=== PATIENT | female | born 1955 | race Caucasian/White ===

== ENCOUNTER 2016-07-02 13:07 | Emergency (ER) | payer OTHER ==
[2016-07-02] MEDS ORDERED: DELTASONE 20 MG PO ONE (13:45)
[2016-07-02] MEDS ORDERED: DELTASONE 20 MG ONE (13:49)
--- NOTE | 2016-07-02 13:51 | ERPHSYRPT ---
- History of Present Illness Time Seen by Provider: 07/02/16 13:35 Source: patient Exam Limitations: clinical condition Patient Subjective Stated Complaint: PT REPORTS BLISTERED AREA ON LEFT FORARM BEGINNING OVER THE WEEKEND-REPORTS PAIN ET ITCHING TO SITE-DENIES BITE Triage Nursing Assessment: PT PINK WARM ET DRY-RESP EASY ET NONLABORED- BLISTERED AREA NOTED WITH NO DRAIANGE Physician History: PATIENT HAS ITCHING OVER LEFT ELBOW FOR 2 WEEKS, ONSET OF RASH X 3 DAYS ASSOCIATED WITH ITCHING. DENIES FEVER. Timing/Duration: week(s) Quality: itchy Severity: moderate Location: extremities Possible Causes: no cause identified Modifying Factors: Improves With: scratching Associated Symptoms: other (RASH) Allergies/Adverse Reactions: No Known Drug Allergies Allergy (Verified 07/02/16 13:23) Home Medications: Folic Acid 1 mg [Folate 1 mg] 1 mg PO DAILY 01/06/13 [History] Potassium Chloride 20 Meq [Klor-Con 20 MEQ] 20 meq PO BID 01/06/13 [History] Bisoprolol Fumarate/Hctz [Bisoprolol-Hctz 10-6.25 mg Tab] 1 each PO DAILY [History] Levothyroxine Sodium 50 Mcg [Synthroid 50 Mcg] 50 mcg PO DAILY 01/19/15 [ History] PANTOPRAZOLE 40 mg Tablet [Protonix 40MG Tablet] 40 mg PO DAILY 01/19/15 [ History] Hx Tetanus, Diphtheria Vaccination/Date Given: Yes Hx Influenza Vaccination/Date Given: Yes Hx Pneumococcal Vaccination/Date Given: Yes Immunizations Up to Date: Yes - Review of Systems Constitutional: No Fever, No Chills Eyes: No Symptoms Ears, Nose, & Throat: No Symptoms Respiratory: No Cough, No Dyspnea Cardiac: No Chest Pain, No Edema, No Syncope Abdominal/Gastrointestinal: No Abdominal Pain, No Nausea, No Vomiting, No Diarrhea Genitourinary Symptoms: No Dysuria Musculoskeletal: No Back Pain, No Neck Pain Skin: Pruritis, Skin Lesions, No Rash Neurological: No Dizziness, No Focal Weakness, No Sensory Changes Psychological: No Symptoms Endocrine: No Symptoms All Other Systems: Reviewed and Negative - Past Medical History Pertinent Past Medical History: Yes Neurological History: No Pertinent History ENT History: No Pertinent History Cardiac History: Arrhythmia, Hypertension Respiratory History: No Pertinent History Endocrine Medical History: No Pertinent History Musculoskeletal History: Arthritis, Rheumatoid Arthritis GI Medical History: Other History: Other Psycho-Social History: Depression Female Reproductive Disorders: No Pertinent History Other Medical History: O.A. IN BOTH HANDS AND MOSTLY HER WHOLE BODY. - Past Surgical History Past Surgical History: Yes Neuro Surgical History: No Pertinent History Cardiac: No Pertinent History Respiratory: No Pertinent History Gastrointestinal: Cholecystectomy, Hernia Repair Genitourinary: Other Musculoskeletal: Other Female Surgical History: Lumpectomy, Tubal Ligation Other Surgical History: Kidney Stones. knee scope last saturday - Social History Smoking Status: Never smoker Exposure to second hand smoke: Yes Drug Use: none Patient Lives Alone: No - Female History Hx Now: No - Nursing Vital Signs Nursing Vital Signs: Initial Vital Signs Temperature 97.4 F Temperature Source Oral Pulse Rate 60 Respiratory Rate 22 Blood Pressure 137/75 Pain Intensity 10 - Physical Exam General Appearance: no apparent distress, alert Ears, Nose, Throat Exam: moist mucous membranes Respiratory Exam: No respiratory distress Gastrointestinal/Abdomen Exam: No tenderness Back Exam: No CVA tenderness, No vertebral tenderness Neurologic Exam: No motor deficits Skin Exam: rash, other (SCABBED VESICULAR LESIONS SURROUNDING ERYTHEMA AND WARMTH) SpO2 Interpretation: normal SpO2: 95 Oxygen Delivery: Room Air Ordered Tests: Medication Summary Generic Name Dose Route Start Last Admin Trade Name Freq PRN Reason Stop Dose Admin Prednisone 40 mg 07/02/16 13:45 Deltasone 20 Mg PO 07/02/16 13:46 STAT ONE - Progress Progress Note: 07/02/16 13:49 PATIENT GIVEN PREDNISONE 40MG ORALLY Counseled pt/family regarding: diagnosis, need for follow-up - Departure Time of Disposition: 14:00 Departure Disposition: Home Clinical Impression: CONTACT DERMATITIS/LOCALIZED CELLULITIS Condition: Stable Critical Care Time: No Additional Instructions: PREDNISONE 20MG, 2 TABLETS DAILY FOR 4 DAYS. ANTIBIOTIC AUGMENTIN 875MG TWICE DAILY FOR 10 DAYS. TAKE OVER THE COUNTER BENADRYL 50MG EVERY 4-6 HOURS FOR ITCHING NEEDED. TEMOVATE OINTMENT 0.05% APPLY OVER RASH 2-3 TIMES DAILY FOR 1 WEEK. Prescriptions: Clobetasol Propionate Oint [Temovate 0.05% OINTMENT] 15 gm TP Q8HPRN PRN #2 tube PRN Reason: Itching Amox Tr/Potass Clav. 875 mg [Augmentin 875-125 Tablet] 875 mg PO BID #20 tablet Prednisone 20 mg [Deltasone 20 mg] 2 tablet PO DAILY #8 tablet
[2016-07-02 14:02] VITALS: BP 129/75; PULSE 58; O2SAT 96
== END 2016-07-02 14:02 | disposition home or self-care (01) ==
LOC: ED 13:07
DX: L25.9 Unspecified contact dermatitis, unspecified cause (principal); L03.114 Cellulitis of left upper limb
CPT/HCPCS: 99282; A9270

== ENCOUNTER 2016-10-24 09:04 | Emergency (ER) | payer OTHER ==
[2016-10-24] MEDS ORDERED: BABY ASPIRIN 81 MG CHEW PO ONE (09:27)
[2016-10-24] MEDS ORDERED: Nitrostat 0.4 MG (ED) SL ONE ×2 (09:27→09:44)
[2016-10-24] MEDS ORDERED: BABY ASPIRIN 81 MG CHEW ONE (09:43)
--- NOTE | 2016-10-24 09:44 | ERPHSYRPT ---
- History of Present Illness Time Seen by Provider: 10/24/16 09:20 Historian: patient Exam Limitations: clinical condition Patient Subjective Stated Complaint: ONSET OF LEFT CHEST PAIN FOR SEVERAL DAYS. GOT WORSE THIS AM AFTER GOING TO WORK. Triage Nursing Assessment: AMBULATED TO ROOM PER SELF. PATIENT CRYING AND HOLDING LEFT CHEST. IS KEEPING EYES CLOSED DURING TRIAGE. SKIN W/D, COLOR NORMAL. BREATH SOUNDS CLEAR. HEART TONES SLOW AND REGULAR. TENDER TO TOUCH ON LEFT CHEST. Physician History: PATIENT WITH A HISTORY OF CHRONIC BACK PAIN, SCIATICA, COMPLAINS OF LEFT SIDED SEVERE CHEST PAIN OVER THE PAST 3-4 DAYS, SHARP IN CHARACTER, ONSET WITH INSPIRATION, MOTION OR TORSO. DENIES COUGH, DYSPNEA PALPITATIONS, RATES PAIN SCALE 8/10., Timing/Duration: day(s) Activities at Onset: activity Quality: sharpness, stabbing Location: other (LEFT SUBSTERNAL) Chest Pain Radiation: arm Severity of Pain-Max: severe Severity of Pain-Current: severe Modifying Factors: Improves With: breathing, change in position Associated Symptoms: hurts to breathe Prior Chest Pain/Cardiac Workup: no prior cardiac workup Nitro Today/Relief: no nitro taken today, 0.4 mg x 2 Aspirin Treatment Today: 81 mg x 4, provided by ED Allergies/Adverse Reactions: No Known Drug Allergies Allergy (Verified 10/24/16 09:56) Home Medications: Folic Acid 1 mg [Folate 1 mg] 1 mg PO DAILY 01/06/13 [History] Potassium Chloride 20 Meq [Klor-Con 20 MEQ] 20 meq PO BID 01/06/13 [History] Bisoprolol Fumarate/Hctz [Bisoprolol-Hctz 10-6.25 mg Tab] 1 each PO DAILY [History] Levothyroxine Sodium 50 Mcg [Synthroid 50 Mcg] 50 mcg PO DAILY 01/19/15 [ History] Aspirin [Kathleen Aspirin] 81 mg PO DAILY 10/24/16 [History] Dicyclomine HCl [Bentyl] 10 mg PO TID 10/24/16 [History] Ergocalciferol (Vitamin D2) [Vitamin D] 50,000 unit PO WEEKLY 10/24/16 [History] Escitalopram Oxalate 10 mg [Lexapro 10 MG] 10 mg PO DAILY 10/24/16 [History] Hydrocodone Bit/Acetaminophen [[place] 7.5-325 Tablet] 1 each PO TID 10/24/16 [ History] Hydroxychloroquine Sulfate [Plaquenil] 200 mg PO BID 10/24/16 [History] Meloxicam [Mobic] 15 mg PO DAILY 10/24/16 [History] Omeprazole [Prilosec] 40 mg PO UD 10/24/16 [History] Prednisone 5 mg PO DAILY 10/24/16 [History] Trazodone HCl 50 mg [Desyrel 50 mg] 75 mg PO HS 10/24/16 [History] Hx Tetanus, Diphtheria Vaccination/Date Given: Yes (4 YRS AGO) Hx Influenza Vaccination/Date Given: Yes Hx Pneumococcal Vaccination/Date Given: Yes - Review of Systems Constitutional: No Fever, No Chills Eyes: No Symptoms Ears, Nose, & Throat: No Symptoms Respiratory: No Cough, No Dyspnea Cardiac: Chest Pain, No Edema, No Syncope Abdominal/Gastrointestinal: No Symptoms, No Abdominal Pain, No Nausea, No Vomiting, No Diarrhea Genitourinary Symptoms: No Symptoms, No Dysuria Musculoskeletal: No Symptoms, No Back Pain, No Neck Pain Skin: No Rash Neurological: No Dizziness, No Focal Weakness, No Sensory Changes Psychological: No Symptoms Endocrine: No Symptoms All Other Systems: Reviewed and Negative - Past Medical History Pertinent Past Medical History: Yes Neurological History: No Pertinent History ENT History: No Pertinent History Cardiac History: Arrhythmia, Hypertension Respiratory History: No Pertinent History Endocrine Medical History: No Pertinent History Musculoskeletal History: Arthritis, Rheumatoid Arthritis GI Medical History: Other History: Other Psycho-Social History: Depression Female Reproductive Disorders: No Pertinent History Other Medical History: O.A. IN BOTH HANDS AND MOSTLY HER WHOLE BODY. - Past Surgical History Past Surgical History: Yes Neuro Surgical History: No Pertinent History Cardiac: No Pertinent History Respiratory: No Pertinent History Gastrointestinal: Cholecystectomy, Hernia Repair Genitourinary: Other Musculoskeletal: Other Female Surgical History: Lumpectomy, Tubal Ligation Other Surgical History: Kidney Stones. knee scope last saturday - Social History Smoking Status: Never smoker Exposure to second hand smoke: Yes Drug Use: none Patient Lives Alone: No - Female History Hx Now: No - Nursing Vital Signs Temperature: 97.3 F Temperature Source: Oral Pulse Rate: 47 Respiratory Rate: 20 Pain Intensity: 10 - Physical Exam SpO2: 96 Oxygen Delivery: Room Air - CT Exams Chest CT Interpretation: Discussed w/radiologist (THERE IS AN OCCLUDING EMBOLUS IN THE LINGULAR EMBOLUS) Ordered Tests: Active Orders 24 hr Category Date Time Status [employer] STAT Care 10/24/16 09:35 Active EKG-ER Only STAT Care 10/24/16 10:02 Active IV Insertion STAT Care 10/24/16 09:34 Active Oxygen-ED Only NASAL CANNULA 2 lpm Care 10/24/16 09:27 Active CHEST 1 VIEW (PORTABLE) Stat Exams 10/24/16 09:27 Completed CHEST WITH CONTRAST [CT] Stat Exams 10/24/16 10:33 Completed CBC W DIFF Stat Lab 10/24/16 09:36 Results CMP Stat Lab 10/24/16 09:36 Completed D-DIMER QUANTITATION Stat Lab 10/24/16 09:36 Completed PROTIME WITH INR Stat Lab 10/24/16 09:36 Completed Pathologist Review Stat Lab 10/24/16 09:36 Results TROPONIN Q3H Lab 10/24/16 09:36 Completed TROPONIN Q3H Lab 10/24/16 12:43 Completed TROPONIN Q3H Lab 10/24/16 15:30 Ordered TROPONIN Q3H Lab 10/24/16 18:30 Ordered Medication Summary Generic Name Dose Route Start Last Admin Trade Name Freq PRN Reason Stop Dose Admin Enoxaparin Sodium 90 mg 10/24/16 13:00 10/24/16 13:12 Enoxaparin Sodium SQ 11/23/16 12:59 90 mg Q12H TAMANNA Administration Discontinued Medications Generic Name Dose Route Start Last Admin Trade Name Freq PRN Reason Stop Dose Admin Aspirin 324 mg 10/24/16 09:27 10/24/16 09:33 Baby Aspirin 81 Mg Chew PO 10/24/16 09:28 324 mg STAT ONE Administration Aspirin Confirm 10/24/16 09:43 Baby Aspirin 81 Mg Chew Administered 10/24/16 09:44 Dose 324 mg .ROUTE .STK-MED ONE Diphenhydramine HCl 25 mg 10/24/16 11:18 10/24/16 11:19 Benadryl 50 Mg/Ml IV 10/24/16 11:19 25 mg STAT ONE Administration Diphenhydramine HCl Confirm 10/24/16 11:16 Benadryl 50 Mg/Ml Administered 10/24/16 11:17 Dose 50 mg .ROUTE .STK-MED ONE Enoxaparin Sodium Confirm 10/24/16 13:08 Enoxaparin Sodium Administered 10/24/16 13:09 Dose 120 mg SQ .STK-MED ONE Sodium Chloride 1,000 mls @ 999 mls/hr 10/24/16 09:46 10/24/16 09:52 Sodium Chloride 0.9% 1000 Ml IV 10/24/16 10:46 999 mls/hr .Q1H1M STA Administration Sodium Chloride Confirm 10/24/16 09:47 Sodium Chloride 0.9% 1000 Ml Administered 10/24/16 09:48 Dose 1,000 mls @ ud .ROUTE .STK-MED ONE Sodium Chloride Confirm 10/24/16 15:31 Sodium Chloride 0.9% 1000 Ml Administered 10/24/16 15:32 Dose 1,000 mls @ ud .ROUTE .STK-MED ONE Ketorolac Tromethamine 30 mg 10/24/16 09:45 10/24/16 09:52 Toradol 30 Mg Injection IV 10/24/16 09:46 30 mg STAT ONE Administration Ketorolac Tromethamine Confirm 10/24/16 09:47 Toradol 30 Mg Injection Administered 10/24/16 09:48 Dose 30 mg .ROUTE .STK-MED ONE Morphine Sulfate 4 mg 10/24/16 10:12 10/24/16 10:29 Morphine Sulfate 4 Mg Inj IV 10/24/16 10:13 4 mg STAT ONE Administration Morphine Sulfate Confirm 10/24/16 10:27 Morphine Sulfate 4 Mg Inj Administered 10/24/16 10:28 Dose 4 mg .ROUTE .STK-MED ONE Morphine Sulfate 4 mg 10/24/16 15:29 10/24/16 15:35 Morphine Sulfate 4 Mg Inj IV 10/24/16 15:30 4 mg STAT ONE Administration Morphine Sulfate Confirm 10/24/16 15:31 Morphine Sulfate 4 Mg Inj Administered 10/24/16 15:32 Dose 4 mg .ROUTE .STK-MED ONE Nitroglycerin 0.4 mg 10/24/16 09:27 10/24/16 09:33 Nitrostat 0.4 Mg (Ed) SL 10/24/16 09:28 0.4 mg STAT ONE Administration Nitroglycerin Confirm 10/24/16 09:44 Nitrostat 0.4 Mg (Ed) Administered 10/24/16 09:45 Dose 0.4 mg SL .STK-MED ONE Ondansetron HCl 4 mg 10/24/16 10:12 10/24/16 10:36 Zofran 4 Mg/2 Ml Vial IV 10/24/16 10:13 4 mg STAT ONE Administration Ondansetron HCl Confirm 10/24/16 10:33 Zofran 4 Mg/2 Ml Vial Administered 10/24/16 10:34 Dose 4 mg .ROUTE .STK-MED ONE Lab/Rad Data: Laboratory Result Diagrams 10/24/16 09:36 10/24/16 09:36 Laboratory Results 10/24/16 10/24/16 10/24/16 Range/Units 12:43 09:36 09:36 WBC (4.0-10.5) K/mm3 RBC (4.1-5.4) M/mm3 Hgb (12.0-16.0) gm/dl Hct (35-47) % MCV (78-100) fl MCH (26-32) pg MCHC (32-36) g/dl RDW (11.5-14.0) % Plt Count (150-450) K/mm3 MPV (6-9.5) fl Gran % (36.0-66.0) % Lymphocytes % (24.0-44.0) % Monocytes % (0.0-12.0) % Eosinophils % (0.00-5.0) % Basophils % (0.0-0.4) % Basophils # (0-0.4) Smear Path Review INR 1.04 (0.8-3.0) D-Dimer 0.615 H* (0.00-0.49) mg/L Sodium (136-145) mEq/L Potassium (3.5-5.1) mEq/L Chloride (98-107) mEq/L Carbon Dioxide (21-32) mEq/L Anion Gap (5-15) MEQ/L BUN (9-20) mg/dL Creatinine (0.55-1.30) mg/dl Estimated GFR ML/MIN Glucose (70-110) MG/DL Calcium (8.5-10.1) mg/dL Total Bilirubin (0.2-1.0) mg/dL AST (15-37) U/L ALT (12-78) U/L Alkaline Phosphatase (46-116) U/L Troponin I < 0.017 < 0.017 (0.000-0.056) ng/ml Serum Total Protein (6.4-8.2) gm/dL Albumin (3.4-5.0) g/dL Slides for Path Review 10/24/16 10/24/16 Range/Units 09:36 09:36 WBC 8.5 (4.0-10.5) K/mm3 RBC 4.38 (4.1-5.4) M/mm3 Hgb 13.6 (12.0-16.0) gm/dl Hct 41.6 (35-47) % MCV 95.0 (78-100) fl MCH 31.1 (26-32) pg MCHC 32.7 (32-36) g/dl RDW 13.8 (11.5-14.0) % Plt Count 13 L* (150-450) K/mm3 MPV 12.0 H (6-9.5) fl Gran % 59.4 (36.0-66.0) % Lymphocytes % 22.3 L (24.0-44.0) % Monocytes % 10.3 (0.0-12.0) % Eosinophils % 7.9 H (0.00-5.0) % Basophils % 0.1 (0.0-0.4) % Basophils # 0.01 (0-0.4) Smear Path Review Pending INR (0.8-3.0) D-Dimer (0.00-0.49) mg/L Sodium 139 (136-145) mEq/L Potassium 3.6 (3.5-5.1) mEq/L Chloride 104 (98-107) mEq/L Carbon Dioxide 25.2 (21-32) mEq/L Anion Gap 13.0 (5-15) MEQ/L BUN 18 (9-20) mg/dL Creatinine 0.82 (0.55-1.30) mg/dl Estimated GFR > 60 ML/MIN Glucose 126 H (70-110) MG/DL Calcium 9.0 (8.5-10.1) mg/dL Total Bilirubin 0.7 (0.2-1.0) mg/dL AST 21 (15-37) U/L ALT 21 (12-78) U/L Alkaline Phosphatase 66 (46-116) U/L Troponin I (0.000-0.056) ng/ml Serum Total Protein 7.5 (6.4-8.2) gm/dL Albumin 3.5 (3.4-5.0) g/dL Slides for Path Review YES - Progress Progress: improved Progress Note: 10/24/16 13:02 PATIENT GIVEN IV NORMAL SALINE 100ML/HR, 4 BABY ASPIRIN ORALLY, NTG 0.4MG SL X2 WITH MINIMAL RELIEF, MORPHINE SULFATE 4MG IV AND LOVENOX 90MG SUBCUTANEOUS Discussed with Dr.: Ruben Kahn (DISCUSSED WITH DR Elvi KAHN AAT 1500 ACCEPTS TRANSFER TO [facility]IA [facility]) - Departure Time of Disposition: 15:48 Departure Disposition: Transfer Clinical Impression: ACUTE CHEST PAIN/PULMONARY EMBOLUS Condition: Stable Critical Care Time: No Referrals: ADALGISA KAHN [Primary Care Provider] -
[2016-10-24] MEDS ORDERED: TORAdol 30 mg Injection IV ONE (09:45)
[2016-10-24] MEDS ORDERED: Sodium Chloride 0.9% 1000 ML 1,000 ML IV STA (09:46)
[2016-10-24] MEDS ORDERED: Sodium Chloride 0.9% 1000 ML 1,000 ML ONE ×2 (09:47→15:31)
[2016-10-24] MEDS ORDERED: TORAdol 30 mg Injection ONE (09:47)
[2016-10-24 10:06] LABS: INR 1.04 (0.8-3.0); PROTIME 11.6 SECONDS (9.95-12.35)
[2016-10-24 10:10] LABS: BASOPHIL % 0.1 % (0.0-0.4); Eosinophil % 7.9 % (0.00-5.0); Granulocytes % 59.4 % (36.0-66.0); Lymphocytes % 22.3 % (24.0-44.0); Mean Corpuscular Hemoglobin 31.1 pg (26-32); Monocytes % 10.3 % (0.0-12.0); Red Blood Count 4.38 M/mm3 (4.1-5.4); Red Cell Distribution Width 13.8 % (11.5-14.0); White Blood Count 8.5 K/mm3 (4.0-10.5)
[2016-10-24] MEDS ORDERED: Zofran 4 MG/2 ML VIAL IV ONE (10:12)
[2016-10-24] MEDS ORDERED: MORPHINE SULFATE 4 MG INJ IV ONE ×2 (10:12→15:29)
--- NOTE | 2016-10-24 10:13 | XRAY ---
Indication: Chest pain and short of breath. Comparison: September 10, 2011. Portable chest now demonstrates borderline cardiomegaly obscuring the left lung base. Vascularity normal. Stable bibasilar atelectasis/scarring. Remaining lungs clear. Bony thorax intact again with mild degenerative changes, lower cervical fusion, and right axillary nehemias dissection. Impression: New borderline cardiomegaly. Negative for acute pneumonic process or CHF.
[2016-10-24 10:15] LABS: ALBUMIN 3.5 g/dL (3.4-5.0); ALKALINE PHOSPHATASE 66 U/L (46-116); BILIRUBIN,TOTAL 0.7 mg/dL (0.2-1.0); BLOOD UREA NITROGEN 18 mg/dL (9-20); CHLORIDE 104 mEq/L (98-107); Carbon Dioxide 25.2 mEq/L (21-32); Glucose 126 MG/DL (70-110); Platelet Count 13 K/mm3 (150-450); Potassium 3.6 mEq/L (3.5-5.1); SGOT/AST 21 U/L (15-37); SGPT/ALT 21 U/L (12-78); SODIUM 139 mEq/L (136-145); Total Protein 7.5 gm/dL (6.4-8.2)
[2016-10-24] MEDS ORDERED: MORPHINE SULFATE 4 MG INJ ONE ×2 (10:27→15:31)
[2016-10-24] MEDS ORDERED: Zofran 4 MG/2 ML VIAL ONE (10:33)
[2016-10-24] MEDS ORDERED: BENADRYL 50 MG/ML ONE (11:16)
[2016-10-24] MEDS ORDERED: BENADRYL 50 MG/ML IV ONE (11:18)
--- NOTE | 2016-10-24 12:41 | XRAY ---
Indication: Left chest pain. Elevated D dimer. Multiple contiguous images obtained through the chest using 80 cc Isovue 370 contrast and PE protocol. Comparison: None There is satisfactory opacification of the pulmonary arteries to include the lobar and segmental branches. There is occluding embolus in the lingular branch. No other pulmonary embolus. Heart is enlarged. No pericardial effusion. Aorta is normal in course and caliber. A few subcarinal and left hilar calcified nodes. No pathologic mediastinal/hilar lymphadenopathy. Examination of the lung parenchyma demonstrates subsegmental atelectasis/scarring in the lingula, right middle, and both lower lobes. Left base calcified granuloma. No infiltrates or effusion. Bony thorax intact with minimal degenerative changes throughout the spine. Limited upper abdomen demonstrates diffuse fatty liver and right posterior lobe 5 mm hypodense lesion. Spleen is enlarged measuring 13.8 cm in greatest axial dimension. Previous cholecystectomy. Impression: 1. Lingular pulmonary embolus. No distal infarct. 2. Cardiomegaly, bilateral atelectasis/scarring, and evidence for old granulomatous disease. 3. Incidental fatty liver with indeterminate 5 mm hypodense lesion, cyst versus hemangioma. 4. Splenomegaly. CT DI 23.69
[2016-10-24] MEDS ORDERED: ENOXAPARIN SODIUM SQ SCH (13:00)
[2016-10-24] MEDS ORDERED: ENOXAPARIN SODIUM SQ ONE (13:08)
[2016-10-24 15:12] VITALS: BP 142/72
[2016-10-24 15:23] VITALS: PULSE 47; O2SAT 96
== END 2016-10-24 16:00 | disposition short-term general hospital (02) ==
LOC: ED 09:04
DX: R07.89 Other chest pain (principal); I26.99 Other pulmonary embolism without acute cor pulmonale
CPT/HCPCS: 36000; 36415; 71010; 71260; 80053; 84484; 85025; 85379; 85610; 93005; 93041; 96360; 96361; 96372; 96374; 96375; 99285; J1200; J1650; J1885; J2270; J2405; A9270-GY

== ENCOUNTER 2016-12-11 01:00 | Observation (INO) | payer OTHER ==
[2016-12-11] MEDS ORDERED: BABY ASPIRIN 81 MG CHEW PO ONE (01:36)
[2016-12-11] MEDS ORDERED: Nitrostat 0.4 MG (ED) SL ONE ×2 (01:36→01:40)
[2016-12-11] MEDS ORDERED: BABY ASPIRIN 81 MG CHEW ONE (01:40)
[2016-12-11] MEDS: Sodium Chloride 0.9% 1000 ML 1,000 ML IV SCH ×2 (01:42→20:47)
--- NOTE | 2016-12-11 01:44 | ERPHSYRPT ---
- History of Present Illness Time Seen by Provider: 12/11/16 01:30 Historian: patient Exam Limitations: clinical condition Patient Subjective Stated Complaint: Pt sts pain under left breast radiating down left arm and up into left neck worse with inspiration and palpation. Pt rates pain 10/10, sts pain is sharp. 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 Denies diaphoresis. Triage Nursing Assessment: Pt alert, oriented, answers questions appropriately. Pt able to transfer self from wheelchair to bed. Pt grimacing holding left anterior ribs. Skin p/w/d, resps non-labored. Lung sounds CTA bilat. Physician History: PATIENT WITH HISTORY OF HYPERTENSION, HYPOTHYROIDISM, RECENTLY DIAGNOSED WITH A PULMONARY EMBOLISM ON 10/24/2016COMPLAINS OF SEVERE SHARP PAINS BELOW HER LEFT BREAST SINCE 9PM LAST NIGHT WHICH IS EXACERBATED UPON INSPIRATION. STATES PAIN SCALE 10/10 RADIATES TO LEFT SIDE OF NECK. Activities at Onset: none Quality: sharpness, stabbing Location: other (LEFT LATERAL CHEST BELOW BREAST) Chest Pain Radiation: neck Severity of Pain-Max: severe Severity of Pain-Current: severe Modifying Factors: Improves With: breathing, change in position Associated Symptoms: hurts to breathe Prior Chest Pain/Cardiac Workup: no prior cardiac workup Nitro Today/Relief: provided by EMS Aspirin Treatment Today: 81 mg x 4, provided by ED Allergies/Adverse Reactions: No Known Drug Allergies Allergy (Verified 12/11/16 01:25) Home Medications: Folic Acid 1 mg [Folate 1 mg] 1 mg PO DAILY 01/06/13 [History] Potassium Chloride 20 Meq [Klor-Con 20 MEQ] 20 meq PO BID 01/06/13 [History] Bisoprolol Fumarate/Hctz [Bisoprolol-Hctz 10-6.25 mg Tab] 1 each PO DAILY [History] Levothyroxine Sodium 50 Mcg [Synthroid 50 Mcg] 50 mcg PO DAILY 01/19/15 [ History] Aspirin [[place] Aspirin] 81 mg PO DAILY 10/24/16 [History] Dicyclomine HCl [Bentyl] 10 mg PO TID 10/24/16 [History] Ergocalciferol (Vitamin D2) [Vitamin D] 50,000 unit PO WEEKLY 10/24/16 [History] Escitalopram Oxalate 10 mg [Lexapro 10 MG] 10 mg PO DAILY 10/24/16 [History] Hydrocodone Bit/Acetaminophen [[place] 7.5-325 Tablet] 1 each PO TID 10/24/16 [ History] Hydroxychloroquine Sulfate [Plaquenil] 200 mg PO BID 10/24/16 [History] Meloxicam [Mobic] 15 mg PO DAILY 10/24/16 [History] Omeprazole [Prilosec] 40 mg PO UD 10/24/16 [History] Prednisone 5 mg PO DAILY 10/24/16 [History] Trazodone HCl 50 mg [Desyrel 50 mg] 75 mg PO HS 10/24/16 [History] Rivaroxaban [Xarelto] 20 mg PO DAILY 12/11/16 [History] Hx Tetanus, Diphtheria Vaccination/Date Given: Yes (4 YRS AGO) Hx Influenza Vaccination/Date Given: Yes Hx Pneumococcal Vaccination/Date Given: Yes Immunizations Up to Date: Yes - Review of Systems Constitutional: No Symptoms Eyes: No Symptoms Ears, Nose, & Throat: No Symptoms Cardiac: Chest Pain Abdominal/Gastrointestinal: No Symptoms Genitourinary Symptoms: No Symptoms, Skin: No Symptoms Endocrine: No Symptoms - Past Medical History Pertinent Past Medical History: Yes Neurological History: No Pertinent History ENT History: No Pertinent History Cardiac History: Arrhythmia, Hypertension Respiratory History: No Pertinent History Endocrine Medical History: No Pertinent History Musculoskeletal History: Arthritis, Rheumatoid Arthritis GI Medical History: Other History: Other Psycho-Social History: Depression Female Reproductive Disorders: No Pertinent History Other Medical History: O.A. IN BOTH HANDS AND MOSTLY HER WHOLE BODY. - Past Surgical History Past Surgical History: Yes Neuro Surgical History: No Pertinent History Cardiac: No Pertinent History Respiratory: No Pertinent History Gastrointestinal: Cholecystectomy, Hernia Repair Genitourinary: Other Musculoskeletal: Other Female Surgical History: Lumpectomy, Tubal Ligation Other Surgical History: Kidney Stones. knee scope last saturday - Social History Smoking Status: Never smoker Exposure to second hand smoke: Yes Drug Use: none Patient Lives Alone: No - Female History Hx Now: No - Nursing Vital Signs Nursing Vital Signs: Initial Vital Signs Temperature 97.6 F Temperature Source Oral Pulse Rate 57 Respiratory Rate 16 Blood Pressure [] 134/62 Pain Intensity 8 - Physical Exam General Appearance: mild distress, alert Eye Exam: PERRL/EOMI, eyes nml inspection Ears, Nose, Throat Exam: normal ENT inspection, moist mucous membranes Neck Exam: normal inspection, non-tender, supple, full range of motion Respiratory Exam: normal breath sounds, chest tenderness (MARKED LEFT CHEST WALL TENDERNESS 4-5TH RIBS LEFT LATERAL CHEST WALL.), lungs clear, No respiratory distress Cardiovascular Exam: regular rate/rhythm, normal heart sounds Gastrointestinal/Abdomen Exam: soft, No tenderness, No mass Back Exam: normal inspection, No CVA tenderness, No vertebral tenderness Extremity Exam: normal inspection, normal range of motion Neurologic Exam: alert, oriented x 3, cooperative, normal mood/affect, sensation nml, No motor deficits Skin Exam: normal color, warm, dry SpO2: 97 Oxygen Delivery: Room Air - Course EKG Interpreted by Me: RATE, Sinus Rhythm, NORMAL AXIS - Radiology Exams Chest X-ray Interpretation: Interpreted by me, Negative Ordered Tests: Active Orders 24 hr Category Date Time Status Bedrest with BRP/BSC ROUTINE Activity 12/11/16 03:17 Ordered Admission/Status Order ROUTINE Care 12/11/16 03:17 Ordered Call Admit Doctor for Orders ROUTINE Care 12/11/16 03:17 Ordered Commercial Loan Officer STAT Care 12/11/16 01:36 Active Code Status Order ROUTINE Care 12/11/16 03:17 Ordered EKG-ER Only STAT Care 12/11/16 01:36 Active IV Care Q6H Care 12/11/16 03:17 Ordered IV Insertion STAT Care 12/11/16 01:36 Active Implement Chest Pain Pathway ROUTINE Care 12/11/16 03:17 Ordered Oxygen-ED Only NASAL CANNULA 2 lpm Care 12/11/16 01:36 Active Heraclio Neil, Apply ROUTINE Care 12/11/16 03:17 Ordered Telemetry ROUTINE Care 12/11/16 03:17 Ordered Vital Signs Q4H Care 12/11/16 03:17 Ordered Weight,Daily 0600 Care 12/11/16 03:17 Ordered Cardiac Diet Diet 12/11/16 Breakfast Ordered CHEST 1 VIEW (PORTABLE) Stat Exams 12/11/16 01:36 Taken CBC W DIFF Stat Lab 12/11/16 01:41 Completed CMP Stat Lab 12/11/16 01:41 Completed LIPID PROFILE AM.LAB Lab 12/11/16 04:00 Ordered Manual Differential NC Stat Lab 12/11/16 01:41 Completed PROTIME WITH INR Stat Lab 12/11/16 01:41 Completed TROPONIN Q3H Lab 12/11/16 01:45 Completed TROPONIN Q3H Lab 12/11/16 04:45 Ordered TROPONIN Q3H Lab 12/11/16 07:45 Ordered TROPONIN Q3H Lab 12/11/16 10:45 Ordered TROPONIN Q3H Lab 12/11/16 13:45 Ordered EKG Q8HX2,QAMX3,PRN RT 12/11/16 03:17 Ordered Pulse Oximetry Q4H RT 12/11/16 03:17 Ordered Transfer Order Routine Transfer 12/11/16 03:17 Ordered Medication Summary Generic Name Dose Route Start Last Admin Trade Name Freq PRN Reason Stop Dose Admin Sodium Chloride 1,000 mls @ 50 mls/hr 12/11/16 01:45 12/11/16 01:42 Sodium Chloride 0.9% 1000 Ml IV 01/10/17 01:44 50 mls/hr .Q20H TAMANNA Administration Discontinued Medications Generic Name Dose Route Start Last Admin Trade Name Freq PRN Reason Stop Dose Admin Aspirin 324 mg 12/11/16 01:36 12/11/16 01:42 Baby Aspirin 81 Mg Chew PO 12/11/16 01:37 324 mg STAT ONE Administration Aspirin Confirm 12/11/16 01:40 Baby Aspirin 81 Mg Chew Administered 12/11/16 01:41 Dose 324 mg .ROUTE .STK-MED ONE Morphine Sulfate 4 mg 12/11/16 02:15 12/11/16 02:21 Morphine Sulfate 4 Mg Inj IV 12/11/16 02:16 4 mg STAT ONE Administration Morphine Sulfate Confirm 12/11/16 02:19 Morphine Sulfate 4 Mg Inj Administered 12/11/16 02:20 Dose 4 mg .ROUTE .STK-MED ONE Nitroglycerin 0.4 mg 12/11/16 01:36 12/11/16 01:42 Nitrostat 0.4 Mg (Ed) SL 12/11/16 01:37 0.4 mg STAT ONE Administration Nitroglycerin Confirm 12/11/16 01:40 Nitrostat 0.4 Mg (Ed) Administered 12/11/16 01:41 Dose 0.4 mg SL .STK-MED ONE Ondansetron HCl 4 mg 12/11/16 02:14 12/11/16 02:21 Zofran 4 Mg/2 Ml Vial IV 12/11/16 02:15 4 mg STAT ONE Administration Ondansetron HCl Confirm 12/11/16 02:19 Zofran 4 Mg/2 Ml Vial Administered 12/11/16 02:20 Dose 4 mg .ROUTE .STK-MED ONE Lab/Rad Data: Laboratory Result Diagrams 12/11/16 01:41 12/11/16 01:41 Laboratory Results 12/11/16 12/11/16 12/11/16 Range/Units 01:45 01:41 01:41 WBC (4.0-10.5) K/mm3 RBC (4.1-5.4) M/mm3 Hgb (12.0-16.0) gm/dl Hct (35-47) % MCV (78-100) fl MCH (26-32) pg MCHC (32-36) g/dl RDW (11.5-14.0) % Plt Count (150-450) K/mm3 MPV (6-9.5) fl INR 1.78 (0.8-3.0) Sodium 139 (136-145) mEq/L Potassium 4.3 (3.5-5.1) mEq/L Chloride 105 (98-107) mEq/L Carbon Dioxide 26.3 (21-32) mEq/L Anion Gap 12.4 (5-15) MEQ/L BUN 17 (9-20) mg/dL Creatinine 0.89 (0.55-1.30) mg/dl Estimated GFR > 60 ML/MIN Glucose 117 H (70-110) MG/DL Calcium 9.4 (8.5-10.1) mg/dL Total Bilirubin 0.80 (0.2-1.0) mg/dL AST 39 H (15-37) U/L ALT 20 (12-78) U/L Alkaline Phosphatase 91 (46-116) U/L Troponin I < 0.017 (0.000-0.056) ng/ml Serum Total Protein 7.9 (6.4-8.2) gm/dL Albumin 3.5 (3.4-5.0) g/dL 12/11/16 Range/Units 01:41 WBC 7.0 (4.0-10.5) K/mm3 RBC 4.44 (4.1-5.4) M/mm3 Hgb 13.9 (12.0-16.0) gm/dl Hct 41.1 (35-47) % MCV 92.6 (78-100) fl MCH 31.3 (26-32) pg MCHC 33.8 (32-36) g/dl RDW 13.7 (11.5-14.0) % Plt Count 14 L* (150-450) K/mm3 MPV 9.2 (6-9.5) fl INR (0.8-3.0) Sodium (136-145) mEq/L Potassium (3.5-5.1) mEq/L Chloride (98-107) mEq/L Carbon Dioxide (21-32) mEq/L Anion Gap (5-15) MEQ/L BUN (9-20) mg/dL Creatinine (0.55-1.30) mg/dl Estimated GFR ML/MIN Glucose (70-110) MG/DL Calcium (8.5-10.1) mg/dL Total Bilirubin (0.2-1.0) mg/dL AST (15-37) U/L ALT (12-78) U/L Alkaline Phosphatase (46-116) U/L Troponin I (0.000-0.056) ng/ml Serum Total Protein (6.4-8.2) gm/dL Albumin (3.4-5.0) g/dL - Progress Progress Note: 12/11/16 01:47 PATIENT GIVEN BABY ASA 4 TABLETS, NITRO 0.4MG SL X 3 DOSES, MODERATE RELIEF CHEST AFTER MORPHINE SULFATE 4MG IV 12/11/16 03:[address] Santos (DISCUSSED WITH DR SANTOS AT 0300 FOR ADMISSION) - Departure Time of Disposition: 03:30 Departure Disposition: Observation Clinical Impression: ACUTE CHEST PAIN, THROMOBOCYTOPENIA Condition: Stable Critical Care Time: No Critical Care Time(excluding separately billable procedures): 30-74 minutes Referrals: ADALGISA KAHN [Primary Care Provider] -
[2016-12-11 02:02] LABS: INR 1.78 (0.8-3.0); PROTIME 20.2 SECONDS (9.95-12.35)
[2016-12-11 02:11] LABS: ALBUMIN 3.5 g/dL (3.4-5.0); ALKALINE PHOSPHATASE 91 U/L (46-116); ANION GAP 12.4 MEQ/L (5-15); BLOOD UREA NITROGEN 17 mg/dL (9-20); CHLORIDE 105 mEq/L (98-107); Carbon Dioxide 26.3 mEq/L (21-32); Glucose 117 MG/DL (70-110); Potassium 4.3 mEq/L (3.5-5.1); SGOT/AST 39 U/L (15-37); SGPT/ALT 20 U/L (12-78); SODIUM 139 mEq/L (136-145); Total Protein 7.9 gm/dL (6.4-8.2)
[2016-12-11] MEDS ORDERED: Zofran 4 MG/2 ML VIAL IV ONE (02:14)
[2016-12-11] MEDS ORDERED: MORPHINE SULFATE 4 MG INJ IV ONE (02:15)
[2016-12-11 02:16] LABS: Mean Cell Volume 92.6 fl (78-100); Mean Corpuscular Hemoglobin 31.3 pg (26-32); Mean Platelet Volume 9.2 fl (6-9.5); Red Blood Count 4.44 M/mm3 (4.1-5.4); Red Cell Distribution Width 13.7 % (11.5-14.0)
[2016-12-11] MEDS ORDERED: MORPHINE SULFATE 4 MG INJ ONE (02:19)
[2016-12-11] MEDS ORDERED: Zofran 4 MG/2 ML VIAL ONE (02:19)
[2016-12-11] MEDS ORDERED: MAALOX ES 30 ML UNIT DOSE PO PRN (03:17)
[2016-12-11] MEDS ORDERED: Nitrostat 0.4 MG Tablet SL PRN (03:17)
[2016-12-11] MEDS ORDERED: TYLENOL 325 MG PO PRN (03:17)
[2016-12-11] MEDS ORDERED: Senokot-S Tablet PO PRN (03:17)
[2016-12-11] MEDS ORDERED: MILK OF MAGNESIA 30 ML PO PRN (03:17)
[2016-12-11] MEDS ORDERED: Zofran 4 MG/2 ML VIAL IV PRN (03:17)
[2016-12-11] MEDS ORDERED: Norco 10/325 MG Tablet PO PRN (03:23)
[2016-12-11 05:03] LABS: Basophil 1 % (0.0-1.0); Eosinophil 7 % (0.00-3.0); Total Cells Counted 100
[2016-12-11 05:05] LABS: ANISOCYTOSIS 1+; Platelet Estimate DECREASED (NORMAL); Poikilocytosis 1+
[2016-12-11 05:09] LABS: Platelet Count 14 K/mm3 (150-450)
[2016-12-11] MEDS: NITRO-BID 2% UD PACKETS TOP SCH ×3 (05:36→22:10)
[2016-12-11] MEDS: XARELTO 10 MG TABLET PO SCH (09:17)
[2016-12-11] MEDS: SYNTHROID 50 MCG PO SCH (09:17)
--- NOTE | 2016-12-11 09:36 | XRAY ---
Indication: Left-sided chest pain. Comparison: October 24, 2016. Portable chest unchanged again demonstrating borderline cardiomegaly and minimal bibasilar fibrosis/scarring. Bony thorax intact again with lower cervical fusion surgery. No new/acute findings.
[2016-12-11] MEDS ORDERED: Ecotrin 325 MG PO SCH (10:00)
[2016-12-11] MEDS ORDERED: PHARMACY DOSING REQUEST MC ONE (10:50)
[2016-12-11] MEDS ORDERED: MORPHINE SULFATE 2 MG INJ IV PRN (10:51)
[2016-12-11] MEDS ORDERED: Phenergan 25 MG INJ IV PRN (11:50)
--- NOTE | 2016-12-11 12:11 | PCM.HP ---
History of Present Illness - Chief Complaint Chief Complaint: chest pain left side History of Present Illness: is a 61 year old female.Pt sts pain under left breast radiating down left arm and up into left neck worse with inspiration and palpation. Pt rates pain 10/10, sts pain is sharp. 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 Denies diaphoresis. - Review of Systems Constitutional: No Fever, No Chills Eyes: No Symptoms Ears, Nose, & Throat: No Symptoms Respiratory: No Cough, No Short Of Breath Cardiac: Chest Pain, No Edema, No Syncope Abdominal/Gastrointestinal: Nausea, Vomiting, No Abdominal Pain, No Diarrhea Genitourinary Symptoms: No Dysuria Musculoskeletal: No Back Pain, No Neck Pain Skin: No Rash Neurological: No Dizziness, No Focal Weakness, No Sensory Changes Psychological: No Symptoms Endocrine: No Symptoms Hematologic/Lymphatic: No Symptoms Immunological/Allergic: No Symptoms Medications & Allergies Home Medications: Home Medication List Folic Acid 1 mg [Folate 1 mg] 1 mg PO DAILY 01/06/13 [History Confirmed ] Potassium Chloride 20 Meq [Klor-Con 20 MEQ] 20 meq PO BID 01/06/13 [History Confirmed 12/11/16] Bisoprolol Fumarate/Hctz [Bisoprolol-Hctz 10-6.25 mg Tab] 1 each PO DAILY [History Confirmed 12/11/16] Levothyroxine Sodium 50 Mcg [Synthroid 50 Mcg] 50 mcg PO DAILY 01/19/15 [ History Confirmed 12/11/16] Aspirin [[place] Aspirin] 81 mg PO DAILY 10/24/16 [History Confirmed 12/11/16 ] Dicyclomine HCl [Bentyl] 10 mg PO TID 10/24/16 [History Confirmed 12/11/16] Ergocalciferol (Vitamin D2) [Vitamin D] 50,000 unit PO WEEKLY 10/24/16 [History Confirmed 12/11/16] Escitalopram Oxalate 10 mg [Lexapro 10 MG] 10 mg PO DAILY 10/24/16 [History Confirmed 12/11/16] Hydroxychloroquine Sulfate [Plaquenil] 200 mg PO BID 10/24/16 [History Confirmed 12/11/16] Meloxicam [Mobic] 50 mg PO DAILY 10/24/16 [History Confirmed 12/11/16] Omeprazole [Prilosec] 40 mg PO DAILY 10/24/16 [History Confirmed 12/11/16] Prednisone 5 mg PO DAILY 10/24/16 [History Confirmed 12/11/16] Trazodone HCl 50 mg [Desyrel 50 mg] 75 mg PO HS 10/24/16 [History Confirmed 12/11/16] Hydrocodone Bit/Acetaminophen [Hydrocodon-Acetaminophen 5-325] 1 each PO Q6HPRN PRN 12/11/16 [History Confirmed 12/11/16] Rivaroxaban [Xarelto] 20 mg PO DAILY 12/11/16 [History Confirmed 12/11/16] Allergies/Adverse Reactions: Allergies Allergy/AdvReac Type Severity Reaction Status Date / Time No Known Drug Allergies Allergy Verified 12/11/16 01:25 - Past Medical History Past Medical History: Yes Neurological History: No Pertinent History ENT History: No Pertinent History Cardiac History: Arrhythmia, Hypertension Respiratory History: No Pertinent History Endocrine Medical History: No Pertinent History Musculoskelatal History: Arthritis, Rheumatoid Arthritis GI Medical History: Other History: Other Pyscho-Social History: Depression Reproductive Disorders: No Pertinent History Comment: O.A. IN BOTH HANDS AND MOSTLY HER WHOLE BODY. - Female History Are you now?: No - Past Surgical History Past Surgical History: Yes Neuro Surgical History: No Pertinent History Cardiac History: No Pertinent History Respiratory Surgery: No Pertinent History GI Surgical History: Cholecystectomy, Hernia Repair Genitourinary Surgical Hx: Other Musculskeletal Surgical Hx: Other Female Surgical History: Lumpectomy, Tubal Ligation Other Surgical History: Kidney Stones. knee scope last saturday - Social History Smoking Status: Never smoker Exposure to second hand smoke: Yes Alcohol: None Drug Use: none - Physical Exam Vital Signs: Vital Signs - 24 hr Temp Pulse Resp BP Pulse Ox 12/11/16 11:42 54 L 18 123/69 94 L 12/11/16 07:41 97 12/11/16 07:12 98.4 F 63 18 122/60 97 12/11/16 04:05 54 L 16 124/65 12/11/16 03:24 97 12/11/16 03:03 57 L 16 134/62 96 12/11/16 01:47 64 20 136/73 94 L 12/11/16 01:20 97.6 F 57 L 22 173/96 97 General Appearance: no apparent distress, alert Neurologic Exam: alert, oriented x 3, cooperative, normal mood/affect, nml cerebellar function, nml station & gait, sensation nml, No motor deficits Eye Exam: PERRL/EOMI, eyes nml inspection Ears, Nose, Throat Exam: normal ENT inspection, TMs normal, pharynx normal, moist mucous membranes Neck Exam: normal inspection, non-tender, supple, full range of motion Respiratory Exam: normal breath sounds, lungs clear, No respiratory distress Cardiovascular Exam: regular rate/rhythm, normal heart sounds, normal peripheral pulses Gastrointestinal/Abdomen Exam: soft, normal bowel sounds, No tenderness, No mass Back Exam: normal inspection, normal range of motion, No CVA tenderness, No vertebral tenderness Extremity Exam: normal inspection, normal range of motion, pelvis stable Skin Exam: normal color, warm, dry, No rash Lymphatic Exam: No adenopathy Results - Labs Lab/Micro Results: Lab Results-Last 24 Hours 12/11/16 12/11/16 12/11/16 Range/Units 04:30 04:30 07:48 Troponin I < 0.017 < 0.017 (0.000-0.056) ng/ml Triglycerides 62 (30-200) mg/dL Cholesterol 151 (100-200) mg/dL LDL Cholesterol 101 H (5-99) mg/dL HDL Cholesterol 36 (35-60) mg/dL Heart Disease Risk Ratio 4.2 12/11/16 Range/Units 10:30 Troponin I < 0.017 (0.000-0.056) ng/ml Triglycerides (30-200) mg/dL Cholesterol (100-200) mg/dL LDL Cholesterol (5-99) mg/dL HDL Cholesterol (35-60) mg/dL Heart Disease Risk Ratio - Other Procedures and Tests Respiratory Therapy 12/12/16 05:00 EKG DAILY 12/13/16 05:00 EKG DAILY 12/14/16 05:00 EKG DAILY Assessment/Plan (1) Pulmonary embolus and infarction Current Visit: Yes Status: Acute Code(s): I26.99 - OTHER PULMONARY EMBOLISM WITHOUT ACUTE COR PULMONALE
[2016-12-11] MEDS ORDERED: NORCO 5/325 MG PO PRN (13:00)
[2016-12-11] MEDS ORDERED: SYNTHROID 50 MCG PO SCH (13:15)
[2016-12-11] MEDS ORDERED: MEDICATION INTERVENTION MC PRN (13:33)
[2016-12-11] MEDS: Lexapro 10 MG PO SCH (14:27)
[2016-12-11] MEDS: Protonix 40MG Tablet PO SCH (14:27)
[2016-12-11] MEDS: FOLATE 1 MG PO SCH (14:27)
[2016-12-11] MEDS: Mobic 7.5 MG PO SCH (14:27)
[2016-12-11] MEDS ORDERED: DICYCLOMINE HCL 10 MG PO SCH (15:00)
[2016-12-11] MEDS: BENTYL 20 MG PO SCH (16:36)
[2016-12-11] MEDS ORDERED: Sodium Chloride 0.9% 1000 ML 1,000 ML ONE (20:47)
[2016-12-11] MEDS ORDERED: DESYREL 50 MG PO SCH (22:00)
[2016-12-11] MEDS ORDERED: NON-FORMULARY ITEM (Hydroxychloroquine Sulfate [Plaquenil] 0 MG) PO SCH (22:00)
[2016-12-11] MEDS ORDERED: NON-FORMULARY ITEM (Hydroxychloroquine Sulfate [Plaquenil] 200 MG) PO SCH (22:00)
[2016-12-11] MEDS ORDERED: NON-FORMULARY ITEM (Potassium Chloride 20 Meq [Klor-Con 20 Meq] 20 MEQ) PO SCH (22:00)
[2016-12-11] MEDS: Klor Con 10 MEQ PO SCH (22:07)
[2016-12-12] MEDS: NITRO-BID 2% UD PACKETS TOP SCH (05:50)
[2016-12-12] MEDS: BENTYL 20 MG PO SCH ×2 (07:42→12:17)
[2016-12-12] MEDS: FOLATE 1 MG PO SCH (09:48)
[2016-12-12] MEDS: SYNTHROID 50 MCG PO SCH (09:48)
[2016-12-12] MEDS: Klor Con 10 MEQ PO SCH (09:48)
[2016-12-12] MEDS: Protonix 40MG Tablet PO SCH (09:48)
[2016-12-12] MEDS: Lexapro 10 MG PO SCH (09:48)
[2016-12-12] MEDS: Mobic 7.5 MG PO SCH (09:48)
[2016-12-12] MEDS: XARELTO 10 MG TABLET PO SCH (09:49)
[2016-12-12] MEDS ORDERED: NON-FORMULARY ITEM (Omeprazole [Prilosec] 40 MG) PO SCH (10:00)
[2016-12-12] MEDS ORDERED: BISOPROLOL FUMARATE PO SCH (10:00)
[2016-12-12] MEDS ORDERED: DELTASONE 5 MG PO SCH (10:00)
[2016-12-12] MEDS ORDERED: ECOTRIN 81 MG PO SCH (10:00)
[2016-12-12] MEDS ORDERED: PATIENT OWN MEDICATION PO SCH (10:00)
[2016-12-12] MEDS ORDERED: MELOXICAM PO SCH (10:00)
[2016-12-12] MEDS ORDERED: HCTZ PO SCH (10:00)
[2016-12-12 17:31] VITALS: BP 141/63; PULSE 61; O2SAT 94
[2016-12-15] MEDS ORDERED: VITAMIN D2 PO SCH (10:00)
== END 2016-12-12 13:40 | disposition home health service (06) ==
LOC: ED 01:00 → MED SURG 04:04
PROVIDERS: ADMIT General Practice; ATTEND General Practice
DX: I26.99 Other pulmonary embolism without acute cor pulmonale (principal); Z79.01 Long term (current) use of anticoagulants; I10 Essential (primary) hypertension; M06.9 Rheumatoid arthritis, unspecified; M19.90 Unspecified osteoarthritis, unspecified site; F32.9 Major depressive disorder, single episode, unspecified
CPT/HCPCS: 36000; 36415; 71010; 80053; 80061; 83721; 84484; 85025; 85610; 93005; 93041; 93268; 96374; 96375; 99285; G0378; J2270; J2405; J2550; A9270-GY; J7506

== ENCOUNTER 2017-02-05 15:08 | Emergency (ER) | payer OTHER ==
--- NOTE | 2017-02-05 15:32 | ERPHSYRPT ---
- History of Present Illness Time Seen by Provider: 02/05/17 15:24 Source: patient Physician History: CC: dysuria Hx: 61 y/o patient of Dr Elvi Kahn. She has burning with urination. Urinary urgency. Pain in vaginal area. No abd pain. No N//V. No fever. Some low back pain. Pain moderate. 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 Timing/Duration: today Allergies/Adverse Reactions: No Known Drug Allergies Allergy (Verified 02/05/17 15:32) Home Medications: Aspirin [[place] Aspirin] 81 mg PO DAILY 10/24/16 [History] Escitalopram Oxalate 10 mg [Lexapro 10 MG] 10 mg PO DAILY 10/24/16 [History] Trazodone HCl 50 mg [Desyrel 50 mg] 75 mg PO HS 10/24/16 [History] Hydrocodone Bit/Acetaminophen [Hydrocodon-Acetaminophen 5-325] 1 each PO Q6HPRN PRN 12/11/16 [History] Hx Tetanus, Diphtheria Vaccination/Date Given: Yes (4 YRS AGO) Hx Influenza Vaccination/Date Given: Yes Hx Pneumococcal Vaccination/Date Given: Yes - Review of Systems Constitutional: No Fever, No Chills Eyes: No Symptoms Ears, Nose, & Throat: No Symptoms Respiratory: No Cough Cardiac: No Chest Pain Abdominal/Gastrointestinal: No Abdominal Pain, No Nausea, No Vomiting Genitourinary Symptoms: Dysuria, Urgency, Flank Pain Skin: No Rash Neurological: No Headache All Other Systems: Reviewed and Negative - Past Medical History Pertinent Past Medical History: Yes Neurological History: No Pertinent History ENT History: No Pertinent History Cardiac History: Arrhythmia, Hypertension Respiratory History: No Pertinent History Endocrine Medical History: No Pertinent History Musculoskeletal History: Arthritis, Rheumatoid Arthritis GI Medical History: Other History: Other Psycho-Social History: Depression Female Reproductive Disorders: No Pertinent History Other Medical History: O.A. IN BOTH HANDS AND MOSTLY HER WHOLE BODY. - Past Surgical History Past Surgical History: Yes Neuro Surgical History: No Pertinent History Cardiac: No Pertinent History Respiratory: No Pertinent History Gastrointestinal: Cholecystectomy, Hernia Repair Genitourinary: Other Musculoskeletal: Other Female Surgical History: Lumpectomy, Tubal Ligation Other Surgical History: Kidney Stones. knee scope last saturday - Social History Smoking Status: Never smoker Exposure to second hand smoke: Yes Drug Use: none Patient Lives Alone: No - Female History Hx Now: No - Nursing Vital Signs Nursing Vital Signs: Initial Vital Signs Temperature 98.4 F 02/05/17 15:28 Pulse Rate 65 02/05/17 15:28 Respiratory Rate 20 02/05/17 15:28 Blood Pressure 153/74 02/05/17 15:28 O2 Sat by Pulse Oximetry 96 02/05/17 15:28 Pain Scale Pain Intensity 10 - Physical Exam General Appearance: alert, other (pleasant lady) Eye Exam: PERRL/EOMI Ears, Nose, Throat Exam: moist mucous membranes Neck Exam: normal inspection, non-tender, supple Respiratory Exam: normal breath sounds Cardiovascular Exam: regular rate/rhythm Gastrointestinal/Abdomen Exam: soft, No tenderness, No distention, No guarding Extremity Exam: normal inspection, normal range of motion Neurologic Exam: alert, oriented x 3, cooperative, sensation nml, No motor deficits Skin Exam: warm, dry - Course Nursing assessment & vital signs reviewed: Yes - Radiology Ultrasound Exam kidney Ultrasound: tele radiology report, negative Ordered Tests: Active Orders 24 hr Category Date Time Status Clean Catch Urine Specimen STAT Care 02/05/17 15:27 Active IV Insertion STAT Care 02/05/17 15:27 Active KIDNEY [US] Stat Exams 02/05/17 15:59 Completed CBC W DIFF Stat Lab 02/05/17 15:35 Completed CMP Stat Lab 02/05/17 15:35 Completed Lactic Acid Stat Lab 02/05/17 15:30 Completed Manual Differential NC Stat Lab 02/05/17 15:35 Completed UA W/ MICROSCOPIC Stat Lab 02/05/17 15:35 Completed Lab/Rad Data: Laboratory Result Diagrams 02/05/17 15:35 02/05/17 15:35 Laboratory Results 02/05/17 02/05/17 02/05/17 Range/Units 15:35 15:35 15:35 WBC 8.0 (4.0-10.5) K/mm3 RBC 4.36 (4.1-5.4) M/mm3 Hgb 13.7 (12.0-16.0) gm/dl Hct 41.5 (35-47) % MCV 95.2 (78-100) fl MCH 31.4 (26-32) pg MCHC 33.0 (32-36) g/dl RDW 14.4 H (11.5-14.0) % Plt Count 114 L (150-450) K/mm3 MPV 12.2 H (6-9.5) fl Sodium 142 (136-145) mEq/L Potassium 4.0 (3.5-5.1) mEq/L Chloride 107 (98-107) mEq/L Carbon Dioxide 24.3 (21-32) mEq/L Anion Gap 14.7 (5-15) MEQ/L BUN 19 (9-20) mg/dL Creatinine 0.94 (0.55-1.30) mg/dl Estimated GFR > 60 ML/MIN Glucose 116 H (70-110) MG/DL Lactic Acid (0.4-2.0) Calcium 9.3 (8.5-10.1) mg/dL Total Bilirubin 0.60 (0.2-1.0) mg/dL AST 32 (15-37) U/L ALT 24 (12-78) U/L Alkaline Phosphatase 76 (46-116) U/L Serum Total Protein 7.9 (6.4-8.2) gm/dL Albumin 3.7 (3.4-5.0) g/dL Ur Collection Type VOID Urine Color YELLOW (YELLOW) Urine Appearance HAZY (CLEAR) Urine pH 5.0 (5-6) Ur Specific [place] 1.020 (1.005-1.025) Urine Protein TRACE (Negative) Urine Ketones NEGATIVE (NEGATIVE) Urine Blood 250 (0-5) Bryan/ul Urine Nitrite NEGATIVE (NEGATIVE) Urine Bilirubin NEGATIVE (NEGATIVE) Urine Urobilinogen NORMAL (0-1) mg/dL Ur Leukocyte Esterase TRACE (NEGATIVE) Urine Microscopic RBC >100 (0-2) /HPF Urine Microscopic WBC 10-15 (0-5) /HPF Ur Epithelial Cells RARE (FEW) /HPF Urine Bacteria MODERATE (NEGATIVE) /HPF Urine Glucose NEGATIVE (NEGATIVE) mg/dL Specimen Received 02/05/17 1530 02/05/17 Range/Units 15:30 WBC (4.0-10.5) K/mm3 RBC (4.1-5.4) M/mm3 Hgb (12.0-16.0) gm/dl Hct (35-47) % MCV (78-100) fl MCH (26-32) pg MCHC (32-36) g/dl RDW (11.5-14.0) % Plt Count (150-450) K/mm3 MPV (6-9.5) fl Sodium (136-145) mEq/L Potassium (3.5-5.1) mEq/L Chloride (98-107) mEq/L Carbon Dioxide (21-32) mEq/L Anion Gap (5-15) MEQ/L BUN (9-20) mg/dL Creatinine (0.55-1.30) mg/dl Estimated GFR ML/MIN Glucose (70-110) MG/DL Lactic Acid 1.6 (0.4-2.0) Calcium (8.5-10.1) mg/dL Total Bilirubin (0.2-1.0) mg/dL AST (15-37) U/L ALT (12-78) U/L Alkaline Phosphatase (46-116) U/L Serum Total Protein (6.4-8.2) gm/dL Albumin (3.4-5.0) g/dL Ur Collection Type Urine Color (YELLOW) Urine Appearance (CLEAR) Urine pH (5-6) Ur Specific [place] (1.005-1.025) Urine Protein (Negative) Urine Ketones (NEGATIVE) Urine Blood (0-5) Bryan/ul Urine Nitrite (NEGATIVE) Urine Bilirubin (NEGATIVE) Urine Urobilinogen (0-1) mg/dL Ur Leukocyte Esterase (NEGATIVE) Urine Microscopic RBC (0-2) /HPF Urine Microscopic WBC (0-5) /HPF Ur Epithelial Cells (FEW) /HPF Urine Bacteria (NEGATIVE) /HPF Urine Glucose (NEGATIVE) mg/dL Specimen Received - Progress Progress Note: 02/05/17 17:02 She appears to have UTI. Alfonsoo ok. Rx given. Counseled pt/family regarding: lab results, diagnosis, need for follow-up - Departure Time of Disposition: 17:02 Departure Disposition: Home Clinical Impression: UTI (urinary tract infection) Qualifiers: Urinary tract infection type: site unspecified Hematuria presence: with hematuria Qualified Code(s): N39.0 - Urinary tract infection, site not specified ; R31.9 - Hematuria, unspecified Condition: Stable Critical Care Time: No Referrals: ADALGISA KAHN [Primary Care Provider] - Instructions: Urinary Tract Infection (UTI) Additional Instructions: URINARY TRACT INFECTION 1. You will need to drink plenty of fluids in order to keep your urinary system flushed. These fluids should mainly consist of water and juices. 2. Take medications as directed. You need to completely finish any antiobiotic prescription given. 3. Try to avoid coffee, tea, alcohol, and seasoned foods as they may cause bladder irritation. 4. If signs and symptoms persist after 3-4 days, you will need to follow up with your family physician. 5. Female Patients: A. Avoid intercourse for 3-4 days. B. Empty bladder before and after intercourse to reduce risk of re- infection. C. After emptying bladder, wipe from front to back to reduce the risk of re- infection. Rx keflex. Rx pyridium. Follow up with Dr Kahn. Prescriptions: Cephalexin Mh 500 mg [Keflex 500 mg] 1 cap PO QID #28 capsule Phenazopyridine HCl 200 mg [Pyridium 200 mg] 1 tab PO TID #6 tablet
[2017-02-05 15:40] LABS: Mean Cell Volume 95.2 fl (78-100); Mean Corpuscular Hemoglobin 31.4 pg (26-32); Mean Platelet Volume 12.2 fl (6-9.5); Red Blood Count 4.36 M/mm3 (4.1-5.4); Red Cell Distribution Width 14.4 % (11.5-14.0)
[2017-02-05 15:49] LABS: Bacteria MODERATE /HPF (NEGATIVE); Bilirubin NEGATIVE (NEGATIVE); Blood 250 Ery/ul (0-5); COMPLETE URINE MICROSCOPIC? YES; Collection Type VOID; Epithelial Cells RARE /HPF (FEW); Glucose NEGATIVE (NEGATIVE); Leukocyte Esterase TRACE (NEGATIVE)
[2017-02-05 15:50] LABS: ADD URINE CULTURE? YES (NO)
[2017-02-05 16:04] LABS: ALBUMIN 3.7 g/dL (3.4-5.0); ALKALINE PHOSPHATASE 76 U/L (46-116); ANION GAP 14.7 MEQ/L (5-15); BLOOD UREA NITROGEN 19 mg/dL (9-20); CHLORIDE 107 mEq/L (98-107); Carbon Dioxide 24.3 mEq/L (21-32); Glucose 116 MG/DL (70-110); SGOT/AST 32 U/L (15-37); SGPT/ALT 24 U/L (12-78); SODIUM 142 mEq/L (136-145); Total Protein 7.9 gm/dL (6.4-8.2)
[2017-02-05 16:26] VITALS: PULSE 50
--- NOTE | 2017-02-05 16:37 | XRAY ---
Indication: Back pain. Hematuria. Two-dimensional renal sonogram performed. Comparison: July 20, 2009. Both kidneys again normal in reniform shape with normal color perfusion. Right kidney measures 9.8 x 3.9 x 4.8 cm and left measures 10.1 x 4.2 x 4.5 cm. No suspicious renal mass, hydronephrosis, or perinephric fluid. Cortical medullary differentiation preserved without cortical thinning. Urinary bladder is near empty. Ureteral jets not seen within the allotted exam time. Impression: Stable negative renal sonogram.
[2017-02-05 16:50] LABS: Platelet Count 114 K/mm3 (150-450)
[2017-02-05 17:00] VITALS: BP 137/60; O2SAT 97
[2017-02-05 19:07] LABS: BAND 1 % (0.0-2.0); Eosinophil 4 % (0.00-3.0); Platelet Estimate NORMAL (NORMAL); Total Cells Counted 100
== END 2017-02-05 17:13 | disposition home or self-care (01) ==
LOC: ED 15:08
DX: N39.0 Urinary tract infection, site not specified (principal); R31.9 Hematuria, unspecified; R39.15 Urgency of urination; R10.2 Pelvic and perineal pain; Z79.01 Long term (current) use of anticoagulants; M54.5 Low back pain; I10 Essential (primary) hypertension
CPT/HCPCS: 36000; 36415; 76770; 80053; 81000; 83605; 85025; 87077; 87086; 87186; 99284

== ENCOUNTER 2017-08-07 09:22 | Observation (INO) | payer OTHER, SELFPAY ==
--- NOTE | 2017-08-07 10:03 | ERPHSYRPT ---
- History of Present Illness Time Seen by Provider: 08/07/17 09:55 Historian: patient Exam Limitations: no limitations Patient Subjective Stated Complaint: mid upper abd pain Triage Nursing Assessment: to er c/o abd pain to mid upper abd pt reports urgency with urination and decreased output. pt denies any n/v/d. pt arrives p/ wd resp easy a@ox3 pt guarding abd and grimacing Physician History: The patient is a 61-year-old female with her complaining of worsening epigastric pain that began yesterday evening. She denies nausea, vomiting, or diarrhea. She denies chills or fever. For the past 2-3 days she has urinary urgency and frequency. She has not taken needed prescription medicines since April when she lost her insurance. Her past medical history is significant for hypertension and cholecystectomy. She does not remember the rest of her past medical history. Timing/Duration: yesterday, gradual onset, worse Activities at Onset: none Quality: sharpness, stabbing Abdominal Pain Onset Location: epigastric Pain Radiation: no radiation Severity of Pain-Max: severe Severity of Pain-Current: severe Modifying Factors: Improves With: nothing Associated Symptoms: other (urinary urgency), No diarrhea, No nausea, No vomiting Previous symptoms: no prior history Allergies/Adverse Reactions: No Known Drug Allergies Allergy (Verified 02/05/17 15:32) Home Medications: No Reportable Medications [No Reported Medications] 08/07/17 [History] Hx Tetanus, Diphtheria Vaccination/Date Given: Yes (4 YRS AGO) Hx Influenza Vaccination/Date Given: Yes Hx Pneumococcal Vaccination/Date Given: No - Review of Systems Constitutional: No Fever, No Chills Eyes: No Symptoms Ears, Nose, & Throat: No Symptoms Respiratory: No Cough, No Dyspnea Cardiac: No Chest Pain, No Edema, No Syncope Abdominal/Gastrointestinal: Abdominal Pain, No Nausea, No Vomiting, No Diarrhea Genitourinary Symptoms: Frequency, Urgency Musculoskeletal: No Back Pain, No Neck Pain Skin: No Rash Neurological: No Dizziness, No Focal Weakness, No Sensory Changes Psychological: No Symptoms Endocrine: No Symptoms Hematologic/Lymphatic: No Symptoms Immunological/Allergic: No Symptoms All Other Systems: Reviewed and Negative - Past Medical History Pertinent Past Medical History: Yes Neurological History: No Pertinent History ENT History: No Pertinent History Cardiac History: Arrhythmia, Hypertension Respiratory History: No Pertinent History Endocrine Medical History: No Pertinent History Musculoskeletal History: Arthritis, Rheumatoid Arthritis GI Medical History: Other History: Other Psycho-Social History: Depression Female Reproductive Disorders: No Pertinent History Other Medical History: O.A. IN BOTH HANDS AND MOSTLY HER WHOLE BODY. - Past Surgical History Past Surgical History: Yes Neuro Surgical History: No Pertinent History Cardiac: No Pertinent History Respiratory: No Pertinent History Gastrointestinal: Cholecystectomy, Hernia Repair Genitourinary: Other Musculoskeletal: Other Female Surgical History: Lumpectomy, Tubal Ligation Other Surgical History: Kidney Stones. knee scope last saturday - Social History Smoking Status: Never smoker Exposure to second hand smoke: Yes Drug Use: none Patient Lives Alone: No - Nursing Vital Signs Nursing Vital Signs: Initial Vital Signs Temperature 98.2 F 08/07/17 09:30 Pulse Rate 85 08/07/17 09:30 Respiratory Rate 20 08/07/17 09:30 Blood Pressure 181/96 08/07/17 09:30 O2 Sat by Pulse Oximetry 95 08/07/17 09:30 Pain Scale Pain Intensity 9 - Physical Exam General Appearance: moderate distress Eye Exam: PERRL/EOMI, eyes nml inspection Ears, Nose, Throat Exam: normal ENT inspection, pharynx normal, moist mucous membranes Neck Exam: normal inspection, non-tender, supple, full range of motion Respiratory Exam: normal breath sounds, lungs clear, No respiratory distress Cardiovascular Exam: regular rate/rhythm, normal heart sounds Gastrointestinal/Abdomen Exam: tenderness (epigastric) Pelvic Exam: not done Rectal Exam: not done Back Exam: normal inspection, normal range of motion, No CVA tenderness, No vertebral tenderness Extremity Exam: normal inspection, normal range of motion, pelvis stable Neurologic Exam: alert, oriented x 3, cooperative, normal mood/affect, nml cerebellar function, sensation nml, No motor deficits Skin Exam: normal color, warm, dry SpO2 Interpretation: normal SpO2: 95 Oxygen Delivery: Room Air - Course EKG Interpreted by Me: RATE, Sinus Rhythm, NORMAL AXIS, NORMAL INTERVALS, NORMAL QRS, NORMAL ST-T, Other (no change comp EKG 12/12/16) - CT Exams Abdomen/Pelvis CT Interpretation: Tele-radiologist Report, Other (cul-de-sac fluid from ruptured cyst; stable diverticulosis; again splenomegaly per Dr Omer.) Ordered Tests: Active Orders 24 hr Category Date Time Status EKG-ER Only STAT Care 08/07/17 10:07 Active IV Insertion STAT Care 08/07/17 10:07 Active ABDOMEN AND PELVIS W/0 CONTRAS [CT] Stat Exams 08/07/17 12:00 Completed AMYLASE Stat Lab 08/07/17 10:20 Completed CBC W DIFF Stat Lab 08/07/17 10:20 Completed CMP Stat Lab 08/07/17 10:20 Completed CULTURE,URINE Stat Lab 08/07/17 11:20 Received HCG QUALITATIVE,SERUM Stat Lab 08/07/17 10:20 Completed LIPASE Stat Lab 08/07/17 10:20 Completed Lactic Acid Stat Lab 08/07/17 10:18 Completed TROPONIN Q3H Lab 08/07/17 10:20 Completed TROPONIN Q3H Lab 08/07/17 13:15 Ordered TROPONIN Q3H Lab 08/07/17 16:15 Ordered TROPONIN Q3H Lab 08/07/17 19:15 Ordered TROPONIN Q3H Lab 08/07/17 22:15 Ordered UA W/ MICROSCOPIC Stat Lab 08/07/17 11:20 Completed Medication Summary Discontinued Medications Generic Name Dose Route Start Last Admin Trade Name Freq PRN Reason Stop Dose Admin Famotidine 20 mg 08/07/17 10:07 08/07/17 10:21 Pepcid 20 Mg Vial IV 08/07/17 10:08 20 mg STAT ONE Administration Famotidine Confirm 08/07/17 10:14 Pepcid 20 Mg Vial Administered 08/07/17 10:15 Dose 20 mg IV .STK-MED ONE Sodium Chloride 1,000 mls @ 999 mls/hr 08/07/17 10:07 08/07/17 10:21 Sodium Chloride 0.9% 1000 Ml IV 08/07/17 11:07 999 mls/hr .Q1H1M STA Administration Sodium Chloride Confirm 08/07/17 10:14 Sodium Chloride 0.9% 1000 Ml Administered 08/07/17 10:15 Dose 1,000 mls @ ud .ROUTE .STK-MED ONE Morphine Sulfate 4 mg 08/07/17 10:07 08/07/17 10:21 Morphine Sulfate 4 Mg Inj IV 08/07/17 10:08 4 mg STAT ONE Administration Morphine Sulfate Confirm 08/07/17 10:14 Morphine Sulfate 4 Mg Inj Administered 08/07/17 10:15 Dose 4 mg .ROUTE .STK-MED ONE Morphine Sulfate 4 mg 08/07/17 11:47 08/07/17 11:49 Morphine Sulfate 4 Mg Inj IV 08/07/17 11:48 4 mg STAT ONE Administration Morphine Sulfate Confirm 08/07/17 11:48 Morphine Sulfate 4 Mg Inj Administered 08/07/17 11:49 Dose 4 mg .ROUTE .STK-MED ONE Ondansetron HCl 4 mg 08/07/17 10:07 08/07/17 10:21 Zofran 4 Mg/2 Ml Vial IV 08/07/17 10:08 4 mg STAT ONE Administration Ondansetron HCl Confirm 08/07/17 10:14 Zofran 4 Mg/2 Ml Vial Administered 08/07/17 10:15 Dose 4 mg .ROUTE .STK-MED ONE Lab/Rad Data: Laboratory Result Diagrams 08/07/17 10:20 08/07/17 10:20 Laboratory Results 08/07/17 08/07/17 08/07/17 Range/Units 11:20 10:20 10:20 WBC (4.0-10.5) K/mm3 RBC (4.1-5.4) M/mm3 Hgb (12.0-16.0) gm/dl Hct (35-47) % MCV (78-100) fl MCH (26-32) pg MCHC (32-36) g/dl RDW (11.5-14.0) % Plt Count (150-450) K/mm3 MPV (6-9.5) fl Gran % (36.0-66.0) % Lymphocytes % (24.0-44.0) % Monocytes % (0.0-12.0) % Eosinophils % (0.00-5.0) % Basophils % (0.0-0.4) % Basophils # (0-0.4) Sodium (136-145) mEq/L Potassium (3.5-5.1) mEq/L Chloride (98-107) mEq/L Carbon Dioxide (21-32) mEq/L Anion Gap (5-15) MEQ/L BUN (9-20) mg/dL Creatinine (0.55-1.30) mg/dl Estimated GFR ML/MIN Glucose (70-110) MG/DL Lactic Acid (0.4-2.0) Calcium (8.5-10.1) mg/dL Total Bilirubin (0.2-1.0) mg/dL AST (15-37) U/L ALT (12-78) U/L Alkaline Phosphatase (46-116) U/L Troponin I < 0.017 (0.000-0.056) ng/ml Serum Total Protein (6.4-8.2) gm/dL Albumin (3.4-5.0) g/dL Amylase (25-115) U/L Lipase (73-393) U/L Serum , Qual NEGATIVE (Negative) Ur Collection Type VOID Urine Color YELLOW (YELLOW) Urine Appearance HAZY (CLEAR) Urine pH 8.0 (5-6) Ur Specific [place] 1.005 (1.005-1.025) Urine Protein TRACE (Negative) Urine Ketones NEGATIVE (NEGATIVE) Urine Blood 50 (0-5) Bryan/ul Urine Nitrite NEGATIVE (NEGATIVE) Urine Bilirubin NEGATIVE (NEGATIVE) Urine Urobilinogen NORMAL (0-1) mg/dL Ur Leukocyte Esterase 1+ (NEGATIVE) Urine Microscopic RBC 5-10 (0-2) /HPF Urine Microscopic WBC 50-100 (0-5) /HPF Ur Epithelial Cells MODERATE (FEW) /HPF Urine Bacteria FEW (NEGATIVE) /HPF Urine Mucus SLIGHT (NEGATIVE) /HPF Urine Culture Reflexed YES (NO) Urine Glucose NEGATIVE (NEGATIVE) mg/dL Specimen Received 08/07/17 1120 08/07/17 08/07/17 08/07/17 Range/Units 10:20 10:20 10:18 WBC 5.0 (4.0-10.5) K/mm3 RBC 4.75 (4.1-5.4) M/mm3 Hgb 14.0 (12.0-16.0) gm/dl Hct 43.0 (35-47) % MCV 90.5 (78-100) fl MCH 29.5 (26-32) pg MCHC 32.6 (32-36) g/dl RDW 13.5 (11.5-14.0) % Plt Count 26 L* (150-450) K/mm3 MPV 11.1 H (6-9.5) fl Gran % 68.0 H (36.0-66.0) % Lymphocytes % 18.3 L (24.0-44.0) % Monocytes % 9.1 (0.0-12.0) % Eosinophils % 4.4 (0.00-5.0) % Basophils % 0.2 (0.0-0.4) % Basophils # 0.01 (0-0.4) Sodium 140 (136-145) mEq/L Potassium 3.5 (3.5-5.1) mEq/L Chloride 105 (98-107) mEq/L Carbon Dioxide 25.9 (21-32) mEq/L Anion Gap 12.7 (5-15) MEQ/L BUN 7 L (9-20) mg/dL Creatinine 0.78 (0.55-1.30) mg/dl Estimated GFR > 60 ML/MIN Glucose 109 (70-110) MG/DL Lactic Acid 0.9 (0.4-2.0) Calcium 9.0 (8.5-10.1) mg/dL Total Bilirubin 1.00 (0.2-1.0) mg/dL AST 25 (15-37) U/L ALT 21 (12-78) U/L Alkaline Phosphatase 88 (46-116) U/L Troponin I (0.000-0.056) ng/ml Serum Total Protein 7.8 (6.4-8.2) gm/dL Albumin 3.6 (3.4-5.0) g/dL Amylase 38 (25-115) U/L Lipase 97 (73-393) U/L Serum , Qual (Negative) Ur Collection Type Urine Color (YELLOW) Urine Appearance (CLEAR) Urine pH (5-6) Ur Specific [place] (1.005-1.025) Urine Protein (Negative) Urine Ketones (NEGATIVE) Urine Blood (0-5) Bryan/ul Urine Nitrite (NEGATIVE) Urine Bilirubin (NEGATIVE) Urine Urobilinogen (0-1) mg/dL Ur Leukocyte Esterase (NEGATIVE) Urine Microscopic RBC (0-2) /HPF Urine Microscopic WBC (0-5) /HPF Ur Epithelial Cells (FEW) /HPF Urine Bacteria (NEGATIVE) /HPF Urine Mucus (NEGATIVE) /HPF Urine Culture Reflexed (NO) Urine Glucose (NEGATIVE) mg/dL Specimen Received - Progress Progress: improved Discussed with : Ruben Kahn Will see patient in: hospital (observation) Counseled pt/family regarding: lab results, diagnosis, rad results - Departure Time of Disposition: 12:56 Departure Disposition: Observation (per Elvi Kahn) Clinical Impression: Abdominal pain, UTI (urinary tract infection), Thrombocytopenia Condition: Stable Critical Care Time: No Referrals: ADALGISA KAHN [Primary Care Provider] -
[2017-08-07] MEDS ORDERED: Pepcid 20 MG VIAL IV ONE ×2 (10:07→10:14)
[2017-08-07] MEDS ORDERED: Zofran 4 MG/2 ML VIAL IV ONE (10:07)
[2017-08-07] MEDS ORDERED: Sodium Chloride 0.9% 1000 ML 1,000 ML IV STA (10:07)
[2017-08-07] MEDS ORDERED: MORPHINE SULFATE 4 MG INJ IV ONE ×2 (10:07→11:47)
[2017-08-07] MEDS ORDERED: MORPHINE SULFATE 4 MG INJ ONE ×2 (10:14→11:48)
[2017-08-07] MEDS ORDERED: Sodium Chloride 0.9% 1000 ML 1,000 ML ONE (10:14)
[2017-08-07] MEDS ORDERED: Zofran 4 MG/2 ML VIAL ONE (10:14)
[2017-08-07 10:39] LABS: BASOPHIL % 0.2 % (0.0-0.4); Basophil (Absolute #) 0.01 (0-0.4); Eosinophil % 4.4 % (0.00-5.0); Eosinophil (Absolute #) 0.22 (0-0.5); Granulocyte Absolute (ANC) 3.38 (1.4-6.9); Lymphocyte (Absolute #) 0.91 (1.0-4.6); Lymphocytes % 18.3 % (24.0-44.0); Mean Cell Volume 90.5 fl (78-100); Mean Corpuscular Hemoglobin 29.5 pg (26-32); Mean Corpuscular Hgb Concent. 32.6 g/dl (32-36); Mean Platelet Volume 11.1 fl (6-9.5); Monocyte (Absolute #) 0.45 (0.0-1.3); Monocytes % 9.1 % (0.0-12.0); Red Blood Count 4.75 M/mm3 (4.1-5.4); Red Cell Distribution Width 13.5 % (11.5-14.0)
[2017-08-07 10:54] LABS: ALBUMIN 3.6 g/dL (3.4-5.0); ALKALINE PHOSPHATASE 88 U/L (46-116); AMYLASE 38 U/L (25-115); ANION GAP 12.7 MEQ/L (5-15); BLOOD UREA NITROGEN 7 mg/dL (9-20); CHLORIDE 105 mEq/L (98-107); Carbon Dioxide 25.9 mEq/L (21-32); Creatinine 1 0.78 mg/dl (0.55-1.30); EST GLOMERULAR FILTRATION RATE > 60 ML/MIN; Glucose 109 MG/DL (70-110); LIPASE 97 U/L (73-393); Potassium 3.5 mEq/L (3.5-5.1); SGOT/AST 25 U/L (15-37); SGPT/ALT 21 U/L (12-78); SODIUM 140 mEq/L (136-145); Total Protein 7.8 gm/dL (6.4-8.2)
[2017-08-07 11:13] LABS: Platelet Count 26 K/mm3 (150-450)
[2017-08-07 11:46] LABS: Appearance HAZY (CLEAR); Bilirubin NEGATIVE (NEGATIVE); Glucose NEGATIVE (NEGATIVE); Ketones NEGATIVE (NEGATIVE); Leukocyte Esterase 1+ (NEGATIVE); Nitrite NEGATIVE (NEGATIVE); Protein,Urine Dip TRACE (Negative); Specific Gravity 1.005 (1.005-1.025); Urobilinogen NORMAL mg/dL (0-1)
[2017-08-07 11:47] LABS: Bacteria FEW /HPF (NEGATIVE); Blood 50 Ery/ul (0-5); Epithelial Cells MODERATE /HPF (FEW); Mucus SLIGHT /HPF (NEGATIVE); WBC 50-100 /HPF (0-5)
--- NOTE | 2017-08-07 12:38 | XRAY ---
Indication: Abdominal pain. Multiple contiguous axial images obtained through the abdomen and pelvis without contrast as ordered. Comparison: January 18, 2015. Lung bases again demonstrates minimal bibasilar atelectasis/scarring and left posterior gutter calcified granuloma. Heart is not enlarged. Noncontrasted stomach and bowel loops appear nonobstructed. Normal appendix. Again scattered colonic diverticulosis without diverticulitis. There is new small cul-de-sac fluid presumed from a ruptured/leaking cyst. No free air. There remains a few hepatic/splenic calcified granulomas. Spleen remains enlarged today measuring 15.7 cm in greatest axial dimension. Again previous cholecystectomy. 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 Remaining liver, pancreas, spleen, adrenal glands, kidneys, ureters, and bladder appear unremarkable for contrast exam. Minimal aortoiliac calcifications without AAA. Osseous structures intact again with mild degenerative spondylosis. No ventral or inguinal hernias. Impression: 1. New cul-de-sac fluid presumed from ruptured/leaking cyst. 2. Stable colonic diverticulosis without diverticulitis. 3. Again splenomegaly and evidence for old granulomatous disease. CT DI 23.68
[2017-08-07] MEDS ORDERED: Zofran 4 MG/2 ML VIAL IV PRN (13:24)
[2017-08-07] MEDS ORDERED: TYLENOL 325 MG PO PRN (13:24)
--- NOTE | 2017-08-07 13:30 | PCM.HP ---
History of Present Illness - Chief Complaint Chief Complaint: abdominal pain History of Present Illness: is a 61 year old female.The patient is a 61-year-old female with her complaining of worsening epigastric pain that began yesterday evening. She denies nausea, vomiting, or diarrhea. She denies chills or fever. For the past 2-3 days she has urinary urgency and frequency. She has not taken needed prescription medicines since April when she lost her insurance. Her past medical history is significant for hypertension and cholecystectomy. She does not remember the rest of her past medical history. - Review of Systems Constitutional: No Fever, No Chills Eyes: No Symptoms Ears, Nose, & Throat: No Symptoms Respiratory: No Cough, No Short Of Breath Cardiac: No Chest Pain, No Edema, No Syncope Abdominal/Gastrointestinal: Abdominal Pain, No Nausea, No Vomiting, No Diarrhea Genitourinary Symptoms: Frequency, Hesitancy, No Dysuria Musculoskeletal: No Back Pain, No Neck Pain Skin: No Rash Neurological: No Dizziness, No Focal Weakness, No Sensory Changes Psychological: No Symptoms Endocrine: No Symptoms Hematologic/Lymphatic: No Symptoms Immunological/Allergic: No Symptoms Medications & Allergies Home Medications: Home Medication List No Reportable Medications [No Reported Medications] 08/07/17 [History Confirmed 08/07/17] Allergies/Adverse Reactions: Allergies Allergy/AdvReac Type Severity Reaction Status Date / Time No Known Drug Allergies Allergy Verified 02/05/17 15:32 - Past Medical History Past Medical History: Yes Neurological History: No Pertinent History ENT History: No Pertinent History Cardiac History: Arrhythmia, Hypertension Respiratory History: No Pertinent History Endocrine Medical History: No Pertinent History Musculoskelatal History: Arthritis, Rheumatoid Arthritis GI Medical History: Other History: Other Pyscho-Social History: Depression Reproductive Disorders: No Pertinent History Comment: O.A. IN BOTH HANDS AND MOSTLY HER WHOLE BODY. - Past Surgical History Past Surgical History: Yes Neuro Surgical History: No Pertinent History Cardiac History: No Pertinent History Respiratory Surgery: No Pertinent History GI Surgical History: Cholecystectomy, Hernia Repair Genitourinary Surgical Hx: Other Musculskeletal Surgical Hx: Other Female Surgical History: Lumpectomy, Tubal Ligation Other Surgical History: Kidney Stones. knee scope last saturday - Social History Smoking Status: Never smoker Exposure to second hand smoke: Yes Alcohol: None Drug Use: none - Physical Exam Vital Signs: Vital Signs - 24 hr Temp Pulse Resp BP Pulse Ox 08/07/17 13:03 95 08/07/17 12:55 71 16 147/81 95 08/07/17 11:50 98.2 F 83 16 145/86 97 08/07/17 11:40 83 16 161/86 97 08/07/17 10:50 16 136/78 97 08/07/17 10:25 156/109 96 08/07/17 09:30 98.2 F 85 20 181/96 95 General Appearance: no apparent distress, alert Neurologic Exam: alert, oriented x 3, cooperative, normal mood/affect, nml cerebellar function, nml station & gait, sensation nml, No motor deficits Eye Exam: PERRL/EOMI, eyes nml inspection Ears, Nose, Throat Exam: normal ENT inspection, TMs normal, pharynx normal, moist mucous membranes Neck Exam: normal inspection, non-tender, supple, full range of motion Respiratory Exam: normal breath sounds, lungs clear, No respiratory distress Cardiovascular Exam: regular rate/rhythm, normal heart sounds, normal peripheral pulses Gastrointestinal/Abdomen Exam: soft, tenderness, No mass Back Exam: normal inspection, normal range of motion, No CVA tenderness, No vertebral tenderness Extremity Exam: normal inspection, normal range of motion, pelvis stable Skin Exam: normal color, warm, dry, No rash Lymphatic Exam: No adenopathy
[2017-08-07] MEDS: Sodium Chloride 0.9% 1000 ML 1,000 ML IV SCH (14:15)
[2017-08-07] MEDS: ROCEPHIN 1 Gm-D5w 50 ml Bag** 1 G/50 ML IVPB IV SCH (14:16)
[2017-08-07] MEDS ORDERED: MEDICATION INTERVENTION MC PRN (15:24)
[2017-08-07] MEDS: DELTASONE 5 MG PO SCH (17:12)
[2017-08-07] MEDS: MORPHINE SULFATE 2 MG INJ IV PRN (18:16)
[2017-08-07] MEDS: Klor Con 10 MEQ PO SCH (21:29)
[2017-08-07] MEDS ORDERED: NON-FORMULARY ITEM (Hydroxychloroquine Sulfate [Plaquenil] 200 MG) PO SCH (22:00)
[2017-08-07] MEDS ORDERED: NON-FORMULARY ITEM (Potassium Chloride 20 Meq [Klor-Con 20 Meq] 20 MEQ) PO SCH (22:00)
[2017-08-08] MEDS: Sodium Chloride 0.9% 1000 ML 1,000 ML IV SCH ×3 (00:34→21:10)
[2017-08-08 06:16] LABS: BASOPHIL % 0.3 % (0.0-0.4); Basophil (Absolute #) 0.01 (0-0.4); Eosinophil % 6.6 % (0.00-5.0); Eosinophil (Absolute #) 0.22 (0-0.5); Granulocyte Absolute (ANC) 1.81 (1.4-6.9); Granulocytes % 54.6 % (36.0-66.0); Hematocrit 39.5 % (35-47); Hemoglobin 12.7 gm/dl (12.0-16.0); Lymphocyte (Absolute #) 0.89 (1.0-4.6); Lymphocytes % 26.8 % (24.0-44.0); Mean Cell Volume 92.7 fl (78-100); Mean Corpuscular Hemoglobin 29.8 pg (26-32); Mean Corpuscular Hgb Concent. 32.2 g/dl (32-36); Mean Platelet Volume 12.4 fl (6-9.5); Monocyte (Absolute #) 0.39 (0.0-1.3); Monocytes % 11.7 % (0.0-12.0); Red Blood Count 4.26 M/mm3 (4.1-5.4); Red Cell Distribution Width 13.3 % (11.5-14.0); White Blood Count 3.3 K/mm3 (4.0-10.5)
[2017-08-08 06:25] LABS: Platelet Count 22 K/mm3 (150-450)
[2017-08-08 06:48] LABS: ANION GAP 8.5 MEQ/L (5-15); BLOOD UREA NITROGEN 3 mg/dL (9-20); CHLORIDE 106 mEq/L (98-107); Calcium 8.5 mg/dL (8.5-10.1); Carbon Dioxide 27.5 mEq/L (21-32); Creatinine 1 0.69 mg/dl (0.55-1.30); EST GLOMERULAR FILTRATION RATE > 60 ML/MIN; Glucose 100 MG/DL (70-110); Potassium 3.8 mEq/L (3.5-5.1); SODIUM 138 mEq/L (136-145)
[2017-08-08 08:00] LABS: Slide Review 1 YES
[2017-08-08] MEDS: DELTASONE 5 MG PO SCH (09:07)
[2017-08-08] MEDS: Klor Con 10 MEQ PO SCH ×2 (09:07→21:08)
[2017-08-08] MEDS: MORPHINE SULFATE 2 MG INJ IV PRN (09:07)
[2017-08-08] MEDS: ROCEPHIN 1 Gm-D5w 50 ml Bag** 1 G/50 ML IVPB IV SCH (09:07)
--- NOTE | 2017-08-08 09:09 | PCM.NOTE ---
Date and Time: 08/08/17905 Subjective Assessment: doing ok platelet count is low - Review of Systems Constitutional: No Fever, No Chills Eyes: No Symptoms Ears, Nose, & Throat: No Symptoms Respiratory: No Cough, No Short Of Breath Cardiac: No Chest Pain, No Edema, No Syncope Abdominal/Gastrointestinal: No Abdominal Pain, No Nausea, No Vomiting, No Diarrhea Genitourinary Symptoms: No Dysuria Musculoskeletal: No Back Pain, No Neck Pain Skin: No Rash Neurological: No Dizziness, No Focal Weakness, No Sensory Changes Psychological: No Symptoms Endocrine: No Symptoms Hematologic/Lymphatic: No Symptoms Immunological/Allergic: No Symptoms Objective Exam General Appearance: no apparent distress, alert Neurologic Exam: alert, oriented x 3, cooperative, normal mood/affect, nml cerebellar function, sensation nml, No motor deficits Skin Exam: normal color, warm, dry Eye Exam: PERRL, EOMI, eyes nml inspection Ears, Nose, Throat Exam: normal ENT inspection, pharynx normal, moist mucous membranes Neck Exam: normal inspection, non-tender, supple, full range of motion Respiratory Exam: normal breath sounds, lungs clear, No respiratory distress Cardiovascular Exam: regular rate/rhythm, normal heart sounds Gastrointestinal/Abdomen Exam: soft, No tenderness, No mass Extremity Exam: normal inspection, normal range of motion Back Exam: normal inspection, normal range of motion, No CVA tenderness, No vertebral tenderness Pelvic Exam: deferred Rectal Exam: deferred OBJECTIVE DATA Vital Signs: Vital Signs - 24 hr Temp Pulse Resp BP Pulse Ox 08/08/17 07:29 98.1 F 62 16 138/77 97 08/08/17 06:37 97 08/08/17 04:00 98.1 F 66 14 152/72 97 08/08/17 00:00 98.4 F 66 19 149/69 96 08/07/17 20:00 99.0 F 85 16 164/74 94 L 08/07/17 19:30 95 08/07/17 15:59 98.7 F 71 16 179/87 96 08/07/17 14:45 95 08/07/17 13:47 98.0 F 71 140/67 08/07/17 13:40 98.0 F 71 16 140/67 97 08/07/17 13:28 98 F 71 16 140/67 97 08/07/17 13:24 98.0 F 71 16 140/67 97 08/07/17 13:03 95 08/07/17 12:55 71 16 147/81 95 08/07/17 11:50 98.2 F 83 16 145/86 97 08/07/17 11:40 83 16 161/86 97 08/07/17 10:50 16 136/78 97 08/07/17 10:25 156/109 96 08/07/17 09:30 98.2 F 85 20 181/96 95 Oxygen-Last 24 hours O2 Percentage 3 Liters = 32% O2 Percentage 3 Liters = 32% O2 Percentage 1 Liter = 24% O2 Percentage 2 Liters = 28% Pain Assessment - Last Documented Pain Intensity 8 Pain Scale Used 0-10 Pain Scale Intake and Output: Intake & Output 08/05/17 08/06/17 08/07/17 08/08/17 11:59 11:59 11:59 11:59 Intake Total 1220 Balance 1220 Weight 98.9 kg Lab Results: Lab Results-Last 24 Hours 08/07/17 08/07/17 08/07/17 Range/Units 16:19 19:10 22:32 WBC (4.0-10.5) K/mm3 RBC (4.1-5.4) M/mm3 Hgb (12.0-16.0) gm/dl Hct (35-47) % MCV (78-100) fl MCH (26-32) pg MCHC (32-36) g/dl RDW (11.5-14.0) % Plt Count (150-450) K/mm3 MPV (6-9.5) fl Gran % (36.0-66.0) % Total Counted Lymphocytes % (24.0-44.0) % Monocytes % (0.0-12.0) % Eosinophils % (0.00-5.0) % Basophils % (0.0-0.4) % Absolute Neutrophils Segmented Neutrophils Band Neutrophils Lymphocytes (Manual) Monocytes (Manual) Eosinophils (Manual) Basophils (Manual) Basophils # (0-0.4) Metamyelocytes Myelocytes Promyelocytes Nucleated RBCs Differential Comment Hypersegmented Polys Atypical Lymphocytes Blast Cells Plasma Cells Other Cell Type Toxic Granulation Dohle Bodies Boyd Rods Platelet Estimate Polychromasia Hypochromasia Poikilocytosis Basophilic Stippling Anisocytosis Microcytosis Macrocytosis Spherocytes Sickle Cells Target Cells Tear Drop Cells Ovalocytes Stomatocytes Helmet Cells Britt-Schoenchen Bodies [place] Rings [place] Cells Acanthocytes (Spur) Rouleaux Schistocytes Morphology Comment Sodium (136-145) mEq/L Potassium (3.5-5.1) mEq/L Chloride (98-107) mEq/L Carbon Dioxide (21-32) mEq/L Anion Gap (5-15) MEQ/L BUN (9-20) mg/dL Creatinine (0.55-1.30) mg/dl Estimated GFR ML/MIN Glucose (70-110) MG/DL Calcium (8.5-10.1) mg/dL Troponin I < 0.017 < 0.017 < 0.017 (0.000-0.056) ng/ml Slides for Path Review 08/08/17 08/08/17 Range/Units 05:31 05:31 WBC 3.3 L (4.0-10.5) K/mm3 RBC 4.26 (4.1-5.4) M/mm3 Hgb 12.7 (12.0-16.0) gm/dl Hct 39.5 (35-47) % MCV 92.7 (78-100) fl MCH 29.8 (26-32) pg MCHC 32.2 (32-36) g/dl RDW 13.3 (11.5-14.0) % Plt Count 22 L* (150-450) K/mm3 MPV 12.4 H (6-9.5) fl Gran % 54.6 (36.0-66.0) % Total Counted Cancelled Lymphocytes % 26.8 (24.0-44.0) % Monocytes % 11.7 (0.0-12.0) % Eosinophils % 6.6 H (0.00-5.0) % Basophils % 0.3 (0.0-0.4) % Absolute Neutrophils Cancelled Segmented Neutrophils Cancelled Band Neutrophils Cancelled Lymphocytes (Manual) Cancelled Monocytes (Manual) Cancelled Eosinophils (Manual) Cancelled Basophils (Manual) Cancelled Basophils # 0.01 (0-0.4) Metamyelocytes Cancelled Myelocytes Cancelled Promyelocytes Cancelled Nucleated RBCs Cancelled Differential Comment Cancelled Hypersegmented Polys Cancelled Atypical Lymphocytes Cancelled Blast Cells Cancelled Plasma Cells Cancelled Other Cell Type Cancelled Toxic Granulation Cancelled Dohle Bodies Cancelled Boyd Rods Cancelled Platelet Estimate Cancelled Polychromasia Cancelled Hypochromasia Cancelled Poikilocytosis Cancelled Basophilic Stippling Cancelled Anisocytosis Cancelled Microcytosis Cancelled Macrocytosis Cancelled Spherocytes Cancelled Sickle Cells Cancelled Target Cells Cancelled Tear Drop Cells Cancelled Ovalocytes Cancelled Stomatocytes Cancelled Helmet Cells Cancelled Britt-Schoenchen Bodies Cancelled [place] Rings Cancelled [place] Cells Cancelled Acanthocytes (Spur) Cancelled Rouleaux Cancelled Schistocytes Cancelled Morphology Comment Cancelled Sodium 138 (136-145) mEq/L Potassium 3.8 (3.5-5.1) mEq/L Chloride 106 (98-107) mEq/L Carbon Dioxide 27.5 (21-32) mEq/L Anion Gap 8.5 (5-15) MEQ/L BUN 3 L (9-20) mg/dL Creatinine 0.69 (0.55-1.30) mg/dl Estimated GFR > 60 ML/MIN Glucose 100 (70-110) MG/DL Calcium 8.5 (8.5-10.1) mg/dL Troponin I (0.000-0.056) ng/ml Slides for Path Review YES Multi-Disciplinary Progress Notes: Multi-Disciplinary Progress Notes 08/07/17 14:45 Respiratory Note by Emerald Roman PT'S ON CONTINUOUS PULSE OXIMETRY VIA TELEMETRY. Initialized on 08/07/17 14:45 - END OF NOTE Assessment/Plan (1) Thrombocytopenia Current Visit: Yes Status: Acute (2) UTI (urinary tract infection) Current Visit: Yes Status: Acute Qualifiers: Urinary tract infection type: acute pyelonephritis Qualified Code(s): N10 - Acute pyelonephritis Code(s): N39.0 - URINARY TRACT INFECTION, SITE NOT SPECIFIED (3) Degenerative disc disease, lumbar Current Visit: Yes Status: Chronic Code(s): M51.36 - OTHER INTERVERTEBRAL DISC DEGENERATION, LUMBAR REGION
[2017-08-08] MEDS ORDERED: VITAMIN D2 PO SCH (10:00)
[2017-08-08] MEDS ORDERED: HCTZ PO SCH (10:00)
[2017-08-08] MEDS ORDERED: BISOPROLOL FUMARATE PO SCH (10:00)
[2017-08-08] MEDS: SYNTHROID 50 MCG PO SCH (10:44)
[2017-08-08] MEDS: Mobic 7.5 MG PO SCH (10:44)
[2017-08-08] MEDS: XARELTO 10 MG TABLET PO SCH (10:44)
[2017-08-08] MEDS: Mirapex 0.5 MG Tablet PO SCH (10:44)
[2017-08-08] MEDS: FOLATE 1 MG PO SCH (10:44)
[2017-08-09] MEDS: Sodium Chloride 0.9% 1000 ML 1,000 ML IV SCH (07:03)
[2017-08-09 08:27] VITALS: O2SAT 95
[2017-08-09] MEDS: Mirapex 0.5 MG Tablet PO SCH (09:35)
[2017-08-09] MEDS: Klor Con 10 MEQ PO SCH (09:35)
[2017-08-09] MEDS: Mobic 7.5 MG PO SCH (09:35)
[2017-08-09] MEDS: FOLATE 1 MG PO SCH (09:36)
[2017-08-09] MEDS: XARELTO 10 MG TABLET PO SCH (09:36)
[2017-08-09] MEDS: DELTASONE 5 MG PO SCH (09:36)
[2017-08-09] MEDS: SYNTHROID 50 MCG PO SCH (09:36)
[2017-08-09] MEDS: ROCEPHIN 1 Gm-D5w 50 ml Bag** 1 G/50 ML IVPB IV SCH (10:56)
[2017-08-09 11:54] VITALS: BP 180/82; PULSE 66
--- NOTE | 2017-08-09 13:13 | PCM.DS ---
Discharge Summary Date of Admission: 08/07/17 13:24 Admitting Physician: ADALGISA KAHN Primary Care Provider: ADALGISA KAHN Allergies Allergies No Known Drug Allergies Allergy (Verified 08/07/17 13:37) Hospital Summary - Hospital Course Hospital Course: Chief Complaint Diagnosis abdominal pain Allergies Allergy/AdvReac Type Severity Reaction Status Date / Time No Known Drug Allergies Allergy Verified 08/07/17 13:37 Vital Signs (Last 24 hours) Temp Pulse Resp BP Pulse Ox 08/09/17 11:53 98.6 F 66 18 180/82 95 08/09/17 08:25 95 08/09/17 08:00 98.7 F 60 16 152/69 95 08/09/17 06:00 94 L 08/09/17 03:50 98.5 F 60 20 160/68 94 L 08/09/17 00:00 98.4 F 61 20 154/71 96 08/08/17 20:09 93 L 08/08/17 20:00 98.1 F 60 17 152/69 93 L 08/08/17 16:00 97.6 F 60 16 140/66 91 L Home Medications Medication Instructions Recorded Confirmed Last Taken Type Bisoprolol Fumarate/Hctz 1 each PO DAILY 08/07/17 08/07/17 Unknown History [Bisoprolol-Hctz 10-6.25 mg Tab] Hydroxychloroquine Sulfate 200 mg PO BID 08/07/17 08/07/17 Unknown History [Plaquenil] Potassium Chloride 20 Meq 20 meq PO BID 08/07/17 08/07/17 Unknown History [Klor-Con 20 MEQ] Prednisone 5 mg [Deltasone 5 5 mg PO DAILY 08/07/17 08/07/17 Unknown History mg] Ergocalciferol (Vitamin D2) 50,000 unit PO WEEKLY 08/08/17 08/08/17 Unknown History [Vitamin D] Folic Acid 1 mg [Folate 1 mg] 1 mg PO DAILY 08/08/17 08/08/17 Unknown History Levothyroxine Sodium 50 Mcg 50 mcg PO DAILY 08/08/17 08/08/17 Unknown History [Synthroid 50 Mcg] Meloxicam [Mobic] 15 mg PO DAILY 08/08/17 08/08/17 Unknown History Pramipexole Di-HCl [Mirapex] 0.25 mg PO TID 08/08/17 08/08/17 Unknown History Rivaroxaban 10 mg Tablet 20 mg PO DAILY 08/08/17 08/08/17 Unknown History [Xarelto 10 mg Tablet] Current Medications Generic Name Dose Route Start Last Admin Trade Name Freq PRN Reason Stop Dose Admin Acetaminophen 650 mg 08/07/17 13:24 Tylenol 325 Mg PO 09/06/17 13:23 Q4H PRN PRN PAIN AND/OR FEVER Ergocalciferol 50,000 unit 08/08/17 10:00 08/08/17 11:55 Vitamin D2 PO 09/07/17 09:59 50,000 unit Q7D TAMANNA Administration Folic Acid 1 mg 08/08/17 10:00 08/09/17 09:36 Folate 1 Mg PO 09/07/17 09:59 1 mg DAILY TAMANNA Administration Ceftriaxone Sodium/Dextrose 1 g in 50 mls @ 100 mls/hr 08/07/17 14:00 10:56 Rocephin 1 Gm-D5w 50 Ml Bag IV 09/06/17 13:59 100 mls/hr Q24H10 TAMANNA Administration Sodium Chloride 1,000 mls @ 100 mls/hr 08/07/17 13:24 08/09/17 07:03 Sodium Chloride 0.9% 1000 Ml IV 09/06/17 13:23 100 mls/hr .Q10H TAMANNA Administration Levothyroxine Sodium 50 mcg 08/08/17 10:00 08/09/17 09:36 Synthroid 50 Mcg PO 09/07/17 09:59 50 mcg QAM TAMANNA Administration Meloxicam 15 mg 08/08/17 10:00 08/09/17 09:35 Mobic 7.5 Mg PO 09/07/17 09:59 15 mg DAILY TAMANNA Administration Ondansetron HCl 4 mg 08/07/17 13:24 Zofran 4 Mg/2 Ml Vial IV 09/06/17 13:23 Q6H PRN PRN NAUSEA/VOMITING Potassium Chloride 20 meq 08/07/17 22:00 08/09/17 09:35 Klor Con 10 Meq PO 09/06/17 21:59 20 meq BID TAMANNA Administration Pramipexole Dihydrochloride 0.25 mg 08/08/17 10:00 08/09/17 09:35 Mirapex 0.5 Mg Tablet PO 09/07/17 09:59 0.25 mg DAILY TAMANNA Administration Prednisone 5 mg 08/07/17 16:00 08/09/17 09:36 Deltasone 5 Mg PO 09/06/17 15:59 5 mg DAILY TAMANNA Administration Discontinued Medications Generic Name Dose Route Start Last Admin Trade Name Addiq PRN Reason Stop Dose Admin Famotidine 20 mg 08/07/17 10:07 08/07/17 10:21 Pepcid 20 Mg Vial IV 08/07/17 10:08 20 mg STAT ONE Administration Famotidine Confirm 08/07/17 10:14 Pepcid 20 Mg Vial Administered 08/07/17 10:15 Dose 20 mg IV .STK-MED ONE Sodium Chloride 1,000 mls @ 999 mls/hr 08/07/17 10:07 08/07/17 10:21 Sodium Chloride 0.9% 1000 Ml IV 08/07/17 11:07 999 mls/hr .Q1H1M STA Administration Sodium Chloride Confirm 08/07/17 10:14 Sodium Chloride 0.9% 1000 Ml Administered 08/07/17 10:15 Dose 1,000 mls @ ud .ROUTE .STK-MED ONE Morphine Sulfate 4 mg 08/07/17 10:07 08/07/17 10:21 Morphine Sulfate 4 Mg Inj IV 08/07/17 10:08 4 mg STAT ONE Administration Morphine Sulfate Confirm 08/07/17 10:14 Morphine Sulfate 4 Mg Inj Administered 08/07/17 10:15 Dose 4 mg .ROUTE .STK-MED ONE Morphine Sulfate 4 mg 08/07/17 11:47 08/07/17 11:49 Morphine Sulfate 4 Mg Inj IV 08/07/17 11:48 4 mg STAT ONE Administration Morphine Sulfate Confirm 08/07/17 11:48 Morphine Sulfate 4 Mg Inj Administered 08/07/17 11:49 Dose 4 mg .ROUTE .STK-MED ONE Morphine Sulfate 2 mg 08/07/17 13:24 08/08/17 09:07 Morphine Sulfate 2 Mg Inj IV 08/12/17 13:23 2 mg Q4H PRN PRN Administration PAIN Ondansetron HCl 4 mg 08/07/17 10:07 08/07/17 10:21 Zofran 4 Mg/2 Ml Vial IV 08/07/17 10:08 4 mg STAT ONE Administration Ondansetron HCl Confirm 08/07/17 10:14 Zofran 4 Mg/2 Ml Vial Administered 08/07/17 10:15 Dose 4 mg .ROUTE .STK-MED ONE Intake & Output (Last 24 hours) 08/07/17 08/08/17 08/09/17 08/10/17 11:59 11:59 11:59 11:59 Intake Total 1220 5333 Output Total 300 Balance 1220 5033 Weight 90.9 kg 98.9 kg Microbiology Results (Last 24 hours) 08/07/17 11:20 Urine, Void - Preliminary GRAM NEGATIVE ID AND SENSITIVITY PENDING Patient Care Notes (Last 24 hours) 08/09/17 10:00 (created 08/09/17 12:52) Case Management Note by Shaneka Biswas REVIEWED DISCHARGE PLAN WITH PT. PLAN TO RETURN HOME TO PRE EPISODIC LEVEL OF [facility], INDEPENDENT WITH ALL ADL'S. DECLINED ADDNL NEEDS. WILL FOLLOW. Initialized on 08/09/17 12:52 - END OF NOTE - Vitals & Intake/Output Vital Signs: Vital Signs Temperature 98.6 F 08/09/17 11:53 Pulse Rate 66 08/09/17 11:53 Respiratory Rate 18 08/09/17 11:53 Blood Pressure 180/82 08/09/17 11:53 O2 Sat by Pulse Oximetry 95 08/09/17 11:53 Oxygen-Last Documented O2 Percentage 3 Liters = 32% Intake & Output: Intake & Output 08/07/17 08/08/17 08/09/17 08/10/17 11:59 11:59 11:59 11:59 Intake Total 1220 5333 Output Total 300 Balance 1220 5033 Weight 98.9 kg - Lab Result Diagrams: 08/08/17 05:31 08/08/17 05:31 - Procedures and Test Procedures and Tests throughout Hospitalization: Therapy Orders & Screens 08/07/17 19:28 Oxygen NASAL CANNULA 2 lpm Comment: Diagnosis: abdominal pain Discharge Exam General Appearance: no apparent distress, alert Neurologic Exam: alert, oriented x 3, cooperative, normal mood/affect, nml cerebellar function, sensation nml, No motor deficits Skin Exam: normal color, warm, dry Eye Exam: PERRL, EOMI, eyes nml inspection Ears, Nose, Throat Exam: normal ENT inspection, pharynx normal, moist mucous membranes Neck Exam: normal inspection, non-tender, supple, full range of motion Respiratory Exam: normal breath sounds, lungs clear, No respiratory distress Cardiovascular Exam: regular rate/rhythm, normal heart sounds Gastrointestinal/Abdomen Exam: soft, No tenderness, No mass Extremity Exam: normal inspection, normal range of motion Back Exam: normal inspection, normal range of motion, No CVA tenderness, No vertebral tenderness Pelvic Exam: deferred Rectal Exam: deferred Final Diagnosis/Problem List - Final Discharge Diagnosis/Problem (1) Thrombocytopenia Current Visit: Yes Status: Chronic (2) UTI (urinary tract infection) Current Visit: Yes Status: Acute (3) Degenerative disc disease, lumbar Current Visit: Yes Status: Chronic - Discharge Discharge Date: 08/09/17 Disposition: Home, Self-Care Condition: Stable Prescriptions: New Smz/Tmp Ds Tablet [Bactrim Ds Tablet] 1 tab PO Q12H #14 tablet No Action Hydroxychloroquine Sulfate [Plaquenil] 200 mg PO BID Bisoprolol Fumarate/Hctz [Bisoprolol-Hctz 10-6.25 mg Tab] 1 each PO DAILY Prednisone 5 mg [Deltasone 5 mg] 5 mg PO DAILY Potassium Chloride 20 Meq [Klor-Con 20 MEQ] 20 meq PO BID Rivaroxaban 10 mg Tablet [Xarelto 10 mg Tablet] 20 mg PO DAILY Pramipexole Di-HCl [Mirapex] 0.25 mg PO TID Meloxicam [Mobic] 15 mg PO DAILY Levothyroxine Sodium 50 Mcg [Synthroid 50 Mcg] 50 mcg PO DAILY Folic Acid 1 mg [Folate 1 mg] 1 mg PO DAILY Ergocalciferol (Vitamin D2) [Vitamin D] 50,000 unit PO WEEKLY Follow up with: ADALGISA KAHN [Primary Care Provider] - CLEO CORONEL MD [NON-STAFF PHY W/O PRIVILEGES] - 08/15/17 2:30 pm (At [facility])
== END 2017-08-09 14:30 | disposition home or self-care (01) ==
LOC: ED 09:22 → MED SURG 13:24
PROVIDERS: ADMIT General Practice; ATTEND General Practice
DX: D69.6 Thrombocytopenia, unspecified (principal); N39.0 Urinary tract infection, site not specified; M51.36 Other intervertebral disc degeneration, lumbar region; I10 Essential (primary) hypertension; M06.9 Rheumatoid arthritis, unspecified; F32.9 Major depressive disorder, single episode, unspecified
CPT/HCPCS: 36000; 36415; 74176; 80048; 80053; 81000; 82150; 83605; 83690; 84484; 84703; 85025; 87077; 87086; 87186; 93005; 93268; 94760; 96360; 96374; 96375; 96376; 99285; G0378; J0696; J2270; J2405; A9270-GY

== ENCOUNTER 2018-01-09 21:58 | Emergency (ER) | payer OTHER ==
[2018-01-09 22:18] VITALS: BP 163/78; PULSE 64
--- NOTE | 2018-01-09 22:44 | ERPHSYRPT ---
- History of Present Illness Time Seen by Provider: 01/09/18 22:25 Historian: patient Exam Limitations: no limitations Patient Subjective Stated Complaint: pt is alert and oriented. pt is ambulatory. pt states that she had a red bloody very loose stool prior to coming in. pt denies nausea, vomiting, back pain, or any other irregular stools prior to this one. bowel sounds present x4. abd is soft and tender to touch particularly on left side. pt states she has a liver history but is unsure of that what exactly that history is. 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 SHE DOES HAVE MILD RIGHT SIDED CRAMPING. DENIES N/V. PT HAD A NORMAL COLONOSCOPY 2 MONTHS AGO. Timing/Duration: today Activities at Onset: none Quality: cramping Abdominal Pain Onset Location: other (RIGHT SIDED) Severity of Pain-Max: mild Severity of Pain-Current: mild Modifying Factors: Improves With: nothing Associated Symptoms: No chest pain, No fever/chills, No fatigue, No loss of appetite, No nausea, No vomiting Previous symptoms: no prior history Allergies/Adverse Reactions: No Known Drug Allergies Allergy (Verified 08/07/17 13:37) Home Medications: Bisoprolol Fumarate/Hctz [Bisoprolol-Hctz 10-6.25 mg Tab] 1 each PO DAILY [History] Hydroxychloroquine Sulfate [Plaquenil] 200 mg PO BID 08/07/17 [History] Potassium Chloride 20 Meq [Klor-Con 20 MEQ] 20 meq PO BID 08/07/17 [History] Prednisone 5 mg [Deltasone 5 mg] 5 mg PO DAILY 08/07/17 [History] Ergocalciferol (Vitamin D2) [Vitamin D] 50,000 unit PO WEEKLY 08/08/17 [History] Folic Acid 1 mg [Folate 1 mg] 1 mg PO DAILY 08/08/17 [History] Levothyroxine Sodium 50 Mcg [Synthroid 50 Mcg] 50 mcg PO DAILY 08/08/17 [ History] Meloxicam [Mobic] 15 mg PO DAILY 08/08/17 [History] Pramipexole Di-HCl [Mirapex] 0.25 mg PO TID 08/08/17 [History] Rivaroxaban 10 mg Tablet [Xarelto 10 mg Tablet] 20 mg PO DAILY 08/08/17 [ History] Hx Tetanus, Diphtheria Vaccination/Date Given: Yes Hx Influenza Vaccination/Date Given: Yes Hx Pneumococcal Vaccination/Date Given: No Immunizations Up to Date: Yes - Review of Systems Constitutional: No Symptoms Eyes: No Symptoms Ears, Nose, & Throat: No Symptoms Respiratory: No Symptoms Cardiac: No Symptoms Abdominal/Gastrointestinal: Abdominal Pain, Diarrhea, No Nausea, No Vomiting Genitourinary Symptoms: No Symptoms Musculoskeletal: No Symptoms Skin: No Symptoms Neurological: No Symptoms Psychological: No Symptoms Endocrine: No Symptoms Hematologic/Lymphatic: No Symptoms Immunological/Allergic: No Symptoms All Other Systems: Reviewed and Negative - Past Medical History Pertinent Past Medical History: Yes Neurological History: No Pertinent History ENT History: No Pertinent History Cardiac History: Arrhythmia, Hypertension Respiratory History: No Pertinent History Endocrine Medical History: No Pertinent History Musculoskeletal History: Arthritis, Rheumatoid Arthritis GI Medical History: Other History: Other Psycho-Social History: Depression Female Reproductive Disorders: No Pertinent History Other Medical History: O.A. IN BOTH HANDS AND MOSTLY HER WHOLE BODY. - Past Surgical History Past Surgical History: Yes Neuro Surgical History: No Pertinent History Cardiac: No Pertinent History Respiratory: No Pertinent History Gastrointestinal: Cholecystectomy, Hernia Repair Genitourinary: Other Musculoskeletal: Other Female Surgical History: Lumpectomy, Tubal Ligation Other Surgical History: Kidney Stones. knee scope - Social History Smoking Status: Never smoker Exposure to second hand smoke: Yes Drug Use: none Patient Lives Alone: No - Female History Hx Now: No - Nursing Vital Signs Nursing Vital Signs: Initial Vital Signs Temperature 97.9 F 01/09/18 21:59 Pulse Rate 64 01/09/18 21:59 Respiratory Rate 16 01/09/18 21:59 Blood Pressure 163/78 01/09/18 21:59 O2 Sat by Pulse Oximetry 96 01/09/18 21:59 Pain Scale Pain Intensity 10 - Physical Exam General Appearance: no apparent distress, alert, anxiety, obese Eye Exam: PERRL/EOMI, eyes nml inspection Ears, Nose, Throat Exam: normal ENT inspection Neck Exam: normal inspection Respiratory Exam: normal breath sounds Cardiovascular Exam: regular rate/rhythm, normal heart sounds, normal peripheral pulses Gastrointestinal/Abdomen Exam: soft, normal bowel sounds, tenderness (MILD RIGHT MID TO UPPER QUAD), No distention, No guarding, No rebound Pelvic Exam: not done Rectal Exam: deferred Back Exam: normal inspection, normal range of motion Extremity Exam: normal inspection, normal range of motion, pelvis stable Neurologic Exam: alert, oriented x 3, cooperative, sybase developer II-XII nml as tested, normal mood/affect, nml cerebellar function, nml station & gait Skin Exam: normal color, warm, dry Lymphatic Exam: No adenopathy SpO2 Interpretation: normal SpO2: 96 Oxygen Delivery: Room Air - Course Nursing assessment & vital signs reviewed: Yes Ordered Tests: Active Orders 24 hr Category Date Time Status AMYLASE Stat Lab 01/09/18 23:25 Completed CBC W DIFF Stat Lab 01/09/18 23:25 Completed CMP Stat Lab 01/09/18 23:25 Completed LIPASE Stat Lab 01/09/18 23:25 Completed PROTIME WITH INR Stat Lab 01/09/18 23:25 Completed Medication Summary Discontinued Medications Generic Name Dose Route Start Last Admin Trade Name Freq PRN Reason Stop Dose Admin Ciprofloxacin 500 mg 01/10/18 00:43 Cipro 500 Mg PO 01/10/18 00:44 ONCE ONE Metronidazole 500 mg 01/10/18 00:43 Flagyl 500 Mg PO 01/10/18 00:44 STAT ONE Lab/Rad Data: Laboratory Result Diagrams 01/09/18 23:25 01/09/18 23:25 Laboratory Results 01/09/18 01/09/18 01/09/18 Range/Units 23:25 23:25 23:25 WBC 7.6 (4.0-10.5) K/mm3 RBC 4.50 (4.1-5.4) M/mm3 Hgb 14.4 (12.0-16.0) gm/dl Hct 43.5 (35-47) % MCV 96.7 (78-100) fl MCH 32.0 (26-32) pg MCHC 33.1 (32-36) g/dl RDW 14.3 H (11.5-14.0) % Plt Count 74 L (150-450) K/mm3 MPV 12.3 H (6-9.5) fl Gran % 52.2 (36.0-66.0) % Eos # (Auto) 0.19 (0-0.5) Absolute Lymphs (auto) 2.59 (1.0-4.6) Absolute Monos (auto) 0.82 (0.0-1.3) Lymphocytes % 34.1 (24.0-44.0) % Monocytes % 10.8 (0.0-12.0) % Eosinophils % 2.5 (0.00-5.0) % Basophils % 0.4 (0.0-0.4) % Absolute Granulocytes 3.97 (1.4-6.9) Basophils # 0.03 (0-0.4) PT 12.6 H (9.95-12.35) SECONDS INR 1.08 (0.8-3.0) Sodium 141 (137-145) mmol/L Potassium 3.9 (3.5-5.1) mmol/L Chloride 103 (98-107) mmol/L Carbon Dioxide 30 (22-30) mmol/L Anion Gap 12.0 (5-15) MEQ/L BUN 16 (7-17) mg/dL Creatinine 0.85 (0.52-1.04) mg/dL Estimated GFR > 60.0 ML/MIN Glucose 104 (74-106) mg/dL Calcium 9.5 (8.4-10.2) mg/dL Total Bilirubin 0.80 (0.2-1.3) mg/dL AST 37 H (14-36) U/L ALT 29 (0-35) U/L Alkaline Phosphatase 74 (38-126) U/L Serum Total Protein 7.4 (6.3-8.2) g/dL Albumin 4.2 (3.5-5.0) g/dL Amylase 45 (30-110) U/L Lipase 69 (23-300) U/L - Progress Progress: unchanged Counseled pt/family regarding: lab results, diagnosis, need for follow-up - Departure Time of Disposition: 01:07 Departure Disposition: Home Clinical Impression: Colitis, Abdominal pain Condition: Stable Critical Care Time: No Referrals: ADALGISA KAHN [Primary Care Provider] - Additional Instructions: DRINK PLENTY OF FLUIDS. FOLLOW UP TOMORROW WITH PRIMARY DOCTOR FOR FURTHER MANAGEMENT Prescriptions: Ciprofloxacin [Cipro 500 MG] 500 mg PO BID #14 tablet Metronidazole 500 mg [Flagyl 500 MG] 500 mg PO TID #21 tablet
[2018-01-09 23:49] LABS: BASOPHIL % 0.4 % (0.0-0.4); Basophil (Absolute #) 0.03 (0-0.4); Eosinophil % 2.5 % (0.00-5.0); Eosinophil (Absolute #) 0.19 (0-0.5); Granulocyte Absolute (ANC) 3.97 (1.4-6.9); Granulocytes % 52.2 % (36.0-66.0); Hematocrit 43.5 % (35-47); Hemoglobin 14.4 gm/dl (12.0-16.0); Lymphocyte (Absolute #) 2.59 (1.0-4.6); Lymphocytes % 34.1 % (24.0-44.0); Mean Cell Volume 96.7 fl (78-100); Mean Corpuscular Hgb Concent. 33.1 g/dl (32-36); Mean Platelet Volume 12.3 fl (6-9.5); Monocyte (Absolute #) 0.82 (0.0-1.3); Monocytes % 10.8 % (0.0-12.0); Red Cell Distribution Width 14.3 % (11.5-14.0); White Blood Count 7.6 K/mm3 (4.0-10.5)
[2018-01-10 00:06] LABS: INR 1.08 (0.8-3.0)
[2018-01-10 00:10] LABS: ALBUMIN 4.2 g/dL (3.5-5.0); ALKALINE PHOSPHATASE 74 U/L (38-126); AMYLASE 45 U/L (30-110); BLOOD UREA NITROGEN 16 mg/dL (7-17); CHLORIDE 103 mmol/L (98-107); Calcium 9.5 mg/dL (8.4-10.2); Carbon Dioxide 30 mmol/L (22-30); Creatinine 1 0.85 mg/dL (0.52-1.04); Glucose 104 mg/dL (74-106); LIPASE 69 U/L (23-300); Potassium 3.9 mmol/L (3.5-5.1); SGOT/AST 37 U/L (14-36); SGPT/ALT 29 U/L (0-35); SODIUM 141 mmol/L (137-145); Total Protein 7.4 g/dL (6.3-8.2)
[2018-01-10] MEDS ORDERED: Flagyl 500 MG PO ONE (00:43)
[2018-01-10] MEDS ORDERED: Cipro 500 MG PO ONE (00:43)
[2018-01-10] MEDS ORDERED: Flagyl 500 MG ONE (01:11)
[2018-01-10] MEDS ORDERED: Cipro 500 MG ONE (01:11)
[2018-01-10 01:14] LABS: Platelet Count 74 K/mm3 (150-450); Slide Review 1 NO
[2018-01-10 01:21] VITALS: O2SAT 98
== END 2018-01-10 01:20 | disposition home or self-care (01) ==
LOC: ED 21:58
DX: K52.9 Noninfective gastroenteritis and colitis, unspecified (principal); R10.9 Unspecified abdominal pain; K92.1 Melena; Z79.899 Other long term (current) drug therapy
CPT/HCPCS: 36415; 80053; 82150; 83690; 85025; 85610; 99283; A9270-GY

== ENCOUNTER 2018-03-25 07:46 | Observation (INO) | payer OTHER ==
[2018-03-25] MEDS ORDERED: Sodium Chloride 0.9% 1000 ML 1,000 ML IV STA (08:15)
[2018-03-25] MEDS ORDERED: Zofran 4 MG/2 ML VIAL IV ONE (08:15)
[2018-03-25] MEDS ORDERED: MORPHINE SULFATE 4 MG INJ IV ONE (08:15)
--- NOTE | 2018-03-25 08:22 | ERPHSYRPT ---
- History of Present Illness Time Seen by Provider: 03/25/18 08:11 Historian: patient Exam Limitations: no limitations Patient Subjective Stated Complaint: pt here for sudden onset of right sided abd pain that woke her up this morning, no fever, some loose stools and nausea Triage Nursing Assessment: pt alert, walked in, resp easy, skin w/d/p, guarding abd, abd soft Physician History: 62-year-old white female arrives with complaint of pain in her right lower quadrant radiates to her back sharp crampy symptoms since this morning patient states she has not had any vomiting but she is nauseous no diarrhea no fevers. Past medical history includes arrhythmia, high blood pressure, arthritis, rheumatoid arthritis, hepatitis which apparently has been treated. Past surgical history includes cholecystectomy, hernia repair, lumpectomy, tubal ligation, kidney stones, knee arthroscopically. Social history denies tobacco alcohol or illicit drug use Timing/Duration: today Activities at Onset: none Quality: cramping, sharpness Abdominal Pain Onset Location: RLQ Pain Radiation: back Severity of Pain-Max: moderate Severity of Pain-Current: moderate Modifying Factors: Improves With: nothing Associated Symptoms: back, nausea, No chest pain, No diaphoresis, No diarrhea, No fever/chills, No fatigue, No headache, No heartburn, No loss of appetite, No neck pain, No shortness of breath, No syncope, No vomiting Previous symptoms: same symptoms as today (similar symptoms with kidney stones) Allergies/Adverse Reactions: No Known Drug Allergies Allergy (Verified 03/25/18 08:03) Home Medications: Bisoprolol Fumarate/Hctz [Bisoprolol-Hctz 10-6.25 mg Tab] 1 each PO DAILY [History] Hydroxychloroquine Sulfate [Plaquenil] 200 mg PO BID 08/07/17 [History] Potassium Chloride 20 Meq [Klor-Con 20 MEQ] 20 meq PO BID 08/07/17 [History] Prednisone 5 mg [Deltasone 5 mg] 5 mg PO DAILY 08/07/17 [History] Ergocalciferol (Vitamin D2) [Vitamin D] 50,000 unit PO WEEKLY 08/08/17 [History] Folic Acid 1 mg [Folate 1 mg] 1 mg PO DAILY 08/08/17 [History] Levothyroxine Sodium 50 Mcg [Synthroid 50 Mcg] 50 mcg PO DAILY 08/08/17 [ History] Hx Tetanus, Diphtheria Vaccination/Date Given: No Hx Influenza Vaccination/Date Given: No Hx Pneumococcal Vaccination/Date Given: No Immunizations Up to Date: Yes - Review of Systems Constitutional: No Fever, No Chills Eyes: No Symptoms Ears, Nose, & Throat: No Symptoms Respiratory: No Cough, No Dyspnea Cardiac: No Chest Pain, No Edema, No Syncope Abdominal/Gastrointestinal: Abdominal Pain (right lower quadrant abdominal pain) , Nausea, No Vomiting, No Diarrhea, No Constipation, No Hematemesis, No Hematochezia, No Melena, No Dysphagia, No Appetite Changes Genitourinary Symptoms: No Dysuria Musculoskeletal: No Back Pain, No Neck Pain Skin: No Rash Neurological: No Dizziness, No Focal Weakness, No Sensory Changes Psychological: No Symptoms Endocrine: No Symptoms All Other Systems: Reviewed and Negative - Past Medical History Pertinent Past Medical History: Yes Neurological History: No Pertinent History ENT History: No Pertinent History Cardiac History: Arrhythmia, Hypertension Respiratory History: No Pertinent History Endocrine Medical History: No Pertinent History Musculoskeletal History: Arthritis, Rheumatoid Arthritis GI Medical History: Other History: Other Psycho-Social History: Depression Female Reproductive Disorders: No Pertinent History Other Medical History: O.A. IN BOTH HANDS AND MOSTLY HER WHOLE BODY. pt did treatments for hep c - Past Surgical History Past Surgical History: Yes Neuro Surgical History: No Pertinent History Cardiac: No Pertinent History Respiratory: No Pertinent History Gastrointestinal: Cholecystectomy, Hernia Repair Genitourinary: Other Musculoskeletal: Other Female Surgical History: Lumpectomy, Tubal Ligation Other Surgical History: Kidney Stones. knee scope - Social History Smoking Status: Never smoker Exposure to second hand smoke: Yes Drug Use: none Patient Lives Alone: Yes - Female History Hx Last Menstrual Period: post Hx Now: No - Nursing Vital Signs Nursing Vital Signs: Initial Vital Signs Temperature 97.4 F 03/25/18 07:57 Pulse Rate 65 03/25/18 07:57 Respiratory Rate 16 03/25/18 07:57 Blood Pressure 154/91 03/25/18 07:57 O2 Sat by Pulse Oximetry 96 03/25/18 07:57 Pain Scale Pain Intensity 5 - Physical Exam General Appearance: moderate distress Eye Exam: PERRL/EOMI, eyes nml inspection Ears, Nose, Throat Exam: normal ENT inspection, pharynx normal, moist mucous membranes Neck Exam: normal inspection, non-tender, supple, full range of motion Respiratory Exam: normal breath sounds, lungs clear, No respiratory distress Cardiovascular Exam: regular rate/rhythm, normal heart sounds Gastrointestinal/Abdomen Exam: soft, normal bowel sounds, tenderness (right lower quadrant abdominal pain), guarding, No distention, No mass, No pulsatile mass Back Exam: normal inspection, normal range of motion, No CVA tenderness, No vertebral tenderness Extremity Exam: normal inspection, normal range of motion, pelvis stable Neurologic Exam: alert, oriented x 3, cooperative, 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 Stable nonobstructi renal micro-calculus. 2. Scattered colonic diverticulosis with new mild diverticulitis involving the sigmoid. No complications 3. Incidental splenomegaly and evidence for old granulomatous disease.) Ordered Tests: Active Orders 24 hr Category Date Time Status EKG-ER Only STAT Care 03/25/18 08:15 Active IV Insertion STAT Care 03/25/18 08:15 Active ABDOMEN AND PELVIS W/0 CONTRAS [CT] Stat Exams 03/25/18 08:16 Completed AMYLASE Stat Lab 03/25/18 08:24 Completed CBC W DIFF Stat Lab 03/25/18 08:24 Completed CMP Stat Lab 03/25/18 08:24 Completed CULTURE,URINE Stat Lab 03/25/18 08:49 Received LIPASE Stat Lab 03/25/18 08:24 Completed UA W/RFX UR CULTURE Stat Lab 03/25/18 08:49 Completed Medication Summary Generic Name Dose Route Start Last Admin Trade Name Freq PRN Reason Stop Dose Admin Metronidazole 500 mg in 100 mls @ 200 mls/hr 03/25/18 10:17 Flagyl 500 Mg Ivpb IV 03/25/18 10:46 STAT STA Discontinued Medications Generic Name Dose Route Start Last Admin Trade Name Freq PRN Reason Stop Dose Admin Sodium Chloride 1,000 mls @ 999 mls/hr 03/25/18 08:15 03/25/18 08:31 Sodium Chloride 0.9% 1000 Ml IV 03/25/18 09:15 999 mls/hr .Q1H1M STA Administration Sodium Chloride Confirm 03/25/18 08:31 Sodium Chloride 0.9% 1000 Ml Administered 03/25/18 08:32 Dose 1,000 mls @ ud .ROUTE .STK-MED ONE Morphine Sulfate 4 mg 03/25/18 08:15 03/25/18 08:31 Morphine Sulfate 4 Mg Inj IV 03/25/18 08:16 4 mg STAT ONE Administration Morphine Sulfate Confirm 03/25/18 08:31 Morphine Sulfate 4 Mg Inj Administered 03/25/18 08:32 Dose 4 mg .ROUTE .STK-MED ONE Ondansetron HCl 4 mg 03/25/18 08:15 03/25/18 08:32 Zofran 4 Mg/2 Ml Vial IV 03/25/18 08:16 4 mg STAT ONE Administration Ondansetron HCl Confirm 03/25/18 08:30 Zofran 4 Mg/2 Ml Vial Administered 03/25/18 08:31 Dose 4 mg .ROUTE .STK-MED ONE Lab/Rad Data: Laboratory Result Diagrams 03/25/18 08:24 03/25/18 08:24 Laboratory Results 03/25/18 03/25/18 03/25/18 Range/Units 08:49 08:24 08:24 WBC 6.6 (4.0-10.5) K/mm3 RBC 4.25 (4.1-5.4) M/mm3 Hgb 13.8 (12.0-16.0) gm/dl Hct 41.6 (35-47) % MCV 97.9 (78-100) fl MCH 32.5 H (26-32) pg MCHC 33.2 (32-36) g/dl RDW 13.1 (11.5-14.0) % Plt Count 86 L (150-450) K/mm3 MPV 11.7 H (6-9.5) fl Gran % 64.4 (36.0-66.0) % Eos # (Auto) 0.28 (0-0.5) Absolute Lymphs (auto) 1.43 (1.0-4.6) Absolute Monos (auto) 0.62 (0.0-1.3) Lymphocytes % 21.7 L (24.0-44.0) % Monocytes % 9.4 (0.0-12.0) % Eosinophils % 4.2 (0.00-5.0) % Basophils % 0.3 (0.0-0.4) % Absolute Granulocytes 4.25 (1.4-6.9) Basophils # 0.02 (0-0.4) Sodium 141 (137-145) mmol/L Potassium 4.1 (3.5-5.1) mmol/L Chloride 107 (98-107) mmol/L Carbon Dioxide 25 (22-30) mmol/L Anion Gap 12.6 (5-15) MEQ/L BUN 16 (7-17) mg/dL Creatinine 0.64 (0.52-1.04) mg/dL Estimated GFR > 60.0 ML/MIN Glucose 107 H (74-106) mg/dL Calcium 9.2 (8.4-10.2) mg/dL Total Bilirubin 0.60 (0.2-1.3) mg/dL AST 29 (14-36) U/L ALT 21 (0-35) U/L Alkaline Phosphatase 64 (38-126) U/L Serum Total Protein 7.3 (6.3-8.2) g/dL Albumin 4.0 (3.5-5.0) g/dL Amylase 64 (30-110) U/L Lipase 92 (23-300) U/L Urine Color YELLOW (YELLOW) Urine Appearance SLIGHTLY CLOUDY (CLEAR) Urine pH 5.0 (5-6) Ur Specific [place] 1.016 (1.005-1.025) Urine Protein NEGATIVE (Negative) Urine Ketones NEGATIVE (NEGATIVE) Urine Blood NEGATIVE (0-5) Bryan/ul Urine Nitrite NEGATIVE (NEGATIVE) Urine Bilirubin NEGATIVE (NEGATIVE) Urine Urobilinogen NEGATIVE (0-1) mg/dL Ur Leukocyte Esterase TRACE (NEGATIVE) Urine WBC (Auto) 6-10 (0-5) /HPF Urine RBC (Auto) 0-2 (0-2) /HPF U Epithel Cells (Auto) RARE (FEW) /HPF Urine Bacteria (Auto) FEW (NEGATIVE) /HPF Urine Mucus (Auto) SLIGHT (NEGATIVE) /HPF Urine Culture Reflexed YES (NO) Urine Glucose NEGATIVE (NEGATIVE) mg/dL Slides for Path Review YES - Progress Progress: improved Progress Note: 03/25/18 10:29 62-year-old white female arrives with complaint of pain in her right lower quadrant symptoms since this morning patient is nauseous with no vomiting. Patient is given 1 L of normal saline given morphine given Zofran she is still having some right lower quadrant abdominal pain. CT of the abdomen shows a small fecalith in the appendix but no signs of appendicitis patient does have diverticulitis in the sigmoid colon. I discussed case with Dr. Kahn she would like the patient to be placed on Cipro and Flagyl. Also discussed this with Dr. Colon. Will place patient on observation provide IV fluids continue pain medicines will write for Levaquin 500 mg IV every 24 hours Flagyl 500 mg IV every 8 hours. And provide anti-emetics. - Departure Time of Disposition: 10:30 Departure Disposition: Home Clinical Impression: Right lower quadrant abdominal pain, Diverticulitis Condition: Fair Critical Care Time: No Referrals: ADALGISA KAHN [Primary Care Provider] -
[2018-03-25 08:28] LABS: BASOPHIL % 0.3 % (0.0-0.4); Basophil (Absolute #) 0.02 (0-0.4); Eosinophil % 4.2 % (0.00-5.0); Eosinophil (Absolute #) 0.28 (0-0.5); Granulocyte Absolute (ANC) 4.25 (1.4-6.9); Granulocytes % 64.4 % (36.0-66.0); Hematocrit 41.6 % (35-47); Hemoglobin 13.8 gm/dl (12.0-16.0); Lymphocyte (Absolute #) 1.43 (1.0-4.6); Lymphocytes % 21.7 % (24.0-44.0); Mean Cell Volume 97.9 fl (78-100); Mean Corpuscular Hemoglobin 32.5 pg (26-32); Mean Corpuscular Hgb Concent. 33.2 g/dl (32-36); Mean Platelet Volume 11.7 fl (6-9.5); Monocyte (Absolute #) 0.62 (0.0-1.3); Monocytes % 9.4 % (0.0-12.0); Red Blood Count 4.25 M/mm3 (4.1-5.4); Red Cell Distribution Width 13.1 % (11.5-14.0); White Blood Count 6.6 K/mm3 (4.0-10.5)
[2018-03-25] MEDS ORDERED: Zofran 4 MG/2 ML VIAL ONE (08:30)
[2018-03-25] MEDS ORDERED: Sodium Chloride 0.9% 1000 ML 1,000 ML ONE (08:31)
[2018-03-25] MEDS ORDERED: MORPHINE SULFATE 4 MG INJ ONE (08:31)
[2018-03-25 08:43] LABS: ALKALINE PHOSPHATASE 64 U/L (38-126); AMYLASE 64 U/L (30-110); ANION GAP 12.6 MEQ/L (5-15); BLOOD UREA NITROGEN 16 mg/dL (7-17); CHLORIDE 107 mmol/L (98-107); Calcium 9.2 mg/dL (8.4-10.2); Carbon Dioxide 25 mmol/L (22-30); Creatinine 1 0.64 mg/dL (0.52-1.04); Glucose 107 mg/dL (74-106); LIPASE 92 U/L (23-300); Potassium 4.1 mmol/L (3.5-5.1); SGOT/AST 29 U/L (14-36); SGPT/ALT 21 U/L (0-35); SODIUM 141 mmol/L (137-145); Total Protein 7.3 g/dL (6.3-8.2)
--- NOTE | 2018-03-25 09:16 | XRAY ---
Indication: Right flank/pelvic pain. History stones. Multiple contiguous axial images obtained through the abdomen and pelvis without contrast using renal stone protocol. Comparison: August 07, 2017. Lung bases again demonstrates minimal bibasilar dependent atelectasis/scarring and left posterior gutter calcified granuloma. No infiltrate or effusion. Heart is not enlarged. Stable nonobstructing punctate right renal calculus. Left system negative for calculus or evidence for obstructive uropathy. Noncontrasted stomach and bowel loops appear nonobstructed. Appendix identified with new tiny appendicoliths but no evidence for appendicitis. Again mild scattered colonic diverticulosis with new focus mild diverticulitis involving the proximal sigmoid. No free fluid/air. Spleen remains enlarged today measuring 14.4 cm in greatest axial dimension. Again a few hepatic/splenic calcified granulomas. Stable cholecystectomy clips and small distal right iliopsoas intramuscular lipoma. Remaining liver, pancreas, spleen, adrenal glands, kidneys, ureters, bladder, and uterus appear unremarkable for noncontrast exam. There remains minimal aortoiliac calcifications without AAA. Osseous structures intact again with mild degenerative changes throughout the spine. Impression: 1. Stable nonobstructing right renal micro-calculus. 2. Again scattered colonic diverticulosis with new mild diverticulitis involving the sigmoid. No complications. 3. Incidental splenomegaly and evidence for old granulomatous disease. CT DI 35.17
[2018-03-25 09:18] LABS: Appearance SLIGHTLY CLOUDY (CLEAR); Bilirubin NEGATIVE (NEGATIVE); Blood NEGATIVE Ery/ul (0-5); Glucose NEGATIVE (NEGATIVE); Ketones NEGATIVE (NEGATIVE); Leukocyte Esterase TRACE (NEGATIVE); Nitrite NEGATIVE (NEGATIVE); Protein,Urine Dip NEGATIVE (Negative); Specific Gravity 1.016 (1.005-1.025); Urobilinogen NEGATIVE mg/dL (0-1)
[2018-03-25 09:28] LABS: Platelet Count 86 K/mm3 (150-450)
[2018-03-25 09:33] LABS: Slide Review 1 YES
[2018-03-25] MEDS ORDERED: FLAGYL 500 MG IVPB 500 MG/100 ML BAG IV STA (10:17)
[2018-03-25] MEDS ORDERED: FLAGYL 500 MG IVPB 500 MG/100 ML BAG IV ONE (10:30)
[2018-03-25] MEDS: Levofloxacin 500MG/100ML D5W 500 MG/100 ML BAG IV SCH (12:07)
[2018-03-25] MEDS: Sodium Chloride 0.9% 1000 ML 1,000 ML IV SCH ×2 (12:07→22:33)
[2018-03-25] MEDS: MORPHINE SULFATE 4 MG INJ IV PRN ×2 (12:08→22:28)
[2018-03-25] MEDS: Phenergan 25 MG INJ IV PRN ×2 (13:42→22:26)
[2018-03-25] MEDS ORDERED: MEDICATION INTERVENTION PO SCH (17:00)
[2018-03-25] MEDS: FLAGYL 500 MG IVPB 500 MG/100 ML BAG IV SCH ×2 (17:31→22:18)
[2018-03-25] MEDS ORDERED: NON-FORMULARY ITEM (Potassium Chloride 20 Meq [Klor-Con 20 Meq] 20 MEQ) PO SCH (22:00)
[2018-03-25] MEDS ORDERED: NON-FORMULARY ITEM (Hydroxychloroquine Sulfate [Plaquenil] 200 MG) PO SCH (22:00)
[2018-03-25] MEDS: Klor Con 10 MEQ PO SCH (22:19)
[2018-03-26] MEDS: FLAGYL 500 MG IVPB 500 MG/100 ML BAG IV SCH ×3 (05:26→20:57)
[2018-03-26 05:57] LABS: BASOPHIL % 0.3 % (0.0-0.4); Basophil (Absolute #) 0.01 (0-0.4); Eosinophil % 7.8 % (0.00-5.0); Eosinophil (Absolute #) 0.26 (0-0.5); Granulocyte Absolute (ANC) 1.56 (1.4-6.9); Granulocytes % 46.9 % (36.0-66.0); Hematocrit 39.3 % (35-47); Hemoglobin 12.9 gm/dl (12.0-16.0); Lymphocyte (Absolute #) 1.15 (1.0-4.6); Lymphocytes % 34.5 % (24.0-44.0); Mean Cell Volume 99.5 fl (78-100); Mean Corpuscular Hgb Concent. 32.8 g/dl (32-36); Mean Platelet Volume 11.2 fl (6-9.5); Monocyte (Absolute #) 0.35 (0.0-1.3); Monocytes % 10.5 % (0.0-12.0); Red Blood Count 3.95 M/mm3 (4.1-5.4); Red Cell Distribution Width 12.9 % (11.5-14.0); White Blood Count 3.3 K/mm3 (4.0-10.5)
[2018-03-26 06:11] LABS: ALBUMIN 3.2 g/dL (3.5-5.0); ALKALINE PHOSPHATASE 58 U/L (38-126); ANION GAP 10.8 MEQ/L (5-15); BLOOD UREA NITROGEN 10 mg/dL (7-17); CHLORIDE 108 mmol/L (98-107); Calcium 8.3 mg/dL (8.4-10.2); Carbon Dioxide 26 mmol/L (22-30); Creatinine 1 0.64 mg/dL (0.52-1.04); Glucose 88 mg/dL (74-106); Potassium 4.1 mmol/L (3.5-5.1); SGOT/AST 43 U/L (14-36); SGPT/ALT 32 U/L (0-35); SODIUM 141 mmol/L (137-145); Total Protein 6.2 g/dL (6.3-8.2)
[2018-03-26 07:06] LABS: Mean Corpuscular Hemoglobin 32.6 pg (26-32)
[2018-03-26 07:08] LABS: Platelet Count 78 K/mm3 (150-450)
[2018-03-26] MEDS: SYNTHROID 50 MCG PO SCH (08:14)
[2018-03-26] MEDS: Klor Con 10 MEQ PO SCH ×2 (08:14→20:56)
[2018-03-26] MEDS: FOLATE 1 MG PO SCH (08:15)
[2018-03-26] MEDS: Protonix 40MG Tablet PO SCH (08:15)
[2018-03-26] MEDS: Mirapex 0.5 MG Tablet PO SCH (08:15)
[2018-03-26] MEDS: DELTASONE 5 MG PO SCH (08:16)
[2018-03-26] MEDS: Mobic 7.5 MG PO SCH (08:16)
[2018-03-26] MEDS: Levofloxacin 500MG/100ML D5W 500 MG/100 ML BAG IV SCH (09:49)
[2018-03-26] MEDS: Sodium Chloride 0.9% 1000 ML 1,000 ML IV SCH ×2 (09:49→20:56)
[2018-03-26] MEDS ORDERED: NON-FORMULARY ITEM (Omeprazole 20 Mg [Prilosec 20 Mg] 20 MG) PO SCH (10:00)
[2018-03-26] MEDS ORDERED: NON-FORMULARY ITEM (Pramipexole Di-Hcl [Pramipexole Dihydrochloride] 0.25 MG) PO SCH (10:00)
[2018-03-26] MEDS ORDERED: NON-FORMULARY ITEM (Meloxicam 15 Mg [Meloxicam 15 Mg] 15 MG) PO SCH (10:00)
[2018-03-26] MEDS ORDERED: FLUZONE QUAD (36mo-64yo) 2018-2019 SYRINGE IM ONE (10:00)
--- NOTE | 2018-03-26 11:20 | PCM.HP ---
History of Present Illness - Chief Complaint Chief Complaint: DIVERTICULITIS, KIDNEY STONE History of Present Illness: is a 62 year old female arrives with complaint of pain in her right lower quadrant radiates to her back sharp crampy symptoms since this morning patient states she has not had any vomiting but she is nauseous no diarrhea no fevers. Past medical history includes arrhythmia, high blood pressure, arthritis, rheumatoid arthritis, hepatitis which apparently has been treated. Past surgical history includes cholecystectomy, hernia repair, lumpectomy, tubal ligation, kidney stones, knee arthroscopically. - Review of Systems Constitutional: No Fever, No Chills Eyes: No Symptoms Ears, Nose, & Throat: No Symptoms Respiratory: No Cough, No Short Of Breath Cardiac: No Chest Pain, No Edema, No Syncope Abdominal/Gastrointestinal: No Abdominal Pain, No Nausea, No Vomiting, No Diarrhea Genitourinary Symptoms: No Dysuria Musculoskeletal: No Back Pain, No Neck Pain Skin: No Rash Neurological: No Dizziness, No Focal Weakness, No Sensory Changes Psychological: No Symptoms Endocrine: No Symptoms Hematologic/Lymphatic: No Symptoms Immunological/Allergic: No Symptoms Medications & Allergies Home Medications: Home Medication List Hydroxychloroquine Sulfate [Plaquenil] 200 mg PO BID 08/07/17 [History Confirmed 03/25/18] Potassium Chloride 20 Meq [Klor-Con 20 MEQ] 20 meq PO BID 08/07/17 [History Confirmed 03/25/18] Prednisone 5 mg [Deltasone 5 mg] 5 mg PO DAILY 08/07/17 [History Confirmed 03/25/18] Ergocalciferol (Vitamin D2) [Vitamin D] 50,000 unit PO WEEKLY 08/08/17 [History Confirmed 03/25/18] Folic Acid 1 mg [Folate 1 mg] 1 mg PO DAILY 08/08/17 [History Confirmed ] Levothyroxine Sodium 50 Mcg [Synthroid 50 Mcg] 50 mcg PO DAILY 08/08/17 [ History Confirmed 03/25/18] Meloxicam 15 mg [Meloxicam 15 MG] 15 mg PO DAILY 03/25/18 [History Confirmed 08/11] Omeprazole 20 MG [Prilosec 20 mg] 20 mg PO DAILY 03/25/18 [History Confirmed 08/11] Pramipexole Di-HCl [Pramipexole Dihydrochloride] 0.25 mg PO DAILY 03/25/18 [ History Confirmed 03/25/18] Allergies/Adverse Reactions: Allergies Allergy/AdvReac Type Severity Reaction Status Date / Time No Known Drug Allergies Allergy Verified 03/25/18 08:03 - Past Medical History Past Medical History: Yes Neurological History: No Pertinent History ENT History: No Pertinent History Cardiac History: Arrhythmia, Hypertension Respiratory History: No Pertinent History Endocrine Medical History: No Pertinent History Musculoskelatal History: Arthritis, Rheumatoid Arthritis GI Medical History: Other History: Other Pyscho-Social History: Depression Reproductive Disorders: No Pertinent History Comment: O.A. IN BOTH HANDS AND MOSTLY HER WHOLE BODY. pt did treatments for hep c - Female History Hx Last Menstrual Period: post Are you now?: No - Past Surgical History Past Surgical History: Yes Neuro Surgical History: No Pertinent History Cardiac History: No Pertinent History Respiratory Surgery: No Pertinent History GI Surgical History: Cholecystectomy, Hernia Repair Genitourinary Surgical Hx: Other Musculskeletal Surgical Hx: Other Female Surgical History: Lumpectomy, Tubal Ligation Other Surgical History: Kidney Stones. knee scope - Social History Smoking Status: Never smoker Exposure to second hand smoke: Yes Alcohol: None Drug Use: none - Physical Exam Vital Signs: Vital Signs - 24 hr Temp Pulse Resp BP Pulse Ox 03/26/18 07:29 98 F 58 L 20 138/61 95 03/26/18 04:04 98.3 F 50 L 16 108/55 96 03/25/18 23:43 98.0 F 50 L 16 115/56 97 03/25/18 20:05 97.8 F 60 16 123/58 97 03/25/18 16:00 97.7 F 56 L 16 132/63 96 03/25/18 11:45 97.4 F 81 134/91 96 General Appearance: no apparent distress, alert Neurologic Exam: alert, oriented x 3, cooperative, normal mood/affect, nml cerebellar function, nml station & gait, sensation nml, No motor deficits Eye Exam: PERRL/EOMI, eyes nml inspection Ears, Nose, Throat Exam: normal ENT inspection, TMs normal, pharynx normal, moist mucous membranes Neck Exam: normal inspection, non-tender, supple, full range of motion Respiratory Exam: normal breath sounds, lungs clear, No respiratory distress Cardiovascular Exam: regular rate/rhythm, normal heart sounds, normal peripheral pulses Gastrointestinal/Abdomen Exam: soft, normal bowel sounds, No tenderness, No mass Back Exam: normal inspection, normal range of motion, No CVA tenderness, No vertebral tenderness Extremity Exam: normal inspection, normal range of motion, pelvis stable Skin Exam: normal color, warm, dry, No rash Lymphatic Exam: No adenopathy Results - Labs Lab/Micro Results: Lab Results-Last 24 Hours 03/26/18 03/26/18 Range/Units 05:37 05:37 WBC 3.3 L (4.0-10.5) K/mm3 RBC 3.95 L (4.1-5.4) M/mm3 Hgb 12.9 (12.0-16.0) gm/dl Hct 39.3 (35-47) % MCV 99.5 (78-100) fl MCH 32.6 H (26-32) pg MCHC 32.8 (32-36) g/dl RDW 12.9 (11.5-14.0) % Plt Count 78 L (150-450) K/mm3 MPV 11.2 H (6-9.5) fl Gran % 46.9 (36.0-66.0) % Eos # (Auto) 0.26 (0-0.5) Absolute Lymphs (auto) 1.15 (1.0-4.6) Absolute Monos (auto) 0.35 (0.0-1.3) Lymphocytes % 34.5 (24.0-44.0) % Monocytes % 10.5 (0.0-12.0) % Eosinophils % 7.8 H (0.00-5.0) % Basophils % 0.3 (0.0-0.4) % Absolute Granulocytes 1.56 (1.4-6.9) Basophils # 0.01 (0-0.4) Sodium 141 (137-145) mmol/L Potassium 4.1 (3.5-5.1) mmol/L Chloride 108 H (98-107) mmol/L Carbon Dioxide 26 (22-30) mmol/L Anion Gap 10.8 (5-15) MEQ/L BUN 10 (7-17) mg/dL Creatinine 0.64 (0.52-1.04) mg/dL Estimated GFR > 60.0 ML/MIN Glucose 88 (74-106) mg/dL Calcium 8.3 L (8.4-10.2) mg/dL Total Bilirubin 0.80 (0.2-1.3) mg/dL AST 43 H (14-36) U/L ALT 32 (0-35) U/L Alkaline Phosphatase 58 (38-126) U/L Serum Total Protein 6.2 L (6.3-8.2) g/dL Albumin 3.2 L (3.5-5.0) g/dL Microbiology 03/25/18 08:49 Urine Culture - Preliminary Urine, Void GRAM NEGATIVE ID AND SENSITIVITY PENDING - Radiology Impressions Radiology Exams & Impressions: Radiology Procedures Category Date Time Status ABDOMEN AND PELVIS W/0 CONTRAS [CT] Stat Exams 03/25/18 08:16 Completed Assessment/Plan (1) Abdominal pain Current Visit: Yes Status: Acute Onset Date: ~03/25/18 Qualifiers: Abdominal location: generalized Qualified Code(s): R10.84 - Generalized abdominal pain Code(s): R10.9 - UNSPECIFIED ABDOMINAL PAIN (2) Colitis Current Visit: Yes Status: Acute Onset Date: ~03/25/18 Code(s): K52.9 - NONINFECTIVE GASTROENTERITIS AND COLITIS, UNSPECIFIED (3) Diverticulitis Current Visit: Yes Status: Acute Onset Date: ~03/25/18 Code(s): K57.92 - DVTRCLI OF INTEST, PART UNSP, W/O PERF OR ABSCESS W/O BLEED (4) Degenerative disc disease, lumbar Current Visit: No Status: Chronic Code(s): M51.36 - OTHER INTERVERTEBRAL DISC DEGENERATION, LUMBAR REGION
--- NOTE | 2018-03-26 11:26 | PCM.NOTE ---
Date and Time: 03/26/18 1125 Subjective Assessment: doing ok - Review of Systems Constitutional: No Fever, No Chills Eyes: No Symptoms Ears, Nose, & Throat: No Symptoms Respiratory: No Cough, No Short Of Breath Cardiac: No Chest Pain, No Edema, No Syncope Abdominal/Gastrointestinal: No Abdominal Pain, No Nausea, No Vomiting, No Diarrhea Genitourinary Symptoms: No Dysuria Musculoskeletal: No Back Pain, No Neck Pain Skin: No Rash Neurological: No Dizziness, No Focal Weakness, No Sensory Changes Psychological: No Symptoms Endocrine: No Symptoms Hematologic/Lymphatic: No Symptoms Immunological/Allergic: No Symptoms Objective Exam General Appearance: no apparent distress, alert Neurologic Exam: alert, oriented x 3, cooperative, normal mood/affect, nml cerebellar function, sensation nml, No motor deficits Skin Exam: normal color, warm, dry Eye Exam: PERRL, EOMI, eyes nml inspection Ears, Nose, Throat Exam: normal ENT inspection, pharynx normal, moist mucous membranes Neck Exam: normal inspection, non-tender, supple, full range of motion Respiratory Exam: normal breath sounds, lungs clear, No respiratory distress Cardiovascular Exam: regular rate/rhythm, normal heart sounds Gastrointestinal/Abdomen Exam: soft, No tenderness, No mass Extremity Exam: normal inspection, normal range of motion Back Exam: normal inspection, normal range of motion, No CVA tenderness, No vertebral tenderness Pelvic Exam: deferred Rectal Exam: deferred OBJECTIVE DATA Vital Signs: Vital Signs - 24 hr Temp Pulse Resp BP Pulse Ox 03/26/18 07:29 98 F 58 L 20 138/61 95 03/26/18 04:04 98.3 F 50 L 16 108/55 96 03/25/18 23:43 98.0 F 50 L 16 115/56 97 03/25/18 20:05 97.8 F 60 16 123/58 97 03/25/18 16:00 97.7 F 56 L 16 132/63 96 03/25/18 11:45 97.4 F 81 134/91 96 Pain Assessment - Last Documented Pain Intensity 5 Pain Scale Used 0-10 Pain Scale Intake and Output: Intake & Output 03/23/18 03/24/18 03/25/18 03/26/18 11:59 11:59 11:59 11:59 Intake Total 2639 Output Total 2450 Balance 189 Weight 105.9 kg 105.4 kg Lab Results: Lab Results-Last 24 Hours 03/26/18 03/26/18 Range/Units 05:37 05:37 WBC 3.3 L (4.0-10.5) K/mm3 RBC 3.95 L (4.1-5.4) M/mm3 Hgb 12.9 (12.0-16.0) gm/dl Hct 39.3 (35-47) % MCV 99.5 (78-100) fl MCH 32.6 H (26-32) pg MCHC 32.8 (32-36) g/dl RDW 12.9 (11.5-14.0) % Plt Count 78 L (150-450) K/mm3 MPV 11.2 H (6-9.5) fl Gran % 46.9 (36.0-66.0) % Eos # (Auto) 0.26 (0-0.5) Absolute Lymphs (auto) 1.15 (1.0-4.6) Absolute Monos (auto) 0.35 (0.0-1.3) Lymphocytes % 34.5 (24.0-44.0) % Monocytes % 10.5 (0.0-12.0) % Eosinophils % 7.8 H (0.00-5.0) % Basophils % 0.3 (0.0-0.4) % Absolute Granulocytes 1.56 (1.4-6.9) Basophils # 0.01 (0-0.4) Sodium 141 (137-145) mmol/L Potassium 4.1 (3.5-5.1) mmol/L Chloride 108 H (98-107) mmol/L Carbon Dioxide 26 (22-30) mmol/L Anion Gap 10.8 (5-15) MEQ/L BUN 10 (7-17) mg/dL Creatinine 0.64 (0.52-1.04) mg/dL Estimated GFR > 60.0 ML/MIN Glucose 88 (74-106) mg/dL Calcium 8.3 L (8.4-10.2) mg/dL Total Bilirubin 0.80 (0.2-1.3) mg/dL AST 43 H (14-36) U/L ALT 32 (0-35) U/L Alkaline Phosphatase 58 (38-126) U/L Serum Total Protein 6.2 L (6.3-8.2) g/dL Albumin 3.2 L (3.5-5.0) g/dL Radiology Exams: Radiology Procedures Category Date Time Status ABDOMEN AND PELVIS W/0 CONTRAS [CT] Stat Exams 03/25/18 08:16 Completed Assessment/Plan (1) Abdominal pain Current Visit: Yes Status: Acute Onset Date: ~03/25/18 Qualifiers: Abdominal location: generalized Qualified Code(s): R10.84 - Generalized abdominal pain Assessment & Plan: improving Code(s): R10.9 - UNSPECIFIED ABDOMINAL PAIN (2) Colitis Current Visit: Yes Status: Acute Onset Date: ~03/25/18 Code(s): K52.9 - NONINFECTIVE GASTROENTERITIS AND COLITIS, UNSPECIFIED (3) Diverticulitis Current Visit: Yes Status: Acute Onset Date: ~03/25/18 Code(s): K57.92 - DVTRCLI OF INTEST, PART UNSP, W/O PERF OR ABSCESS W/O BLEED (4) Degenerative disc disease, lumbar Current Visit: No Status: Chronic Code(s): M51.36 - OTHER INTERVERTEBRAL DISC DEGENERATION, LUMBAR REGION
[2018-03-26] MEDS: MORPHINE SULFATE 4 MG INJ IV PRN ×2 (13:58→22:31)
[2018-03-27] MEDS: MORPHINE SULFATE 4 MG INJ IV PRN (05:33)
[2018-03-27] MEDS: Sodium Chloride 0.9% 1000 ML 1,000 ML IV SCH (05:33)
[2018-03-27] MEDS: FLAGYL 500 MG IVPB 500 MG/100 ML BAG IV SCH (05:38)
[2018-03-27 07:28] VITALS: O2SAT 94
[2018-03-27] MEDS: Levofloxacin 500MG/100ML D5W 500 MG/100 ML BAG IV SCH (09:16)
[2018-03-27] MEDS: Mirapex 0.5 MG Tablet PO SCH (09:20)
[2018-03-27] MEDS: Klor Con 10 MEQ PO SCH (09:21)
[2018-03-27] MEDS: SYNTHROID 50 MCG PO SCH (09:22)
[2018-03-27] MEDS: Mobic 7.5 MG PO SCH (09:23)
[2018-03-27] MEDS: Protonix 40MG Tablet PO SCH (09:24)
[2018-03-27] MEDS: DELTASONE 5 MG PO SCH (09:24)
[2018-03-27] MEDS: FOLATE 1 MG PO SCH (09:24)
[2018-03-27 10:45] VITALS: BP 136/67; PULSE 58
--- NOTE | 2018-03-27 12:06 | PCM.DS ---
Discharge Summary Date of Admission: 03/25/18 11:09 Admitting Physician: ZACK SANTOS Primary Care Provider: ADALGISA KAHN Allergies Allergies No Known Drug Allergies Allergy (Verified 03/25/18 08:03) Hospital Summary - Hospital Course Hospital Course: Last Vital Signs Temp 97.9 F 03/27/18 10:43 Pulse 58 L 03/27/18 10:43 Resp 21 03/27/18 10:43 BP 136/67 03/27/18 10:43 Pulse Ox 94 L 03/27/18 10:43 Allergies No Known Drug Allergies Allergy (Verified 03/25/18 08:03) Active Medications Ergocalciferol (Vitamin D2) 50,000 unit PO WEEKLY TAMANNA Stop: 05/01/18 09:59 Folic Acid (Folate 1 Mg) 1 mg PO DAILY TAMANNA Stop: 04/25/18 09:59 Last Admin: 03/27/18 09:24 Dose: 1 mg Levofloxacin/Dextrose (Levofloxacin 500mg/100ml D5w) 500 mg in 100 mls @ 100 mls/hr IV Q24H10 TAMANNA Stop: 04/24/18 11:59 Last Admin: 03/27/18 09:16 Dose: 100 mls/hr Metronidazole (Flagyl 500 Mg Ivpb) 500 mg in 100 mls @ 200 mls/hr IV Q8HT TAMANNA Stop: 04/24/18 16:59 Last Admin: 03/27/18 05:38 Dose: 200 mls/hr Sodium Chloride (Sodium Chloride 0.9% 1000 Ml) 1,000 mls @ 100 mls/hr IV .Q10H TAMANNA Stop: 04/24/18 11:17 Last Admin: 03/27/18 05:33 Dose: 100 mls/hr Levothyroxine Sodium (Synthroid 50 Mcg) 50 mcg PO DAILY TAMANNA Stop: 04/25/18 09:59 Last Admin: 03/27/18 09:22 Dose: 50 mcg Meloxicam (Mobic 7.5 Mg) 15 mg PO DAILY TAMANNA Stop: 04/25/18 09:59 Last Admin: 03/27/18 09:23 Dose: 15 mg Miscellaneous Information (Medication Intervention) 1 each PO .RN TO CHECK ON TAMANNA Stop: 04/24/18 16:59 Morphine Sulfate (Morphine Sulfate 4 Mg Inj) 4 mg IV Q4H PRN PRN PRN Reason: PAIN Stop: 03/30/18 11:17 Last Admin: 03/27/18 05:33 Dose: 4 mg Pantoprazole Sodium (Protonix 40mg Tablet) 40 mg PO DAILY TAMANNA Stop: 04/25/18 09:59 Last Admin: 03/27/18 09:24 Dose: 40 mg Potassium Chloride (Klor Con 10 Meq) 20 meq PO BID TAMANNA Stop: 04/24/18 21:59 Last Admin: 03/27/18 09:21 Dose: 20 meq Pramipexole Dihydrochloride (Mirapex 0.5 Mg Tablet) 0.25 mg PO DAILY TAMANNA Stop: 04/25/18 09:59 Last Admin: 03/27/18 09:20 Dose: 0.25 mg Prednisone (Deltasone 5 Mg) 5 mg PO DAILY TAMANNA Stop: 04/25/18 09:59 Last Admin: 03/27/18 09:24 Dose: 5 mg Promethazine HCl (Phenergan 25 Mg Inj) 12.5 mg IV Q6H PRN PRN PRN Reason: NAUSEA/VOMITING Stop: 04/24/18 11:17 Last Admin: 03/25/18 22:26 Dose: 12.5 mg Intake & Output 03/27/18 03/28/18 11:59 11:59 Intake Total 2662 Output Total 1550 Balance 1112 Weight 107 kg Orders 03/26/18 Dinner [place] Diet Soft Diet 04/01/18 10:00 Ergocalciferol (Vitamin D2) [Vitamin D2] 50,000 unit PO WEEKLY Microbiology 03/25/18 08:49 Urine, Void Urine Culture - Preliminary Escherichia Coli - Vitals & Intake/Output Vital Signs: Vital Signs Temperature 97.9 F 03/27/18 10:43 Pulse Rate 58 L 03/27/18 10:43 Respiratory Rate 21 03/27/18 10:43 Blood Pressure 136/67 03/27/18 10:43 O2 Sat by Pulse Oximetry 94 L 03/27/18 10:43 Intake & Output: Intake & Output 03/25/18 03/26/18 03/27/18 03/28/18 11:59 11:59 11:59 11:59 Intake Total 2639 2662 Output Total 2450 1550 Balance 189 1112 Weight 105.9 kg 105.4 kg 107 kg - Lab Result Diagrams: 03/26/18 05:37 03/26/18 05:37 Micro Results-Entire Visit: Microbiology 03/25/18 08:49 Urine Culture - Preliminary Urine, Void Escherichia Coli Discharge Exam General Appearance: no apparent distress, alert Neurologic Exam: alert, oriented x 3, cooperative, normal mood/affect, nml cerebellar function, sensation nml, No motor deficits Skin Exam: normal color, warm, dry Eye Exam: PERRL, EOMI, eyes nml inspection Ears, Nose, Throat Exam: normal ENT inspection, pharynx normal, moist mucous membranes Neck Exam: normal inspection, non-tender, supple, full range of motion Respiratory Exam: normal breath sounds, lungs clear, No respiratory distress Cardiovascular Exam: regular rate/rhythm, normal heart sounds Gastrointestinal/Abdomen Exam: soft, No tenderness, No mass Extremity Exam: normal inspection, normal range of motion Back Exam: normal inspection, normal range of motion, No CVA tenderness, No vertebral tenderness Pelvic Exam: deferred Rectal Exam: deferred Final Diagnosis/Problem List - Final Discharge Diagnosis/Problem (1) UTI (urinary tract infection) Current Visit: Yes Status: Acute Assessment & Plan: will discharge her home with levaquin 250 mg po daily for 5 day (2) Abdominal pain Current Visit: Yes Status: Resolved Onset Date: ~03/25/18 (3) Colitis Current Visit: Yes Status: Resolved Onset Date: ~03/25/18 (4) Diverticulitis Current Visit: Yes Status: Resolved Onset Date: ~03/25/18 (5) Degenerative disc disease, lumbar Current Visit: No Status: Chronic - Discharge Discharge Date: 03/27/18 Disposition: Home, Self-Care Condition: Stable Prescriptions: New Levofloxacin [Levaquin] 250 mg PO DAILY #5 tablet Triamcinolone 0.025% Cream [Triamcinolone Acetonide] 80 gm TP BID #80 cream..g. Continue Hydroxychloroquine Sulfate [Plaquenil] 200 mg PO BID Prednisone 5 mg [Deltasone 5 mg] 5 mg PO DAILY Potassium Chloride 20 Meq [Klor-Con 20 MEQ] 20 meq PO BID Levothyroxine Sodium 50 Mcg [Synthroid 50 Mcg] 50 mcg PO DAILY Folic Acid 1 mg [Folate 1 mg] 1 mg PO DAILY Ergocalciferol (Vitamin D2) [Vitamin D] 50,000 unit PO WEEKLY Pramipexole Di-HCl [Pramipexole Dihydrochloride] 0.25 mg PO DAILY Omeprazole 20 MG [Prilosec 20 mg] 20 mg PO DAILY Meloxicam 15 mg [Meloxicam 15 MG] 15 mg PO DAILY Instructions: Diverticulitis (DC) Follow up with: ADALGISA KAHN [Primary Care Provider] - 04/02/18 2:15 pm ([facility] [place]) Forms: Discharge Instructions
[2018-04-01] MEDS ORDERED: VITAMIN D2 PO SCH (10:00)
== END 2018-03-27 12:48 | disposition home or self-care (01) ==
LOC: ED 07:46 → MED SURG 11:09
PROVIDERS: ADMIT General Practice; ATTEND General Practice
DX: N39.0 Urinary tract infection, site not specified (principal); K52.9 Noninfective gastroenteritis and colitis, unspecified; K57.92 Diverticulitis of intestine, part unspecified, without perforation or abscess without bleeding; M51.36 Other intervertebral disc degeneration, lumbar region; Z79.899 Other long term (current) drug therapy; Z87.442 Personal history of urinary calculi; M06.9 Rheumatoid arthritis, unspecified; R10.9 Unspecified abdominal pain; Z23 Encounter for immunization
CPT/HCPCS: 36415; 74176; 80053; 81001; 82150; 83690; 85025; 87077; 87086; 87186; 93005; 93268; 96360; 96365; 96374; 96375; 99285; G0378; 90686; G0008; J1956; J2270; J2405; J2550; A9270-GY

== ENCOUNTER 2018-09-28 02:35 | Emergency (ER) | payer MEDICAID, OTHER ==
[2018-09-28] MEDS ORDERED: Phenergan 25 MG INJ IM ONE (03:28)
[2018-09-28] MEDS ORDERED: Sodium Chloride 0.9% 1000 ML 1,000 ML IV STA (03:28)
--- NOTE | 2018-09-28 03:33 | ERPHSYRPT ---
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 pt c/o diffuse abd pain. denies fever. pt states she "always has diarrhea but usually has control of it" Triage Nursing Assessment: pink/warm/dry, resp easy, a&ox4, steady gait from cot to bed. pt holding and rubbing abd, facial grimaces noted. Physician History: 63-year-old white female with history arrhythmia, high blood pressure, rheumatoid arthritis, arthritis, depression Patient arrives with complaints of nausea, vomiting, diarrhea, states she was incontinent with diarrhea she states she has diffuse abdominal pain sudden onset 2 hours prior to arrival. Past medical history includes arrhythmia, high blood pressure, rheumatoid arthritis, arthritis, depression, hepatitis C which has been treated. Past surgical history includes cholecystectomy, hernia repair, lumpectomy, tubal ligation, kidney stones, knee scope Timing/Duration: today (2 hours prior to arrival) Activities at Onset: none Quality: cramping Abdominal Pain Onset Location: generalized abdomen Pain Radiation: no radiation Severity of Pain-Max: moderate Severity of Pain-Current: moderate Modifying Factors: Improves With: nothing Associated Symptoms: diarrhea, nausea, vomiting, No back, No chest pain, No diaphoresis, No fever/chills, No fatigue, No headache, No heartburn, No loss of appetite, No neck pain, No rash, No shortness of breath, No syncope, No weakness Previous symptoms: same symptoms as today Allergies/Adverse Reactions: No Known Drug Allergies Allergy (Verified 09/28/18 02:43) Home Medications: Hydroxychloroquine Sulfate [Plaquenil] 200 mg PO BID 08/07/17 [History] Potassium Chloride 20 Meq [Klor-Con 20 MEQ] 20 meq PO BID 08/07/17 [History] Prednisone 5 mg [Deltasone 5 mg] 5 mg PO DAILY 08/07/17 [History] Ergocalciferol (Vitamin D2) [Vitamin D] 50,000 unit PO WEEKLY 08/08/17 [History] Folic Acid 1 mg [Folate 1 mg] 1 mg PO DAILY 08/08/17 [History] Levothyroxine Sodium 50 Mcg [Synthroid 50 Mcg] 50 mcg PO DAILY 08/08/17 [ History] Meloxicam 15 mg [Meloxicam 15 MG] 15 mg PO DAILY 03/25/18 [History] Omeprazole 20 MG [Prilosec 20 mg] 20 mg PO DAILY 03/25/18 [History] Pramipexole Di-HCl [Pramipexole Dihydrochloride] 0.25 mg PO DAILY 03/25/18 [ History] Hx Tetanus, Diphtheria Vaccination/Date Given: Yes Hx Influenza Vaccination/Date Given: Yes Hx Pneumococcal Vaccination/Date Given: Yes Immunizations Up to Date: Yes - Review of Systems Constitutional: No Fever, No Chills Eyes: No Symptoms Ears, Nose, & Throat: No Symptoms Respiratory: No Cough, No Dyspnea Cardiac: No Chest Pain, No Edema, No Syncope Abdominal/Gastrointestinal: Abdominal Pain, Nausea, Vomiting, Diarrhea, No Constipation, No Hematemesis, No Hematochezia, No Melena, No Dysphagia, No Appetite Changes Genitourinary Symptoms: No Dysuria Musculoskeletal: No Back Pain, No Neck Pain Skin: No Rash Neurological: No Dizziness, No Focal Weakness, No Sensory Changes Psychological: No Symptoms Endocrine: No Symptoms All Other Systems: Reviewed and Negative - Past Medical History Pertinent Past Medical History: Yes Neurological History: No Pertinent History ENT History: No Pertinent History Cardiac History: Arrhythmia, Hypertension Respiratory History: No Pertinent History Endocrine Medical History: No Pertinent History Musculoskeletal History: Arthritis, Rheumatoid Arthritis GI Medical History: Other History: Other Psycho-Social History: Depression Female Reproductive Disorders: No Pertinent History Other Medical History: O.A. IN BOTH HANDS AND MOSTLY HER WHOLE BODY. pt did treatments for hep c - Past Surgical History Past Surgical History: Yes Neuro Surgical History: No Pertinent History Cardiac: No Pertinent History Respiratory: No Pertinent History Gastrointestinal: Cholecystectomy, Hernia Repair Genitourinary: Other Musculoskeletal: Other Female Surgical History: Lumpectomy, Tubal Ligation Other Surgical History: Kidney Stones. knee scope - Social History Smoking Status: Never smoker Exposure to second hand smoke: Yes Drug Use: none Patient Lives Alone: No - Female History Hx Now: No - Nursing Vital Signs Nursing Vital Signs: Initial Vital Signs Temperature 98.7 F 09/28/18 02:43 Pulse Rate 62 09/28/18 02:43 Respiratory Rate 18 04/07/19 02:43 Blood Pressure 146/70 04/07/19 02:43 O2 Sat by Pulse Oximetry 97 09/28/18 02:43 Pain Scale Pain Intensity 10 - Physical Exam General Appearance: mild distress, alert, obese Eye Exam: PERRL/EOMI, eyes nml inspection Ears, Nose, Throat Exam: normal ENT inspection, pharynx normal, moist mucous membranes Neck Exam: normal inspection, non-tender, supple, full range of motion Respiratory Exam: normal breath sounds, lungs clear, No respiratory distress Cardiovascular Exam: regular rate/rhythm, normal heart sounds, capillary refill <2 sec Gastrointestinal/Abdomen Exam: soft, tenderness (diffuse abdominal tenderness), No mass Back Exam: normal inspection, normal range of motion, No CVA tenderness, No vertebral tenderness Extremity Exam: normal inspection, normal range of motion, pelvis stable Neurologic Exam: alert, oriented x 3, cooperative, normal mood/affect, nml cerebellar function, sensation nml, No motor deficits Skin Exam: normal color, warm, dry SpO2 Interpretation: normal (97%) SpO2: 97 - Course Nursing assessment & vital signs reviewed: Yes - Radiology Exams Abdomen X-ray Interpretation: Interpreted by me (abdominal series: cxr no acute disease process, abdomen x ray non specific bowel gas pattern.) Ordered Tests: Active Orders 24 hr Category Date Time Status IV Insertion STAT Care 09/28/18 03:28 Active OBSTR/ACUTE ABDOMEN SERIES Stat Exams 09/28/18 04:52 Taken AMYLASE Stat Lab 09/28/18 04:20 Completed CBC W DIFF Stat Lab 09/28/18 04:20 Completed CMP Stat Lab 09/28/18 04:20 Completed HCG QUALITATIVE,SERUM Stat Lab 09/28/18 04:20 Completed LIPASE Stat Lab 09/28/18 04:20 Completed Occult Blood, Other Screening Stat Lab 09/28/18 05:26 Completed UA W/RFX UR CULTURE Stat Lab 09/28/18 04:01 Completed Medication Summary Discontinued Medications Generic Name Dose Route Start Last Admin Trade Name Freq PRN Reason Stop Dose Admin Sodium Chloride 1,000 mls @ 999 mls/hr 09/28/18 03:28 09/28/18 05:05 Sodium Chloride 0.9% 1000 Ml IV 09/28/18 04:28 Infused .Q1H1M STA Infusion Sodium Chloride Confirm 09/28/18 03:39 Sodium Chloride 0.9% 1000 Ml Administered 09/28/18 03:40 Dose 1,000 mls @ ud .ROUTE .STK-MED ONE Metronidazole 500 mg 09/28/18 06:37 09/28/18 06:43 Flagyl 500 Mg PO 09/28/18 06:38 500 mg STAT ONE Administration Morphine Sulfate 4 mg 09/28/18 05:34 09/28/18 05:56 Morphine Sulfate 4 Mg Inj IV 09/28/18 05:35 Not Given STAT ONE Morphine Sulfate 4 mg 09/28/18 05:52 09/28/18 06:03 Morphine Sulfate 4 Mg Inj IM 09/28/18 05:53 4 mg STAT ONE Administration Morphine Sulfate Confirm 09/28/18 05:58 Morphine Sulfate 4 Mg Inj Administered 09/28/18 05:59 Dose 4 mg .ROUTE .STK-MED ONE Promethazine HCl 25 mg 09/28/18 03:28 09/28/18 03:56 Phenergan 25 Mg Inj IM 09/28/18 03:29 25 mg STAT ONE Administration Promethazine HCl Confirm 09/28/18 03:40 Phenergan 25 Mg Inj Administered 09/28/18 03:41 Dose 25 mg .ROUTE .STK-MED ONE Lab/Rad Data: Laboratory Result Diagrams 09/28/18 04:20 09/28/18 04:20 Laboratory Results 09/28/18 09/28/18 09/28/18 Range/Units 05:26 05:15 04:20 WBC (4.0-10.5) K/mm3 RBC (4.1-5.4) M/mm3 Hgb (12.0-16.0) gm/dl Hct (35-47) % MCV (78-100) fl MCH (26-32) pg MCHC (32-36) g/dl RDW (11.5-14.0) % Plt Count (150-450) K/mm3 MPV (6-9.5) fl Gran % (36.0-66.0) % Eos # (Auto) (0-0.5) Absolute Lymphs (auto) (1.0-4.6) Absolute Monos (auto) (0.0-1.3) Lymphocytes % (24.0-44.0) % Monocytes % (0.0-12.0) % Eosinophils % (0.00-5.0) % Basophils % (0.0-0.4) % Absolute Granulocytes (1.4-6.9) Basophils # (0-0.4) Sodium (137-145) mmol/L Potassium (3.5-5.1) mmol/L Chloride (98-107) mmol/L Carbon Dioxide (22-30) mmol/L Anion Gap (5-15) MEQ/L BUN (7-17) mg/dL Creatinine (0.52-1.04) mg/dL Estimated GFR ML/MIN Glucose (74-106) mg/dL Calcium (8.4-10.2) mg/dL Total Bilirubin (0.2-1.3) mg/dL AST (14-36) U/L ALT (0-35) U/L Alkaline Phosphatase (38-126) U/L Serum Total Protein (6.3-8.2) g/dL Albumin (3.5-5.0) g/dL Amylase (30-110) U/L Lipase (23-300) U/L Serum , Qual NEGATIVE (Negative) Urine Color (YELLOW) Urine Appearance (CLEAR) Urine pH (5-6) Ur Specific Banner (1.005-1.025) Urine Protein (Negative) Urine Ketones (NEGATIVE) Urine Blood (0-5) Bryan/ul Urine Nitrite (NEGATIVE) Urine Bilirubin (NEGATIVE) Urine Urobilinogen (0-1) mg/dL Ur Leukocyte Esterase (NEGATIVE) Urine WBC (Auto) (0-5) /HPF Urine RBC (Auto) (0-2) /HPF U Hyaline Cast (Auto) (0-2) /LPF U Epithel Cells (Auto) (FEW) /HPF Urine Bacteria (Auto) (NEGATIVE) /HPF Urine Mucus (Auto) (NEGATIVE) /HPF Urine Culture Reflexed (NO) Urine Glucose (NEGATIVE) mg/dL Stool Occult Blood POSITIVE A (Negative) Stl C. cayetanensis PCR NEGATIVE (NEGATIVE) Stl Adenov F 40/41 PCR NEGATIVE (NEGATIVE) Stool Astrovirus (PCR) NEGATIVE (NEGATIVE) Stool Cryptosporidium PCR NEGATIVE (NEGATIVE) Stool EPEC (PCR) NEGATIVE (NEGATIVE) Stool EAEC (PCR) NEGATIVE (NEGATIVE) Stl E. histolytica PCR NEGATIVE (NEGATIVE) Stl P. shigelloides PCR NEGATIVE (NEGATIVE) Stool Sapovirus (PCR) NEGATIVE (NEGATIVE) St Y.enterocolitica PCR NEGATIVE (NEGATIVE) Stool Vibrio (PCR) NEGATIVE (NEGATIVE) Stl Vibrio cholerae PCR NEGATIVE (NEGATIVE) Stl Norovirus GI/GII PCR NEGATIVE (NEGATIVE) Campylobacter (PCR) NEGATIVE (NEGATIVE) C. difficile Toxin A&B POSITIVE A (NEGATIVE) Enterotoxigenic E. coli NEGATIVE (NEGATIVE) E.coli Shiga Toxins NEGATIVE (NEGATIVE) Giardia lamblia NEGATIVE (NEGATIVE) Rotavirus A (PCR) NEGATIVE (NEGATIVE) Salmonella (PCR) NEGATIVE (NEGATIVE) Shigella (PCR) NEGATIVE (NEGATIVE) 09/28/18 09/28/18 09/28/18 Range/Units 04:20 04:20 04:01 WBC 8.1 (4.0-10.5) K/mm3 RBC 4.21 (4.1-5.4) M/mm3 Hgb 13.3 (12.0-16.0) gm/dl Hct 41.5 (35-47) % MCV 98.6 (78-100) fl MCH 31.6 (26-32) pg MCHC 32.0 (32-36) g/dl RDW 12.7 (11.5-14.0) % Plt Count 86 L (150-450) K/mm3 MPV 11.7 H (6-9.5) fl Gran % 69.5 H (36.0-66.0) % Eos # (Auto) 0.26 (0-0.5) Absolute Lymphs (auto) 1.54 (1.0-4.6) Absolute Monos (auto) 0.64 (0.0-1.3) Lymphocytes % 19.1 L (24.0-44.0) % Monocytes % 8.0 (0.0-12.0) % Eosinophils % 3.2 (0.00-5.0) % Basophils % 0.2 (0.0-0.4) % Absolute Granulocytes 5.59 (1.4-6.9) Basophils # 0.02 (0-0.4) Sodium 141 (137-145) mmol/L Potassium 3.8 (3.5-5.1) mmol/L Chloride 108 H (98-107) mmol/L Carbon Dioxide 25 (22-30) mmol/L Anion Gap 11.5 (5-15) MEQ/L BUN 17 (7-17) mg/dL Creatinine 0.71 (0.52-1.04) mg/dL Estimated GFR > 60.0 ML/MIN Glucose 95 (74-106) mg/dL Calcium 9.2 (8.4-10.2) mg/dL Total Bilirubin 0.40 (0.2-1.3) mg/dL AST 19 (14-36) U/L ALT 17 (0-35) U/L Alkaline Phosphatase 70 (38-126) U/L Serum Total Protein 6.9 (6.3-8.2) g/dL Albumin 3.5 (3.5-5.0) g/dL Amylase 59 (30-110) U/L Lipase 84 (23-300) U/L Serum , Qual (Negative) Urine Color YELLOW (YELLOW) Urine Appearance CLEAR (CLEAR) Urine pH 5.0 (5-6) Ur Specific Banner 1.020 (1.005-1.025) Urine Protein NEGATIVE (Negative) Urine Ketones NEGATIVE (NEGATIVE) Urine Blood SMALL (0-5) Bryan/ul Urine Nitrite NEGATIVE (NEGATIVE) Urine Bilirubin NEGATIVE (NEGATIVE) Urine Urobilinogen NEGATIVE (0-1) mg/dL Ur Leukocyte Esterase NEGATIVE (NEGATIVE) Urine WBC (Auto) 0-2 (0-5) /HPF Urine RBC (Auto) 11-15 (0-2) /HPF U Hyaline Cast (Auto) 0-2 (0-2) /LPF U Epithel Cells (Auto) RARE (FEW) /HPF Urine Bacteria (Auto) NONE SEEN (NEGATIVE) /HPF Urine Mucus (Auto) SLIGHT (NEGATIVE) /HPF Urine Culture Reflexed NO (NO) Urine Glucose NEGATIVE (NEGATIVE) mg/dL Stool Occult Blood (Negative) Stl C. cayetanensis PCR (NEGATIVE) Stl Adenov F 40/41 PCR (NEGATIVE) Stool Astrovirus (PCR) (NEGATIVE) Stool Cryptosporidium PCR (NEGATIVE) Stool EPEC (PCR) (NEGATIVE) Stool EAEC (PCR) (NEGATIVE) Stl E. histolytica PCR (NEGATIVE) Stl P. shigelloides PCR (NEGATIVE) Stool Sapovirus (PCR) (NEGATIVE) St Y.enterocolitica PCR (NEGATIVE) Stool Vibrio (PCR) (NEGATIVE) Stl Vibrio cholerae PCR (NEGATIVE) Stl Norovirus GI/GII PCR (NEGATIVE) Campylobacter (PCR) (NEGATIVE) C. difficile Toxin A&B (NEGATIVE) Enterotoxigenic E. coli (NEGATIVE) E.coli Shiga Toxins (NEGATIVE) Giardia lamblia (NEGATIVE) Rotavirus A (PCR) (NEGATIVE) Salmonella (PCR) (NEGATIVE) Shigella (PCR) (NEGATIVE) - Progress Progress: improved Progress Note: 09/28/18 05:24 63-year-old white female with sudden onset of diffuse abdominal pain diarrhea vomiting. Patient feeling better after 1 L of normal saline and IM Phenergan. Patient's labs essentially negative. GI panel is pending. Three-view abdomen. Nonspecific bowel pattern chest x-ray no acute disease process. Hematest has been obtained no masses are noted. Will await hematest results consider home Phenergan clear fluids. 09/28/18 06:13 Stool is occult positive however not grossly bloody or melanotic. Will plan to discharge patient will write for Phenergan. Patient was given morphine 4 mg IM here in the emergency room. 09/28/18 06:34 Patient's C. difficile is positive will place patient on Flagyl - Departure Departure Disposition: Home (a GI bleed) Clinical Impression: suspect pseudo-thrombocytopenia, abdominal pain, Occult blood positive stool, C. difficile colitis Vomiting Qualifiers: Vomiting type: unspecified Vomiting Intractability: non-intractable Nausea presence: with nausea Qualified Code(s): R11.2 - Nausea with vomiting, unspecified Diarrhea Qualifiers: Diarrhea type: unspecified type Qualified Code(s): R19.7 - Diarrhea, unspecified Condition: Fair Critical Care Time: No Referrals: DOCTOR,NO FAMILY [Primary Care Provider] - Additional Instructions: Return home. Plenty of fluids, clear fluids only 24-48 hours if nausea, vomiting, abdominal pain or diarrhea. Phenergan as prescribed. Follow-up with your family doctor. Return for acute distress or for severe symptoms. Flagyl 500 mg orally 3 times a day for 10 days. Prescriptions: Metronidazole 500 mg [Flagyl 500 MG] 500 mg PO TID #30 tablet Promethazine HCl 25 mg [Phenergan 25 mg] 25 mg PO Q4-6HPRN PRN #12 tablet PRN Reason: nausea, vomiting,abd pain
[2018-09-28] MEDS ORDERED: Sodium Chloride 0.9% 1000 ML 1,000 ML ONE (03:39)
[2018-09-28] MEDS ORDERED: Phenergan 25 MG INJ ONE (03:40)
[2018-09-28 04:01] VITALS: PULSE 56
[2018-09-28 04:31] LABS: BASOPHIL % 0.2 % (0.0-0.4); Basophil (Absolute #) 0.02 (0-0.4); Eosinophil % 3.2 % (0.00-5.0); Eosinophil (Absolute #) 0.26 (0-0.5); Granulocyte Absolute (ANC) 5.59 (1.4-6.9); Granulocytes % 69.5 % (36.0-66.0); Hematocrit 41.5 % (35-47); Hemoglobin 13.3 gm/dl (12.0-16.0); Lymphocyte (Absolute #) 1.54 (1.0-4.6); Lymphocytes % 19.1 % (24.0-44.0); Mean Cell Volume 98.6 fl (78-100); Mean Corpuscular Hemoglobin 31.6 pg (26-32); Mean Platelet Volume 11.7 fl (6-9.5); Monocyte (Absolute #) 0.64 (0.0-1.3); Red Blood Count 4.21 M/mm3 (4.1-5.4); Red Cell Distribution Width 12.7 % (11.5-14.0); White Blood Count 8.1 K/mm3 (4.0-10.5)
[2018-09-28 04:38] LABS: ALBUMIN 3.5 g/dL (3.5-5.0); ALKALINE PHOSPHATASE 70 U/L (38-126); AMYLASE 59 U/L (30-110); ANION GAP 11.5 MEQ/L (5-15); BLOOD UREA NITROGEN 17 mg/dL (7-17); CHLORIDE 108 mmol/L (98-107); Calcium 9.2 mg/dL (8.4-10.2); Carbon Dioxide 25 mmol/L (22-30); Creatinine 1 0.71 mg/dL (0.52-1.04); Glucose 95 mg/dL (74-106); LIPASE 84 U/L (23-300); Potassium 3.8 mmol/L (3.5-5.1); SGOT/AST 19 U/L (14-36); SGPT/ALT 17 U/L (0-35); SODIUM 141 mmol/L (137-145); Total Protein 6.9 g/dL (6.3-8.2)
[2018-09-28 04:46] LABS: Appearance CLEAR (CLEAR); Bilirubin NEGATIVE (NEGATIVE); Blood SMALL Ery/ul (0-5); Epithelial Cells RARE /HPF (FEW); Glucose NEGATIVE (NEGATIVE); Hyaline Casts 0-2 /LPF (0-2); Ketones NEGATIVE (NEGATIVE); Leukocyte Esterase NEGATIVE (NEGATIVE); Mucus SLIGHT /HPF (NEGATIVE); Nitrite NEGATIVE (NEGATIVE); Protein,Urine Dip NEGATIVE (Negative); Urobilinogen NEGATIVE mg/dL (0-1); WBC 0-2 /HPF (0-5)
[2018-09-28 05:10] LABS: Platelet Count 86 K/mm3 (150-450)
[2018-09-28 05:13] LABS: Bacteria NONE SEEN /HPF (NEGATIVE)
[2018-09-28] MEDS ORDERED: MORPHINE SULFATE 4 MG INJ IV ONE (05:34)
[2018-09-28] MEDS ORDERED: MORPHINE SULFATE 4 MG INJ IM ONE (05:52)
[2018-09-28] MEDS ORDERED: MORPHINE SULFATE 4 MG INJ ONE (05:58)
[2018-09-28 06:35] LABS: Adenovirus F 40/41 NEGATIVE (NEGATIVE); Astrovirus NEGATIVE (NEGATIVE); C. Difficile Organism POSITIVE (NEGATIVE); Campylobacter NEGATIVE (NEGATIVE); Cyclospora cayentanensis NEGATIVE (NEGATIVE); Entamoeaba histolytica NEGATIVE (NEGATIVE); Enteroaggregative E.coli NEGATIVE (NEGATIVE); Giardia lamblia NEGATIVE (NEGATIVE); Rotavirus A NEGATIVE (NEGATIVE); Salmonella NEGATIVE (NEGATIVE); Sapovirus NEGATIVE (NEGATIVE); Shiga-like toxin prod.E.coli NEGATIVE (NEGATIVE); Vibrio NEGATIVE (NEGATIVE)
[2018-09-28] MEDS ORDERED: Flagyl 500 MG PO ONE (06:37)
[2018-09-28] MEDS ORDERED: Flagyl 500 MG ONE (06:40)
[2018-09-28 06:48] VITALS: BP 117/68; O2SAT 95
--- NOTE | 2018-09-28 10:23 | XRAY ---
Indication: Abdomen pain. Nausea, vomiting, diarrhea. Comparison: Chest exam December 11, 2016. 2 views of the abdomen nonacute nonobstructed with cholecystectomy clips. Solid organs unremarkable. Osseous structures intact with lower lumbar degenerative spondylosis, bilateral acetabular spurring, and mild levoscoliosis centered at the thoracolumbar junction. Single AP chest again demonstrates minimal left base fibrosis/scarring. Remaining lungs clear. Heart is not enlarged. Bony thorax intact again with minimal degenerative changes and lower cervical fusion surgery. Impression: Nonacute abdomen and stable nonacute one view chest with chronic features.
== END 2018-09-28 06:58 | disposition home or self-care (01) ==
LOC: ED 02:35
DX: R11.2 Nausea with vomiting, unspecified (principal); R19.7 Diarrhea, unspecified; Z79.899 Other long term (current) drug therapy; M06.9 Rheumatoid arthritis, unspecified
CPT/HCPCS: 36000; 36415; 74022; 80053; 81001; 81025; 82150; 82272; 83690; 85025; 87507; 96360; 96372; 99284; J2270; J2550; A9270-GY

== ENCOUNTER 2019-03-21 11:45 | Emergency (ER) | payer OTHER ==
--- NOTE | 2019-03-21 12:06 | ERPHSYRPT ---
- History of Present Illness Time Seen by Provider: 03/21/19 12:06 Historian: patient Exam Limitations: no limitations Patient Subjective Stated Complaint: pt reports sharp abd pain beginning this morning. pt reports chronic diarrhea. pt also states she is nauseated, pt reports decreased appetite and fluid intake. Triage Nursing Assessment: pt is aox3, appears in pain, afebrile, resps easy and non labored, radial pulses strong and equal, cap refill < 3 seconds, pt abd soft, tender with palpation to the RLQ, bowel sounds present and normoactive x 4 , pt skin pink warm dry. Timing/Duration: today Allergies/Adverse Reactions: No Known Drug Allergies Allergy (Verified 09/28/18 02:43) Home Medications: Hydroxychloroquine Sulfate [Plaquenil] 200 mg PO BID 08/07/17 [History] Potassium Chloride 20 Meq [Klor-Con 20 MEQ] 20 meq PO BID 08/07/17 [History] Ergocalciferol (Vitamin D2) [Vitamin D] 50,000 unit PO WEEKLY 08/08/17 [History] Folic Acid 1 mg [Folate 1 mg] 1 mg PO DAILY 08/08/17 [History] Meloxicam 15 mg [Meloxicam 15 MG] 15 mg PO DAILY 03/25/18 [History] Omeprazole 20 MG [Prilosec 20 mg] 20 mg PO DAILY 03/25/18 [History] Pramipexole Di-HCl [Pramipexole Dihydrochloride] 0.25 mg PO DAILY 03/25/18 [ History] Bisoprolol/Hydrochlorothiazide [Bisoprolol-Hctz 10-6.25 mg Tab] 1 each PO DAILY 03/21/19 [History] Levothyroxine Sodium 50 mcg PO DAILY 03/21/19 [History] Mesalamine [Lialda] 1.2 gm PO BID 03/21/19 [History] Sertraline HCl 50 mg PO DAILY 03/21/19 [History] Hx Tetanus, Diphtheria Vaccination/Date Given: Yes Hx Influenza Vaccination/Date Given: Yes Hx Pneumococcal Vaccination/Date Given: Yes Immunizations Up to Date: No - Past Medical History Pertinent Past Medical History: Yes Neurological History: No Pertinent History ENT History: No Pertinent History Cardiac History: Hypertension Respiratory History: No Pertinent History Endocrine Medical History: No Pertinent History Musculoskeletal History: Osteoarthritis GI Medical History: Other History: Other Psycho-Social History: Depression Female Reproductive Disorders: No Pertinent History Other Medical History: O.A. IN BOTH HANDS AND MOSTLY HER WHOLE BODY. pt did treatments for hep c - Past Surgical History Past Surgical History: Yes Neuro Surgical History: No Pertinent History Cardiac: No Pertinent History Respiratory: No Pertinent History Gastrointestinal: Cholecystectomy, Hernia Repair Genitourinary: Other Musculoskeletal: Other Female Surgical History: Lumpectomy, Tubal Ligation Other Surgical History: Kidney Stones. knee scope - Social History Smoking Status: Never smoker Exposure to second hand smoke: Yes Drug Use: none Patient Lives Alone: No - Female History Hx Now: No - Nursing Vital Signs Nursing Vital Signs: Initial Vital Signs Temperature 97.3 F 03/21/19 11:50 Pulse Rate 55 L 03/21/19 11:50 Respiratory Rate 20 03/21/19 11:50 Blood Pressure 166/81 03/21/19 11:50 O2 Sat by Pulse Oximetry 98 03/21/19 11:50 Pain Scale Pain Intensity 10 - Physical Exam SpO2: 98 - Course Nursing assessment & vital signs reviewed: Yes - CT Exams Abdomen/Pelvis CT Interpretation: Tele-radiologist Report (no acute pathology) Ordered Tests: Active Orders 24 hr Category Date Time Status IV Insertion STAT Care 03/21/19 12:10 Active ABDOMEN AND PELVIS W/0 CONTRAS [CT] Stat Exams 03/21/19 12:11 Taken AMYLASE Stat Lab 03/21/19 12:28 Completed CBC W DIFF Stat Lab 03/21/19 12:28 Completed CMP Stat Lab 03/21/19 12:28 Completed LIPASE Stat Lab 03/21/19 12:28 Completed Lactic Acid Stat Lab 03/21/19 12:20 Completed UA W/RFX UR CULTURE Stat Lab 03/21/19 12:11 Uncollected Medication Summary Discontinued Medications Generic Name Dose Route Start Last Admin Trade Name Freq PRN Reason Stop Dose Admin Sodium Chloride 1,000 mls @ 999 mls/hr 03/21/19 12:10 03/21/19 13:59 Sodium Chloride 0.9% 1000 Ml IV 03/21/19 13:10 Infused .Q1H1M STA Infusion Sodium Chloride Confirm 03/21/19 12:23 Sodium Chloride 0.9% 1000 Ml Administered 03/21/19 12:24 Dose 1,000 mls @ ud .ROUTE .STK-MED ONE Metoclopramide HCl 10 mg 03/21/19 12:10 03/21/19 12:28 Reglan 10 Mg/2 Ml IV 03/21/19 12:11 10 mg STAT ONE Administration Metoclopramide HCl Confirm 03/21/19 12:23 Reglan 10 Mg/2 Ml Administered 03/21/19 12:24 Dose 10 mg .ROUTE .STK-MED ONE Morphine Sulfate 4 mg 03/21/19 12:10 03/21/19 12:27 Morphine Sulfate 4 Mg Inj IV 03/21/19 12:11 4 mg STAT ONE Administration Morphine Sulfate Confirm 03/21/19 12:23 Morphine Sulfate 4 Mg Inj Administered 03/21/19 12:24 Dose 4 mg .ROUTE .STK-MED ONE Lab/Rad Data: Laboratory Result Diagrams 03/21/19 12:28 03/21/19 12:28 Laboratory Results 03/21/19 03/21/19 03/21/19 Range/Units 12:28 12:28 12:20 WBC 5.8 (4.0-10.5) K/mm3 RBC 4.83 (4.1-5.4) M/mm3 Hgb 15.5 (12.0-16.0) gm/dl Hct 45.8 (35-47) % MCV 94.8 (78-100) fl MCH 32.1 H (26-32) pg MCHC 33.8 (32-36) g/dl RDW 13.1 (11.5-14.0) % Plt Count 115 L (150-450) K/mm3 MPV 12.4 H (6-9.5) fl Gran % 51.6 (36.0-66.0) % Eos # (Auto) 0.74 H (0-0.5) Absolute Lymphs (auto) 1.60 (1.0-4.6) Absolute Monos (auto) 0.46 (0.0-1.3) Lymphocytes % 27.5 (24.0-44.0) % Monocytes % 7.9 (0.0-12.0) % Eosinophils % 12.7 H (0.00-5.0) % Basophils % 0.3 (0.0-0.4) % Absolute Granulocytes 3.00 (1.4-6.9) Basophils # 0.02 (0-0.4) Sodium 142 (137-145) mmol/L Potassium 4.4 (3.5-5.1) mmol/L Chloride 105 (98-107) mmol/L Carbon Dioxide 25 (22-30) mmol/L Anion Gap 15.9 H (5-15) MEQ/L BUN 13 (7-17) mg/dL Creatinine 0.81 (0.52-1.04) mg/dL Estimated GFR > 60.0 ML/MIN Glucose 103 (74-106) mg/dL Lactic Acid 1.6 (0.4-2.0) Calcium 9.9 (8.4-10.2) mg/dL Total Bilirubin 1.10 (0.2-1.3) mg/dL AST 37 H (14-36) U/L ALT 20 (0-35) U/L Alkaline Phosphatase 83 (38-126) U/L Serum Total Protein 8.5 H (6.3-8.2) g/dL Albumin 4.3 (3.5-5.0) g/dL Amylase 69 (30-110) U/L Lipase 84 (23-300) U/L - Progress Progress: improved Counseled pt/family regarding: lab results, diagnosis, need for follow-up, rad results - Departure Departure Disposition: Home Clinical Impression: Right lower quadrant abdominal pain Diarrhea Qualifiers: Diarrhea type: unspecified type Qualified Code(s): R19.7 - Diarrhea, unspecified Condition: Stable Critical Care Time: No Referrals: JULIANA HANEY [Primary Care Provider] - Instructions: Acute Abdomen (Belly Pain) Additional Instructions: Discharge/Care Plan SUDHIRALLEN CORTES was seen on 03/21/19 in the Emergency Room. The patient was counseled regarding Diagnosis,Lab results, Imaging studies, need for follow up and when to return to the Emergency Room. Prescriptions given: Discharge Note I have spoken with the patient and/or caregivers. I have explained the patient' s condition, diagnosis and treatment plan based on the information available to me at this time. I have answered the patient's and/or caregiver's questions and addressed any concerns. The patient and/or caregivers have as good understanding of the patient's diagnosis, condition and treatment plan as can be expected at this point. The vital signs have been stable. The patient's condition is stable and appropriate for discharge from the emergency department. The patient will pursue further outpatient evaluation with the primary care physician or other designated or consulting physician as outlined in the discharge instructions. The patient and/or caregivers are agreeable to this plan of care and follow-up instructions have been explained in detail. The patient and/or caregivers have received these instruction. The patient/and or caregivers are aware that any significant change in condition or worsening of symptoms should prompt an immediate return to this or the closest emergency department or call 911. ALLEN PEGUERO was seen on 03/21/19 n the Emergency Room. At that time you were treated for an emergent condition, during your visit Laboratory, Radiology and/or other procedures may have been ordered. It is very important that you follow-up with your Primary Care Physician JULIANA HANEY within the next 24- 48 hours to review your Emergency Room visit and the final results of testing that was ordered. Some test results such as Urine Cultures, Blood Cultures, and other cultures if ordered will not be finalized for 24-48 hours. If you do not have a Primary Care Provider please call the medical records department at [phone] ext [phone] to obtain a copy of your results or you may sign into our patient portal to obtain these results by visiting us @ [email or web address] and completing the following steps: 1. Click on the Patient Portal link 2. Click the Patient Self Enrollment Link to complete the enrollment form and entering your 3. Once the enrollment form is completed you will receive an email with a temporary ID and password at the email address you provided. 4. Next choose a user name and password. Your user name must be at least 4 characters long and your password must be at least 4 characters long. 5. Choose a security question from the list and provide your answer to the question. If you already have signed into the Health Portal you may access your Health Care Information 14/01 by the following steps: 1. Login to our website @ [email or web address] 2. Enter your original user name and password. FAQS The [facility] Portal is an online tool that contains your Lab Results, Radiology Reports, Visit History, Discharge Instructions and Health Summary Lab and Radiology Results will not be available for 72 hours on the portal. The Portal is a secure site, passwords are encryted and URLs are re-written so they cannot be copied and pasted. You and authorized family members are the only ones who can access your Portal. Also there is a timeout feature that protects your information if you leave the Portal page open. If you have technical difficulty please use the Contact Us link on the page this will allow you to submit any questions you have regarding the Portal or you may contact the Medical Record Department at [phone] ext [phone].
[2019-03-21] MEDS ORDERED: Sodium Chloride 0.9% 1000 ML 1,000 ML IV STA (12:10)
[2019-03-21] MEDS ORDERED: Reglan 10 MG/2 ML IV ONE (12:10)
[2019-03-21] MEDS ORDERED: MORPHINE SULFATE 4 MG INJ IV ONE (12:10)
[2019-03-21] MEDS ORDERED: MORPHINE SULFATE 4 MG INJ ONE (12:23)
[2019-03-21] MEDS ORDERED: Sodium Chloride 0.9% 1000 ML 1,000 ML ONE (12:23)
[2019-03-21] MEDS ORDERED: Reglan 10 MG/2 ML ONE (12:23)
[2019-03-21 12:30] LABS: BASOPHIL % 0.3 % (0.0-0.4); Basophil (Absolute #) 0.02 (0-0.4); Eosinophil % 12.7 % (0.00-5.0); Eosinophil (Absolute #) 0.74 (0-0.5); Granulocytes % 51.6 % (36.0-66.0); Hematocrit 45.8 % (35-47); Hemoglobin 15.5 gm/dl (12.0-16.0); Lymphocytes % 27.5 % (24.0-44.0); Mean Cell Volume 94.8 fl (78-100); Mean Corpuscular Hemoglobin 32.1 pg (26-32); Mean Corpuscular Hgb Concent. 33.8 g/dl (32-36); Mean Platelet Volume 12.4 fl (6-9.5); Monocyte (Absolute #) 0.46 (0.0-1.3); Monocytes % 7.9 % (0.0-12.0); Platelet Count 115 K/mm3 (150-450); Red Blood Count 4.83 M/mm3 (4.1-5.4); Red Cell Distribution Width 13.1 % (11.5-14.0); White Blood Count 5.8 K/mm3 (4.0-10.5)
[2019-03-21 12:41] LABS: ALBUMIN 4.3 g/dL (3.5-5.0); ALKALINE PHOSPHATASE 83 U/L (38-126); AMYLASE 69 U/L (30-110); ANION GAP 15.9 MEQ/L (5-15); BLOOD UREA NITROGEN 13 mg/dL (7-17); CHLORIDE 105 mmol/L (98-107); Calcium 9.9 mg/dL (8.4-10.2); Carbon Dioxide 25 mmol/L (22-30); Creatinine 1 0.81 mg/dL (0.52-1.04); Glucose 103 mg/dL (74-106); LIPASE 84 U/L (23-300); Potassium 4.4 mmol/L (3.5-5.1); SGOT/AST 37 U/L (14-36); SGPT/ALT 20 U/L (0-35); SODIUM 142 mmol/L (137-145); Total Protein 8.5 g/dL (6.3-8.2)
[2019-03-21 13:41] VITALS: BP 133/65; PULSE 57
[2019-03-21 14:03] VITALS: O2SAT 98
--- NOTE | 2019-03-21 19:44 | XRAY ---
Indication: Right lower quadrant pain. Kidney stone. Multiple contiguous axial images obtained through the abdomen and pelvis without contrast as ordered. Comparison: March 25, 2018. Lung bases again demonstrates minimal atelectasis/scarring and left posterior gutter calcified granuloma. No infiltrate or effusion. Heart is not enlarged. Noncontrasted stomach and bowel loops appear nonobstructed. Normal appendix. Again mild scattered colonic diverticulosis and cholecystectomy. No free fluid/air. Spleen remains enlarged today measuring 13.6 cm. Again a few hepatic/splenic calcified granulomas. 2 new nonobstructing punctate right renal calculi. 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 Remaining liver, pancreas, spleen, adrenal glands, kidneys, ureters, bladder, and uterus appear unremarkable for noncontrast exam. Again minimal aortoiliac calcifications without AAA. Osseous structures intact again with mild degenerative changes throughout the thoracolumbar spine. Impression: 1. New nonobstructing right renal micro-calculi. 2. Again scattered colonic diverticulosis, splenomegaly, small right iliopsoas intramuscular lipoma, and evidence for old granulomatous disease. Comment: Preliminary interpretation was made by [facility]. No critical discrepancy. CTDI 23.67
== END 2019-03-21 14:24 | disposition home or self-care (01) ==
LOC: ED 11:45
DX: R10.31 Right lower quadrant pain (principal); R19.7 Diarrhea, unspecified
CPT/HCPCS: 36000; 36415; 74176; 80053; 82150; 83605; 83690; 85025; 96360; 96374; 96375; 99284; J2270

== ENCOUNTER 2019-04-13 18:15 | Emergency (ER) | payer OTHER ==
[2019-04-13] MEDS ORDERED: Sodium Chloride 0.9% 1000 ML 1,000 ML IV STA (18:45)
[2019-04-13] MEDS ORDERED: BENADRYL 50 MG/ML IV ONE (18:45)
[2019-04-13] MEDS ORDERED: SUBLIMAZE 100 MCG/2 ML IV ONE (18:45)
[2019-04-13] MEDS ORDERED: Pepcid 20 MG VIAL IV ONE ×2 (18:45→19:01)
--- NOTE | 2019-04-13 18:45 | ERPHSYRPT ---
- History of Present Illness Time Seen by Provider: 04/13/19 18:45 Historian: patient Exam Limitations: no limitations Patient Subjective Stated Complaint: LUQ abd pain Triage Nursing Assessment: pt WC back to room and assist 1 to bed. pt A&Ox3. Pt skin pink warm and dry. 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 no emesis at this time but states intermittent feelings of nausea. no urinary sx. LBM today, states runny. Physician History: LUQ abdominal pain of sudden onset 2 hours prior to coming into the emergency department without any triggers. Timing/Duration: hour(s) (2) Activities at Onset: none Quality: stabbing Abdominal Pain Onset Location: LUQ Pain Radiation: flank, back Severity of Pain-Max: severe Severity of Pain-Current: severe Modifying Factors: Improves With: nothing Associated Symptoms: nausea, No back, No chest pain, No diaphoresis, No diarrhea , No fever/chills, No fatigue, No headache, No heartburn, No loss of appetite, No neck pain, No rash, No shortness of breath, No syncope, No vomiting, No weakness Previous symptoms: no prior history Allergies/Adverse Reactions: No Known Drug Allergies Allergy (Verified 04/13/19 18:27) Home Medications: Hydroxychloroquine Sulfate [Plaquenil] 200 mg PO BID 08/07/17 [History] Potassium Chloride 20 Meq [Klor-Con 20 MEQ] 20 meq PO BID 08/07/17 [History] Ergocalciferol (Vitamin D2) [Vitamin D] 50,000 unit PO WEEKLY 08/08/17 [History] Folic Acid 1 mg [Folate 1 mg] 1 mg PO DAILY 08/08/17 [History] Meloxicam 15 mg [Meloxicam 15 MG] 15 mg PO DAILY 03/25/18 [History] Omeprazole 20 MG [Prilosec 20 mg] 20 mg PO DAILY 03/25/18 [History] Pramipexole Di-HCl [Pramipexole Dihydrochloride] 0.25 mg PO DAILY 03/25/18 [ History] Bisoprolol/Hydrochlorothiazide [Bisoprolol-Hctz 10-6.25 mg Tab] 1 each PO DAILY 03/21/19 [History] Levothyroxine Sodium 50 mcg PO DAILY 03/21/19 [History] Mesalamine [Lialda] 1.2 gm PO BID 03/21/19 [History] Sertraline HCl 50 mg PO DAILY 03/21/19 [History] Hx Tetanus, Diphtheria Vaccination/Date Given: Yes Hx Influenza Vaccination/Date Given: Yes Hx Pneumococcal Vaccination/Date Given: No Immunizations Up to Date: Yes - Review of Systems Constitutional: No Fever, No Chills Eyes: No Eye Pain, No Vision Changes Ears, Nose, & Throat: No Mouth Swelling, No Throat Swelling Respiratory: No Cough, No Dyspnea, No Dyspnea on Exertion (MOREAU), No Wheezing Cardiac: No Edema, No Palpitations, No Syncope Abdominal/Gastrointestinal: Abdominal Pain, Nausea, No Vomiting, No Constipation , No Hematemesis, No Hematochezia, No Melena Genitourinary Symptoms: No Dysuria, No Frequency, No Hematuria, No Flank Pain Musculoskeletal: No Back Pain, No Neck Pain, No Myalgias Skin: No Cellulitis, No Pruritis, No Rash Neurological: No Focal Weakness, No Lethargy, No Paralysis, No Parasthesia Psychological: No Anxiety, No Emotional Lability Endocrine: No Excessive Sweating Hematologic/Lymphatic: No Easy Bleeding, No Easy Bruising All Other Systems: Reviewed and Negative - Past Medical History Pertinent Past Medical History: Yes Neurological History: No Pertinent History ENT History: No Pertinent History Cardiac History: Hypertension Respiratory History: No Pertinent History Endocrine Medical History: No Pertinent History Musculoskeletal History: Osteoarthritis GI Medical History: Other History: Other Psycho-Social History: Depression Female Reproductive Disorders: No Pertinent History Other Medical History: O.A. IN BOTH HANDS AND MOSTLY HER WHOLE BODY. pt did treatments for hep c - Past Surgical History Past Surgical History: Yes Neuro Surgical History: No Pertinent History Cardiac: No Pertinent History Respiratory: No Pertinent History Gastrointestinal: Cholecystectomy, Hernia Repair Genitourinary: Other Musculoskeletal: Other Female Surgical History: Lumpectomy, Tubal Ligation Other Surgical History: Kidney Stones. knee scope - Social History Smoking Status: Never smoker Exposure to second hand smoke: No Drug Use: none Patient Lives Alone: Yes - Female History Hx Last Menstrual Period: post menopausal - Nursing Vital Signs Nursing Vital Signs: Initial Vital Signs Temperature 97.7 F 04/13/19 18:29 Pulse Rate 57 L 04/13/19 18:29 Respiratory Rate 18 04/13/19 18:29 Blood Pressure 164/99 04/13/19 18:29 O2 Sat by Pulse Oximetry 100 04/13/19 18:29 Pain Scale Pain Intensity 8 - Physical Exam General Appearance: no apparent distress Eye Exam: PERRL/EOMI, eyes nml inspection, No scleral icterus Ears, Nose, Throat Exam: pharynx normal, moist mucous membranes Neck Exam: normal inspection, non-tender, supple, full range of motion, No meningismus Respiratory Exam: normal breath sounds, lungs clear, airway intact, No chest tenderness, No respiratory distress, No diminished breath sounds, No accessory muscle use, No crackles/rales, No rhonchi, No wheezing, No stridor Cardiovascular Exam: regular rate/rhythm, normal heart sounds, normal peripheral pulses, capillary refill <2 sec Gastrointestinal/Abdomen Exam: soft, normal bowel sounds, tenderness ( generalized), No mass, No guarding, No rebound, No hernia Back Exam: normal inspection, normal range of motion, No CVA tenderness, No vertebral tenderness Extremity Exam: normal inspection, normal range of motion, pelvis stable, No calf tenderness, No ekatreina's sign, No pedal edema, No swelling Neurologic Exam: alert, oriented x 3, 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, 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, normal mood/affect, sensation nml, No motor deficits, No agitation Skin Exam: normal color, warm, dry, rash, No jaundice, No cyanosis SpO2 Interpretation: normal SpO2: 100 O2 Delivery: Room Air - Course Nursing assessment & vital signs reviewed: Yes EKG Interpreted by Me: RATE (53), Sinus Shashank, NORMAL AXIS, NORMAL INTERVALS, NORMAL QRS, NORMAL ST-T, Other (negative previous EKG for comparison) - CT Exams Abdomen/Pelvis CT Interpretation: Other (pper radiologist interpretation: No change compared to 03/13/2019 again with 14 cm splenomegaly, colonic diverticulosis, and right iliopsoas lipoma. No new/acute findings.) Ordered Tests: Active Orders 24 hr Category Date Time Status EKG-ER Only STAT Care 04/13/19 18:45 Active IV Insertion STAT Care 04/13/19 18:45 Active NPO (ED) STAT Care 04/13/19 18:45 Active ABDOMEN AND PELVIS W CONTRAST [CT] Stat Exams 04/13/19 18:46 Taken AMYLASE Stat Lab 04/13/19 19:00 Completed CBC W DIFF Stat Lab 04/13/19 19:00 Completed CMP Stat Lab 04/13/19 19:00 Completed LIPASE Stat Lab 04/13/19 19:00 Completed Lactic Acid Stat Lab 04/13/19 18:45 Completed TROPONIN Q3H Lab 04/13/19 22:00 Ordered TROPONIN Q3H Lab 04/14/19 01:00 Ordered TROPONIN Q3H Lab 04/14/19 04:00 Ordered TROPONIN Q3H Lab 04/14/19 07:00 Ordered TROPONIN Stat Lab 04/13/19 19:00 Completed UA W/RFX UR CULTURE Stat Lab 04/13/19 18:46 Uncollected Medication Summary Discontinued Medications Generic Name Dose Route Start Last Admin Trade Name Freq PRN Reason Stop Dose Admin Diphenhydramine HCl 25 mg 04/13/19 18:45 04/13/19 19:33 Benadryl 50 Mg/Ml IV 04/13/19 18:46 25 mg STAT ONE Administration Diphenhydramine HCl Confirm 04/13/19 19:01 Benadryl 50 Mg/Ml Administered 04/13/19 19:02 Dose 50 mg .ROUTE .STK-MED ONE Famotidine 20 mg 04/13/19 18:45 04/13/19 19:33 Pepcid 20 Mg Vial IV 04/13/19 18:46 20 mg STAT ONE Administration Famotidine Confirm 04/13/19 19:01 Pepcid 20 Mg Vial Administered 04/13/19 19:02 Dose 20 mg IV .STK-MED ONE Fentanyl Citrate 50 mcg 04/13/19 18:45 04/13/19 19:33 Sublimaze 100 Mcg/2 Ml IV 04/13/19 18:46 50 mcg STAT ONE Administration Fentanyl Citrate Confirm 04/13/19 19:02 Sublimaze 100 Mcg/2 Ml Administered 04/13/19 19:03 Dose 100 mcg .ROUTE .STK-MED ONE Sodium Chloride 1,000 mls @ 999 mls/hr 04/13/19 18:45 04/13/19 19:32 Sodium Chloride 0.9% 1000 Ml IV 04/13/19 19:45 999 mls/hr .Q1H1M STA Administration Sodium Chloride Confirm 04/13/19 19:02 Sodium Chloride 0.9% 1000 Ml Administered 04/13/19 19:03 Dose 1,000 mls @ ud .ROUTE .STK-MED ONE Lab/Rad Data: Laboratory Result Diagrams 04/13/19 19:00 04/13/19 19:00 Laboratory Results 04/13/19 04/13/19 04/13/19 Range/Units 19:00 19:00 18:45 WBC 8.4 (4.0-10.5) K/mm3 RBC 4.83 (4.1-5.4) M/mm3 Hgb 15.4 (12.0-16.0) gm/dl Hct 45.6 (35-47) % MCV 94.4 (78-100) fl MCH 31.9 (26-32) pg MCHC 33.8 (32-36) g/dl RDW 13.4 (11.5-14.0) % Plt Count 120 L (150-450) K/mm3 MPV 12.1 H (6-9.5) fl Gran % 57.5 (36.0-66.0) % Eos # (Auto) 0.96 H (0-0.5) Absolute Lymphs (auto) 1.94 (1.0-4.6) Absolute Monos (auto) 0.61 (0.0-1.3) Lymphocytes % 23.2 L (24.0-44.0) % Monocytes % 7.3 (0.0-12.0) % Eosinophils % 11.5 H (0.00-5.0) % Basophils % 0.5 (0.0-0.4) % Absolute Granulocytes 4.82 (1.4-6.9) Basophils # 0.04 (0-0.4) Sodium 142 (137-145) mmol/L Potassium 4.1 (3.5-5.1) mmol/L Chloride 103 (98-107) mmol/L Carbon Dioxide 27 (22-30) mmol/L Anion Gap 16.2 H (5-15) MEQ/L BUN 14 (7-17) mg/dL Creatinine 0.84 (0.52-1.04) mg/dL Estimated GFR > 60.0 ML/MIN Glucose 92 (74-106) mg/dL Lactic Acid 1.5 (0.4-2.0) Calcium 9.9 (8.4-10.2) mg/dL Total Bilirubin 0.90 (0.2-1.3) mg/dL AST 36 (14-36) U/L ALT 23 (0-35) U/L Alkaline Phosphatase 118 (38-126) U/L Troponin I < 0.012 (0.000-0.034) ng/mL Serum Total Protein 8.4 H (6.3-8.2) g/dL Albumin 4.2 (3.5-5.0) g/dL Amylase 68 (30-110) U/L Lipase 89 (23-300) U/L - Progress Progress: improved Progress Note: 04/13/19 21:13 Pain has resolved. I reviewed the splenomegaly that was seen on 03/21/2019 CT scan imaging and today's CT scan imaging and that this may be the potential cause of her thrombocytopenia she has, but today is much better than she has had in the past comparison labs. Patient will be discharged home as she has no acute abdominal findings that requires immediate surgical evaluation or further testing and her pain is adequately controlled. Counseled pt/family regarding: lab results, diagnosis, need for follow-up, rad results - Departure Departure Disposition: Home Clinical Impression: LUQ abdominal pain, Splenomegaly, Diverticulosis, Nausea, Thrombocytopenia Hypertension Qualifiers: Hypertension type: essential hypertension Qualified Code(s): I10 - Essential ( primary) hypertension Condition: Good Critical Care Time: No Referrals: JULIANA HANEY [Primary Care Provider] - 04/14/19 DEEPAK NOWAK MD [ASSOCIATE STAFF] - 04/14/19 (General Surgeon for your reference) Instructions: Acute Abdomen (Belly Pain), Adult (DC), Diverticulosis (DC), Nausea and Vomiting, Adult (DC) Additional Instructions: You have an enlarged spleen that may be causing your pain in the areas of your abdomen you have. Follow-up with your doctor and general surgery evaluation to continue evaluation of your symptoms. Return immediately to the emergency department if any worse pain, fever, new blood in the stool, no blood in the urine, new chest pain, any shortness of breath, or any other concerning signs or symptoms that were not present at today's emergency department visit for immediate reevaluation in the emergency department.
[2019-04-13] MEDS ORDERED: BENADRYL 50 MG/ML ONE (19:01)
[2019-04-13] MEDS ORDERED: Sodium Chloride 0.9% 1000 ML 1,000 ML ONE (19:02)
[2019-04-13] MEDS ORDERED: SUBLIMAZE 100 MCG/2 ML ONE (19:02)
[2019-04-13 19:18] LABS: Absolute Neutrophil Ct (ANC) 4.82 (1.4-6.9); BASOPHIL % 0.5 % (0.0-0.4); Basophil (Absolute #) 0.04 (0-0.4); Eosinophil % 11.5 % (0.00-5.0); Eosinophil (Absolute #) 0.96 (0-0.5); Hematocrit 45.6 % (35-47); Hemoglobin 15.4 gm/dl (12.0-16.0); Lymphocyte (Absolute #) 1.94 (1.0-4.6); Lymphocytes % 23.2 % (24.0-44.0); Mean Cell Volume 94.4 fl (78-100); Mean Corpuscular Hemoglobin 31.9 pg (26-32); Mean Corpuscular Hgb Concent. 33.8 g/dl (32-36); Mean Platelet Volume 12.1 fl (6-9.5); Monocyte (Absolute #) 0.61 (0.0-1.3); Monocytes % 7.3 % (0.0-12.0); Neutrophil % 57.5 % (36.0-66.0); Platelet Count 120 K/mm3 (150-450); Red Blood Count 4.83 M/mm3 (4.1-5.4); Red Cell Distribution Width 13.4 % (11.5-14.0); White Blood Count 8.4 K/mm3 (4.0-10.5)
[2019-04-13 19:43] LABS: ALBUMIN 4.2 g/dL (3.5-5.0); ALKALINE PHOSPHATASE 118 U/L (38-126); AMYLASE 68 U/L (30-110); ANION GAP 16.2 MEQ/L (5-15); BLOOD UREA NITROGEN 14 mg/dL (7-17); CHLORIDE 103 mmol/L (98-107); Calcium 9.9 mg/dL (8.4-10.2); Carbon Dioxide 27 mmol/L (22-30); Creatinine 1 0.84 mg/dL (0.52-1.04); Glucose 92 mg/dL (74-106); LIPASE 89 U/L (23-300); Potassium 4.1 mmol/L (3.5-5.1); SGOT/AST 36 U/L (14-36); SGPT/ALT 23 U/L (0-35); SODIUM 142 mmol/L (137-145); Total Protein 8.4 g/dL (6.3-8.2)
[2019-04-13 19:44] LABS: TROPONIN < 0.012 ng/mL (0.000-0.034)
[2019-04-13] MEDS ORDERED: MORPHINE SULFATE 4 MG INJ IV ONE (21:28)
[2019-04-13] MEDS ORDERED: MORPHINE SULFATE 4 MG INJ ONE (21:30)
[2019-04-13 21:38] VITALS: BP 102/58; PULSE 56; O2SAT 97
--- NOTE | 2019-04-14 08:35 | XRAY ---
Indication: Left flank pain. Lightheaded and nausea. Multiple contiguous axial images obtained through the abdomen and pelvis using 80 cc Isovue 370 contrast only. Comparison: March 13, 2019. Lung bases again demonstrates minimal atelectasis/scarring and tiny left base calcified granuloma. No infiltrate or effusion. Heart is not enlarged. Noncontrasted stomach and bowel loops remain nonobstructed. Normal appendix. Stable mild scattered colonic diverticulosis, cholecystectomy, 14 cm splenomegaly, and small distal right iliopsoas intramuscular lipoma. No free fluid/air. Both kidneys enhance and excrete. Previous right renal micro-calculi not seen on today's contrast exam. Remaining liver, pancreas, spleen, adrenal glands, kidneys, ureters, bladder, and uterus appear unremarkable. Stable minimal aortoiliac calcifications. No AAA or pathologic retroperitoneal lymphadenopathy. Osseous structures intact again with mild degenerative changes throughout the thoracolumbar spine. Impression: 1. Stable colonic diverticulosis, splenomegaly, right iliopsoas intramuscular lipoma, and evidence for old granulomatous disease. 2. Remaining CT abdomen/pelvis with contrast exam is negative. CT DI 23.68
== END 2019-04-13 21:44 | disposition home or self-care (01) ==
LOC: ED 18:15
DX: R10.12 Left upper quadrant pain (principal); R16.1 Splenomegaly, not elsewhere classified; K57.90 Diverticulosis of intestine, part unspecified, without perforation or abscess without bleeding; R11.0 Nausea; D47.3 Essential (hemorrhagic) thrombocythemia; I10 Essential (primary) hypertension
CPT/HCPCS: 36000; 36415; 74177; 80053; 82150; 83605; 83690; 84484; 85025; 93005; 96374; 96375; 99284; J1200; J2270; J3010

== ENCOUNTER 2019-05-25 08:17 | Day surgery (SDC) | payer OTHER ==
--- NOTE | 2019-05-22 11:09 | HP ---
PROCEDURE DATE: 05/25/19 HISTORY OF PRESENT ILLNESS: Patient is a 63 y/o who has had some left upper quadrant pain associated with some nausea/vomiting, comes and goes. Has some loose stools all the time. No recent colonoscopy or upper endoscopy. No gross bloody stools. Given her persistent aches and pains and unclear etiology, needed EGD/colonoscopy to rule out colitis, inflammatory bowel disease, gastritis, peptic ulcer disease, or other etiology. She had a CT scan that showed diverticulosis. Has had a right side iliopsoas intramuscular lipoma. No acute CT changes apparently. PAST SURGICAL HISTORY: Has had cholecystectomy in the past. Axillary node excised in the past. Has had knee surgery in the past. Had a kidney stone in the past. She had had a blood test that showed she had Crohn's disease in the past. She hasn't had any specific treatment CURRENT MEDICATIONS: Klor-Con, Pramipexole, levothyroxine for some hypothyroidism, Bisoprolol, folic acid, hydroxychloroquine. She has also been on Xarelto, triamcinolone, sertraline, Prevalite, omeprazole, Lialda, dicyclomine, cyclobenzaprine. ALLERGIES: NKDA. FAMILY HISTORY: Negative with regards to this problem. Cancer of unknown type. SOCIAL HISTORY: No smoking or alcohol abuse. REVIEW OF SYSTEMS: 10 systems reviewed negative or noncontributory other than above and per admission assessment. PHYSICAL EXAMINATION: GENERAL: No acute distress. HEENT: Sclerae nonicteric. NECK: No JVD. CHEST: Equal excursion. Nonlabored breathing. CVS: Regular rate and rhythm. ABDOMEN: Soft. No peritoneal signs. Some mild tenderness in left upper quadrant. EXTREMITIES: No significant edema. NEURO: Alert and oriented, moving extremities symmetrically. No gross motor deficits noted. IMPRESSION: 1. ABDOMINAL PAIN, UNCLEAR ETIOLOGY. CT SCAN DID NOT SHOW ANY OBVIOUS ABDOMINAL WALL DEFECTS ON THE SIDE GIVEN HER SYMPTOMS. FEEL SHE WILL BENEFIT FROM EGD/COLONOSCOPY TO EVALUATE FOR GASTRITIS, PEPTIC ULCER DISEASE, COLITIS, INFLAMMATORY BOWEL DISEASE OR OTHER ETIOLOGY. Risks and benefits explained in detail, but not limited to, bleeding; infection; risk of bowel injury or perforation possibly requiring open procedure; risk of missed or nondiagnosis or incomplete exam possibly requiring barium enema or other studies or procedures; general risks of anesthesia or sedation; risk of bowel prep, but limited to. Consent obtained. Will proceed with EGD/colonoscopy as an outpatient.
[2019-05-25] MEDS ORDERED: Lactated Ringers 1,000 ML IV SCH (09:00)
[2019-05-25] MEDS ORDERED: Lactated Ringers 1,000 ML IV ONE (09:00)
[2019-05-25] MEDS ORDERED: DIPRIVAN 200 MG/20 ML IV ONE ×2 (10:04→10:25)
[2019-05-25 11:26] VITALS: O2SAT 98
[2019-05-25 11:50] VITALS: BP 127/64; PULSE 46
--- NOTE | 2019-05-25 13:41 | OP ---
SURGERY DATE/TIME: 05/25/2019 1010 PREOPERATIVE DIAGNOSIS: History of nausea and vomiting. History of left upper quadrant aches and pains unclear etiology need for upper and lower endoscopy to evaluate gastritis, colitis, peptic ulcer disease or other etiology. POSTOPERATIVE DIAGNOSES: 1) Mild gastritis. 2) Diverticulosis. 3) Small raised lesion early polyp transverse colon x2. 4) Small raised lesion rectosigmoid colon versus hyperplastic lesion, path pending. 5) Small internal and external hemorrhoids. 6) Fair bowel prep. PROCEDURES: 1) EGD with cold biopsy of small bowel to evaluate celiac sprue. 2) Cold biopsy of antrum to evaluate for Helicobacter pylori. 3) Cold biopsy of very short segment of possible early distal gastroesophagitis versus normal variation of gastroesophageal junction. 4) Colonoscopy to cecum with random cold biopsies of colon to evaluate for microscopic colitis. 5) Hot biopsy removal of small polyp versus hyperplastic lesion x2 transverse colon. 6) Hot biopsy removal of small rectosigmoid colon polyp or hyperplastic lesion, path pending. SURGEON: Dr. Dhaval Cunningham. ANESTHESIA: MAC. ESTIMATED BLOOD LOSS: Minimal. INDICATIONS: As noted above. Risks and benefits explained in detail and not limited to and consent obtained. DESCRIPTION OF PROCEDURE AND FINDINGS: The patient is taken to the operating room. MAC anesthesia introduced. After official time out and no disagreement with planned procedure, bite block positioned. Video gastroscope easily passed down the esophagus through the patent pylorus to the junction of the second and third portion of the duodenum. Given her symptom complaints, cold biopsy taken in the duodenum to evaluate for celiac disease. Otherwise no signs of any ulcers or masses in the proximal duodenum. Scope pulled back in the stomach. She had some minimal to mild gastritis. Cold biopsy taken to evaluate for Helicobacter pylori. Good hemostasis noted. There were no signs of any ulcers. On retroflex the gastroesophageal junction snug against the scope. No signs of any hiatal hernia that could be visualized endoscopically. The scope was straightened, pulled back to the gastroesophageal junction. There was one little small, little raised lesion on the Z-line. Cold biopsy taken to evaluate short segment distal gastroesophagitis. There was normal variation in the gastroesophageal junction otherwise. The esophagus was grossly otherwise unremarkable. Good hemostasis noted. The scope is withdrawn. The patient tolerated this part of the procedure well. Gastroesophageal junction about 38 cm. Attention was then turned to colonoscopy. Digital rectal exam did not reveal any rectal masses. She did have some small internal and external hemorrhoids. Video colonoscope inserted and passed up through the tortuous sigmoid, descending, transverse and ascending colon. With external pressure, scope passed around to the cecum. Appendiceal orifice and valve well visualized. The very tip of the terminal ileum was grossly unremarkable. Triangulation of the scope would not go far up the ileum though. The scope is slowly and carefully withdrawn over the next 8 minutes. Back in the transverse colon small polyp removed in two pieces with hot biopsy forceps with brief bursts of cautery. Good hemostasis noted. Another small one just distal to this is also removed with hot biopsy forceps. Good hemostasis noted. Scope pulled around. She had some diverticulosis. Overall prep was fair. She had a little bit of liquidy stool suction irrigated as clear as possible but slightly limiting exam for very small lesions. The scope pulled back to the rectosigmoid area. A 1.5 mm or so raised lesion versus early polyp or hyperplastic lesion was removed with hot biopsy forceps. Good hemostasis noted. She had some diverticulosis. She had some small internal and external hemorrhoids. There were no signs of any large polyps, masses or obstructing lesions. The scope is withdrawn. The patient tolerated the procedure well. There were no immediate complications. Findings discussed with the family out in the waiting area.
== END 2019-05-25 11:50 | disposition home or self-care (01) ==
LOC: SDC 08:17
PROVIDERS: ATTEND Surgery
DX: K29.70 Gastritis, unspecified, without bleeding (principal); K57.30 Diverticulosis of large intestine without perforation or abscess without bleeding; K63.5 Polyp of colon; K64.8 Other hemorrhoids; K64.4 Residual hemorrhoidal skin tags
CPT/HCPCS: 88305; J2704

== ENCOUNTER 2019-07-22 14:51 | Observation (INO) | payer OTHER ==
[2019-07-22 15:38] LABS: Absolute Neutrophil Ct (ANC) 2.52 (1.4-6.9); BASOPHIL % 0.4 % (0.0-0.4); Basophil (Absolute #) 0.02 (0-0.4); Eosinophil % 14.2 % (0.00-5.0); Eosinophil (Absolute #) 0.75 (0-0.5); Hematocrit 42.2 % (35-47); Hemoglobin 14.3 gm/dl (12.0-16.0); Lymphocyte (Absolute #) 1.55 (1.0-4.6); Lymphocytes % 29.4 % (24.0-44.0); Mean Corpuscular Hemoglobin 32.2 pg (26-32); Mean Corpuscular Hgb Concent. 33.9 g/dl (32-36); Mean Platelet Volume 12.2 fl (7.5-11.0); Monocyte (Absolute #) 0.44 (0.0-1.3); Monocytes % 8.3 % (0.0-12.0); Neutrophil % 47.7 % (36.0-66.0); Platelet Count 99 K/mm3 (150-450); Red Blood Count 4.44 M/mm3 (4.1-5.4); White Blood Count 5.3 K/mm3 (4.0-10.5)
[2019-07-22 15:43] LABS: PTT 33.4 SECONDS (25.3-37.0)
[2019-07-22 15:48] LABS: ALBUMIN 4.2 g/dL (3.5-5.0); ALKALINE PHOSPHATASE 122 U/L (38-126); ANION GAP 13.7 MEQ/L (5-15); BLOOD UREA NITROGEN 17 mg/dL (7-17); CHLORIDE 100 mmol/L (98-107); Calcium 9.6 mg/dL (8.4-10.2); Carbon Dioxide 27 mmol/L (22-30); Creatinine 1 0.77 mg/dL (0.52-1.04); Glucose 80 mg/dL (74-106); Potassium 4.1 mmol/L (3.5-5.1); SGOT/AST 34 U/L (14-36); SGPT/ALT 17 U/L (0-35); SODIUM 137 mmol/L (137-145); Total Protein 8.1 g/dL (6.3-8.2)
[2019-07-22 15:54] LABS: Slide Review 1 YES
--- NOTE | 2019-07-22 16:36 | XRAY ---
Indication: Chest pain. Comparison: December 04, 2018. Portable chest less inflated with right midlung fibrosis/scarring. No focal infiltrate, consolidation, or large effusion. Heart is not enlarged. Bony thorax intact again with mild degenerative changes, cervical fusion surgery, and right axilla surgical clips. Impression: Nonacute underinflated chest with chronic features.
[2019-07-22] MEDS ORDERED: MORPHINE SULFATE 2 MG INJ IV ONE (16:48)
[2019-07-22] MEDS ORDERED: MORPHINE SULFATE 2 MG INJ ONE (16:50)
--- NOTE | 2019-07-22 17:02 | XRAY ---
Indication: Short of breath. Chest and abdomen pain. Elevated d-dimer. Multiple contiguous axial images obtained through the chest using 80 cc of Isovue-370 contrast and PE protocol. Comparison: October 24, 2016. There is good opacification of the pulmonary arteries to include the lobar and segmental branches. No filling defect or pulmonary embolus. Heart is not enlarged. Aorta is normal in course and caliber. Stable tiny subcarinal and left hilar calcified nodes. No pathologic mediastinal/hilar lymphadenopathy. Lungs again demonstrates right middle lobe/lingula subsegmental atelectasis/scarring and left lower lobe calcified granuloma. No suspicious pulmonary mass, infiltrate, or effusion. Bony thorax intact again with minimal degenerative changes throughout the spine and partially visualized lower cervical fusion. Limited upper abdomen again demonstrates fatty liver, cholecystectomy, and 13.8 cm splenomegaly. Impression: 1. Negative pulmonary embolus. No acute cardiopulmonary abnormalities. 2. Stable scattered fibrosis/scarring, evidence for old granulomatous disease, fatty liver, and splenomegaly.
[2019-07-22] MEDS ORDERED: BABY ASPIRIN 81 MG CHEW PO ONE (18:32)
--- NOTE | 2019-07-22 20:27 | ERPHSYRPT ---
- History of Present Illness Time Seen by Provider: 07/22/19 14:59 Historian: patient Exam Limitations: no limitations Patient Subjective Stated Complaint: STATES AFTER SHOPPING AT [employer] TODAY BEGAN HAVING CHEST PAIN. WENT TO [facility] AND WAS SENT TO ER. STATES IT DOES NOT RADIATE ANYWHERE. DENIES N/V. Triage Nursing Assessment: TO ROOM PER W/C. SKIN W/D, COLOR NORMAL. RESP NONLABORED. MONITOR IS SINUS RHTHYM. PATIENT GRASPING CHEST AND RATES AT A "10 ". Timing/Duration: today Activities at Onset: activity Quality: aching Location: substernal Chest Pain Radiation: no radiation Severity of Pain-Max: moderate Severity of Pain-Current: moderate Modifying Factors: Improves With: nothing Aspirin Treatment Today: 325 mg x 1 Allergies/Adverse Reactions: No Known Drug Allergies Allergy (Verified 07/22/19 15:03) Home Medications: Potassium Chloride 20 Meq [Klor-Con 20 MEQ] 20 meq PO BID 08/07/17 [History] Folic Acid 1 mg [Folate 1 mg] 1 mg PO DAILY 08/08/17 [History] Bisoprolol/Hydrochlorothiazide [Bisoprolol-Hctz 10-6.25 mg Tab] 1 each PO DAILY 03/21/19 [History] Levothyroxine Sodium 50 mcg PO DAILY 03/21/19 [History] Ergocalciferol (Vitamin D2) [Vitamin D2] 50,000 unit PO WEEKLY 05/25/19 [History ] Hydroxychloroquine Sulfate [Plaquenil] 200 mg PO BID 05/25/19 [History] Mesalamine 2 tab PO DAILY 05/25/19 [History] Omeprazole 20 mg PO DAILY 07/22/19 [History] Hx Tetanus, Diphtheria Vaccination/Date Given: No Hx Influenza Vaccination/Date Given: Yes Hx Pneumococcal Vaccination/Date Given: Yes - Review of Systems Constitutional: No Fever, No Chills Eyes: No Symptoms Ears, Nose, & Throat: No Symptoms Respiratory: No Cough, No Dyspnea Cardiac: No Chest Pain, No Edema, No Syncope Abdominal/Gastrointestinal: No Abdominal Pain, No Nausea, No Vomiting, No Diarrhea Genitourinary Symptoms: No Dysuria Musculoskeletal: No Back Pain, No Neck Pain Skin: No Rash Neurological: No Dizziness, No Focal Weakness, No Sensory Changes Psychological: No Symptoms Endocrine: No Symptoms All Other Systems: Reviewed and Negative - Past Medical History Pertinent Past Medical History: Yes Neurological History: No Pertinent History ENT History: No Pertinent History Cardiac History: Hypertension Respiratory History: No Pertinent History Endocrine Medical History: Hypothyroidism, Liver Disease Musculoskeletal History: Degenerative Disk Disease, Fractures, Osteoarthritis, Other GI Medical History: Other History: Other Psycho-Social History: Depression Female Reproductive Disorders: No Pertinent History Other Medical History: PMHX - SPLENOMEGALY, FX RIGHT FOREARM (CASTED). IBS. PATIENT WITH MULTIPLE SKIN PLAQUES ESPECIALLY ELBOWS AND KNEES - STATES HAS HAD IT FOR YEARS. APPEARANCE IS SIMILAR TO PSORIASIS BUT STATES HASN'T BEEN DIAGNOSED. SX HX: CHOLECYSTECTOMY - Past Surgical History Past Surgical History: Yes Neuro Surgical History: No Pertinent History Cardiac: No Pertinent History Respiratory: No Pertinent History Gastrointestinal: Cholecystectomy, Hernia Repair Genitourinary: Other Musculoskeletal: Other Female Surgical History: Lumpectomy, Tubal Ligation Other Surgical History: Kidney Stones. R knee scope - Social History Smoking Status: Never smoker Exposure to second hand smoke: Yes Drug Use: none Patient Lives Alone: No - Female History Hx Now: No - Nursing Vital Signs Nursing Vital Signs: Initial Vital Signs Temperature 97.5 F 07/22/19 14:54 Pulse Rate 60 07/22/19 14:54 Respiratory Rate 20 07/22/19 14:54 Blood Pressure 153/86 07/22/19 14:54 O2 Sat by Pulse Oximetry 98 07/22/19 14:54 Pain Scale Pain Intensity 4 - Physical Exam General Appearance: no apparent distress, alert Eye Exam: PERRL/EOMI, eyes nml inspection Ears, Nose, Throat Exam: normal ENT inspection, moist mucous membranes Neck Exam: normal inspection, non-tender, supple, full range of motion Respiratory Exam: normal breath sounds, lungs clear, No respiratory distress Cardiovascular Exam: regular rate/rhythm, normal heart sounds Gastrointestinal/Abdomen Exam: soft, No tenderness, No mass Back Exam: normal inspection, No CVA tenderness, No vertebral tenderness Extremity Exam: normal inspection, normal range of motion Neurologic Exam: alert, oriented x 3, cooperative, normal mood/affect, sensation nml, No motor deficits Skin Exam: normal color, warm, dry SpO2: 96 - Course EKG Interpreted by Me: RATE, NORMAL AXIS - Radiology Exams Chest X-ray Interpretation: Teleradiologist Report, No Pneumonia, No Infiltrates, Non- displaced Fracture - CT Exams Chest CT Interpretation: Negative Ordered Tests: Active Orders 24 hr Category Date Time Status Belt Back Operator STAT Care 07/22/19 15:33 Active EKG-ER Only STAT Care 07/22/19 15:32 Active IV Insertion STAT Care 07/22/19 15:32 Active Pulse Oximetry (ED) STAT Care 07/22/19 15:32 Active CHEST 1 VIEW (PORTABLE) Stat Exams 07/22/19 15:33 Completed CHEST WITH CONTRAST [CT] Stat Exams 07/22/19 15:52 Completed CBC W DIFF Stat Lab 07/22/19 15:35 Completed CMP Stat Lab 07/22/19 15:35 Completed D-DIMER QUANTITATIVE Stat Lab 07/22/19 15:35 Completed PTT Stat Lab 07/22/19 15:35 Completed TROPONIN Q3H Lab 07/22/19 15:35 Completed TROPONIN Q3H Lab 07/22/19 18:36 Completed TROPONIN Q3H Lab 07/22/19 21:45 Ordered TROPONIN Q3H Lab 07/23/19 00:45 Ordered TROPONIN Q3H Lab 07/23/19 03:45 Ordered Transfer Order Routine Transfer 07/22/19 Ordered Medication Summary Discontinued Medications Generic Name Dose Route Start Last Admin Trade Name Freq PRN Reason Stop Dose Admin Aspirin 324 mg 07/22/19 18:32 07/22/19 19:12 Baby Aspirin 81 Mg Chew PO 07/22/19 18:33 324 mg STAT ONE Administration Morphine Sulfate 2 mg 07/22/19 16:48 07/22/19 16:54 Morphine Sulfate 2 Mg Inj IV 07/22/19 16:49 2 mg STAT ONE Administration Morphine Sulfate Confirm 07/22/19 16:50 Morphine Sulfate 2 Mg Inj Administered 07/22/19 16:51 Dose 2 mg .ROUTE .STK-MED ONE Lab/Rad Data: Laboratory Result Diagrams 07/22/19 15:35 07/22/19 15:35 Laboratory Results 07/22/19 07/22/19 07/22/19 Range/Units Unknown 18:36 15:35 WBC (4.0-10.5) K/mm3 RBC (4.1-5.4) M/mm3 Hgb (12.0-16.0) gm/dl Hct (35-47) % MCV (78-100) fl MCH (26-32) pg MCHC (32-36) g/dl RDW (11.5-14.0) % Plt Count (150-450) K/mm3 MPV (7.5-11.0) fl Gran % (36.0-66.0) % Eos # (Auto) (0-0.5) Absolute Lymphs (auto) (1.0-4.6) Absolute Monos (auto) (0.0-1.3) Lymphocytes % (24.0-44.0) % Monocytes % (0.0-12.0) % Eosinophils % (0.00-5.0) % Basophils % (0.0-0.4) % Absolute Granulocytes (1.4-6.9) Basophils # (0-0.4) APTT (25.3-37.0) SECONDS D-Dimer (215-500) ng/mL Sodium (137-145) mmol/L Potassium (3.5-5.1) mmol/L Chloride (98-107) mmol/L Carbon Dioxide (22-30) mmol/L Anion Gap (5-15) MEQ/L BUN (7-17) mg/dL Creatinine (0.52-1.04) mg/dL Estimated GFR ML/MIN Glucose (74-106) mg/dL Hemoglobin A1c 5.04 (4.5-6.0) % Calcium (8.4-10.2) mg/dL Total Bilirubin (0.2-1.3) mg/dL AST (14-36) U/L ALT (0-35) U/L Alkaline Phosphatase (38-126) U/L Troponin I < 0.012 < 0.012 (0.000-0.034) ng/mL Serum Total Protein (6.3-8.2) g/dL Albumin (3.5-5.0) g/dL Slides for Path Review 07/22/19 07/22/19 07/22/19 Range/Units 15:35 15:35 15:35 WBC 5.3 (4.0-10.5) K/mm3 RBC 4.44 (4.1-5.4) M/mm3 Hgb 14.3 (12.0-16.0) gm/dl Hct 42.2 (35-47) % MCV 95.0 (78-100) fl MCH 32.2 H (26-32) pg MCHC 33.9 (32-36) g/dl RDW 13.0 (11.5-14.0) % Plt Count 99 L (150-450) K/mm3 MPV 12.2 H (7.5-11.0) fl Gran % 47.7 (36.0-66.0) % Eos # (Auto) 0.75 H (0-0.5) Absolute Lymphs (auto) 1.55 (1.0-4.6) Absolute Monos (auto) 0.44 (0.0-1.3) Lymphocytes % 29.4 (24.0-44.0) % Monocytes % 8.3 (0.0-12.0) % Eosinophils % 14.2 H (0.00-5.0) % Basophils % 0.4 (0.0-0.4) % Absolute Granulocytes 2.52 (1.4-6.9) Basophils # 0.02 (0-0.4) APTT 33.4 (25.3-37.0) SECONDS D-Dimer 1083 H* (215-500) ng/mL Sodium 137 (137-145) mmol/L Potassium 4.1 (3.5-5.1) mmol/L Chloride 100 (98-107) mmol/L Carbon Dioxide 27 (22-30) mmol/L Anion Gap 13.7 (5-15) MEQ/L BUN 17 (7-17) mg/dL Creatinine 0.77 (0.52-1.04) mg/dL Estimated GFR > 60.0 ML/MIN Glucose 80 (74-106) mg/dL Hemoglobin A1c (4.5-6.0) % Calcium 9.6 (8.4-10.2) mg/dL Total Bilirubin 0.90 (0.2-1.3) mg/dL AST 34 (14-36) U/L ALT 17 (0-35) U/L Alkaline Phosphatase 122 (38-126) U/L Troponin I (0.000-0.034) ng/mL Serum Total Protein 8.1 (6.3-8.2) g/dL Albumin 4.2 (3.5-5.0) g/dL Slides for Path Review YES - Progress Air Movement: good Progress Note: 07/22/19 20:28 Chest pain improved but not completely resolved. Aspirin administered. Blood Culture(s) Obtained: No Antibiotics given: No Discussed with : Vin Will see patient in: hospital (observation) - Departure Departure Disposition: In-patient Admission, Observation, Extended Care Facility Clinical Impression: ACS (acute coronary syndrome), Lung granuloma Condition: Fair Critical Care Time: No Referrals: JULIANA HANEY [Primary Care Provider] -
[2019-07-22] MEDS ORDERED: Senokot-S Tablet PO PRN (20:50)
[2019-07-22] MEDS ORDERED: MAALOX ES 30 ML UNIT DOSE PO PRN (20:50)
[2019-07-22] MEDS ORDERED: TYLENOL 325 MG PO PRN (20:50)
[2019-07-22] MEDS ORDERED: MILK OF MAGNESIA 30 ML PO PRN (20:50)
[2019-07-22] MEDS ORDERED: ULTRAM 50 MG PO PRN (21:53)
[2019-07-22] MEDS ORDERED: Klor Con 10 MEQ PO SCH (22:00)
[2019-07-23 04:51] LABS: Risk Ratio 3.9
[2019-07-23 05:19] LABS: ALBUMIN 3.5 g/dL (3.5-5.0); ALKALINE PHOSPHATASE 118 U/L (38-126); ANION GAP 10.7 MEQ/L (5-15); BLOOD UREA NITROGEN 14 mg/dL (7-17); CHLORIDE 102 mmol/L (98-107); Calcium 9.1 mg/dL (8.4-10.2); Carbon Dioxide 27 mmol/L (22-30); Creatinine 1 0.78 mg/dL (0.52-1.04); Glucose 100 mg/dL (74-106); Potassium 4.1 mmol/L (3.5-5.1); SGOT/AST 41 U/L (14-36); SGPT/ALT 21 U/L (0-35); SODIUM 136 mmol/L (137-145); Total Protein 7.1 g/dL (6.3-8.2)
[2019-07-23 05:24] LABS: Absolute Neutrophil Ct (ANC) 2.65 (1.4-6.9); BASOPHIL % 0.2 % (0.0-0.4); Basophil (Absolute #) 0.01 (0-0.4); Eosinophil (Absolute #) 0.68 (0-0.5); Hematocrit 37.9 % (35-47); Hemoglobin 12.9 gm/dl (12.0-16.0); Lymphocyte (Absolute #) 1.07 (1.0-4.6); Lymphocytes % 22.1 % (24.0-44.0); Mean Cell Volume 95.7 fl (78-100); Mean Corpuscular Hemoglobin 32.6 pg (26-32); Mean Platelet Volume 12.8 fl (7.5-11.0); Monocyte (Absolute #) 0.44 (0.0-1.3); Monocytes % 9.1 % (0.0-12.0); Neutrophil % 54.6 % (36.0-66.0); Platelet Count 63 K/mm3 (150-450); Red Blood Count 3.96 M/mm3 (4.1-5.4); Red Cell Distribution Width 12.9 % (11.5-14.0); White Blood Count 4.9 K/mm3 (4.0-10.5)
[2019-07-23 07:24] LABS: Slide Review 1 YES
[2019-07-23 07:36] VITALS: BP 125/64; PULSE 66; O2SAT 97
--- NOTE | 2019-07-23 08:50 | PCM.DCORD ---
- Discharge Discharge Date: 07/23/19 Disposition: Home, Self-Care Condition: Fair Prescriptions: New Aspirin EC 81 mg [Ecotrin 81 mg] 81 mg PO DAILY #30 tablet Continue Potassium Chloride 20 Meq [Klor-Con 20 MEQ] 20 meq PO BID Folic Acid 1 mg [Folate 1 mg] 1 mg PO DAILY Levothyroxine Sodium 50 mcg PO DAILY Bisoprolol/Hydrochlorothiazide [Bisoprolol-Hctz 10-6.25 mg Tab] 1 each PO DAILY Hydroxychloroquine Sulfate [Plaquenil] 200 mg PO BID Mesalamine 2 tab PO DAILY Ergocalciferol (Vitamin D2) [Vitamin D2] 50,000 unit PO WEEKLY Omeprazole 20 mg PO DAILY Additional Instructions: Go to the ER if your chest pain returns. Follow up with: JULIANA HANEY [Primary Care Provider] - 1 Week CARMEN CABALLERO [CONSULTING PHYSICIAN] - 1 Week
[2019-07-23] MEDS ORDERED: MESALAMINE PO SCH (10:00)
[2019-07-23] MEDS ORDERED: FOLATE 1 MG PO SCH (10:00)
[2019-07-23] MEDS ORDERED: NON-FORMULARY ITEM (Bisoprolol/Hydrochlorothiazide [Bisoprolol-Hctz 10-6.25 Mg Tab] 1 EACH PO SCH (10:00)
[2019-07-23] MEDS ORDERED: NON-FORMULARY ITEM (Omeprazole [Omeprazole] 20 MG) PO SCH (10:00)
[2019-07-23] MEDS ORDERED: MEDICATION INTERVENTION PO SCH (10:00)
[2019-07-23] MEDS ORDERED: NON-FORMULARY ITEM (Hydroxychloroquine Sulfate [Plaquenil] 200 MG) PO SCH (10:00)
[2019-07-23] MEDS ORDERED: SYNTHROID 50 MCG PO SCH (10:00)
[2019-07-23] MEDS ORDERED: Protonix 40MG Tablet PO SCH (10:00)
--- NOTE | 2019-07-23 10:35 | SSS ---
ADMISSION DIAGNOSES: 1) Chest pain. 2) Hypertension. 3) Hypothyroidism. 4) Chronic diarrhea. DISCHARGE DIAGNOSES: 1) CHEST PAIN. 2) HYPERTENSION. 3) HYPOTHYROIDISM. 4) CHRONIC DIARRHEA. HISTORY OF PRESENT ILLNESS: This is a 63year old patient of mine who reports started having chest pain between 1300 and 1400 hours yesterday. She was in [facility] and then went home and then came to the emergency room. She states it was across her chest radiating inside and was tight. She denied any sharpness. She had dyspnea with this but no diaphoresis. No nausea or vomiting. She reports it went away with pain medicine that was given in the hospital but she has not needed any pain medicine for the past few hours and has not had any pain. She would like to go home. She denies any chest pain with exertion. REVIEW OF SYSTEMS: No cough. No rhinorrhea. No fever. She reports diarrhea that comes and goes at baseline for her. No constipation. She continues to have a rash from psoriasis on her elbows. PAST MEDICAL HISTORY: Hypertension. Hypothyroidism. Chronic diarrhea. Rheumatoid arthritis. Psoriasis. History of hepatitis C status post treatment. History of pulmonary embolism 10/24/2016. PAST SURGICAL HISTORY: Colonoscopy. Right knee surgery. Surgery for kidney stones. Upper endoscopy 2018. MEDICATIONS: Please see the home medication reconciliation list. ALLERGIES: NKDA. SOCIAL HISTORY: She denies any tobacco use. FAMILY HISTORY: She reports that her dad had heart problems but she cannot remember how old he was when he . She reports her mother is and had cancer and myocardial infarction but she cannot remember how old she was when she . She has a sister who is living who has had a heart attack and currently her sister is in her 60's. PHYSICAL EXAMINATION: VITAL SIGNS: Temperature current 97.8F, temperature max 97.8F, heart rate 66, respiratory rate 18, blood pressure 125/64. Oxygen saturation 97% on room air. GENERAL: The patient is a pleasant, talkative lady lying in bed and in no acute distress. CVS: She has a regular rate and rhythm. No murmurs, gallops or rubs are appreciated. CHEST: Clear to auscultation bilaterally with distant breath sounds. No wheezing. No rhonchi. No crackles. ABDOMEN: Soft, nontender, nondistended with normal bowel sounds. SKIN: Warm, dry and intact. EXTREMITIES: No clubbing, cyanosis or edema. HOSPITAL COURSE: 1) CHEST PAIN: She had ruled out for acute myocardial infarction. Her EKG is unchanged from one done in the emergency room in March. She had some nonspecific T-wave changes, normal sinus rhythm this was discussed with the patient. She has never seen a raise miner before. I asked they do tele-cardiology consult and follow up as an outpatient and she desires to follow up as an outpatient which I think is appropriate as she is not having any chest pain now. She was started on aspirin and will continue aspirin 81 mg p.o. daily along with her other medications. She had a fasting lipid profile that looked good. She had a D-dimer that was positive but her chest CT was negative for any pulmonary embolism. 2) HYPERTENSION: Blood pressure currently well controlled. 3) HYPOTHYROIDISM: She continues on home dose of levothyroxine. 4) CHRONIC DIARRHEA: She follows up as an outpatient with junior sales assistant. DISPOSITION: The patient was discharged to home in fair condition to follow up with myself and raise miner, Dr. Dorsey. DISCHARGE MEDICATIONS: Please see the discharge order.
[2019-07-26] MEDS ORDERED: VITAMIN D2 PO SCH (10:00)
== END 2019-07-23 10:20 | disposition home or self-care (01) ==
LOC: ED 14:51 → MED SURG 20:44
PROVIDERS: ADMIT Internal Medicine; ATTEND Internal Medicine
DX: R07.9 Chest pain, unspecified (principal); I10 Essential (primary) hypertension; E03.9 Hypothyroidism, unspecified; K52.9 Noninfective gastroenteritis and colitis, unspecified; M06.9 Rheumatoid arthritis, unspecified; Z86.711 Personal history of pulmonary embolism; Z79.899 Other long term (current) drug therapy
CPT/HCPCS: 36000; 36415; 71045; 71260; 80053; 80061; 83036; 83721; 84484; 85025; 85379; 85730; 93005; 93041; 93268; 94760; 94762; 96374; 99285; G0378; J2270; A9270-GY

== ENCOUNTER 2019-10-23 15:10 | Emergency (ER) | payer OTHER ==
[2019-10-23 15:23] VITALS: O2SAT 98
--- NOTE | 2019-10-23 16:02 | XRAY ---
Indication: Right chest pain/abdomen following fall 5 days ago. Multiple contiguous axial images obtained through the abdomen and pelvis without contrast as ordered. Comparison: April 13, 2019. CT chest reported separately. Noncontrasted stomach and bowel loops remain nonobstructed. Normal appendix. Right mid kidney demonstrates 2 nonobstructing punctate calculi not seen on previous contrasted exam. Stable mild scattered colonic diverticulosis, 14 cm splenomegaly, hepatic/splenic calcified granulomas, cholecystectomy, and small distal right iliopsoas intramuscular lipoma. No free fluid/air. Remaining liver, pancreas, spleen, adrenal glands, kidneys, ureters, bladder, and uterus appear unremarkable for noncontrast exam. Stable minimal aortoiliac calcifications without AAA. Osseous structures intact again with mild degenerative changes throughout the spine. Impression: 1. New nonobstructing right renal micro-calculi. 2. Stable colonic diverticulosis, splenomegaly, right iliopsoas intramuscular lipoma, and evidence for old granulomatous disease. 3. Remaining CT abdomen and pelvis without contrast exam is negative.
--- NOTE | 2019-10-23 16:03 | XRAY ---
Indication: Right chest pain/abdomen following fall 5 days ago. Multiple contiguous axial images obtained through the chest without contrast as ordered. Comparison: July 22, 2019. Lungs again demonstrates mid to lower lung subsegmental atelectasis/scarring bilaterally and tiny left base calcified granuloma. No new pulmonary mass, infiltrate, or effusion. Heart is not enlarged. Aorta is normal in course and caliber. Stable subcarinal and left hilar calcified nodes. No pathologic mediastinal lymphadenopathy. Bony thorax intact again with minimal degenerative changes throughout the spine and partially visualized lower cervical fusion surgery. CT abdomen reported separately. Impression: 1. Stable scattered atelectasis/scarring and evidence for old granulomatous disease. 2. Remaining CT chest without contrast exam is negative.
--- NOTE | 2019-10-23 16:04 | XRAY ---
Indication: Pain following fall. Comparison: August 23, 2016. 3 view right elbow again demonstrates normal bones, articulation, and soft tissues.
[2019-10-23 16:14] LABS: Amourphous Crystal FEW /HPF (NEGATIVE); Appearance CLOUDY (CLEAR); Bilirubin NEGATIVE (NEGATIVE); Blood NEGATIVE Ery/ul (0-5); Epithelial Cells FEW /HPF (FEW); Glucose NEGATIVE (NEGATIVE); Ketones NEGATIVE (NEGATIVE); Leukocyte Esterase TRACE (NEGATIVE); Mucus SLIGHT /HPF (NEGATIVE); Nitrite NEGATIVE (NEGATIVE); Protein,Urine Dip NEGATIVE (Negative); Specific Gravity 1.032 (1.005-1.025); Urobilinogen 4 mg/dL (0-1); WBC 0-2 /HPF (0-5)
--- NOTE | 2019-10-23 17:15 | ERPHSYRPT ---
- History of Present Illness Time Seen by Provider: 10/23/19 15:20 Patient Subjective Stated Complaint: Pt states "I fell mushroom hunting on saturday and I saw giles hamm and she gave me a shot and said if it was not any better to come to the er on saturday. I just cannot take it anymore so I came here today." Triage Nursing Assessment: Pt presented alert and oriented X 3, skin pwd Pt ambulates with an upright steady gait, able to speak in clear full sentences. Pt in no apparent respiratory distress. Physician History: Is a 64-year-old female who presents after a fall while she was mushroom hunting she fell on her right side onto the side of a hill she complains of pain in the right elbow right chest and right abdomen she was seen by her PCP yesterday her pain was treated and she was told to follow-up closely did not feel better in a couple of days Allergies/Adverse Reactions: No Known Drug Allergies Allergy (Verified 07/22/19 15:03) Home Medications: Potassium Chloride 20 Meq [Klor-Con 20 MEQ] 20 meq PO BID 08/07/17 [History] Folic Acid 1 mg [Folate 1 mg] 1 mg PO DAILY 08/08/17 [History] Bisoprolol/Hydrochlorothiazide [Bisoprolol-Hctz 10-6.25 mg Tab] 1 each PO DAILY 03/21/19 [History] Levothyroxine Sodium 50 mcg PO DAILY 03/21/19 [History] Ergocalciferol (Vitamin D2) [Vitamin D2] 50,000 unit PO WEEKLY 05/25/19 [History ] Hydroxychloroquine Sulfate [Plaquenil] 200 mg PO BID 05/25/19 [History] Mesalamine 2 tab PO DAILY 05/25/19 [History] Omeprazole 20 mg PO DAILY 07/22/19 [History] Hx Tetanus, Diphtheria Vaccination/Date Given: Yes Hx Influenza Vaccination/Date Given: Yes Hx Pneumococcal Vaccination/Date Given: Yes Immunizations Up to Date: Yes Travel Risk - International Travel Have you traveled outside of the country in past 3 weeks: No Have you or anyone close to you been diagnosed with or: No Do your reside in a community with a known COVID-19 case?: Yes If Yes where:: [place] - Coronavirus Screening Has patient experienced Coronavirus symptoms: No - Review of Systems Constitutional: No Fever, No Chills Eyes: No Symptoms Ears, Nose, & Throat: No Symptoms Respiratory: No Cough, No Dyspnea Cardiac: No Chest Pain, No Edema, No Syncope Abdominal/Gastrointestinal: No Abdominal Pain, No Nausea, No Vomiting, No Diarrhea Genitourinary Symptoms: No Dysuria Musculoskeletal: Joint Pain, No Back Pain, No Neck Pain Skin: No Rash Neurological: No Dizziness, No Focal Weakness, No Sensory Changes Psychological: No Symptoms Endocrine: No Symptoms All Other Systems: Reviewed and Negative - Past Medical History Pertinent Past Medical History: Yes Neurological History: No Pertinent History ENT History: No Pertinent History Cardiac History: Hypertension Respiratory History: No Pertinent History Endocrine Medical History: Hypothyroidism, Liver Disease Musculoskeletal History: Degenerative Disk Disease, Fractures, Osteoarthritis, Other GI Medical History: Other History: Other Psycho-Social History: Depression Female Reproductive Disorders: No Pertinent History Other Medical History: PMHX - SPLENOMEGALY, FX RIGHT FOREARM (CASTED). IBS. PATIENT WITH MULTIPLE SKIN PLAQUES ESPECIALLY ELBOWS AND KNEES - STATES HAS HAD IT FOR YEARS. APPEARANCE IS SIMILAR TO PSORIASIS BUT STATES HASN'T BEEN DIAGNOSED. SX HX: CHOLECYSTECTOMY - Past Surgical History Past Surgical History: Yes Neuro Surgical History: No Pertinent History Cardiac: No Pertinent History Respiratory: No Pertinent History Gastrointestinal: Cholecystectomy, Hernia Repair Genitourinary: Other Musculoskeletal: Other Female Surgical History: Lumpectomy, Tubal Ligation Other Surgical History: Kidney Stones. R knee scope - Social History Smoking Status: Never smoker Exposure to second hand smoke: Yes Drug Use: none Patient Lives Alone: No - Female History Hx Now: No - Nursing Vital Signs Nursing Vital Signs: Initial Vital Signs Temperature 98.1 F 10/23/19 15:14 Pulse Rate 66 10/23/19 15:14 Respiratory Rate 18 10/23/19 15:14 Blood Pressure 153/88 10/23/19 15:14 O2 Sat by Pulse Oximetry 98 10/23/19 15:14 Pain Scale Pain Intensity 8 - [place] Coma Score Best Eye Response ([place]): (4) open spontaneously Best Verbal Response (Kathie): (5) oriented Best Motor Response (Kathie): (6) obeys commands [place] Total: 15 - Physical Exam General Appearance: no apparent distress, alert Head Injury: no evidence of injury Eye Exam: PERRL/EOMI ENT Exam: airway nml Neck Exam: normal inspection, No tenderness Respiratory/Chest Exam: normal breath sounds, rib tenderness, No chest tenderness, No respiratory distress Cardiovascular Exam: normal heart sounds, regular rate/rhythm Gastrointestinal Exam: soft, tenderness, No distention, No guarding, No ecchymosis Back Exam: normal inspection, No vertebral tenderness Extremity Exam: normal inspection, normal range of motion, pelvis stable, other (Right elbow tenderness with full range of motion), No deformities Neurologic Exam: alert, oriented x 3, cooperative, sensation nml, No motor deficits Skin Exam: normal color, warm, dry SpO2: 98 - CT Exams Chest CT Interpretation: Tele-radiologist Report, Other (X-rays of the right elbow are negative as are CT scans of the chest and abdomen for any evidence of trauma ) Ordered Tests: Active Orders 24 hr Category Date Time Status ABDOMEN AND PELVIS W/0 CONTRAS [CT] Stat Exams 10/23/19 15:34 Completed CHEST WITHOUT CONTRAST [CT] Stat Exams 10/23/19 15:34 Completed ELBOW (MINIMUM 3 VIEWS) Stat Exams 10/23/19 15:54 Completed UA W/RFX UR CULTURE Stat Lab 10/23/19 15:57 Completed Lab/Rad Data: Laboratory Results 10/23/19 Range/Units 15:57 Urine Color CHEVY (YELLOW) Urine Appearance CLOUDY (CLEAR) Urine pH 5.0 (5-6) Ur Specific [place] 1.032 (1.005-1.025) Urine Protein NEGATIVE (Negative) Urine Ketones NEGATIVE (NEGATIVE) Urine Blood NEGATIVE (0-5) Bryan/ul Urine Nitrite NEGATIVE (NEGATIVE) Urine Bilirubin NEGATIVE (NEGATIVE) Urine Urobilinogen 4 (0-1) mg/dL Ur Leukocyte Esterase TRACE (NEGATIVE) Urine WBC (Auto) 0-2 (0-5) /HPF Urine RBC (Auto) 6-10 (0-2) /HPF U Epithel Cells (Auto) FEW (FEW) /HPF Urine Bacteria (Auto) NONE (NEGATIVE) /HPF Amorphous Crystals FEW (NEGATIVE) /HPF Urine Mucus (Auto) SLIGHT (NEGATIVE) /HPF Urine Culture Reflexed NO (NO) Urine Glucose NEGATIVE (NEGATIVE) mg/dL - Progress Progress: unchanged - Departure Departure Disposition: Home Clinical Impression: Fall, Multiple contusions Condition: Good Critical Care Time: No Referrals: JULIANA HANEY [Primary Care Provider] - Instructions: Contusion (DC), Preventing Falls Prescriptions: Tramadol HCl 50 mg PO Q6H PRN 3 Days #12 tablet PRN Reason: Pain
[2019-10-23 17:30] VITALS: BP 149/90; PULSE 55
== END 2019-10-23 17:48 | disposition home or self-care (01) ==
LOC: ED 15:10
DX: T14.8XXD Other injury of unspecified body region, subsequent encounter (principal); W01.198D Fall on same level from slipping, tripping and stumbling with subsequent striking against other object, subsequent encounter; Z79.899 Other long term (current) drug therapy; E03.9 Hypothyroidism, unspecified; M25.521 Pain in right elbow; R07.9 Chest pain, unspecified; R10.9 Unspecified abdominal pain
CPT/HCPCS: 71250; 73080; 74176; 81001; 99284

== ENCOUNTER 2019-11-10 12:39 | Emergency (ER) | payer OTHER ==
--- NOTE | 2019-11-10 13:20 | ERPHSYRPT ---
- History of Present Illness Time Seen by Provider: 11/10/19 13:00 Source: patient Exam Limitations: no limitations Patient Subjective Stated Complaint: Pt was walking down wooden stairs outside and pt fell and cut her middle finger on her right hand between the top and middle knuckle, pt stated that she also hit her head but doesn't feel any pain from it Triage Nursing Assessment: Pt was brought to the ER by her grandson, keily quinones , rates finger pain as 10/10, 0.25 cm laceration to left top of forehead in the hair, denies any other injuries Physician History: 64 years old female presented in the ER with a chief complaint of fall with laceration right third finger. Patient reports she was slid on wet surface and fell on her porch while going down on a step. She also reports barely touching her head and had a small abrasion on the left upper head. No loss of consciousness. Denies any dizziness lightheadedness before or after the fall. No chest pain palpitations or shortness of breath. She is complaining of dull aching to sharp pain in the right third finger with movements and better with being still. Constant oozing. No spurting. Able to move her finger. Occurred: just prior to arrival Method of Injury: fell Quality: constant, sharpness Severity of Pain-Max: moderate Severity of Pain-Current: mild Extremities Pain Location: 3rd finger: right (Middle phalanx) Modifying Factors: Improves With: movement Associated Symptoms: none Allergies/Adverse Reactions: No Known Drug Allergies Allergy (Verified 11/10/19 12:58) Home Medications: Potassium Chloride 20 Meq [Klor-Con 20 MEQ] 20 meq PO BID 08/07/17 [History] Folic Acid 1 mg [Folate 1 mg] 1 mg PO DAILY 08/08/17 [History] Bisoprolol/Hydrochlorothiazide [Bisoprolol-Hctz 10-6.25 mg Tab] 1 each PO DAILY 03/21/19 [History] Levothyroxine Sodium 50 mcg PO DAILY 03/21/19 [History] Ergocalciferol (Vitamin D2) [Vitamin D2] 50,000 unit PO WEEKLY 05/25/19 [History ] Hydroxychloroquine Sulfate [Plaquenil] 200 mg PO BID 05/25/19 [History] Mesalamine 2 tab PO DAILY 05/25/19 [History] Omeprazole 20 mg PO DAILY 07/22/19 [History] Hx Tetanus, Diphtheria Vaccination/Date Given: Yes Hx Influenza Vaccination/Date Given: Yes Hx Pneumococcal Vaccination/Date Given: Yes Travel Risk - International Travel Have you traveled outside of the country in past 3 weeks: No Have you or anyone close to you been diagnosed with or: No Do your reside in a community with a known COVID-19 case?: Yes If Yes where:: [place] - Coronavirus Screening Has patient experienced Coronavirus symptoms: No - Review of Systems Constitutional: No Symptoms Eyes: No Symptoms Ears, Nose, & Throat: No Symptoms Respiratory: No Symptoms Cardiac: No Symptoms Abdominal/Gastrointestinal: No Symptoms Genitourinary Symptoms: No Symptoms Musculoskeletal: Fall, Injury Skin: Skin Lesions Neurological: No Symptoms Psychological: No Symptoms Endocrine: No Symptoms Hematologic/Lymphatic: No Symptoms Immunological/Allergic: No Symptoms - Past Medical History Pertinent Past Medical History: Yes Neurological History: No Pertinent History ENT History: No Pertinent History Cardiac History: Hypertension Respiratory History: No Pertinent History Endocrine Medical History: Hypothyroidism, Liver Disease Musculoskeletal History: Degenerative Disk Disease, Fractures, Osteoarthritis, Other GI Medical History: Other History: Other Psycho-Social History: Depression Female Reproductive Disorders: No Pertinent History Other Medical History: PMHX - SPLENOMEGALY, FX RIGHT FOREARM (CASTED). IBS. PATIENT WITH MULTIPLE SKIN PLAQUES ESPECIALLY ELBOWS AND KNEES - STATES HAS HAD IT FOR YEARS. APPEARANCE IS SIMILAR TO PSORIASIS BUT STATES HASN'T BEEN DIAGNOSED. SX HX: CHOLECYSTECTOMY - Past Surgical History Past Surgical History: Yes Neuro Surgical History: No Pertinent History Cardiac: No Pertinent History Respiratory: No Pertinent History Gastrointestinal: Cholecystectomy, Hernia Repair Genitourinary: Other Musculoskeletal: Other Female Surgical History: Lumpectomy, Tubal Ligation Other Surgical History: Kidney Stones. R knee scope - Social History Smoking Status: Never smoker Exposure to second hand smoke: Yes Drug Use: none Patient Lives Alone: No - Female History Hx Now: No - Nursing Vital Signs Nursing Vital Signs: Initial Vital Signs Temperature 97.6 F 11/10/19 12:47 Pulse Rate 53 L 11/10/19 12:47 Blood Pressure 114/70 11/10/19 12:47 O2 Sat by Pulse Oximetry 99 11/10/19 12:47 Pain Scale Pain Intensity 10 - Physical Exam General Appearance: no apparent distress, alert, anxiety Eyes, Ears, Nose, Throat Exam: normal ENT inspection, TMs normal, pharynx normal Neck Exam: normal inspection, non-tender, supple, full range of motion Cardiovascular/Respiratory Exam: chest non-tender, normal breath sounds, regular rate/rhythm Abdominal Exam: non-tender, soft Back Exam: normal inspection Shoulder Exam: normal inspection, non-tender Elbow/Forearm Exam: normal inspection, non-tender Wrist Exam: normal inspection, non-tender, no evidence of injury Hand Exam: normal ROM, laceration (Right third digit middle phalanx palmar aspect U-shaped flap laceration with slow oozing. No active spurting. Intact range of motion. Intact sensations distally. Cap refill less than 3 seconds.) Neuro/Tendon Exam: normal sensation, normal motor functions Mental Status Exam: alert, oriented x 3 Skin Exam: normal color SpO2 Interpretation: normal SpO2: 99 O2 Delivery: Room Air Procedures - Laceration/Wound Repair Right Upper Anterior Volar Finger Wound Location: Right, hand (Third finger phalanx) Wound Length (cm): 2.5 Wound's Depth, Shape: superficial Wound Explored: clean Irrigated: Yes Hibiclens Prep: Yes Anesthesia: 1% Lidocaine Volume Anesthetic (ccs): 4 Wound Repaired With: sutures Suture Size/Type: 4-0 Number of Sutures: 5 Layer Closure?: No Sterile Dressing Applied?: Yes - Course Nursing assessment & vital signs reviewed: Yes - Progress Progress: improved, pain not gone completely, re-examined Progress Note: 11/10/19 13:21 Laceration is cleaned, repaired. She has a small abrasion left parietal area with no tenderness or hematoma or step in deformity. She is offered CT head but refused. She has a nonfocal neuro exam. Discussed signs symptoms of head injury needing return to ER which she seems understanding. It was a clear mechanical fall, do not think needs any further work-up and is stable for discharge. Counseled pt/family regarding: diagnosis, need for follow-up - Departure Departure Disposition: Home Clinical Impression: Finger laceration Qualifiers: Encounter type: initial encounter Finger: middle finger Damage to nail status: without damage Foreign body presence: without foreign body Laterality: right Qualified Code(s): S61.212A - Laceration without foreign body of right middle finger without damage to nail, initial encounter Scalp abrasion Qualifiers: Encounter type: initial encounter Qualified Code(s): S00.01XA - Abrasion of scalp, initial encounter Fall Qualifiers: Encounter type: initial encounter Qualified Code(s): W19.XXXA - Unspecified fall, initial encounter Condition: Stable Critical Care Time: No Referrals: JULIANA HANEY [Primary Care Provider] - Follow Up with PCP/3 days Instructions: Laceration Repair With Stitches (DC), Head Injury Observation (DC ) Additional Instructions: Take Tylenol as needed for pain. Keep it clean. Follow-up with primary care for reevaluation. Suture removal in 7 to 10 days. Stay with a responsible person for next 24 to 48 hours, return to ER if have constant headache, vomiting , numbness tingling weakness, dizziness lightheadedness confusion/altered mentation etc.
[2019-11-10] MEDS ORDERED: Adacel Vial IM ONE (13:22)
[2019-11-10] MEDS: Adacel Vial IM ONE (13:23)
[2019-11-10 13:31] VITALS: BP 144/78; PULSE 88; O2SAT 96
== END 2019-11-10 13:39 | disposition home or self-care (01) ==
LOC: ED 12:39
DX: S61.212A Laceration without foreign body of right middle finger without damage to nail, initial encounter (principal); S00.01XA Abrasion of scalp, initial encounter; W10.8XXA Fall (on) (from) other stairs and steps, initial encounter; Y93.9 Activity, unspecified; Y92.9 Unspecified place or not applicable; Z79.899 Other long term (current) drug therapy; I10 Essential (primary) hypertension; E03.9 Hypothyroidism, unspecified; K76.9 Liver disease, unspecified; M19.90 Unspecified osteoarthritis, unspecified site; F32.9 Major depressive disorder, single episode, unspecified; Z87.442 Personal history of urinary calculi
CPT/HCPCS: 12001; 90471; 90715; 99283

== ENCOUNTER 2020-01-11 11:09 | Day surgery (SDC) | payer OTHER ==
--- NOTE | 2020-01-08 09:35 | HP ---
DATE OF SURGERY: 01/11/2020 HISTORY OF PRESENT ILLNESS: The patient is a 64 year old who for a while having aches and pain not improving, comes and goes. Family history negative for cancer. Last colonoscopy was in 2019. She apparently had blood test suspicious for some inflammatory bowel disease in the past. PAST MEDICAL HISTORY: Gastritis, rheumatoid arthritis, restless leg syndrome. Hypothyroidism in the past. PAST SURGICAL HISTORY: Right knee surgery in the past. Surgery for kidney stones. Endoscopy in the past. Laparoscopic cholecystectomy in the past. MEDICATIONS: Klor-Con, Bisoprolol hydrochlorothiazide, folic acid, hydroxychloroquine, vitamin D, ondansetron, Euthyrox, mesalamine, omeprazole. ALLERGIES: NKDA. FAMILY HISTORY: Cancer unsure of what type in the family. SOCIAL HISTORY: No smoking. Denies alcohol abuse. REVIEW OF SYSTEMS: Fourteen systems reviewed. No chest pain or palpitations. Other systems negative or noncontributory as above and per preadmission questionnaire. PHYSICAL EXAMINATION: GENERAL: No acute distress. HEENT: Sclerae nonicteric. NECK: No JVD. CHEST: Equal excursion, nonlabored breathing. CVS: Regular rate and rhythm. ABDOMEN: Soft. No peritoneal signs. EXTREMITIES: No significant edema. NEURO: Alert, oriented, moving extremities symmetrically. No gross motor deficits noted. PSYCH: Appropriate mood and affect. RECTAL: Deferred timed to endoscopy exam. IMPRESSION: Perianal area small area unclear whether early abscess versus infected cyst, hair follicle or developing fistula in ano. I feel the patient will benefit from exam under anesthesia, excisional biopsy of perianal lesion possible packing depending operative findings. General risk of bleeding or infection, risk of nonhealing of the wound. It does look like she had some sort of blood test questionable for inflammatory bowel disease in the past unclear if that was the case or not. Nonhealing perianal area as mentioned above whether infection, abscess, developing fistula in ano or other etiology is unclear. I feel she would benefit from exam under anesthesia excisional biopsy possible packing. General risk of wound infection, risk of wound complications or dehiscence, general risk of anesthesia, deep venous thrombosis, pulmonary embolism, pneumonia, general risk of aches and pains. Possibility if she develops persistent drainage of fistula of ano might need other types of procedures or if she truly had some inflammatory bowel disease may not want to heal ferry terminal agent duffy. She agreed with the planned procedure. Give her Fleet's enema preoperative prior to the OR time, exam under anesthesia, excision and biopsy, repairing the lesion possible packing pending operative findings. General risk as above as well as general risk of bleeding or infection, risk of deep venous thrombosis, pulmonary embolism, pneumonia or cardiopulmonary event.
[~2020-01-11 11:09] MED LIST: Lactated Ringers 1,000 ML IV SCH
[2020-01-11] MEDS ORDERED: Lactated Ringers 1,000 ML IV ONE (11:11)
[2020-01-11] MEDS ORDERED: Zofran 4 MG/2 ML VIAL ONE (13:08)
[2020-01-11] MEDS ORDERED: Xylocaine-Mpf 2% 5 Ml Vial ONE (13:08)
[2020-01-11] MEDS ORDERED: SUBLIMAZE 100 MCG/2 ML ONE (13:08)
[2020-01-11] MEDS ORDERED: DIPRIVAN 200 MG/20 ML IV ONE (13:08)
[2020-01-11] MEDS ORDERED: Decadron 4 MG INJ ONE (13:08)
[2020-01-11] MEDS ORDERED: Sensorcaine 0.25% 10 ML ONE (13:54)
[2020-01-11 15:56] VITALS: O2SAT 96
[2020-01-11 16:15] VITALS: BP 161/73; PULSE 48
--- NOTE | 2020-01-12 10:04 | OP ---
SURGERY DATE/TIME: 01/11/2020 1408 PREOPERATIVE DIAGNOSIS: Nonhealing lesion in the perianal area. POSTOPERATIVE DIAGNOSIS: Nonhealing lesion in the perianal area. PROCEDURE: Excisional biopsy perianal lesion (approximately 3 cm with margins). SURGEON: Dr. Dhaval Cunningham. WATER RESTORATION TECHNICIAN: Caitie Adan, Medical Student III. ANESTHESIA: General. ESTIMATED BLOOD LOSS: Minimal. INDICATIONS: As noted above. Risks and benefits explained in detail and not limited to and consent obtained. The site was confirmed with the patient in the preoperative holding area. DESCRIPTION OF PROCEDURE AND FINDINGS: The patient is taken to the operating room. General anesthesia induced. Lateral position. Prepped and draped in usual sterile fashion. After official time out and no disagreement with planned procedure, marking out to normal appearing skin on either side of this irregular nonhealing skin lesion and significant dissection was carried just into the normal subcutaneous tissue beneath staying out of the underlying muscle and fascia this was slowly and carefully freed and again this included the lesion in the skin and a small amount of subcu fat beneath. The specimen is passed off. It measured about 3 cm in size and passed off for pathology. Given the proximity close to the anal opening, it was felt this warranted leaving open and healing by secondary intent as it was felt this certainly would dehisce. I recommend sitz bath two or three times a day. Otherwise normal saline wet to dry if needed. She was transferred to the recovery room in stable condition. There were no immediate complications. Findings discussed with the family or friend out in the waiting area. I will see her back in the office next week.
== END 2020-01-11 16:25 | disposition home or self-care (01) ==
LOC: SDC 11:09
PROVIDERS: ATTEND Surgery
DX: K62.9 Disease of anus and rectum, unspecified (principal); Z79.899 Other long term (current) drug therapy
CPT/HCPCS: 88341; 88342; J1100; J2405; J2704; J3010

== ENCOUNTER 2020-06-02 05:17 | Observation (INO) | payer MEDICARE ==
[2020-06-02] MEDS ORDERED: Zofran 4 MG/2 ML VIAL IV ONE (05:24)
[2020-06-02] MEDS ORDERED: BABY ASPIRIN 81 MG CHEW PO ONE (05:24)
[2020-06-02] MEDS ORDERED: Nitrostat 0.4 MG (ED) SL ONE (05:24)
--- NOTE | 2020-06-02 05:24 | ERPHSYRPT ---
- History of Present Illness Time Seen by Provider: 06/02/20 05:24 Historian: patient Exam Limitations: clinical condition Physician History: This is an obese 64-year-old white female with a history of hypothyroidism, hypertension, restless leg syndrome, degenerative joint disease and depression who presents with chest pain that began 12 hours ago. It is described as substernal, sharp and nonradiating. Patient sees Sylvia Marie, nurse practitioner, for her primary medical issues. Patient also sees Dr. Dorsey, her tube bending machine operator. She sees him for chronic leg pain per her report. Patient was placed on a digital school lunch monitor 2 days ago. Patient is not the best historian. Patient states she did not take any of her medicines this morning. Timing/Duration: yesterday Activities at Onset: none Quality: sharpness, stabbing Location: substernal, central Chest Pain Radiation: no radiation Severity of Pain-Max: moderate Severity of Pain-Current: moderate Associated Symptoms: shortness of breath Nitro Today/Relief: no nitro taken today Aspirin Treatment Today: no aspirin today Allergies/Adverse Reactions: No Known Drug Allergies Allergy (Verified 06/02/20 05:37) Home Medications: Folic Acid 1 mg [Folate 1 mg] 1 mg PO DAILY 08/08/17 [History] Levothyroxine Sodium [Euthyrox] 50 mcg PO DAILY 12/25/19 [History] Aspirin EC 81 mg [Ecotrin 81 mg] 81 mg PO DAILY 01/11/20 [History] Potassium Chloride [Klor-Con M20] 20 meq PO BID 01/11/20 [History] Pramipexole Di-HCl [Mirapex] 0.5 mg PO DAILY 01/11/20 [History] Bisoprolol/Hydrochlorothiazide [Bisoprolol-Hctz 10-6.25 mg Tab] 1 mg PO DAILY 06/02/20 [History] Hydrochlorothiazide 12.5 mg PO DAILY 06/02/20 [History] Ranolazine 500 MG [Ranexa 500 MG] 500 mg PO BID 06/02/20 [History] Hx Tetanus, Diphtheria Vaccination/Date Given: Yes Hx Influenza Vaccination/Date Given: Yes Hx Pneumococcal Vaccination/Date Given: Yes Travel Risk - International Travel Have you traveled outside of the country in past 3 weeks: No - Coronavirus Screening Are you exhibiting any of the following symptoms?: No Close contact with a COVID-19 positive Pt in past 14-21 Days: No - Review of Systems Constitutional: No Symptoms Eyes: No Symptoms Ears, Nose, & Throat: No Symptoms Respiratory: No Symptoms Cardiac: Chest Pain Abdominal/Gastrointestinal: No Symptoms Genitourinary Symptoms: No Symptoms Musculoskeletal: No Symptoms Skin: No Symptoms Neurological: No Symptoms Psychological: No Symptoms Endocrine: No Symptoms Hematologic/Lymphatic: No Symptoms Immunological/Allergic: No Symptoms All Other Systems: Reviewed and Negative - Past Medical History Pertinent Past Medical History: Yes Neurological History: No Pertinent History ENT History: No Pertinent History Cardiac History: Hypertension Respiratory History: No Pertinent History Endocrine Medical History: Hypothyroidism, Liver Disease Musculoskeletal History: Degenerative Disk Disease, Fractures, Osteoarthritis, Other GI Medical History: Colitis, Other History: Other Psycho-Social History: Depression Female Reproductive Disorders: No Pertinent History Other Medical History: PMHX - SPLENOMEGALY, FX RIGHT FOREARM (CASTED). IBS. PATIENT WITH MULTIPLE SKIN PLAQUES ESPECIALLY ELBOWS AND KNEES - STATES HAS HAD IT FOR YEARS. APPEARANCE IS SIMILAR TO PSORIASIS BUT STATES HASN'T BEEN DIAGNOSED. SX HX: CHOLECYSTECTOMY - Past Surgical History Past Surgical History: Yes Neuro Surgical History: No Pertinent History Cardiac: No Pertinent History Respiratory: No Pertinent History Gastrointestinal: Cholecystectomy, Hernia Repair Genitourinary: Other Musculoskeletal: Other Female Surgical History: Lumpectomy, Tubal Ligation Other Surgical History: Kidney Stones. R knee scope - Social History Smoking Status: Never smoker Exposure to second hand smoke: Yes Drug Use: none Patient Lives Alone: No - Nursing Vital Signs Nursing Vital Signs: Initial Vital Signs Temperature 98.8 F 06/02/20 05:24 Pulse Rate 64 06/02/20 05:24 Respiratory Rate 20 06/02/20 05:24 Blood Pressure 109/74 06/02/20 05:24 O2 Sat by Pulse Oximetry 95 06/02/20 05:24 Pain Scale Pain Intensity 8 - Physical Exam General Appearance: mild distress, alert, anxiety, obese Eye Exam: PERRL/EOMI, eyes nml inspection Ears, Nose, Throat Exam: normal ENT inspection, moist mucous membranes Neck Exam: normal inspection, non-tender, supple, full range of motion Respiratory Exam: normal breath sounds, chest tenderness, lungs clear, airway intact, No respiratory distress Cardiovascular Exam: regular rate/rhythm, normal heart sounds, normal peripheral pulses Gastrointestinal/Abdomen Exam: soft, normal bowel sounds, No tenderness Pelvic Exam: not done Rectal Exam: not done Back Exam: normal inspection, normal range of motion, No CVA tenderness, No vertebral tenderness Extremity Exam: normal inspection, normal range of motion, No pelvis stable Neurologic Exam: alert, oriented x 3, cooperative, 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 There are no changes when compared to EKG dated 01/05/2020) Ordered Tests: Active Orders 24 hr Category Date Time Status EKG-ER Only STAT Care 06/02/20 05:24 Active IV Insertion STAT Care 06/02/20 05:24 Active Oxygen-ED Only Nasal Cannula 2 lpm Care 06/02/20 05:24 Active CHEST 1 VIEW (PORTABLE) Stat Exams 06/02/20 05:25 Taken CHEST WITH CONTRAST [CT] Stat Exams 06/02/20 06:42 Ordered CBC W DIFF Stat Lab 06/02/20 05:30 Completed CMP Stat Lab 06/02/20 05:30 Completed D-DIMER QUANTITATIVE Stat Lab 06/02/20 05:30 Completed NT PRO BNP Stat Lab 06/02/20 05:30 Completed PROTIME WITH INR Stat Lab 06/02/20 05:30 Completed T4 (Thyroxine) Stat Lab 06/02/20 05:30 Received TROPONIN Q3H Lab 06/02/20 05:30 Completed TROPONIN Q3H Lab 06/02/20 08:30 Ordered TROPONIN Q3H Lab 06/02/20 11:30 Ordered TROPONIN Q3H Lab 06/02/20 14:30 Ordered TROPONIN Q3H Lab 06/02/20 17:30 Ordered TSH [TSH, 3RD Generation] Stat Lab 06/02/20 05:30 Received Medication Summary Discontinued Medications Generic Name Dose Route Start Last Admin Trade Name Freq PRN Reason Stop Dose Admin Aspirin 324 mg 06/02/20 05:24 06/02/20 05:54 Baby Aspirin 81 Mg Chew PO 06/02/20 05:25 324 mg STAT ONE Administration Morphine Sulfate 2 mg 06/02/20 05:39 06/02/20 05:56 Morphine Sulfate 2 Mg Inj IV 06/02/20 05:40 2 mg STAT ONE Administration Morphine Sulfate Confirm 06/02/20 05:50 Morphine Sulfate 2 Mg Inj Administered 06/02/20 05:51 Dose 2 mg .ROUTE .STK-MED ONE Morphine Sulfate 2 mg 06/02/20 06:43 Morphine Sulfate 2 Mg Inj IV 06/02/20 06:44 STAT ONE Nitroglycerin 0.4 mg 06/02/20 05:24 06/02/20 05:54 Nitrostat 0.4 Mg (Ed) SL 06/02/20 05:25 0.4 mg STAT ONE Administration Ondansetron HCl 4 mg 06/02/20 05:24 06/02/20 05:56 Zofran 4 Mg/2 Ml Vial IV 06/02/20 05:25 4 mg STAT ONE Administration Ondansetron HCl Confirm 06/02/20 05:49 Zofran 4 Mg/2 Ml Vial Administered 06/02/20 05:50 Dose 4 mg .ROUTE .STK-MED ONE Lab/Rad Data: Laboratory Result Diagrams 06/02/20 05:30 06/02/20 05:30 Laboratory Results 06/02/20 06/02/20 06/02/20 Range/Units 05:30 05:30 05:30 WBC (4.0-10.5) K/mm3 RBC (4.1-5.4) M/mm3 Hgb (12.0-16.0) gm/dl Hct (35-47) % MCV (78-100) fl MCH (26-32) pg MCHC (32-36) g/dl RDW (11.5-14.0) % Plt Count (150-450) K/mm3 MPV (7.5-11.0) fl Gran % (36.0-66.0) % Eos # (Auto) (0-0.5) Absolute Lymphs (auto) (1.0-4.6) Absolute Monos (auto) (0.0-1.3) Lymphocytes % (24.0-44.0) % Monocytes % (0.0-12.0) % Eosinophils % (0.00-5.0) % Basophils % (0.0-0.4) % Absolute Granulocytes (1.4-6.9) Basophils # (0-0.4) PT 14.1 H (9.95-12.35) SECONDS INR 1.25 (0.8-3.0) D-Dimer 595 H* (215-500) ng/mL Sodium 134 L (137-145) mmol/L Potassium 3.7 (3.5-5.1) mmol/L Chloride 104 (98-107) mmol/L Carbon Dioxide 23 (22-30) mmol/L Anion Gap 10.1 (5-15) MEQ/L BUN 11 (7-17) mg/dL Creatinine 0.85 (0.52-1.04) mg/dL Estimated GFR > 60.0 ML/MIN Glucose 112 H (74-106) mg/dL Calcium 9.1 (8.4-10.2) mg/dL Total Bilirubin 0.90 (0.2-1.3) mg/dL AST 37 H (14-36) U/L ALT 19 (0-35) U/L Alkaline Phosphatase 92 (38-126) U/L Troponin I < 0.012 (0.000-0.034) ng/mL NT-Pro-B Natriuret Pep 305 (0-900) pg/mL Serum Total Protein 7.9 (6.3-8.2) g/dL Albumin 3.8 (3.5-5.0) g/dL Slides for Path Review 06/02/20 Range/Units 05:30 WBC 2.3 L (4.0-10.5) K/mm3 RBC 4.16 (4.1-5.4) M/mm3 Hgb 13.0 (12.0-16.0) gm/dl Hct 39.3 (35-47) % MCV 94.5 (78-100) fl MCH 31.3 (26-32) pg MCHC 33.1 (32-36) g/dl RDW 13.0 (11.5-14.0) % Plt Count 64 L (150-450) K/mm3 MPV 11.1 H (7.5-11.0) fl Gran % 46.2 (36.0-66.0) % Eos # (Auto) 0.12 (0-0.5) Absolute Lymphs (auto) 0.69 L (1.0-4.6) Absolute Monos (auto) 0.43 (0.0-1.3) Lymphocytes % 29.7 (24.0-44.0) % Monocytes % 18.5 H (0.0-12.0) % Eosinophils % 5.2 H (0.00-5.0) % Basophils % 0.4 (0.0-0.4) % Absolute Granulocytes 1.07 L (1.4-6.9) Basophils # 0.01 (0-0.4) PT (9.95-12.35) SECONDS INR (0.8-3.0) D-Dimer (215-500) ng/mL Sodium (137-145) mmol/L Potassium (3.5-5.1) mmol/L Chloride (98-107) mmol/L Carbon Dioxide (22-30) mmol/L Anion Gap (5-15) MEQ/L BUN (7-17) mg/dL Creatinine (0.52-1.04) mg/dL Estimated GFR ML/MIN Glucose (74-106) mg/dL Calcium (8.4-10.2) mg/dL Total Bilirubin (0.2-1.3) mg/dL AST (14-36) U/L ALT (0-35) U/L Alkaline Phosphatase (38-126) U/L Troponin I (0.000-0.034) ng/mL NT-Pro-B Natriuret Pep (0-900) pg/mL Serum Total Protein (6.3-8.2) g/dL Albumin (3.5-5.0) g/dL Slides for Path Review YES - Progress Air Movement: good Progress Note: 06/02/20 07:02 I transferred care to Dr. vadim see. I reviewed the patient's current lab and EKG results as well as the pending studies that he needs to follow-up with. He accepts the care of this patient and he will make the final disposition. Blood Culture(s) Obtained: No Antibiotics given: No Counseled pt/family regarding: lab results, diagnosis, rad results - Departure Departure Disposition: Transfer Clinical Impression: Chest pain Condition: Stable Critical Care Time: No Referrals: APOLINAR MARIE [Primary Care Provider] -
[2020-06-02] MEDS ORDERED: MORPHINE SULFATE 2 MG INJ IV ONE ×2 (05:39→06:43)
[2020-06-02 05:42] LABS: Absolute Neutrophil Ct (ANC) 1.07 (1.4-6.9); BASOPHIL % 0.4 % (0.0-0.4); Basophil (Absolute #) 0.01 (0-0.4); Eosinophil % 5.2 % (0.00-5.0); Eosinophil (Absolute #) 0.12 (0-0.5); Hematocrit 39.3 % (35-47); Lymphocyte (Absolute #) 0.69 (1.0-4.6); Lymphocytes % 29.7 % (24.0-44.0); Mean Cell Volume 94.5 fl (78-100); Mean Corpuscular Hemoglobin 31.3 pg (26-32); Mean Corpuscular Hgb Concent. 33.1 g/dl (32-36); Mean Platelet Volume 11.1 fl (7.5-11.0); Monocyte (Absolute #) 0.43 (0.0-1.3); Monocytes % 18.5 % (0.0-12.0); Neutrophil % 46.2 % (36.0-66.0); Platelet Count 64 K/mm3 (150-450); Red Blood Count 4.16 M/mm3 (4.1-5.4); White Blood Count 2.3 K/mm3 (4.0-10.5)
[2020-06-02] MEDS ORDERED: Zofran 4 MG/2 ML VIAL ONE (05:49)
[2020-06-02] MEDS ORDERED: MORPHINE SULFATE 2 MG INJ ONE ×2 (05:50→07:19)
[2020-06-02 06:02] LABS: ALBUMIN 3.8 g/dL (3.5-5.0); ALKALINE PHOSPHATASE 92 U/L (38-126); ANION GAP 10.1 MEQ/L (5-15); BLOOD UREA NITROGEN 11 mg/dL (7-17); CHLORIDE 104 mmol/L (98-107); Calcium 9.1 mg/dL (8.4-10.2); Carbon Dioxide 23 mmol/L (22-30); Creatinine 1 0.85 mg/dL (0.52-1.04); EST GLOMERULAR FILTRATION RATE > 60.0 ML/MIN; Glucose 112 mg/dL (74-106); NT PRO BNP 305 pg/mL (0-900); Potassium 3.7 mmol/L (3.5-5.1); SGOT/AST 37 U/L (14-36); SGPT/ALT 19 U/L (0-35); SODIUM 134 mmol/L (137-145); Total Protein 7.9 g/dL (6.3-8.2)
[2020-06-02 06:05] LABS: INR 1.25 (0.8-3.0); PROTIME 14.1 SECONDS (9.95-12.35)
[2020-06-02 06:54] LABS: Slide Review 1 YES
[2020-06-02 07:17] LABS: T4 (Thyroxine) 12.6 ug/dL (5.53-10.96); TSH, 3RD Generation 2.56 mIU/L (0.47-4.68)
--- NOTE | 2020-06-02 08:49 | XRAY ---
Indication: Chest pain, headache, and elevated d-dimer. Multiple contiguous axial images obtained through the chest using 80 cc Isovue 370 contrast and PE protocol. Comparison: CT chest without contrast October 23, 2019. There is good opacification of the pulmonary arteries to include the lobar and segmental branches. No pulmonary embolus. Heart is not enlarged. Aorta is normal in course and caliber. Stable subcarinal and left hilar calcified nodes. Again no pathologic mediastinal/hilar lymphadenopathy. Lungs again demonstrates scattered bilateral subsegmental atelectasis/scarring and tiny left lower lobe calcified granuloma. No new pulmonary mass, infiltrate, or effusion. Bony thorax intact again with minimal degenerative changes throughout the spine. Limited upper abdomen again demonstrates 14.5 cm splenomegaly and cholecystectomy. Impression: 1. Negative pulmonary embolus. 2. No new/acute cardiopulmonary abnormalities. 3. Again incidental scattered atelectasis/scarring, splenomegaly, and old granulomatous disease.
--- NOTE | 2020-06-02 08:51 | XRAY ---
Indication: Chest pain. Comparison: July 22, 2019. Portable chest again demonstrate minimal left base subsegmental atelectasis/scarring. Remaining heart and lungs unremarkable. Bony thorax intact again with lower cervical fusion hardware. No new/acute findings.
[2020-06-02] MEDS ORDERED: Senokot-S Tablet PO PRN (12:03)
[2020-06-02] MEDS ORDERED: MORPHINE SULFATE 2 MG INJ IV PRN (12:03)
[2020-06-02] MEDS ORDERED: MILK OF MAGNESIA 30 ML PO PRN (12:03)
[2020-06-02] MEDS ORDERED: Zofran 4 MG/2 ML VIAL IV PRN (12:03)
[2020-06-02] MEDS ORDERED: MAALOX ES 30 ML UNIT DOSE PO PRN (12:03)
[2020-06-02] MEDS ORDERED: Sodium Chloride 0.9% 500 ML 500 ML IV SCH (12:15)
[2020-06-02] MEDS ORDERED: Ativan 1 MG PO PRN (17:55)
[2020-06-02] MEDS ORDERED: REMDESIVIR 200 MG in Sodium Chloride 0.9% 250 ML 250 ML IV ONE (18:00)
[2020-06-02] MEDS ORDERED: MEDICATION INTERVENTION MC SCH (18:15)
[2020-06-02] MEDS: Decadron 4 MG INJ IV SCH (18:49)
[2020-06-02] MEDS: ENOXAPARIN SODIUM SQ SCH (18:49)
[2020-06-02] MEDS: TYLENOL 325 MG PO PRN (20:22)
[2020-06-02] MEDS: Klor Con 10 MEQ PO SCH (20:22)
[2020-06-02] MEDS: Ranexa 500 MG PO SCH (20:22)
[2020-06-02] MEDS ORDERED: NON-FORMULARY ITEM (Potassium Chloride [Klor-Con M20] 20 MEQ) PO SCH (22:00)
[2020-06-03 05:55] LABS: INR 1.24 (0.8-3.0)
[2020-06-03 06:00] LABS: ALBUMIN 3.6 g/dL (3.5-5.0); ALKALINE PHOSPHATASE 119 U/L (38-126); ANION GAP 10.4 MEQ/L (5-15); BLOOD UREA NITROGEN 12 mg/dL (7-17); CHLORIDE 105 mmol/L (98-107); Calcium 8.7 mg/dL (8.4-10.2); Carbon Dioxide 24 mmol/L (22-30); Creatinine 1 0.72 mg/dL (0.52-1.04); EST GLOMERULAR FILTRATION RATE > 60.0 ML/MIN; Glucose 132 mg/dL (74-106); Potassium 4.2 mmol/L (3.5-5.1); SGOT/AST 95 U/L (14-36); SGPT/ALT 57 U/L (0-35); SODIUM 135 mmol/L (137-145); Total Protein 7.5 g/dL (6.3-8.2)
[2020-06-03 06:08] LABS: Cholesterol 114 mg/dL (50-200); HDL CHOLESTEROL 33 mg/dL (40-60); LDL, DIRECT 73 mg/dL (30-100); Risk Ratio 3.5; TRIGLYCERIDE 33 mg/dL (30-150)
[2020-06-03 06:11] LABS: TROPONIN < 0.012 ng/mL (0.000-0.034)
[2020-06-03] MEDS: Decadron 4 MG INJ IV SCH ×2 (06:17→17:49)
--- NOTE | 2020-06-03 09:07 | HP ---
CHIEF COMPLAINT: Chest pain. HISTORY OF PRESENT ILLNESS: The patient is a 64 year old white female who presented to the emergency room with chest pain. She had seen a clinical safety specialist the day before. I believe he sent her home on a monitor. I think she came to the [facility] and they sent them over here. Cardiac enzymes are normal. It gets worse with movement of the right arm. She had tenderness over the sternum on exam. She was sent to the floor for observation where they found a COVID test was positive. She denies any cough, shortness of breath, change in bowel movements, abdominal pain, just the chest pain. She has a history of arthritis for a long time and takes Vicodin 7.5 every four hours PRN pain. She denies doing any heavy housework or pushing with the chest wall muscles. She denies living with anybody with COVID or traveling. Her and grandson live with her apparently. I talked to her sister. We have asked those people to self-isolate and go for a test in a couple of days. MEDICATIONS: Folic acid 1 mg a day, Synthroid 50 mcg q.d., aspirin 81 q.d., KCL 20 q.d., Mirapex 0.5 q.d. for restless leg, Bisoprolol/hydrochlorothiazide 10/65 mg 1 q.d. for hypertension, hydrochlorothiazide 12.5 mg 1 q.d. for hypertension, ranolazine 500 mg 1 b.i.d. I assume for chest pain. ALLERGIES: NKDA. PAST MEDICAL HISTORY: Hypertension, restless leg syndrome, arthritis of the spine. Distant history of colitis. Fractured right forearm many years ago. Irritable bowel syndrome. PAST SURGICAL HISTORY: Cholecystectomy. Splenectomy that I assume from trauma. Lumpectomy left breast. Tubal ligation. Kidney stones. Scoping of the right knee at some time. REVIEW OF SYSTEMS: HEENT: No headaches. No change in vision. No change in hearing. No change in taste. CHEST: No shortness of breath or cough. CVS: Chest pain worse with deep inhalation, worse with pushing with her right arm. No history of coronary artery disease. ABDOMEN: No nausea or vomiting. History of cholecystectomy. CONSTITUTIONAL: No symptoms. HEENT: Eyes, ears no symptoms. RESPIRATORY: No shortness of breath. Chest pain with deep inhalation. CARDIAC: No history of myocardial infarction. No history of myocardial infarction. I believe she had a cath which was normal. The pain is worse with moving the right arm. ABDOMEN: No nausea, vomiting. Constipation and diarrhea. NEUROLOGIC: No symptoms. PSYCHOLOGIC: Denies depression or anxiety. ENDOCRINE: Has hypothyroidism. PHYSICAL EXAMINATION: The patient is alert and orientated, resting quietly in no distress. VITAL SIGNS: Temperature 98F, pulse 64, respirations 20, blood pressure 110/80. O2 saturation on oximeter was 95% on room air. Pain intensity right now is 9 after palpating the chest. HEENT: Pupils equal and reactive to light. NECK: Supple without adenopathy or JVD. No thyromegaly. CHEST: Few crackles bilateral. Tenderness marked over the sternum especially on the right side up high. CVS: No murmurs or gallops. GI: No tenderness. Normal. No masses. EXTREMITIES: Except for some psoriasis-like plaque arms, legs and knees. Nothing abnormal. Moving joints normally. LAB DATA AND TESTS: The patient's COVID test came back positive. Kind of thrown in there and she had actually moved to the floor and had been followed for chest pain. She had been treated with some morphine 2 mg when the chest pain apparently was quite bad and Nitro. Also, she has had some Zofran. Also she had some Zofran for nausea in the emergency room. Labs: PT's a little high at 14, INR 1.25, D-dimer minimally elevated at 595. Sodium 134 probably low secondary to hydrochlorothiazide 50 mg which she takes. Creatinine 0.85. White count low at 2.3 which would go along with the COVID. EKG normal. IMPRESSION: 1) Chest wall pain. 2) Incidental finding of COVID. 3) Hypothyroidism. 4) Hypertension. 5) Arthritis. PLAN: The patient will be started on treatment for COVID although she is pretty asymptomatic. Include some Decadron, statin, Lovenox and evaluate in the morning. May be able to send home in the morning if she is asymptomatic and her oxygen is good. She is in the low risk category at the present.
[2020-06-03] MEDS ORDERED: HYDROCHLOROTHIAZIDE PO SCH (10:00)
[2020-06-03] MEDS ORDERED: BISOPROLOL PO SCH (10:00)
[2020-06-03] MEDS ORDERED: [UNRECOGNIZED DRUG - OTHER] PO SCH (10:00)
[2020-06-03] MEDS ORDERED: NON-FORMULARY ITEM (Hydrochlorothiazide [Hydrochlorothiazide] 12.5 MG) PO SCH (10:00)
[2020-06-03] MEDS ORDERED: Ecotrin 325 MG PO SCH (10:00)
[2020-06-03] MEDS: ECOTRIN 81 MG PO SCH (10:05)
[2020-06-03] MEDS: Klor Con 10 MEQ PO SCH ×2 (10:06→22:28)
[2020-06-03] MEDS: SYNTHROID 50 MCG PO SCH (10:06)
[2020-06-03] MEDS: ENOXAPARIN SODIUM SQ SCH (10:06)
[2020-06-03] MEDS: Ranexa 500 MG PO SCH ×2 (10:06→22:28)
[2020-06-03] MEDS: Mirapex 0.5 MG Tablet PO SCH (10:06)
[2020-06-03] MEDS: hydroDIURIL 25 MG PO SCH (10:07)
[2020-06-03] MEDS: FOLATE 1 MG PO SCH (10:26)
--- NOTE | 2020-06-03 12:00 | PROG NOTE ---
DATE: 06/03/2020 HISTORY: The patient feels well, slept well, eating well. Her chest pain has gone away which I am sure it was arthritis or anxiety. It could be secondary to COVID as she has no chest wall pain. Her chest is clear. Heart sounds are regular. Her O2 had to be increased up to 3 liters last night to keep her above 90%. Hypertension is controlled. IMPRESSION: The patient has COVID pneumonia, slightly abnormal EKG. Her D-dimer this morning is 900 which is mildly elevated for COVID but with O2 having to be increased, in fact I do not think she has any good home support as her is disabled and son is grown and is not there all the time as he works. We need to watch her another day. Will continue with Lovenox, Remdesivir and Decadron. PROGNOSIS: Good.
[2020-06-03] MEDS: TYLENOL 325 MG PO PRN (17:49)
[2020-06-03] MEDS ORDERED: REMDESIVIR 100 MG in Sodium Chloride 0.9% 100 ML IVPB 100 ML IV SCH (18:00)
[2020-06-04] MEDS: NORCO 7.5/325 MG TAB PO PRN ×2 (01:26→01:33)
[2020-06-04] MEDS: Decadron 4 MG INJ IV SCH (05:37)
[2020-06-04 05:54] LABS: INR 1.17 (0.8-3.0); PROTIME 13.2 SECONDS (9.95-12.35)
[2020-06-04 05:56] LABS: ALBUMIN 3.1 g/dL (3.5-5.0); ALKALINE PHOSPHATASE 109 U/L (38-126); ANION GAP 10.8 MEQ/L (5-15); BLOOD UREA NITROGEN 20 mg/dL (7-17); CHLORIDE 105 mmol/L (98-107); Calcium 8.7 mg/dL (8.4-10.2); Carbon Dioxide 25 mmol/L (22-30); Creatinine 1 0.74 mg/dL (0.52-1.04); EST GLOMERULAR FILTRATION RATE > 60.0 ML/MIN; Glucose 127 mg/dL (74-106); Potassium 4.9 mmol/L (3.5-5.1); SGOT/AST 54 U/L (14-36); SGPT/ALT 41 U/L (0-35); SODIUM 136 mmol/L (137-145); Total Protein 6.7 g/dL (6.3-8.2)
[2020-06-04 07:44] VITALS: BP 118/70
[2020-06-04] MEDS: Mirapex 0.5 MG Tablet PO SCH (09:12)
[2020-06-04] MEDS: Ranexa 500 MG PO SCH (09:12)
[2020-06-04] MEDS: ECOTRIN 81 MG PO SCH (09:13)
[2020-06-04] MEDS: Klor Con 10 MEQ PO SCH (09:13)
[2020-06-04] MEDS: FOLATE 1 MG PO SCH (09:13)
[2020-06-04] MEDS: SYNTHROID 50 MCG PO SCH (09:13)
[2020-06-04] MEDS: hydroDIURIL 25 MG PO SCH (09:13)
[2020-06-04] MEDS: ENOXAPARIN SODIUM SQ SCH (09:15)
[2020-06-04 10:30] VITALS: PULSE 58; O2SAT 95
== END 2020-06-04 10:51 | disposition home or self-care (01) ==
LOC: ED 05:17 → MED SURG 12:35
PROVIDERS: ADMIT Family Medicine; ATTEND Family Medicine
DX: R07.89 Other chest pain (principal); I10 Essential (primary) hypertension; E03.9 Hypothyroidism, unspecified; G25.81 Restless legs syndrome; Z79.899 Other long term (current) drug therapy; U07.1 COVID-19; M19.90 Unspecified osteoarthritis, unspecified site; R79.1 Abnormal coagulation profile
CPT/HCPCS: 36000; 36415; 71045; 71260; 80053; 80061; 83721; 83880; 84436; 84443; 84484; 85025; 85379; 85610; 93005; 93268; 94762; 96374; 96375; 96376; 99285; G0378; U0003; J1100; J1650; J2270; J2405; A9270-GY

== ENCOUNTER 2020-11-05 11:36 | Emergency (ER) | payer MEDICARE ==
[2020-11-05] MEDS ORDERED: Zofran 4 MG/2 ML VIAL IV ONE (11:47)
[2020-11-05] MEDS ORDERED: Sodium Chloride 0.9% 1000 ML 1,000 ML IV STA (11:47)
[2020-11-05] MEDS ORDERED: PROTONIX 40 MG IV IV ONE ×2 (11:47→12:24)
--- NOTE | 2020-11-05 11:52 | ERPHSYRPT ---
- History of Present Illness Time Seen by Provider: 11/05/20 11:49 Historian: patient Exam Limitations: no limitations Patient Subjective Stated Complaint: pt here for abd pain that started this morning , no fever, nausea and vomiting, Triage Nursing Assessment: pt alert, vomiting in x1 moaning and holding stomach, resp easy, skin w/d/p. no eema , abd soft Physician History: Patient is 65-year-old female with multiple comorbid condition including multiple abdominal surgeries came to the emergency room with severe epigastric and periumbilical area abdominal pain started last night associated with nausea vomiting and diarrhea. Patient states that she has had diarrhea for few months. Patient denies any Covid exposure. Patient also denies any fever chills. Patient also denies any chest pain or urinary disturbance. Timing/Duration: yesterday Quality: cramping Abdominal Pain Onset Location: epigastric, periumbilical Pain Radiation: no radiation Severity of Pain-Max: moderate Severity of Pain-Current: moderate Modifying Factors: Improves With: nothing Associated Symptoms: diarrhea, loss of appetite, nausea, vomiting, No chest pain, No diaphoresis Allergies/Adverse Reactions: No Known Drug Allergies Allergy (Verified 11/05/20 11:42) Home Medications: Folic Acid 1 mg [Folate 1 mg] 1 mg PO DAILY 08/08/17 [History] Levothyroxine Sodium [Euthyrox] 50 mcg PO DAILY 12/25/19 [History] Aspirin EC 81 mg [Ecotrin 81 mg] 81 mg PO DAILY 01/11/20 [History] Potassium Chloride [Klor-Con M20] 20 meq PO BID 01/11/20 [History] Pramipexole Di-HCl [Mirapex] 0.5 mg PO DAILY 01/11/20 [History] Bisoprolol/Hydrochlorothiazide [Bisoprolol-Hctz 10-6.25 mg Tab] 1 mg PO DAILY 06/02/20 [History] Hydrochlorothiazide 12.5 mg PO DAILY 06/02/20 [History] Hydrocodone Bit/Acetaminophen [Hydrocodon-Acetaminoph 7.5-325] 1 each PO Q4HPRN PRN 06/02/20 [History] Ranolazine 500 MG [Ranexa 500 MG] 500 mg PO BID 06/02/20 [History] Hx Tetanus, Diphtheria Vaccination/Date Given: Yes Hx Influenza Vaccination/Date Given: Yes Hx Pneumococcal Vaccination/Date Given: Yes Immunizations Up to Date: Yes Travel Risk - International Travel Have you traveled outside of the country in past 3 weeks: No - Coronavirus Screening Are you exhibiting any of the following symptoms?: Yes Symptoms: Vomiting/Diarrhea Close contact with a COVID-19 positive Pt in past 14-21 Days: No - Vaccine Status Have you recieved a Covid-19 vaccination: No - Review of Systems Constitutional: No Fever, No Chills Eyes: No Symptoms Ears, Nose, & Throat: No Symptoms Respiratory: No Cough, No Dyspnea Cardiac: No Chest Pain, No Edema, No Syncope Abdominal/Gastrointestinal: Abdominal Pain, Nausea, Vomiting, Diarrhea, Appetite Changes, No Constipation, No Hematemesis, No Hematochezia, No Melena, No Dysphagia Genitourinary Symptoms: No Dysuria Musculoskeletal: No Back Pain, No Neck Pain Skin: No Rash Neurological: No Dizziness, No Focal Weakness, No Sensory Changes Psychological: No Symptoms Endocrine: No Symptoms All Other Systems: Reviewed and Negative - Past Medical History Pertinent Past Medical History: Yes Neurological History: No Pertinent History ENT History: No Pertinent History Cardiac History: Hypertension Respiratory History: No Pertinent History Endocrine Medical History: Hypothyroidism, Liver Disease Musculoskeletal History: Degenerative Disk Disease, Fractures, Osteoarthritis, Other GI Medical History: Colitis, Other History: Other Psycho-Social History: Depression Female Reproductive Disorders: No Pertinent History Other Medical History: PMHX - SPLENOMEGALY, FX RIGHT FOREARM (CASTED). IBS. PATIENT WITH MULTIPLE SKIN PLAQUES ESPECIALLY ELBOWS AND KNEES - STATES HAS HAD IT FOR YEARS. APPEARANCE IS SIMILAR TO PSORIASIS BUT STATES HASN'T BEEN DIAGNOSED. SX HX: CHOLECYSTECTOMY - Past Surgical History Past Surgical History: Yes Neuro Surgical History: No Pertinent History Cardiac: No Pertinent History Respiratory: No Pertinent History Gastrointestinal: Cholecystectomy, Hernia Repair Genitourinary: Other Musculoskeletal: Other Female Surgical History: Lumpectomy, Tubal Ligation Other Surgical History: Kidney Stones. R knee scope - Social History Smoking Status: Never smoker Exposure to second hand smoke: No Drug Use: none Patient Lives Alone: No - Female History Hx Last Menstrual Period: post Hx Now: No - Nursing Vital Signs Nursing Vital Signs: Initial Vital Signs Temperature 97.0 F 11/05/20 11:37 Pulse Rate 58 L 11/05/20 11:37 Respiratory Rate 20 11/05/20 11:37 Blood Pressure 119/60 11/05/20 11:37 O2 Sat by Pulse Oximetry 98 11/05/20 11:37 Pain Scale Pain Intensity 8 - Physical Exam General Appearance: no apparent distress, alert Eye Exam: PERRL/EOMI, eyes nml inspection Ears, Nose, Throat Exam: normal ENT inspection, pharynx normal, moist mucous membranes Neck Exam: normal inspection, non-tender, supple, full range of motion Respiratory Exam: normal breath sounds, lungs clear, No respiratory distress Cardiovascular Exam: regular rate/rhythm, normal heart sounds Gastrointestinal/Abdomen Exam: soft, tenderness, guarding (epigastric area), No normal bowel sounds, No mass, No rebound Back Exam: normal inspection, normal range of motion, No CVA tenderness, No vertebral tenderness Extremity Exam: normal inspection, normal range of motion, pelvis stable Neurologic Exam: alert, oriented x 3, cooperative, normal mood/affect, nml cerebellar function, sensation nml, No motor deficits Skin Exam: normal color, warm, dry SpO2: 98 - Course Nursing assessment & vital signs reviewed: Yes - CT Exams Abdomen/Pelvis CT Interpretation: Tele-radiologist Report (early colitis) Ordered Tests: Active Orders 24 hr Category Date Time Status EKG-ER Only STAT Care 11/05/20 11:47 Active ABDOMEN AND PELVIS W/0 CONTRAS [CT] Stat Exams 11/05/20 11:48 Taken AMYLASE Stat Lab 11/05/20 11:55 Completed CBC W DIFF Stat Lab 11/05/20 11:55 Completed CMP Stat Lab 11/05/20 11:55 Completed LIPASE Stat Lab 11/05/20 11:55 Completed Lactic Acid Stat Lab 11/05/20 12:30 Completed TROPONIN Stat Lab 11/05/20 11:55 Completed UA W/RFX UR CULTURE Stat Lab 11/05/20 11:48 Ordered Medication Summary Discontinued Medications Generic Name Dose Route Start Last Admin Trade Name Freq PRN Reason Stop Dose Admin Sodium Chloride 1,000 mls @ 999 mls/hr 11/05/20 11:47 11/05/20 12:28 Sodium Chloride 0.9% 1000 Ml IV 11/05/20 12:47 999 mls/hr .Q1H1M STA Administration Sodium Chloride Confirm 11/05/20 12:24 Sodium Chloride 0.9% 1000 Ml Administered 11/05/20 12:25 Dose 1,000 mls @ ud .ROUTE .STK-MED ONE Ondansetron HCl 4 mg 11/05/20 11:47 11/05/20 12:25 Zofran 4 Mg/2 Ml Vial IV 11/05/20 11:48 4 mg STAT ONE Administration Ondansetron HCl Confirm 11/05/20 12:24 Zofran 4 Mg/2 Ml Vial Administered 11/05/20 12:25 Dose 4 mg .ROUTE .STK-MED ONE Pantoprazole Sodium 40 mg 11/05/20 11:47 11/05/20 12:27 Protonix 40 Mg Iv IV 11/05/20 11:48 40 mg STAT ONE Administration Pantoprazole Sodium Confirm 11/05/20 12:24 Protonix 40 Mg Iv Administered 11/05/20 12:25 Dose 40 mg IV .STK-MED ONE Lab/Rad Data: Laboratory Result Diagrams 11/05/20 11:55 11/05/20 11:55 Laboratory Results 11/05/20 11/05/20 11/05/20 Range/Units 12:30 11:55 11:55 WBC 3.5 L (4.0-10.5) K/mm3 RBC 4.39 (4.1-5.4) M/mm3 Hgb 13.4 (12.0-16.0) gm/dl Hct 41.9 (35-47) % MCV 95.4 (78-100) fl MCH 30.5 (26-32) pg MCHC 32.0 (32-36) g/dl RDW 13.2 (11.5-14.0) % Plt Count 92 L (150-450) K/mm3 MPV 10.9 (7.5-11.0) fl Gran % 45.8 (36.0-66.0) % Eos # (Auto) 0.40 (0-0.5) Absolute Lymphs (auto) 1.17 (1.0-4.6) Absolute Monos (auto) 0.32 (0.0-1.3) Lymphocytes % 33.4 (24.0-44.0) % Monocytes % 9.1 (0.0-12.0) % Eosinophils % 11.4 H (0.00-5.0) % Basophils % 0.3 (0.0-0.4) % Absolute Granulocytes 1.60 (1.4-6.9) Basophils # 0.01 (0-0.4) Sodium 136 L (137-145) mmol/L Potassium 4.0 (3.5-5.1) mmol/L Chloride 102 (98-107) mmol/L Carbon Dioxide 25 (22-30) mmol/L Anion Gap 13.2 (5-15) MEQ/L BUN 19 H (7-17) mg/dL Creatinine 0.87 (0.52-1.04) mg/dL Estimated GFR > 60.0 ML/MIN Glucose 109 H (74-106) mg/dL Lactic Acid 1.9 (0.4-2.0) Calcium 9.5 (8.4-10.2) mg/dL Total Bilirubin 1.20 (0.2-1.3) mg/dL AST 39 H (14-36) U/L ALT 18 (0-35) U/L Alkaline Phosphatase 81 (38-126) U/L Troponin I < 0.012 (0.000-0.034) ng/mL Serum Total Protein 8.0 (6.3-8.2) g/dL Albumin 4.3 (3.5-5.0) g/dL Amylase 48 (30-110) U/L Lipase 83 (23-300) U/L Slides for Path Review YES - Progress Progress: improved, pain not gone completely Counseled pt/family regarding: lab results, diagnosis, need for follow-up, rad results - Departure Departure Disposition: Home Clinical Impression: Colitis without complication Condition: Stable Critical Care Time: No Referrals: APOLINAR PANTOJA [Primary Care Provider] - Follow Up with PCP/3 days Instructions: Colitis Additional Instructions: Discharge/Care Plan SHANTELLEPRAVEENALLEN CORTES was seen on 11/05/20 in the Emergency Room. The patient was counseled regarding Diagnosis,Lab results, Imaging studies, need for follow up and when to return to the Emergency Room. Prescriptions given: Discharge Note I have spoken with the patient and/or caregivers. I have explained the patient's condition, diagnosis and treatment plan based on the information available to me at this time. I have answered the patient's and/or caregiver's questions and addressed any concerns. The patient and/or caregivers have as good understanding of the patient's diagnosis, condition and treatment plan as can be expected at this point. The vital signs have been stable. The patient's condition is stable and appropriate for discharge from the emergency department. The patient will pursue further outpatient evaluation with the primary care physician or other designated or consulting physician as outlined in the discharge instructions. The patient and/or caregivers are agreeable to this plan of care and follow-up instructions have been explained in detail. The patient and/or caregivers have received these instruction. The patient/and or caregivers are aware that any significant change in condition or worsening of symptoms should prompt an immediate return to this or the closest emergency department or call 911. ALLEN PEGUERO was seen on 11/05/20 n the Emergency Room. At that time you were treated for an emergent condition, during your visit Laboratory, Radiology and/or other procedures may have been ordered. It is very important that you follow-up with your Primary Care Physician APOLINAR PANTOJA within the next 24-48 hours to review your Emergency Room visit and the final results of testing that was ordered. Some test results such as Urine Cultures, Blood Cultures, and other cultures if ordered will not be finalized for 24-48 hours. If you do not have a Primary Care Provider please call the medical records department at [phone] to obtain a copy of your results or you may sign into our patient portal to obtain these results by visiting us @ [email or web address] and completing the following steps: 1. Click on the Patient Portal link 2. Click the Patient Self Enrollment Link to complete the enrollment form and entering your 3. Once the enrollment form is completed you will receive an email with a temporary ID and password at the email address you provided. 4. Next choose a user name and password. Your user name must be at least 4 characters long and your password must be at least 4 characters long. 5. Choose a security question from the list and provide your answer to the question. If you already have signed into the Health Portal you may access your Health Care Information 14/01 by the following steps: 1. Login to our website @ [email or web address] 2. Enter your original user name and password. FAQS The [facility] Portal is an online tool that contains your Lab Results, Radiology Reports, Visit History, Discharge Instructions and Health Summary Lab and Radiology Results will not be available for 72 hours on the portal. The Portal is a secure site, passwords are encryted and URLs are re-written so they cannot be copied and pasted. You and authorized family members are the only ones who can access your Portal. Also there is a timeout feature that protects your information if you leave the Portal page open. If you have technical difficulty please use the Contact Us link on the page this will allow you to submit any questions you have regarding the Portal or you may contact the Medical Record Department at [phone] ext [phone]. Prescriptions: Ciprofloxacin [Cipro 500 MG] 500 mg PO BIDAC #14 tablet
[2020-11-05 12:12] LABS: BASOPHIL % 0.3 % (0.0-0.4); Basophil (Absolute #) 0.01 (0-0.4); Eosinophil % 11.4 % (0.00-5.0); Hematocrit 41.9 % (35-47); Hemoglobin 13.4 gm/dl (12.0-16.0); Lymphocyte (Absolute #) 1.17 (1.0-4.6); Lymphocytes % 33.4 % (24.0-44.0); Mean Cell Volume 95.4 fl (78-100); Mean Corpuscular Hemoglobin 30.5 pg (26-32); Mean Platelet Volume 10.9 fl (7.5-11.0); Monocyte (Absolute #) 0.32 (0.0-1.3); Monocytes % 9.1 % (0.0-12.0); Neutrophil % 45.8 % (36.0-66.0); Platelet Count 92 K/mm3 (150-450); Red Blood Count 4.39 M/mm3 (4.1-5.4); Red Cell Distribution Width 13.2 % (11.5-14.0); White Blood Count 3.5 K/mm3 (4.0-10.5)
[2020-11-05] MEDS ORDERED: Zofran 4 MG/2 ML VIAL ONE (12:24)
[2020-11-05] MEDS ORDERED: Sodium Chloride 0.9% 1000 ML 1,000 ML ONE (12:24)
[2020-11-05 12:29] LABS: ALBUMIN 4.3 g/dL (3.5-5.0); ALKALINE PHOSPHATASE 81 U/L (38-126); AMYLASE 48 U/L (30-110); ANION GAP 13.2 MEQ/L (5-15); BLOOD UREA NITROGEN 19 mg/dL (7-17); CHLORIDE 102 mmol/L (98-107); Calcium 9.5 mg/dL (8.4-10.2); Carbon Dioxide 25 mmol/L (22-30); Creatinine 1 0.87 mg/dL (0.52-1.04); EST GLOMERULAR FILTRATION RATE > 60.0 ML/MIN; Glucose 109 mg/dL (74-106); LIPASE 83 U/L (23-300); SGOT/AST 39 U/L (14-36); SGPT/ALT 18 U/L (0-35); SODIUM 136 mmol/L (137-145); TROPONIN < 0.012 ng/mL (0.000-0.034)
[2020-11-05 13:00] LABS: Slide Review 1 YES
[2020-11-05 13:38] VITALS: O2SAT 98
[2020-11-05 13:59] VITALS: BP 119/68; PULSE 95
[2020-11-05 14:18] LABS: Appearance SLIGHTLY CLOUDY (CLEAR); Bacteria MANY /HPF (NEGATIVE); Bilirubin NEGATIVE (NEGATIVE); Blood NEGATIVE Ery/ul (0-5); Epithelial Cells MODERATE /HPF (FEW); Glucose NEGATIVE (NEGATIVE); Ketones NEGATIVE (NEGATIVE); Leukocyte Esterase SMALL (NEGATIVE); Mucus SLIGHT /HPF (NEGATIVE); Nitrite POSITIVE (NEGATIVE); Protein,Urine Dip NEGATIVE (Negative); Specific Gravity 1.015 (1.005-1.025); Urobilinogen NEGATIVE mg/dL (0-1)
--- NOTE | 2020-11-05 19:24 | XRAY ---
Indication: Abdomen pain, nausea, and vomiting. Multiple contiguous axial images obtained through the abdomen and pelvis without contrast. Comparison: None Lung bases demonstrates stable tiny left costophrenic angle calcified granuloma. No infiltrate or effusion. Heart not enlarged. Noncontrasted stomach again nonobstructed. Normal appendix with new tiny appendicolith. Mild descending and sigmoid diverticulosis. There remains cholecystectomy, 15 cm splenomegaly, small distal right iliopsoas intramuscular lipoma, and hepatic/splenic calcified granulomas. Remaining liver, pancreas, spleen, adrenal glands, kidneys, ureters, bladder, and uterus unremarkable for noncontrast exam. Stable old minimal aortoiliac calcifications without AAA. Osseous structures remain intact again with mild degenerative changes throughout the spine. Impression: 1. Again colonic diverticulosis, splenomegaly, right iliopsoas intramuscular lipoma, and old granulomatous disease. 2. Remaining CT abdomen/pelvis without contrast exam is negative. Comment: Preliminary interpretation was made by [facility]. No critical discrepancy.
== END 2020-11-05 13:58 | disposition home or self-care (01) ==
LOC: ED 11:36
DX: K52.9 Noninfective gastroenteritis and colitis, unspecified (principal); I10 Essential (primary) hypertension; E03.9 Hypothyroidism, unspecified; K76.9 Liver disease, unspecified
CPT/HCPCS: 36415; 74176; 80053; 81001; 82150; 83605; 83690; 84484; 85025; 87077; 87086; 87186; 93005; 96360; 96374; 96375; 99284; J2405

== ENCOUNTER 2020-11-08 01:03 | Emergency (ER) | payer MEDICARE ==
[2020-11-08] MEDS ORDERED: TORAdol 30 mg Injection IV ONE (01:39)
[2020-11-08] MEDS ORDERED: Zofran 4 MG/2 ML VIAL IV ONE (01:40)
--- NOTE | 2020-11-08 01:48 | ERPHSYRPT ---
- History of Present Illness Historian: patient Exam Limitations: other (Poor historian) Patient Subjective Stated Complaint: pt c/o vomiting and not feeling, abd pain Triage Nursing Assessment: pt c/o abd pain, vomiting x2 before entering hospital ER and not feeling well. Pt was seen on Saturday for the same thing, dx with colitis. Pt went to [facility] and was feeling fine all day. This hit her around 2200. Physician History: 65 yo wf w epigastric pain x 3hr. Pain is 10/10 and sharp. Nothing makes the pain better or worse. She has had nausea and vomiting x1 wo hematemesis/diarrhea/melena/hematochezia/dysuria/hematuria. Pt was seen in the ER 2 days ago for the same complaint and is on Cipro. She denies chest pain, but it radiates up to the chest. Timing/Duration: other (3Hr) Activities at Onset: rest Quality: sharpness Abdominal Pain Onset Location: epigastric Pain Radiation: chest Severity of Pain-Max: severe Severity of Pain-Current: severe Modifying Factors: Improves With: nothing Associated Symptoms: nausea, vomiting, No back, No chest pain, No diaphoresis, No diarrhea, No fever/chills, No fatigue, No headache, No heartburn, No loss of appetite, No neck pain, No rash, No syncope, No weakness Previous symptoms: same symptoms as today Allergies/Adverse Reactions: No Known Drug Allergies Allergy (Verified 11/08/20 01:19) Home Medications: Folic Acid 1 mg [Folate 1 mg] 1 mg PO DAILY 08/08/17 [History] Levothyroxine Sodium [Euthyrox] 50 mcg PO DAILY 12/25/19 [History] Aspirin EC 81 mg [Ecotrin 81 mg] 81 mg PO DAILY 01/11/20 [History] Potassium Chloride [Klor-Con M20] 20 meq PO BID 01/11/20 [History] Pramipexole Di-HCl [Mirapex] 0.5 mg PO DAILY 01/11/20 [History] Bisoprolol/Hydrochlorothiazide [Bisoprolol-Hctz 10-6.25 mg Tab] 1 mg PO DAILY 06/02/20 [History] Hydrochlorothiazide 12.5 mg PO DAILY 06/02/20 [History] Hydrocodone Bit/Acetaminophen [Hydrocodon-Acetaminoph 7.5-325] 1 each PO Q4HPRN PRN 06/02/20 [History] Ranolazine 500 MG [Ranexa 500 MG] 500 mg PO BID 06/02/20 [History] Hx Tetanus, Diphtheria Vaccination/Date Given: Yes Hx Influenza Vaccination/Date Given: Yes Hx Pneumococcal Vaccination/Date Given: No Immunizations Up to Date: Yes Travel Risk - International Travel Have you traveled outside of the country in past 3 weeks: No - Coronavirus Screening Are you exhibiting any of the following symptoms?: No Close contact with a COVID-19 positive Pt in past 14-21 Days: No - Vaccine Status Have you recieved a Covid-19 vaccination: No - Review of Systems Constitutional: No Symptoms Eyes: No Symptoms Ears, Nose, & Throat: No Symptoms Respiratory: No Symptoms Cardiac: No Symptoms Genitourinary Symptoms: No Symptoms Musculoskeletal: No Symptoms Skin: No Symptoms Neurological: No Symptoms Psychological: No Symptoms Endocrine: No Symptoms Hematologic/Lymphatic: No Symptoms Immunological/Allergic: No Symptoms - Past Medical History Pertinent Past Medical History: Yes Neurological History: No Pertinent History ENT History: No Pertinent History Cardiac History: Hypertension Respiratory History: No Pertinent History Endocrine Medical History: Hypothyroidism, Liver Disease Musculoskeletal History: Degenerative Disk Disease, Fractures, Osteoarthritis, Other GI Medical History: Colitis, Other History: Other Psycho-Social History: Depression Female Reproductive Disorders: No Pertinent History Other Medical History: PMHX - SPLENOMEGALY, FX RIGHT FOREARM (CASTED). IBS. PATIENT WITH MULTIPLE SKIN PLAQUES ESPECIALLY ELBOWS AND KNEES - STATES HAS HAD IT FOR YEARS. APPEARANCE IS SIMILAR TO PSORIASIS BUT STATES HASN'T BEEN DIAGNOSED. SX HX: CHOLECYSTECTOMY - Past Surgical History Past Surgical History: Yes Neuro Surgical History: No Pertinent History Cardiac: No Pertinent History Respiratory: No Pertinent History Gastrointestinal: Cholecystectomy, Hernia Repair Genitourinary: Other Musculoskeletal: Other Female Surgical History: Lumpectomy, Tubal Ligation Other Surgical History: Kidney Stones. R knee scope - Social History Smoking Status: Never smoker Exposure to second hand smoke: Yes Drug Use: none Patient Lives Alone: No - Female History Hx Now: No - Nursing Vital Signs Nursing Vital Signs: Initial Vital Signs Temperature 97.9 F 11/08/20 01:08 Pulse Rate 76 11/08/20 01:08 Respiratory Rate 22 11/08/20 01:08 Blood Pressure 131/61 11/08/20 01:08 O2 Sat by Pulse Oximetry 98 11/08/20 01:08 Pain Scale Pain Intensity 4 - Physical Exam General Appearance: no apparent distress Eye Exam: PERRL/EOMI, eyes nml inspection Ears, Nose, Throat Exam: normal ENT inspection, TMs normal, pharynx normal, moist mucous membranes Neck Exam: normal inspection, non-tender, supple, full range of motion, No meningismus, No mass, No Brudzinski, No Kernig's Respiratory Exam: normal breath sounds, lungs clear, airway intact, No respiratory distress Cardiovascular Exam: regular rate/rhythm, normal heart sounds, No murmur Gastrointestinal/Abdomen Exam: soft, normal bowel sounds, tenderness (Diffuse wo guarding) Back Exam: normal inspection, normal range of motion, No CVA tenderness Extremity Exam: normal inspection, normal range of motion Neurologic Exam: alert, oriented x 3, 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, 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, normal mood/affect, sensation nml, No motor deficits, No sensory deficit Skin Exam: warm, dry Lymphatic Exam: No adenopathy SpO2 Interpretation: normal SpO2: 98 O2 Delivery: Room Air - Course EKG Interpreted by Me: RATE (Sinus malka/R 49/poor Rwave progression-low voltage/Prolonged QT/Flipped Twave V3) - CT Exams Abdomen/Pelvis CT Interpretation: Tele-radiologist Report (CT ab-pelvis w IV contrast- periportal edema/biliary dilitation) Ordered Tests: Active Orders 24 hr Category Date Time Status EKG-ER Only STAT Care 11/08/20 01:23 Completed ABDOMEN AND PELVIS W CONTRAST [CT] Stat Exams 11/08/20 02:40 Taken AMYLASE Stat Lab 11/08/20 01:30 Completed CBC W DIFF Stat Lab 11/08/20 01:30 Completed CMP Stat Lab 11/08/20 01:30 Completed CULTURE,URINE Stat Lab 11/08/20 02:00 Received LIPASE Stat Lab 11/08/20 01:30 Completed TROPONIN Q3H Lab 11/08/20 01:30 Completed TROPONIN Q3H Lab 11/08/20 04:59 Completed UA W/RFX UR CULTURE Stat Lab 11/08/20 02:00 Completed Medication Summary Discontinued Medications Generic Name Dose Route Start Last Admin Trade Name Freq PRN Reason Stop Dose Admin Fentanyl Citrate 50 mcg 11/08/20 03:15 11/08/20 03:18 Sublimaze 100 Mcg/2 Ml IV 11/08/20 03:16 50 mcg STAT ONE Administration Fentanyl Citrate Confirm 11/08/20 03:16 Sublimaze 100 Mcg/2 Ml Administered 11/08/20 03:17 Dose 100 mcg .ROUTE .STK-MED ONE Fentanyl Citrate 50 mcg 11/08/20 05:13 11/08/20 05:17 Sublimaze 100 Mcg/2 Ml IV 11/08/20 05:14 50 mcg STAT ONE Administration Fentanyl Citrate Confirm 11/08/20 05:14 Sublimaze 100 Mcg/2 Ml Administered 11/08/20 05:15 Dose 100 mcg .ROUTE .STK-MED ONE Ketorolac Tromethamine 30 mg 11/08/20 01:39 11/08/20 01:43 Toradol 30 Mg Injection IV 11/08/20 01:40 30 mg STAT ONE Administration Ondansetron HCl 4 mg 11/08/20 01:40 11/08/20 01:43 Zofran 4 Mg/2 Ml Vial IV 11/08/20 01:41 4 mg STAT ONE Administration Lab/Rad Data: Laboratory Result Diagrams 11/08/20 01:30 11/08/20 01:30 Laboratory Results 11/08/20 11/08/20 11/08/20 Range/Units 04:59 02:00 01:30 WBC (4.0-10.5) K/mm3 RBC (4.1-5.4) M/mm3 Hgb (12.0-16.0) gm/dl Hct (35-47) % MCV (78-100) fl MCH (26-32) pg MCHC (32-36) g/dl RDW (11.5-14.0) % Plt Count (150-450) K/mm3 MPV (7.5-11.0) fl Gran % (36.0-66.0) % Eos # (Auto) (0-0.5) Absolute Lymphs (auto) (1.0-4.6) Absolute Monos (auto) (0.0-1.3) Lymphocytes % (24.0-44.0) % Monocytes % (0.0-12.0) % Eosinophils % (0.00-5.0) % Basophils % (0.0-0.4) % Absolute Granulocytes (1.4-6.9) Basophils # (0-0.4) Sodium (137-145) mmol/L Potassium (3.5-5.1) mmol/L Chloride (98-107) mmol/L Carbon Dioxide (22-30) mmol/L Anion Gap (5-15) MEQ/L BUN (7-17) mg/dL Creatinine (0.52-1.04) mg/dL Estimated GFR ML/MIN Glucose (74-106) mg/dL Calcium (8.4-10.2) mg/dL Total Bilirubin (0.2-1.3) mg/dL AST (14-36) U/L ALT (0-35) U/L Alkaline Phosphatase (38-126) U/L Troponin I < 0.012 < 0.012 (0.000-0.034) ng/mL Serum Total Protein (6.3-8.2) g/dL Albumin (3.5-5.0) g/dL Amylase (30-110) U/L Lipase (23-300) U/L Urine Color YELLOW (YELLOW) Urine Appearance SLIGHTLY CLOUDY (CLEAR) Urine pH 5.0 (5-6) Ur Specific [place] 1.016 (1.005-1.025) Urine Protein NEGATIVE (Negative) Urine Ketones NEGATIVE (NEGATIVE) Urine Blood NEGATIVE (0-5) Bryan/ul Urine Nitrite NEGATIVE (NEGATIVE) Urine Bilirubin NEGATIVE (NEGATIVE) Urine Urobilinogen 2 (0-1) mg/dL Ur Leukocyte Esterase SMALL (NEGATIVE) Urine WBC (Auto) 11-15 (0-5) /HPF Urine RBC (Auto) 3-5 (0-2) /HPF U Epithel Cells (Auto) FEW (FEW) /HPF Urine Bacteria (Auto) RARE (NEGATIVE) /HPF Urine Mucus (Auto) SLIGHT (NEGATIVE) /HPF Urine Culture Reflexed YES (NO) Urine Glucose NEGATIVE (NEGATIVE) mg/dL Slides for Path Review 11/08/20 11/08/20 Range/Units 01:30 01:30 WBC 4.0 (4.0-10.5) K/mm3 RBC 4.18 (4.1-5.4) M/mm3 Hgb 12.7 (12.0-16.0) gm/dl Hct 39.8 (35-47) % MCV 95.2 (78-100) fl MCH 30.4 (26-32) pg MCHC 31.9 L (32-36) g/dl RDW 13.0 (11.5-14.0) % Plt Count 66 L (150-450) K/mm3 MPV 11.5 H (7.5-11.0) fl Gran % 52.5 (36.0-66.0) % Eos # (Auto) 0.33 (0-0.5) Absolute Lymphs (auto) 1.25 (1.0-4.6) Absolute Monos (auto) 0.32 (0.0-1.3) Lymphocytes % 31.1 (24.0-44.0) % Monocytes % 8.0 (0.0-12.0) % Eosinophils % 8.2 H (0.00-5.0) % Basophils % 0.2 (0.0-0.4) % Absolute Granulocytes 2.11 (1.4-6.9) Basophils # 0.01 (0-0.4) Sodium 136 L (137-145) mmol/L Potassium 3.9 (3.5-5.1) mmol/L Chloride 100 (98-107) mmol/L Carbon Dioxide 29 (22-30) mmol/L Anion Gap 11.0 (5-15) MEQ/L BUN 18 H (7-17) mg/dL Creatinine 0.90 (0.52-1.04) mg/dL Estimated GFR > 60.0 ML/MIN Glucose 101 (74-106) mg/dL Calcium 9.6 (8.4-10.2) mg/dL Total Bilirubin 0.60 (0.2-1.3) mg/dL AST 44 H (14-36) U/L ALT 19 (0-35) U/L Alkaline Phosphatase 123 (38-126) U/L Troponin I (0.000-0.034) ng/mL Serum Total Protein 7.4 (6.3-8.2) g/dL Albumin 3.9 (3.5-5.0) g/dL Amylase 47 (30-110) U/L Lipase 61 (23-300) U/L Urine Color (YELLOW) Urine Appearance (CLEAR) Urine pH (5-6) Ur Specific [place] (1.005-1.025) Urine Protein (Negative) Urine Ketones (NEGATIVE) Urine Blood (0-5) Bryan/ul Urine Nitrite (NEGATIVE) Urine Bilirubin (NEGATIVE) Urine Urobilinogen (0-1) mg/dL Ur Leukocyte Esterase (NEGATIVE) Urine WBC (Auto) (0-5) /HPF Urine RBC (Auto) (0-2) /HPF U Epithel Cells (Auto) (FEW) /HPF Urine Bacteria (Auto) (NEGATIVE) /HPF Urine Mucus (Auto) (NEGATIVE) /HPF Urine Culture Reflexed (NO) Urine Glucose (NEGATIVE) mg/dL Slides for Path Review YES - Progress Progress: improved Progress Note: 11/08/20 05:10 30mg IV Toradol w minimal improvement in pain 50umg IV Fentanyl/4mg IV zofran w improvement in pain Ct demonstrates periportal edema and mild biliary dilitation. Pt does not have a cholecystic pattern on her labs, so will discharge w f/u by PCP Counseled pt/family regarding: lab results, diagnosis, need for follow-up, rad results - Departure Departure Disposition: Home Clinical Impression: Abdominal pain, UTI (urinary tract infection) Condition: Stable Critical Care Time: No Referrals: APOLINAR PANTOJA [Primary Care Provider] - Instructions: Urinary Tract Infection, Adult (DC), Acute Abdomen (Belly Pain), Adult (DC) Additional Instructions: Continue with Cipro Follow up with your family MD in 1-2 days Return to ER for increasing pain or temperature greater than 100.5
[2020-11-08 01:52] LABS: Absolute Neutrophil Ct (ANC) 2.11 (1.4-6.9); BASOPHIL % 0.2 % (0.0-0.4); Basophil (Absolute #) 0.01 (0-0.4); Eosinophil % 8.2 % (0.00-5.0); Eosinophil (Absolute #) 0.33 (0-0.5); Hematocrit 39.8 % (35-47); Hemoglobin 12.7 gm/dl (12.0-16.0); Lymphocyte (Absolute #) 1.25 (1.0-4.6); Lymphocytes % 31.1 % (24.0-44.0); Mean Cell Volume 95.2 fl (78-100); Mean Corpuscular Hemoglobin 30.4 pg (26-32); Mean Corpuscular Hgb Concent. 31.9 g/dl (32-36); Mean Platelet Volume 11.5 fl (7.5-11.0); Monocyte (Absolute #) 0.32 (0.0-1.3); Neutrophil % 52.5 % (36.0-66.0); Platelet Count 66 K/mm3 (150-450); Red Blood Count 4.18 M/mm3 (4.1-5.4)
[2020-11-08 02:04] LABS: ALBUMIN 3.9 g/dL (3.5-5.0); ALKALINE PHOSPHATASE 123 U/L (38-126); AMYLASE 47 U/L (30-110); BLOOD UREA NITROGEN 18 mg/dL (7-17); CHLORIDE 100 mmol/L (98-107); Calcium 9.6 mg/dL (8.4-10.2); Carbon Dioxide 29 mmol/L (22-30); EST GLOMERULAR FILTRATION RATE > 60.0 ML/MIN; Glucose 101 mg/dL (74-106); LIPASE 61 U/L (23-300); Potassium 3.9 mmol/L (3.5-5.1); SGOT/AST 44 U/L (14-36); SGPT/ALT 19 U/L (0-35); SODIUM 136 mmol/L (137-145); Total Protein 7.4 g/dL (6.3-8.2)
[2020-11-08 02:23] LABS: Appearance SLIGHTLY CLOUDY (CLEAR); Bacteria RARE /HPF (NEGATIVE); Bilirubin NEGATIVE (NEGATIVE); Blood NEGATIVE Ery/ul (0-5); Epithelial Cells FEW /HPF (FEW); Glucose NEGATIVE (NEGATIVE); Ketones NEGATIVE (NEGATIVE); Leukocyte Esterase SMALL (NEGATIVE); Mucus SLIGHT /HPF (NEGATIVE); Nitrite NEGATIVE (NEGATIVE); Protein,Urine Dip NEGATIVE (Negative); Specific Gravity 1.016 (1.005-1.025); Urobilinogen 2 mg/dL (0-1)
[2020-11-08] MEDS ORDERED: SUBLIMAZE 100 MCG/2 ML IV ONE ×2 (03:15→05:13)
[2020-11-08] MEDS ORDERED: SUBLIMAZE 100 MCG/2 ML ONE ×2 (03:16→05:14)
[2020-11-08 04:05] LABS: Slide Review 1 YES
[2020-11-08 05:32] VITALS: BP 110/70; PULSE 72
[2020-11-08 05:37] VITALS: O2SAT 98
--- NOTE | 2020-11-08 08:56 | XRAY ---
Indication: Abdomen pain. Colitis. Multiple contiguous axial images obtained through the abdomen and pelvis using 80 cc Isovue 370 contrast. Comparison: November 05, 2020. Lung bases demonstrate minimal bibasilar dependent atelectasis with stable tiny left costophrenic angle calcified granuloma. Heart is not enlarged. Incidental small left infrahilar calcified nodes. Noncontrasted stomach and bowel loops remain nonobstructed. Normal appendix with stable tiny appendicolith. Stable descending/sigmoid diverticulosis without diverticulitis. Prominence biliary tree more than before with common bile duct measuring 12 mm in diameter. Stable cholecystectomy, 15 cm splenomegaly, small distal right iliopsoas intramuscular lipoma, hepatic/splenic calcified granulomas, and minimal aortoiliac calcifications. Remaining liver, pancreas, spleen, adrenal glands, kidneys, ureters, bladder, and uterus are unremarkable. No pathologic retroperitoneal lymphadenopathy. Impression: 1. Prominent biliary tree. Rule out choledochal stone versus ampullary dysfunction. MRCP or ERCP may yield further information if clinically warranted. 2. Stable colonic diverticulosis, splenomegaly, right iliopsoas intramuscular lipoma, and old granulomatous disease. Comment: Preliminary interpretation was made by [facility]. No critical discrepancy.
== END 2020-11-08 05:31 | disposition home or self-care (01) ==
LOC: ED 01:03
DX: R10.9 Unspecified abdominal pain (principal); N39.0 Urinary tract infection, site not specified; E03.9 Hypothyroidism, unspecified; Z79.899 Other long term (current) drug therapy
CPT/HCPCS: 36000; 36415; 74177; 80053; 81001; 82150; 83690; 84484; 85025; 87086; 93005; 96374; 96375; 96376; 99284; J1885; J2405; J3010

== ENCOUNTER 2020-11-30 12:03 | Day surgery (SDC) | payer MEDICARE ==
[2020-11-30] MEDS ORDERED: Depo-Medrol 40 MG/ML IM ONE (12:04)
[2020-11-30] MEDS ORDERED: Sodium Chloride 0.9(Preservative Free) 10 ML IJ ONE (12:04)
[2020-11-30] MEDS ORDERED: DIPRIVAN 200 MG/20 ML IV ONE (13:52)
[2020-11-30] MEDS ORDERED: Lactated Ringers 1,000 ML IV ONE (15:42)
--- NOTE | 2020-11-30 16:57 | XRAY ---
Indication: Right L4-S1 transforaminal OSORIO. Intraoperative fluoroscopy provided for 22 seconds. 3 digital spot image submitted for interpretation demonstrates posterior needle tips projecting over the expected right L4 and L5 nerve roots. Small amount of contrast injected for needle tip placement. Correlate with intraoperative findings/report.
--- NOTE | 2020-11-30 17:02 | XRAY ---
22 seconds fluoroscopy time in surgery for right L4-S1 transforaminal OSORIO.
== END 2020-11-30 14:20 | disposition home or self-care (01) ==
LOC: SDC-PAIN 12:03
PROVIDERS: ATTEND Psychiatry & Neurology Pain Medicine
DX: M54.16 Radiculopathy, lumbar region (principal); F41.9 Anxiety disorder, unspecified; F32.9 Major depressive disorder, single episode, unspecified; M19.90 Unspecified osteoarthritis, unspecified site; G47.30 Sleep apnea, unspecified; K21.9 Gastro-esophageal reflux disease without esophagitis; I10 Essential (primary) hypertension; I25.10 Atherosclerotic heart disease of native coronary artery without angina pectoris; E03.9 Hypothyroidism, unspecified; Z79.899 Other long term (current) drug therapy
CPT/HCPCS: 64483; 64484; 72100; 77003; J1030; J2704; Q9966

== ENCOUNTER 2020-12-28 14:49 | Day surgery (SDC) | payer MEDICARE ==
[2020-12-28] MEDS ORDERED: Depo-Medrol 40 MG/ML IM ONE (14:50)
[2020-12-28] MEDS ORDERED: Lactated Ringers 1,000 ML IV ONE (14:50)
[2020-12-28] MEDS ORDERED: Sodium Chloride 0.9(Preservative Free) 10 ML IJ ONE (14:50)
[2020-12-28] MEDS ORDERED: DIPRIVAN 200 MG/20 ML IV ONE (16:02)
--- NOTE | 2020-12-28 16:54 | XRAY ---
Indication: Left L4-S1 transforaminal OSORIO. Intraoperative fluoroscopy provided for 35 seconds. 2 digital spot image submitted for interpretation demonstrates posterior needle tips projecting over the expected left L4 and L5 nerve roots. Small amount of contrast injected for needle tip placement. Correlate with intraoperative findings/report.
--- NOTE | 2020-12-28 17:11 | XRAY ---
35 seconds fluoroscopy time in surgery for left L4-S1 transforaminal OSORIO.
== END 2020-12-28 16:30 | disposition home or self-care (01) ==
LOC: SDC-PAIN 14:49
PROVIDERS: ATTEND Psychiatry & Neurology Pain Medicine
DX: M54.16 Radiculopathy, lumbar region (principal); I10 Essential (primary) hypertension; E03.9 Hypothyroidism, unspecified; G47.30 Sleep apnea, unspecified; I25.10 Atherosclerotic heart disease of native coronary artery without angina pectoris; K21.9 Gastro-esophageal reflux disease without esophagitis; Z79.899 Other long term (current) drug therapy
CPT/HCPCS: 64483; 72100; 77003; J1030; J2704; Q9966

== ENCOUNTER 2021-07-03 04:05 | Observation (INO) | payer MEDICARE ==
[2021-07-03] MEDS ORDERED: Zofran 4 MG/2 ML VIAL IV ONE (04:25)
--- NOTE | 2021-07-03 04:25 | ERPHSYRPT ---
- History of Present Illness Source: patient Exam Limitations: no limitations Timing/Duration: day(s) (1), worse Cough Quality/Degree: mild (To moderate), dry cough Possible Cause: no prior episodes Modifying Factors: Improves With: coughing Associated Symptoms: cough, muscle aches, nasal congestion, shortness of breath Hx Tetanus, Diphtheria Vaccination/Date Given: Yes Hx Influenza Vaccination/Date Given: Yes Hx Pneumococcal Vaccination/Date Given: No <AR GONZALEZ - Last Filed: 07/03/21 06:44> <LILA CASTANEDA - Last Filed: 07/03/21 14:09> - History of Present Illness Time Seen by Provider: 07/03/21 04:10 Physician History: This is a 65-year-old white female patient of nurse practitioner Sylvia Marie who presents with 1 day history of cough cold nasal congestion, myalgias arthralgias and mild shortness of breath. Patient lives at home with several family members that are positive for Covid 19 infection. Patient has not had a vaccine. Patient has a history of colitis, hypothyroidism, DJD and chronic liver disease. Her room air oxygenation in the emergency department is 97 to 99 %. Her vital signs are stable. Patient denies chest pain (AR GONZALEZ) Allergies/Adverse Reactions: No Known Drug Allergies Allergy (Verified 11/08/20 01:19) Home Medications: Folic Acid 1 mg [Folate 1 mg] 1 mg PO DAILY 08/08/17 [History] Levothyroxine Sodium [Euthyrox] 50 mcg PO DAILY 12/25/19 [History] Aspirin EC 81 mg [Ecotrin 81 mg] 81 mg PO DAILY 01/11/20 [History] Potassium Chloride [Klor-Con M20] 20 meq PO BID 01/11/20 [History] Pramipexole Di-HCl [Mirapex] 0.5 mg PO DAILY 01/11/20 [History] Bisoprolol/Hydrochlorothiazide [Bisoprolol-Hctz 10-6.25 mg Tab] 1 mg PO DAILY 06/02/20 [History] Hydrocodone/Acetaminophen [Hydrocodon-Acetaminoph 7.5-325] 1 each PO Q4HPRN PRN 06/02/20 [History] Ranolazine 500 MG [Ranexa 500 MG] 500 mg PO BID 06/02/20 [History] hydroCHLOROthiazide [Hydrochlorothiazide] 12.5 mg PO DAILY 06/02/20 [History] Travel Risk - International Travel Have you traveled outside of the country in past 3 weeks: No - Coronavirus Screening Are you exhibiting any of the following symptoms?: Yes Symptoms: Cough: New Onset, Shortness of Breath, Headaches/Body Aches/Fatigue Close contact with a COVID-19 positive Pt in past 14-21 Days: Yes - Vaccine Status Have you recieved a Covid-19 vaccination: No <AR GONZALEZ - Last Filed: 07/03/21 06:44> - Review of Systems Constitutional: No Symptoms Eyes: No Symptoms Ears, Nose, & Throat: No Symptoms Respiratory: Cough, Dyspnea Cardiac: No Symptoms, No Chest Pain Abdominal/Gastrointestinal: No Symptoms Genitourinary Symptoms: No Symptoms Musculoskeletal: Arthralgias, Myalgias Skin: No Symptoms Neurological: No Symptoms Psychological: No Symptoms Endocrine: No Symptoms Hematologic/Lymphatic: No Symptoms Immunological/Allergic: No Symptoms All Other Systems: Reviewed and Negative <AR GONZALEZ - Last Filed: 07/03/21 06:44> - Past Medical History Pertinent Past Medical History: Yes Neurological History: No Pertinent History ENT History: No Pertinent History Cardiac History: Hypertension Respiratory History: No Pertinent History Endocrine Medical History: Hypothyroidism, Liver Disease Musculoskeletal History: Degenerative Disk Disease, Fractures, Osteoarthritis, Other GI Medical History: Colitis, Other History: Other Psycho-Social History: Depression Female Reproductive Disorders: No Pertinent History Other Medical History: PMHX - SPLENOMEGALY, FX RIGHT FOREARM (CASTED). IBS. PATIENT WITH MULTIPLE SKIN PLAQUES ESPECIALLY ELBOWS AND KNEES - STATES HAS HAD IT FOR YEARS. APPEARANCE IS SIMILAR TO PSORIASIS BUT STATES HASN'T BEEN DIAGNOSED. SX HX: CHOLECYSTECTOMY - Past Surgical History Past Surgical History: Yes Neuro Surgical History: No Pertinent History Cardiac: No Pertinent History Respiratory: No Pertinent History Gastrointestinal: Cholecystectomy, Hernia Repair Genitourinary: Other Musculoskeletal: Other Female Surgical History: Lumpectomy, Tubal Ligation Other Surgical History: Kidney Stones. R knee scope - Social History Smoking Status: Never smoker Exposure to second hand smoke: Yes Drug Use: none Patient Lives Alone: No <AR GONZALEZ - Last Filed: 07/03/21 06:44> - Physical Exam General Appearance: mild distress, alert, anxiety, obese Eye Exam: PERRL/EOMI, eyes nml inspection Ears, Nose, Throat Exam: normal ENT inspection, moist mucous membranes Neck Exam: normal inspection, non-tender, supple, full range of motion Respiratory Exam: normal breath sounds, lungs clear, airway intact, No chest tenderness, No respiratory distress Cardiovascular Exam: regular rate/rhythm, normal heart sounds, normal peripheral pulses Gastrointestinal/Abdomen Exam: soft, normal bowel sounds, No tenderness Pelvic Exam: not done Rectal Exam: not done Back Exam: normal inspection, normal range of motion, No CVA tenderness Extremity Exam: normal inspection, normal range of motion, pelvis stable Neurologic Exam: alert, oriented x 3, cooperative, gas meter reader II-XII nml as tested, normal mood/affect, nml cerebellar function, nml station & gait, sensation nml Skin Exam: normal color, warm, dry Lymphatic Exam: No adenopathy SpO2 Interpretation: normal O2 Delivery: Room Air <AR GONZALEZ - Last Filed: 07/03/21 06:44> - Nursing Vital Signs Nursing Vital Signs: Initial Vital Signs Temperature 99.6 F 07/03/21 04:08 Pulse Rate 94 H 07/03/21 04:08 Respiratory Rate 24 07/03/21 04:08 Blood Pressure 143/90 07/03/21 04:08 O2 Sat by Pulse Oximetry 99 07/03/21 04:08 Pain Scale Pain Intensity 0 - Course Nursing assessment & vital signs reviewed: Yes EKG Interpreted by Me: RATE (91), Sinus Rhythm, NORMAL AXIS, NORMAL INTERVALS, NORMAL QRS, Non-specific ST Changes, Other (No acute ischemic changes on today's EKG. There is improvement over the comparison EKG dated 10/29/2020. There is resolution of the patient's sinus bradycardia on that EKG.) <AR GONZALZE - Last Filed: 07/03/21 06:44> - CT Exams Abdomen/Pelvis CT Interpretation: Tele-radiologist Report (Suboptimal opacification of the pulmonary arteries. No obvious pulmonary embolism. Spine arthritis fatty liver. Splenomegaly. Old granulomatous disease) <LILA CASTANEDA - Last Filed: 07/03/21 14:09> Ordered Tests: Active Orders 24 hr Category Date Time Status Inspector Watch Assembly STAT Care 07/03/21 04:26 Active EKG-ER Only STAT Care 07/03/21 04:25 Active IV Insertion STAT Care 07/03/21 04:25 Active Isolation, Initiate & Maintain STAT Care 07/03/21 04:25 Active CHEST 1 VIEW (PORTABLE) Stat Exams 07/03/21 04:26 Completed CHEST WITH CONTRAST [CT] Stat Exams 07/03/21 06:15 Completed ABG [ARTERIAL BLOOD GASES] Stat Lab 07/03/21 09:55 Completed BLOOD CULTURE Stat Lab 07/03/21 05:16 Received CBC W DIFF Stat Lab 07/03/21 05:30 Completed CMP Stat Lab 07/03/21 05:16 Completed D-DIMER QUANTITATIVE Stat Lab 07/03/21 05:16 Completed Ferritin Stat Lab 07/03/21 05:16 Completed INFLUENZA A+B CHAIM Stat Lab 07/03/21 05:16 Completed Lactic Acid Stat Lab 07/03/21 04:25 Completed Lactic Acid Stat Lab 07/03/21 08:11 Completed Lactic Acid Stat Lab 07/03/21 11:30 Completed Lactic Acid Stat Lab 07/03/21 12:04 Completed Manual Differential NC Stat Lab 07/03/21 05:30 Completed Yates Screen Stat Lab 07/03/21 05:16 Completed PROTIME WITH INR Stat Lab 07/03/21 05:16 Completed TROPONIN Q3H Lab 07/03/21 05:30 Completed TROPONIN Q3H Lab 07/03/21 08:07 Completed TROPONIN Q3H Lab 07/03/21 10:35 Completed TROPONIN Q3H Lab 07/03/21 13:05 Completed TROPONIN Q3H Lab 07/03/21 16:30 Ordered Transfer Order Routine Transfer 07/03/21 Ordered Medication Summary Generic Name Dose Route Start Last Admin Trade Name Freq PRN Reason Stop Dose Admin Sodium Chloride 1,000 mls @ 100 mls/hr 07/03/21 04:30 07/03/21 13:47 Sodium Chloride 0.9% 1000 Ml IV 08/02/21 04:29 Infused .Q10H TAMANNA Infusion Discontinued Medications Generic Name Dose Route Start Last Admin Trade Name Freq PRN Reason Stop Dose Admin Hydrocodone Bitart/Acetaminophen 10 ml 07/03/21 05:04 07/03/21 05:44 Hydrocodone/Acetaminophen 5 Ml Udcup PO 07/03/21 05:05 10 ml STAT STA Administration Hydrocodone Bitart/Acetaminophen Confirm 07/03/21 05:43 Hydrocodone/Acetaminophen 5 Ml Udcup Administered 07/03/21 05:44 Dose 10 ml .ROUTE .STK-MED ONE Methylprednisolone Sodium 0 mg 07/03/21 05:04 07/03/21 05:44 Succinate 125 mg/ Sterile IV 07/03/21 05:05 125 mg Water 2 ml STAT ONE Administration Enoxaparin Sodium 40 mg 07/03/21 14:06 Enoxaparin Sodium 40 Mg/0.4 Ml Syringe SQ 07/03/21 14:07 STAT ONE Vancomycin HCl 1 gm in 200 mls @ 125 mls/hr 07/03/21 12:29 07/03/21 13:42 Vancomycin 1 Gram/200 Ml Bag IV 07/03/21 14:04 125 mls/hr STAT ONE 125 mls/hr Administration Piperacillin Sod/Tazobactam 100 mls @ 200 mls/hr 07/03/21 12:30 07/03/21 12 :57 Sod 3.375 gm/ Sodium Chloride IV 07/03/21 12:59 200 mls/hr STAT ONE Administration Sodium Chloride Confirm 07/03/21 12:53 Sodium Chloride 100ml Mini-Bag Plus Administered 07/03/21 12:54 Dose 100 mls @ ud IV .STK-MED ONE Vancomycin HCl Confirm 07/03/21 13:42 Vancomycin 1 Gram/200 Ml Bag Administered 07/03/21 13:43 Dose 1 gm in 200 mls @ ud IV .STK-MED ONE Methylprednisolone Sodium Succinate Confirm 07/03/21 05:43 Methylprednis Sod Succ 125 Mg/2 Ml Vial Administered 07/03/21 05:44 Dose 125 mg .ROUTE .STK-MED ONE Ondansetron HCl 4 mg 07/03/21 04:25 07/03/21 04:36 Ondansetron Hcl 4 Mg/2 Ml Vial IV 07/03/21 04:26 4 mg STAT ONE Administration Ondansetron HCl Confirm 07/03/21 04:36 Ondansetron Hcl 4 Mg/2 Ml Vial Administered 07/03/21 04:37 Dose 4 mg .ROUTE .STK-MED ONE Piperacillin Sod/Tazobactam Sod Confirm 07/03/21 12:53 Piperacillin/Tazobactam Sodium 3.375 Gm Vial Administered 07/03/21 12:54 Dose 3.375 gm IV .STK-MED ONE Lab/Rad Data: Laboratory Result Diagrams 07/03/21 05:30 07/03/21 05:16 Laboratory Results 07/03/21 07/03/21 07/03/21 Range/Units 13:05 12:58 12:04 WBC (4.0-10.5) K/mm3 RBC (4.1-5.4) M/mm3 Hgb (12.0-16.0) gm/dl Hct (35-47) % MCV (78-100) fl MCH (26-32) pg MCHC (32-36) g/dl RDW (11.5-14.0) % Plt Count (150-450) K/mm3 MPV (7.5-11.0) fl Segmented Neutrophils (36.0-66.0) % Lymphocytes (Manual) (24-44) % Monocytes (Manual) (0.0-12.0) % Eosinophils (Manual) (0.00-3.0) % Platelet Estimate (NORMAL) RBC Morphology PT (9.4-12.5) SECONDS INR (0.8-3.0) D-Dimer (215-500) ng/mL Puncture Site pCO2 (35-45) mmHg pO2 (75-100) mmHg Base Excess (-2.0-2.0) O2 Saturation (94-100) g/dF ABG pH (7.35-7.45) ABG HCO3 (22-28) ABG O2 Sat (Measured) (95-100) % Dat Test Hemoglobin Carboxyhemoglobin (0.0-6.9) % THgb Methemoglobin (1.4-1.5) % Temperature C POC O2 Flow Rate % Sodium (137-145) mmol/L Potassium (3.5-5.1) mmol/L Chloride (98-107) mmol/L Carbon Dioxide (22-30) mmol/L Anion Gap (5-15) MEQ/L BUN (7-17) mg/dL Creatinine (0.52-1.04) mg/dL Estimated GFR ML/MIN Glucose (74-106) mg/dL Lactic Acid 4.5 H (0.4-2.0) Calcium (8.4-10.2) mg/dL Ferritin (11.1-264) ng/mL Total Bilirubin (0.2-1.3) mg/dL AST (14-36) U/L ALT (0-35) U/L Alkaline Phosphatase (38-126) U/L Troponin I < 0.012 (0.000-0.034) ng/mL Serum Total Protein (6.3-8.2) g/dL Albumin (3.5-5.0) g/dL Monoscreen (Negative) Influenza Type A Ag NEGATIVE (NEGATIVE) Influenza Type B Ag NEGATIVE (NEGATIVE) RSV (PCR) NEGATIVE (Negative) SARS-CoV-2 (PCR) POSITIVE A (NEGATIVE) Group A Strep Antibody (NEGATIVE) 07/03/21 07/03/21 07/03/21 Range/Units 11:30 10:35 09:55 WBC (4.0-10.5) K/mm3 RBC (4.1-5.4) M/mm3 Hgb (12.0-16.0) gm/dl Hct (35-47) % MCV (78-100) fl MCH (26-32) pg MCHC (32-36) g/dl RDW (11.5-14.0) % Plt Count (150-450) K/mm3 MPV (7.5-11.0) fl Segmented Neutrophils (36.0-66.0) % Lymphocytes (Manual) (24-44) % Monocytes (Manual) (0.0-12.0) % Eosinophils (Manual) (0.00-3.0) % Platelet Estimate (NORMAL) RBC Morphology PT (9.4-12.5) SECONDS INR (0.8-3.0) D-Dimer (215-500) ng/mL Puncture Site RIGHT RADIAL pCO2 33 L (35-45) mmHg pO2 146 H* (75-100) mmHg Base Excess -1.7 (-2.0-2.0) O2 Saturation 95.2 (94-100) g/dF ABG pH 7.43 (7.35-7.45) ABG HCO3 21.9 L (22-28) ABG O2 Sat (Measured) 98.9 (95-100) % Dat Test YES Hemoglobin 13.7 Carboxyhemoglobin 2.4 (0.0-6.9) % THgb Methemoglobin 1.2 L (1.4-1.5) % Temperature 37.0 C POC O2 Flow Rate 21 % Sodium (137-145) mmol/L Potassium 4.2 (3.5-5.1) mmol/L Chloride (98-107) mmol/L Carbon Dioxide (22-30) mmol/L Anion Gap (5-15) MEQ/L BUN (7-17) mg/dL Creatinine (0.52-1.04) mg/dL Estimated GFR ML/MIN Glucose (74-106) mg/dL Lactic Acid 3.9 H (0.4-2.0) Calcium (8.4-10.2) mg/dL Ferritin (11.1-264) ng/mL Total Bilirubin (0.2-1.3) mg/dL AST (14-36) U/L ALT (0-35) U/L Alkaline Phosphatase (38-126) U/L Troponin I < 0.012 (0.000-0.034) ng/mL Serum Total Protein (6.3-8.2) g/dL Albumin (3.5-5.0) g/dL Monoscreen (Negative) Influenza Type A Ag (NEGATIVE) Influenza Type B Ag (NEGATIVE) RSV (PCR) (Negative) SARS-CoV-2 (PCR) (NEGATIVE) Group A Strep Antibody (NEGATIVE) 07/03/21 07/03/21 07/03/21 Range/Units 08:11 08:07 05:30 WBC (4.0-10.5) K/mm3 RBC (4.1-5.4) M/mm3 Hgb (12.0-16.0) gm/dl Hct (35-47) % MCV (78-100) fl MCH (26-32) pg MCHC (32-36) g/dl RDW (11.5-14.0) % Plt Count (150-450) K/mm3 MPV (7.5-11.0) fl Segmented Neutrophils (36.0-66.0) % Lymphocytes (Manual) (24-44) % Monocytes (Manual) (0.0-12.0) % Eosinophils (Manual) (0.00-3.0) % Platelet Estimate (NORMAL) RBC Morphology PT (9.4-12.5) SECONDS INR (0.8-3.0) D-Dimer (215-500) ng/mL Puncture Site pCO2 (35-45) mmHg pO2 (75-100) mmHg Base Excess (-2.0-2.0) O2 Saturation (94-100) g/dF ABG pH (7.35-7.45) ABG HCO3 (22-28) ABG O2 Sat (Measured) (95-100) % Dat Test Hemoglobin Carboxyhemoglobin (0.0-6.9) % THgb Methemoglobin (1.4-1.5) % Temperature C POC O2 Flow Rate % Sodium (137-145) mmol/L Potassium (3.5-5.1) mmol/L Chloride (98-107) mmol/L Carbon Dioxide (22-30) mmol/L Anion Gap (5-15) MEQ/L BUN (7-17) mg/dL Creatinine (0.52-1.04) mg/dL Estimated GFR ML/MIN Glucose (74-106) mg/dL Lactic Acid 3.9 H (0.4-2.0) Calcium (8.4-10.2) mg/dL Ferritin (11.1-264) ng/mL Total Bilirubin (0.2-1.3) mg/dL AST (14-36) U/L ALT (0-35) U/L Alkaline Phosphatase (38-126) U/L Troponin I < 0.012 < 0.012 (0.000-0.034) ng/mL Serum Total Protein (6.3-8.2) g/dL Albumin (3.5-5.0) g/dL Monoscreen (Negative) Influenza Type A Ag (NEGATIVE) Influenza Type B Ag (NEGATIVE) RSV (PCR) (Negative) SARS-CoV-2 (PCR) (NEGATIVE) Group A Strep Antibody (NEGATIVE) 07/03/21 07/03/21 07/03/21 Range/Units 05:30 05:16 05:16 WBC 3.5 L (4.0-10.5) K/mm3 RBC 4.27 (4.1-5.4) M/mm3 Hgb 12.9 (12.0-16.0) gm/dl Hct 41.4 (35-47) % MCV 97.0 (78-100) fl MCH 30.2 (26-32) pg MCHC 31.2 L (32-36) g/dl RDW 14.5 H (11.5-14.0) % Plt Count 31 L (150-450) K/mm3 MPV 10.3 (7.5-11.0) fl Segmented Neutrophils 74 H (36.0-66.0) % Lymphocytes (Manual) 14 L (24-44) % Monocytes (Manual) 9 (0.0-12.0) % Eosinophils (Manual) 3 (0.00-3.0) % Platelet Estimate DECREASED (NORMAL) RBC Morphology NORMAL PT (9.4-12.5) SECONDS INR (0.8-3.0) D-Dimer (215-500) ng/mL Puncture Site pCO2 (35-45) mmHg pO2 (75-100) mmHg Base Excess (-2.0-2.0) O2 Saturation (94-100) g/dF ABG pH (7.35-7.45) ABG HCO3 (22-28) ABG O2 Sat (Measured) (95-100) % Dat Test Hemoglobin Carboxyhemoglobin (0.0-6.9) % THgb Methemoglobin (1.4-1.5) % Temperature C POC O2 Flow Rate % Sodium (137-145) mmol/L Potassium (3.5-5.1) mmol/L Chloride (98-107) mmol/L Carbon Dioxide (22-30) mmol/L Anion Gap (5-15) MEQ/L BUN (7-17) mg/dL Creatinine (0.52-1.04) mg/dL Estimated GFR ML/MIN Glucose (74-106) mg/dL Lactic Acid (0.4-2.0) Calcium (8.4-10.2) mg/dL Ferritin 50.4 (11.1-264) ng/mL Total Bilirubin (0.2-1.3) mg/dL AST (14-36) U/L ALT (0-35) U/L Alkaline Phosphatase (38-126) U/L Troponin I (0.000-0.034) ng/mL Serum Total Protein (6.3-8.2) g/dL Albumin (3.5-5.0) g/dL Monoscreen NEGATIVE (Negative) Influenza Type A Ag (NEGATIVE) Influenza Type B Ag (NEGATIVE) RSV (PCR) (Negative) SARS-CoV-2 (PCR) (NEGATIVE) Group A Strep Antibody (NEGATIVE) 07/03/21 07/03/21 07/03/21 Range/Units 05:16 05:16 05:16 WBC (4.0-10.5) K/mm3 RBC (4.1-5.4) M/mm3 Hgb (12.0-16.0) gm/dl Hct (35-47) % MCV (78-100) fl MCH (26-32) pg MCHC (32-36) g/dl RDW (11.5-14.0) % Plt Count (150-450) K/mm3 MPV (7.5-11.0) fl Segmented Neutrophils (36.0-66.0) % Lymphocytes (Manual) (24-44) % Monocytes (Manual) (0.0-12.0) % Eosinophils (Manual) (0.00-3.0) % Platelet Estimate (NORMAL) RBC Morphology PT 11.9 (9.4-12.5) SECONDS INR 1.01 (0.8-3.0) D-Dimer 838 H* (215-500) ng/mL Puncture Site pCO2 (35-45) mmHg pO2 (75-100) mmHg Base Excess (-2.0-2.0) O2 Saturation (94-100) g/dF ABG pH (7.35-7.45) ABG HCO3 (22-28) ABG O2 Sat (Measured) (95-100) % Dat Test Hemoglobin Carboxyhemoglobin (0.0-6.9) % THgb Methemoglobin (1.4-1.5) % Temperature C POC O2 Flow Rate % Sodium (137-145) mmol/L Potassium (3.5-5.1) mmol/L Chloride (98-107) mmol/L Carbon Dioxide (22-30) mmol/L Anion Gap (5-15) MEQ/L BUN (7-17) mg/dL Creatinine (0.52-1.04) mg/dL Estimated GFR ML/MIN Glucose (74-106) mg/dL Lactic Acid (0.4-2.0) Calcium (8.4-10.2) mg/dL Ferritin (11.1-264) ng/mL Total Bilirubin (0.2-1.3) mg/dL AST (14-36) U/L ALT (0-35) U/L Alkaline Phosphatase (38-126) U/L Troponin I (0.000-0.034) ng/mL Serum Total Protein (6.3-8.2) g/dL Albumin (3.5-5.0) g/dL Monoscreen (Negative) Influenza Type A Ag NEGATIVE (NEGATIVE) Influenza Type B Ag NEGATIVE (NEGATIVE) RSV (PCR) (Negative) SARS-CoV-2 (PCR) (NEGATIVE) Group A Strep Antibody NOT DETECTED (NEGATIVE) 07/03/21 07/03/21 Range/Units 05:16 04:25 WBC (4.0-10.5) K/mm3 RBC (4.1-5.4) M/mm3 Hgb (12.0-16.0) gm/dl Hct (35-47) % MCV (78-100) fl MCH (26-32) pg MCHC (32-36) g/dl RDW (11.5-14.0) % Plt Count (150-450) K/mm3 MPV (7.5-11.0) fl Segmented Neutrophils (36.0-66.0) % Lymphocytes (Manual) (24-44) % Monocytes (Manual) (0.0-12.0) % Eosinophils (Manual) (0.00-3.0) % Platelet Estimate (NORMAL) RBC Morphology PT (9.4-12.5) SECONDS INR (0.8-3.0) D-Dimer (215-500) ng/mL Puncture Site pCO2 (35-45) mmHg pO2 (75-100) mmHg Base Excess (-2.0-2.0) O2 Saturation (94-100) g/dF ABG pH (7.35-7.45) ABG HCO3 (22-28) ABG O2 Sat (Measured) (95-100) % Dat Test Hemoglobin Carboxyhemoglobin (0.0-6.9) % THgb Methemoglobin (1.4-1.5) % Temperature C POC O2 Flow Rate % Sodium 135 L (137-145) mmol/L Potassium 4.3 (3.5-5.1) mmol/L Chloride 101 (98-107) mmol/L Carbon Dioxide 28 (22-30) mmol/L Anion Gap 9.6 (5-15) MEQ/L BUN 15 (7-17) mg/dL Creatinine 0.93 (0.52-1.04) mg/dL Estimated GFR > 60.0 ML/MIN Glucose 90 (74-106) mg/dL Lactic Acid 2.8 H (0.4-2.0) Calcium 8.5 (8.4-10.2) mg/dL Ferritin (11.1-264) ng/mL Total Bilirubin 0.80 (0.2-1.3) mg/dL AST 31 (14-36) U/L ALT 19 (0-35) U/L Alkaline Phosphatase 86 (38-126) U/L Troponin I (0.000-0.034) ng/mL Serum Total Protein 7.4 (6.3-8.2) g/dL Albumin 3.9 (3.5-5.0) g/dL Monoscreen (Negative) Influenza Type A Ag (NEGATIVE) Influenza Type B Ag (NEGATIVE) RSV (PCR) (Negative) SARS-CoV-2 (PCR) (NEGATIVE) Group A Strep Antibody (NEGATIVE) - Progress Progress: improved, re-examined Air Movement: good Blood Culture(s) Obtained: Yes Counseled pt/family regarding: lab results, diagnosis, need for follow-up, rad results <AR GONZALEZ - Last Filed: 07/03/21 06:44> <LILA CASTANEDA - Last Filed: 07/03/21 14:09> - Progress Progress Note: 07/03/21 06:44 Chest x-ray shows no acute cardiopulmonary process. Medical decision making: I feel this patient is stable enough to be discharged to home. However, her D-dimer is elevated and we will perform a CTA of the chest to make sure she does or does not have pulmonary emboli present. I am signing out this patient to Dr. Lila Castaneda and he will make the final decision on her disposition. (AR GONZALEZ) Patient endorsed Dr. Castaneda at approximately 7 AM. CTA chest negative for PE. Patient is thrombocytopenic at 31. Case discussed with Dr. Saud Marie. He advised patient should be discharged. No indication for admission. There is no active bleeding. However she will need early follow-up. We are currently arranging early follow-up with Sylvia Marie to reassess patient and also to reassess the thrombocytopenia. Patient has a history of thrombocytopenia. 07/03/21 09:53 Patient reassessed. She feels well. Troponin negative x2. 07/03/21 10:22 Patient reassessed. She is COVID-positive. Case is discussed with Dr. Childers who accepts admission to observation. Plan of care discussed with patient. She agrees to admission summary [facility] for further evaluation treatment of debilitating viral symptoms generalized weakness and increasing lactic acidosis. Portions of this note were created with voice recognition technology. There may be grammatical, spelling, punctuation or sound alike errors 07/03/21 14:08 (LILA CASTANEDA) - Departure Departure Disposition: Home Critical Care Time: No <AR GONZALEZ - Last Filed: 07/03/21 06:44> - Departure Departure Disposition: Observation <LILA CASTANEDA - Last Filed: 07/03/21 14:09> - Departure Clinical Impression: Viral respiratory illness, Fatty liver, Splenomegaly, Old granulomatous disease, Thrombocytopenia, Leukopenia, Lactic acidosis, SARS-CoV-2 positive Condition: Stable Referrals: [facility] [employer]GER [Primary Care Provider] - Follow up/PCP as directed
[2021-07-03] MEDS ORDERED: Sodium Chloride 0.9% 1000 ML 1,000 ML IV SCH (04:30)
[2021-07-03] MEDS ORDERED: Zofran 4 MG/2 ML VIAL ONE (04:36)
[2021-07-03] MEDS ORDERED: HYDROCODONE-ACETAMIN 2.5-108/5 ML SOLUTION PO STA (05:04)
[2021-07-03] MEDS ORDERED: solu-MEDROL 125 MG, Sterile H2O 10 ml 2 ML IV ONE ×2 (05:04)
[2021-07-03 05:35] LABS: INR 1.01 (0.8-3.0); PROTIME 11.9 SECONDS (9.4-12.5)
[2021-07-03 05:39] LABS: ALBUMIN 3.9 g/dL (3.5-5.0); ALKALINE PHOSPHATASE 86 U/L (38-126); ANION GAP 9.6 MEQ/L (5-15); BLOOD UREA NITROGEN 15 mg/dL (7-17); CHLORIDE 101 mmol/L (98-107); Calcium 8.5 mg/dL (8.4-10.2); Carbon Dioxide 28 mmol/L (22-30); Creatinine 1 0.93 mg/dL (0.52-1.04); EST GLOMERULAR FILTRATION RATE > 60.0 ML/MIN; Glucose 90 mg/dL (74-106); Potassium 4.3 mmol/L (3.5-5.1); SGOT/AST 31 U/L (14-36); SGPT/ALT 19 U/L (0-35); SODIUM 135 mmol/L (137-145); Total Protein 7.4 g/dL (6.3-8.2)
[2021-07-03] MEDS ORDERED: HYDROCODONE-ACETAMIN 2.5-108/5 ML SOLUTION ONE (05:43)
[2021-07-03] MEDS ORDERED: solu-MEDROL ONE (05:43)
[2021-07-03 06:08] LABS: INFLUENZA A NEGATIVE (NEGATIVE); INFLUENZA B NEGATIVE (NEGATIVE)
[2021-07-03 08:16] LABS: Hematocrit 41.4 % (35-47); Hemoglobin 12.9 gm/dl (12.0-16.0); Mean Corpuscular Hemoglobin 30.2 pg (26-32); Mean Corpuscular Hgb Concent. 31.2 g/dl (32-36); Mean Platelet Volume 10.3 fl (7.5-11.0); Platelet Count 31 K/mm3 (150-450); Red Blood Count 4.27 M/mm3 (4.1-5.4); Red Cell Distribution Width 14.5 % (11.5-14.0); White Blood Count 3.5 K/mm3 (4.0-10.5)
[2021-07-03 08:43] LABS: Eosinophil 3 % (0.00-3.0); Lymphocytes 14 % (24-44); Monocyte 9 % (0.0-12.0); Neutrophils 74 % (36.0-66.0); Platelet Estimate DECREASED (NORMAL); Total Cells Counted 100
--- NOTE | 2021-07-03 09:23 | XRAY ---
Indication: Short of breath. Elevated d-dimer. Multiple contiguous images obtained through the chest using 80 cc Isovue 370 contrast and PE protocol. Comparison: June 02, 2020. There is suboptimal opacification of the pulmonary arteries limiting evaluation for pulmonary embolus. No obvious pulmonary embolus. Heart is not enlarged. Aorta is normal in course and caliber. Stable tiny subcarinal and left hilar calcified nodes. No pathologic mediastinal/hilar lymphadenopathy. Lungs again demonstrates scattered bilateral subsegmental atelectasis/scarring and tiny left lower lobe calcified granuloma. No new pulmonary mass, infiltrate, or effusion. Bony thorax intact again with minimal degenerative changes throughout the spine. Limited upper abdomen demonstrates fatty liver, 14.5 cm splenomegaly, and cholecystectomy clips. Impression: 1. Pulmonary embolus evaluation limited due to suboptimal contrast opacification. No obvious pulmonary embolus. 2. No new/acute cardiopulmonary abnormalities. 3. Incidental scattered atelectasis/scarring, fatty liver, splenomegaly, and old granulomatous disease.
--- NOTE | 2021-07-03 09:23 | XRAY ---
Indication: Cough. Suspect Covid 19. Comparison: June 02, 2020. Portable chest again demonstrates minimal left base subsegmental atelectasis/scarring. Remaining heart and lungs unremarkable. Bony thorax intact again with lower cervical fusion hardware and right axilla nehemias dissection. No new/acute abnormalities.
[2021-07-03 12:14] LABS: ABG HEMOGLOBIN 13.7; ABG POTASSIUM 4.2 (3.5-5.1); ABG SITE RIGHT RADIAL; ALLEN TEST OK? YES; ARTERIAL BLD GAS O2 SATURATION 98.9 % (95-100); ARTERIAL BLOOD GAS BASE EXCESS -1.7 (-2.0-2.0); ARTERIAL BLOOD GAS FIO2 21 %; ARTERIAL BLOOD GAS PCO2 33 mmHg (35-45); ARTERIAL BLOOD GAS PO2 146 mmHg (75-100); ARTERIAL BLOOD GAS pH 7.43 (7.35-7.45); CARBOXYHEMOGLOBIN 2.4 % THgb (0.0-6.9); HCO3- 21.9 (22-28); HGB O2 SAT 95.2 g/dF (94-100); Methhemoglobin 1.2 % (1.4-1.5)
[2021-07-03] MEDS ORDERED: VANCOMYCIN 1 GRAM/200 ML BAG 1 GM/200 ML PIGGYBACK IV ONE ×2 (12:29→13:42)
[2021-07-03] MEDS ORDERED: Zosyn 3.375 GM Vial 3.375 GM in Sodium Chloride 100ML MINI-BAG PLUS 100 ML IV ONE (12:30)
[2021-07-03] MEDS ORDERED: Sodium Chloride 100ML MINI-BAG PLUS 100 ML IV ONE (12:53)
[2021-07-03] MEDS ORDERED: Zosyn 3.375 GM Vial IV ONE (12:53)
[2021-07-03 13:39] LABS: INFLUENZA A NEGATIVE (NEGATIVE); INFLUENZA B NEGATIVE (NEGATIVE); RESPIRATORY SYNCTIAL VIRUS NEGATIVE (Negative)
[2021-07-03 13:50] LABS: SARS-CoV-2 Xpert Express POSITIVE (NEGATIVE)
[2021-07-03] MEDS ORDERED: ENOXAPARIN SODIUM SQ ONE ×2 (14:06→14:31)
[2021-07-03] MEDS ORDERED: Ativan 1 MG PO PRN (17:20)
[2021-07-03] MEDS ORDERED: TYLENOL EXTRA STRENGTH 500 MG PO PRN (17:21)
[2021-07-03] MEDS ORDERED: Ativan 2 MG/1 ML VIAL IV PRN (17:25)
[2021-07-03] MEDS ORDERED: REMDESIVIR 200 MG in Sodium Chloride 0.9% 250 ML 250 ML IV ONE (17:30)
[2021-07-03] MEDS ORDERED: MEDICATION INTERVENTION MC SCH (17:45)
[2021-07-03] MEDS ORDERED: hydroDIURIL 25 MG PO SCH (18:00)
[2021-07-03] MEDS: FOLATE 1 MG PO SCH (18:25)
[2021-07-03] MEDS: Mirapex 0.5 MG Tablet PO SCH (18:25)
[2021-07-03] MEDS: SYNTHROID 50 MCG PO SCH (18:25)
[2021-07-03] MEDS: ZOLOFT 50 MG TABLET PO SCH (18:26)
[2021-07-03] MEDS: HYDROCODONE-CHLORPHEN ER SUSP PO PRN (18:35)
[2021-07-03] MEDS: OLUMIANT PO SCH (21:26)
[2021-07-03] MEDS: Klor Con 10 MEQ PO SCH (21:26)
[2021-07-03] MEDS ORDERED: NON-FORMULARY ITEM (Potassium Chloride [Klor-Con M20] 20 MEQ Tab.Er.Prt) PO SCH (22:00)
[2021-07-04 05:26] LABS: Absolute Neutrophil Ct (ANC) 3.11 (1.4-6.9); Basophil (Absolute #) 0 (0-0.4); Eosinophil % 0.2 % (0.00-5.0); Eosinophil (Absolute #) 0.01 (0-0.5); Hematocrit 37.2 % (35-47); Hemoglobin 11.9 gm/dl (12.0-16.0); Lymphocyte (Absolute #) 0.87 (1.0-4.6); Mean Cell Volume 95.9 fl (78-100); Mean Corpuscular Hemoglobin 30.7 pg (26-32); Mean Platelet Volume 10.8 fl (7.5-11.0); Monocyte (Absolute #) 0.36 (0.0-1.3); Monocytes % 8.3 % (0.0-12.0); Neutrophil % 71.5 % (36.0-66.0); Red Blood Count 3.88 M/mm3 (4.1-5.4); White Blood Count 4.4 K/mm3 (4.0-10.5)
[2021-07-04 05:41] LABS: Platelet Count 62 K/mm3 (150-450)
[2021-07-04 06:17] LABS: ALKALINE PHOSPHATASE 76 U/L (38-126); ANION GAP 11.8 MEQ/L (5-15); BLOOD UREA NITROGEN 17 mg/dL (7-17); CHLORIDE 105 mmol/L (98-107); Calcium 8.3 mg/dL (8.4-10.2); Carbon Dioxide 24 mmol/L (22-30); Creatinine 1 0.65 mg/dL (0.52-1.04); EST GLOMERULAR FILTRATION RATE > 60.0 ML/MIN; Glucose 108 mg/dL (74-106); Potassium 4.5 mmol/L (3.5-5.1); SGOT/AST 45 U/L (14-36); SGPT/ALT 37 U/L (0-35); SODIUM 137 mmol/L (137-145)
[2021-07-04 06:24] LABS: Iron 39 ug/dL (37-170); Iron Saturation 14 % (20-39); TIBC 279 ug/dL (265-462)
[2021-07-04] MEDS: HYDROCODONE-CHLORPHEN ER SUSP PO PRN (07:20)
[2021-07-04 07:31] VITALS: BP 149/69
[2021-07-04 08:04] LABS: Slide Review 1 YES
--- NOTE | 2021-07-04 09:27 | HP ---
CHIEF COMPLAINT: Fever, aching, loss of appetite, weakness. No cough. HISTORY OF PRESENT ILLNESS: The patient has been feeling bad apparently for four or five days. She came in for evaluation and was found to have COVID. To the emergency room physician, she said she did have a dry cough. She is aching all over. She has had no vaccinations. She has several family members that are positive for COVID. She was referred by Yoon Marie our nurse practitioner. She has not had a vaccine. She has history of colitis, hypothyroidism, degenerative joint disease and chronic liver disease. She is on hydrochlorothiazide apparently for her arthritis. She also has been splenomegaly, low platelets and elevated liver enzymes. It certainly could be related to some of her medicines or perhaps to arthritis. She sees a supreme court judge in [place] with a good reputation. I am sure he has got an exact diagnosis. TRAVEL RISK: No international travel. CORONAVIRUS SCREENING: She has not had a vaccine. MEDICATIONS: Includes folic acid 1 mg, Synthroid 50 mcg, aspirin 81 mg, KCL 20 q.d., Mirapex 0.5 q.d., Bisoprolol-hydrochlorothiazide 10-6.25 q.d., Vicodin 7.5-325, Ranexa 500 b.i.d., hydrochlorothiazide 12.5. ALLERGIES: NKDA. PAST MEDICAL HISTORY: Hypertension, hypothyroidism, splenomegaly, degenerative disc disease, osteoarthritis. PAST SURGICAL HISTORY: Cholecystectomy. Inguinal hernia repair. Lumpectomy. Tubal ligation. Right knee scope. Kidney stones. REVIEW OF SYSTEMS: CONSTITUTIONAL: Extreme fatigue. HEENT: Eyes are dry. No problems with taste or swallowing. RESPIRATORY: Dry cough. CARDIAC: She sees a resource protection specialist and she is on Ranexa 500 which I believe is for angina but she denies any cardiac disease. Dr. Carballo said she is stable with nothing threatening. MUSCULOSKELETAL: She has multiple degenerative joints hands at the MIP joints and DIP joints. NEUROLOGIC: No symptoms. PSYCHOLOGIC: No symptoms. ENDOCRINE: Hypothyroidism stable. HEMATOLOGIC: The patient has low platelets of 7,000. SOCIAL HISTORY: She lives with her and a grandson. Does not use drugs, never smoked. 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 PHYSICAL EXAMINATION: GENERAL APPEARANCE: The patient looks tired, wore out, sick, anxious. VITAL SIGNS: Temperature 99.6F, pulse 94, respiratory rate 24, blood pressure 143/90. O2 saturation 99%. HEENT: Pupils equal and reactive to light. Dry mucosal membranes. NECK: Supple without adenopathy. CHEST: Clear. CVS: No murmurs or gallops. ABDOMEN: Soft. No tenderness or organomegaly. EXTREMITIES: She has rather severe deformities of her MIP joints and thickening of the DIP joints in all ten for years. LAB DATA AND TESTS: The patient was treated in the emergency room with Vancomycin and piperacillin for some reason. Her white count is normal. She had some lactic acid but I think that was more related to perhaps some of her medications or the underlying COVID. Her lactic acid was raising some. It was done a few times. Blood gas with pH of 7.43, pCO2 of 33, pO2 of 146 and O2 saturation was 95% on room air. Hemoglobin 13.7, carboxyhemoglobin was normal. Hemoglobin was a little bit low at one point. Lactic acid was a little bit high at 3.9 just about double normal. D-dimer 838. PT, INR normal. Electrolytes normal. Creatinine 0.93. Her AST was normal at 31, ALT 19, alkaline phosphatase normal at 86. Troponins are normal. Apparently, she had a CT scan which showed no pulmonary emboli. She has a known history of thrombocytopenia. IMPRESSION AND PLAN: We will treat her with some anti-COVID drugs including Decadron, rheumatoid diseases and monitor lactic acid. PROGNOSIS: Good.
[2021-07-04] MEDS: Klor Con 10 MEQ PO SCH (09:43)
[2021-07-04] MEDS: ZOLOFT 50 MG TABLET PO SCH (09:43)
[2021-07-04] MEDS: SYNTHROID 50 MCG PO SCH (09:43)
[2021-07-04] MEDS: OLUMIANT PO SCH (09:43)
[2021-07-04] MEDS: FOLATE 1 MG PO SCH (09:44)
[2021-07-04] MEDS: Mirapex 0.5 MG Tablet PO SCH (09:44)
[2021-07-04] MEDS ORDERED: REMDESIVIR 100 MG in Sodium Chloride 0.9% 100 ML BAG 100 ML IV SCH (10:00)
[2021-07-04] MEDS ORDERED: NON-FORMULARY ITEM (Bisoprolol/Hydrochlorothiazide [Bisoprolol-Hctz 10-6.25 Mg Tab] 1 EACH PO SCH (10:00)
[2021-07-04] MEDS ORDERED: ENOXAPARIN SODIUM SQ SCH (10:00)
[2021-07-04 10:03] VITALS: PULSE 59; O2SAT 95
== END 2021-07-04 11:52 | disposition home or self-care (01) ==
LOC: ED 04:05 → MED SURG 14:42
PROVIDERS: ADMIT Family Medicine; ATTEND Family Medicine
DX: U07.1 COVID-19 (principal); I10 Essential (primary) hypertension; E03.9 Hypothyroidism, unspecified; M19.90 Unspecified osteoarthritis, unspecified site; K76.9 Liver disease, unspecified; Z79.899 Other long term (current) drug therapy; Z20.828 Contact with and (suspected) exposure to other viral communicable diseases
CPT/HCPCS: 0241U; 36000; 36415; 36600; 71045; 71260; 80053; 82375; 82728; 82803; 83540; 83550; 83605; 84484; 85025; 85379; 85610; 86308; 87040; 87400; 87651; 93005; 93041; 94762; 96372; 96374; 99285; G0378; J1650; J2405; J2930; J3490; A9270-GY; J0248; J3370

== ENCOUNTER 2022-01-26 21:56 | Emergency (ER) | payer MEDICARE ==
[2022-01-26] MEDS ORDERED: TORAdol 30 mg Injection IM ONE (22:34)
[2022-01-26] MEDS ORDERED: Kenalog-40 IM ONE (22:34)
[2022-01-26 22:40] VITALS: O2SAT 97
--- NOTE | 2022-01-26 22:48 | ERPHSYRPT ---
- History of Present Illness Time Seen by Provider: 01/26/22 22:43 Source: patient Exam Limitations: no limitations Patient Subjective Stated Complaint: pt states "I woke up this morning and my R shoulder started hurting and it keeps getting worse. I have had this happen b efore and had to get steriod shots." Triage Nursing Assessment: pt ambulatory to bed by self, pt alert and oriented x3, pt c/o R shoulder pain since this morning, pt unable to move R shoulder and pt is holding shoulder with other arm, pt denies numbness or tingling in extremitity, cap refill less than 2 seconds Physician History: pt states "I woke up this morning and my R shoulder started hurting and it keeps getting worse. I have had this happen before and had to get steriod shots." c/o R shoulder pain since this morning, pt unable to move R shoulder and pt is holding shoulder with other arm, pt denies numbness or tingling in extremitity, cap refill less than 2 seconds Occurred: this morning Method of Injury: unknown Quality: constant Severity of Pain-Max: moderate Severity of Pain-Current: moderate Extremities Pain Location: shoulder: right Modifying Factors: Improves With: nothing Associated Symptoms: none Allergies/Adverse Reactions: No Known Drug Allergies Allergy (Verified 01/26/22 22:29) Home Medications: Folic Acid 1 mg [Folate 1 mg] 1 mg PO DAILY 08/08/17 [History] Levothyroxine Sodium [Euthyrox] 50 mcg PO DAILY 12/25/19 [History] Potassium Chloride [Klor-Con M20] 20 meq PO BID 01/11/20 [History] Pramipexole Di-HCl [Mirapex] 0.5 mg PO DAILY 01/11/20 [History] Bisoprolol/Hydrochlorothiazide [Bisoprolol-Hctz 10-6.25 mg Tab] 1 mg PO DAILY 06/02/20 [History] Sertraline HCl 50 mg [Zoloft 50 mg Tablet] 50 mg PO DAILY 07/03/21 [History] Hx Tetanus, Diphtheria Vaccination/Date Given: No Hx Influenza Vaccination/Date Given: No Hx Pneumococcal Vaccination/Date Given: No Immunizations Up to Date: No Travel Risk - International Travel Have you traveled outside of the country in past 3 weeks: No - Coronavirus Screening Are you exhibiting any of the following symptoms?: No Close contact with a COVID-19 positive Pt in past 14-21 Days: No - Vaccine Status Have you recieved a Covid-19 vaccination: No - Review of Systems Constitutional: No Fever, No Chills Eyes: No Symptoms Ears, Nose, & Throat: No Symptoms Respiratory: No Cough, No Dyspnea Cardiac: No Chest Pain, No Edema, No Syncope Abdominal/Gastrointestinal: No Abdominal Pain, No Nausea, No Vomiting, No Diarrhea Genitourinary Symptoms: No Dysuria Musculoskeletal: Joint Pain, No Back Pain, No Neck Pain Skin: No Rash Neurological: No Dizziness, No Focal Weakness, No Sensory Changes Psychological: No Symptoms Endocrine: No Symptoms All Other Systems: Reviewed and Negative - Past Medical History Pertinent Past Medical History: Yes Neurological History: No Pertinent History ENT History: No Pertinent History Cardiac History: Hypertension Respiratory History: No Pertinent History Endocrine Medical History: Hypothyroidism, Liver Disease Musculoskeletal History: Degenerative Disk Disease, Fractures, Osteoarthritis, Other GI Medical History: Colitis, Other History: Other Psycho-Social History: Depression Female Reproductive Disorders: No Pertinent History Other Medical History: PMHX - SPLENOMEGALY, FX RIGHT FOREARM (CASTED). IBS. PATIENT WITH MULTIPLE SKIN PLAQUES ESPECIALLY ELBOWS AND KNEES - STATES HAS HAD IT FOR YEARS. APPEARANCE IS SIMILAR TO PSORIASIS BUT STATES HASN'T BEEN DIAGNOSED. SX HX: CHOLECYSTECTOMY. P STATES SHE HAS "LIVER PROBLEMS" BUT UNSURE WHAT KIND - Past Surgical History Past Surgical History: Yes Neuro Surgical History: No Pertinent History Cardiac: No Pertinent History Respiratory: No Pertinent History Gastrointestinal: Cholecystectomy, Hernia Repair Genitourinary: Other Musculoskeletal: Other Female Surgical History: Lumpectomy, Tubal Ligation Other Surgical History: Kidney Stones. R knee scope - Social History Smoking Status: Never smoker Exposure to second hand smoke: Yes Drug Use: none Patient Lives Alone: Yes - Nursing Vital Signs Nursing Vital Signs: Initial Vital Signs Temperature 97.6 F 01/26/22 22:30 Pulse Rate 54 L 01/26/22 22:30 Respiratory Rate 18 01/26/22 22:30 Blood Pressure 117/75 01/26/22 22:30 O2 Sat by Pulse Oximetry 97 01/26/22 22:30 Pain Scale Pain Intensity 10 - Physical Exam General Appearance: alert Eyes, Ears, Nose, Throat Exam: moist mucous membranes Neck Exam: non-tender, supple Cardiovascular/Respiratory Exam: chest non-tender, normal breath sounds, regular rate/rhythm, no respiratory distress Abdominal Exam: non-tender, No guarding Back Exam: normal inspection, No vertebral tenderness Shoulder Exam: no evidence of injury, limited ROM, pain Neuro/Tendon Exam: normal sensation, normal motor functions Mental Status Exam: alert, oriented x 3, cooperative Skin Exam: normal color, warm, dry SpO2: 97 - Course Nursing assessment & vital signs reviewed: Yes - Radiology Exams Shoulder X-ray Interpretation: Reviewed by me, No Fracture, No Subluxation Ordered Tests: Active Orders 24 hr Category Date Time Status SHOULDER Stat Exams 01/26/22 22:34 Ordered Medication Summary Discontinued Medications Generic Name Dose Route Start Last Admin Trade Name Frenasir PRN Reason Stop Dose Admin Ketorolac Tromethamine 60 mg 01/26/22 22:34 Ketorolac Tromethamine 30 Mg/Ml Inj IM 01/26/22 22:35 STAT ONE Triamcinolone Acetonide 40 mg 01/26/22 22:34 Triamcinolone Acetonide 40 Mg/Ml Ml IM 01/26/22 22:35 STAT ONE - Progress Progress: improved, pain not gone completely Counseled pt/family regarding: diagnosis, need for follow-up, rad results - Departure Departure Disposition: Home Clinical Impression: Pain of right shoulder region Condition: Stable Critical Care Time: No Referrals: APOLINAR PANTOJA NP [Primary Care Provider] - Follow up/PCP as directed Instructions: Shoulder Sprain (DC) Additional Instructions: Discharge/Care Plan ALLEN PEGUERO was seen on 01/26/22 in the Emergency Room. The patient was counseled regarding Diagnosis,Lab results, Imaging studies, need for follow up and when to return to the Emergency Room. Prescriptions given: Discharge Note I have spoken with the patient and/or caregivers. I have explained the patient's condition, diagnosis and treatment plan based on the information available to me at this time. I have answered the patient's and/or caregiver's questions and addressed any concerns. The patient and/or caregivers have as good understanding of the patient's diagnosis, condition and treatment plan as can be expected at this point. The vital signs have been stable. The patient's condition is stable and appropriate for discharge from the emergency department. The patient will pursue further outpatient evaluation with the primary care physician or other designated or consulting physician as outlined in the discharge instructions. The patient and/or caregivers are agreeable to this plan of care and follow-up instructions have been explained in detail. The patient and/or caregivers have received these instruction. The patient/and or caregivers are aware that any significant change in condition or worsening of symptoms should prompt an immediate return to this or the closest emergency department or call 911. ALLEN PEGUERO was seen on 01/26/22 n the Emergency Room. At that time you were treated for an emergent condition, during your visit Laboratory, Radiology and/or other procedures may have been ordered. It is very important that you follow-up with your Primary Care Physician APOLINAR PANTOJA within the next 24-48 hours to review your Emergency Room visit and the final results of testing that was ordered. Some test results such as Urine Cultures, Blood Cultures, and other cultures if ordered will not be finalized for 24-48 hours. If you do not have a Primary Care Provider please call the medical records department at [phone] ext [phone] to obtain a copy of your results or you may sign into our patient portal to obtain these results by visiting us @ [email or web address] and completing the following steps: 1. Click on the Patient Portal link 2. Click the Patient Self Enrollment Link to complete the enrollment form and entering your 3. Once the enrollment form is completed you will receive an email with a temporary ID and password at the email address you provided. 4. Next choose a user name and password. Your user name must be at least 4 characters long and your password must be at least 4 characters long. 5. Choose a security question from the list and provide your answer to the question. If you already have signed into the Health Portal you may access your Health Care Information 14/01 by the following steps: 1. Login to our website @ [email or web address] 2. Enter your original user name and password. FAQS The [facility] Health Portal is an online tool that contains your Lab Results, Radiology Reports, Visit History, Discharge Instructions and Health Summary Lab and Radiology Results will not be available for 72 hours on the portal. The Portal is a secure site, passwords are encryted and URLs are re-written so they cannot be copied and pasted. You and authorized family members are the only ones who can access your Portal. Also there is a timeout feature that protects your information if you leave the Portal page open. If you have technical difficulty please use the Contact Us link on the page this will allow you to submit any questions you have regarding the Portal or you may contact the Medical Record Department at [phone]. Prescriptions: Naproxen 375 mg [Naprosyn 375 mg] 375 mg PO Q8H #15 tablet
[2022-01-26] MEDS ORDERED: TORAdol 30 mg Injection ONE (23:02)
[2022-01-26] MEDS ORDERED: Kenalog-40 ONE (23:02)
[2022-01-26 23:16] VITALS: BP 123/76; PULSE 58
--- NOTE | 2022-01-27 07:01 | XRAY ---
Indication: Pain following injury. Comparison: None 3 view right shoulder demonstrates osteopenia, mild AC degenerative arthropathy, lower cervical fusion hardware, and right axilla nehemias dissection. No other bony, articular, or soft tissue abnormalities.
== END 2022-01-26 23:16 | disposition home or self-care (01) ==
LOC: ED 21:56
DX: M25.511 Pain in right shoulder (principal); I10 Essential (primary) hypertension; Z79.899 Other long term (current) drug therapy; Z28.310 Unvaccinated for COVID-19
CPT/HCPCS: 73030; 96372; 99283; J1885; J3301

== ENCOUNTER 2022-12-13 08:20 | Day surgery (SDC) | payer MEDICARE ==
--- NOTE | 2022-12-12 14:28 | PCM.HP ---
History of Present Illness - Chief Complaint History of Present Illness: is a 67 year old female. CC FU 3 months Subjective feels a bulge in vagina, leaking urine, wears a pad had 2-3 degree rectocecle at last visit has tried premarin but has bee off for one month ros negative exam gen-nad chest- nonlabored cv- rrr GI- soft gu- 2-3 rectocele Assessment: very redundant lateral vGINA WALLLS, 2-3 rectocele s/p hysterectomy with avs c mesh no mmk, on Plan op posterior colphorrahpy 1 hr general rosa dx 2-3 degree rectocele Viki Cunningham NP 13 Nov 2022 09:45 AM Addendum 13 Nov 2022 09:55 AM - Written by Michelle Foster Medications & Allergies Home Medications: Home Medication List Folic Acid 1 mg [Folate 1 mg] 1 mg PO DAILY 08/08/17 [History Confirmed 01/26/22] Levothyroxine Sodium [Euthyrox] 50 mcg PO DAILY 12/25/19 [History Confirmed 01/26/22] Potassium Chloride [Klor-Con M20] 20 meq PO BID 01/11/20 [History Confirmed 01/26/22] Pramipexole Di-HCl [Mirapex] 0.5 mg PO DAILY 01/11/20 [History Confirmed 01/26/22] Bisoprolol/Hydrochlorothiazide [Bisoprolol-Hctz 10-6.25 mg Tab] 1 mg PO DAILY 06/02/20 [History Confirmed 01/26/22] Sertraline HCl 50 mg [Zoloft 50 mg Tablet] 50 mg PO DAILY 07/03/21 [History Confirmed 01/26/22] Naproxen 375 mg [Naprosyn 375 mg] 375 mg PO Q8H #15 tablet 01/26/22 [Rx] Hydrocodone/APAP 5/325 [Freedom 5/325 mg] 1 each PO Q8H PRN PRN #8 tablet MDD 3 04/14/22 [Rx] Allergies/Adverse Reactions: Allergies Allergy/AdvReac Type Severity Reaction Status Date / Time No Known Drug Allergies Allergy Verified 12/03/22 12:18 - Past Medical History Past Medical History: Yes Neurological History: No Pertinent History ENT History: No Pertinent History Cardiac History: Hypertension Respiratory History: No Pertinent History Endocrine Medical History: No Pertinent History, Hypothyroidism, Liver Disease Musculoskelatal History: No Pertinent History, Fractures, Other, Osteoarthritis, Degenerative Disk Disease GI Medical History: No Pertinent History, Colitis, Other History: No Pertinent History, Other Pyscho-Social History: No Pertinent History, Depression Reproductive Disorders: No Pertinent History Comment: PMHX - SPLENOMEGALY, FX RIGHT FOREARM (CASTED). IBS. PATIENT WITH MULTIPLE SKIN PLAQUES ESPECIALLY ELBOWS AND KNEES - STATES HAS HAD IT FOR YEARS. APPEARANCE IS SIMILAR TO PSORIASIS BUT STATES HASN'T BEEN DIAGNOSED. SX HX: CHOLECYSTECTOMY. P STATES SHE HAS "LIVER PROBLEMS" BUT UNSURE WHAT KIND - Past Surgical History Past Surgical History: Yes Neuro Surgical History: No Pertinent History Cardiac History: No Pertinent History Respiratory Surgery: No Pertinent History GI Surgical History: No Pertinent History, Cholecystectomy, Hernia Repair Genitourinary Surgical Hx: No Pertinent History, Other Musculskeletal Surgical Hx: No Pertinent History, Other Female Surgical History: No Pertinent History, Lumpectomy, Tubal Ligation Other Surgical History: Kidney Stones. R knee scope - Social History Smoking Status: Never smoker Exposure to second hand smoke: Yes Alcohol: None Drug Use: none
[2022-12-13] MEDS ORDERED: Lactated Ringers 1,000 ML IV SCH (10:00)
[2022-12-13] MEDS ORDERED: Lactated Ringers 1,000 ML IV ONE (10:26)
[2022-12-13] MEDS ORDERED: TORAdol 30 mg Injection ONE (12:29)
[2022-12-13] MEDS ORDERED: Zofran 4 MG/2 ML VIAL ONE (12:29)
[2022-12-13] MEDS ORDERED: SUBLIMAZE 100 MCG/2 ML ONE (12:29)
[2022-12-13] MEDS ORDERED: Xylocaine-Mpf 2% 5 Ml Vial ONE (12:29)
[2022-12-13] MEDS ORDERED: DIPRIVAN 200 MG/20 ML IV ONE (12:29)
[2022-12-13] MEDS ORDERED: Zemuron 100 MG/10 ML ONE (12:29)
[2022-12-13] MEDS ORDERED: BRIDION 200MG/2ML IV ONE (12:29)
[2022-12-13] MEDS ORDERED: Decadron 4 MG INJ ONE (12:29)
[2022-12-13] MEDS ORDERED: KEFZOL 1 GM ONE (12:45)
[2022-12-13] MEDS ORDERED: Triple Antibiotic Ointment ONE (13:17)
[2022-12-13] MEDS ORDERED: ROBINUL ONE (13:22)
[2022-12-13 14:15] VITALS: O2SAT 91
[2022-12-13 14:22] VITALS: BP 140/90; PULSE 58
--- NOTE | 2022-12-14 07:56 | OP ---
SURGERY DATE/TIME: 12/13/2022 1232 PREOPERATIVE DIAGNOSIS: Symptomatic rectocele. POSTOPERATIVE DIAGNOSIS: Symptomatic rectocele. PROCEDURE: Posterior colporrhaphy. SURGEON: José Miguel King M.D. ANESTHESIA: General. COMPLICATIONS: None. CONDITION: Stable. INDICATION: The patient was noted to have symptomatic rectocele. DESCRIPTION OF PROCEDURE: She was taken to surgery. Lithotomy. Routine prep and drape. It was confirmed. The anterior was satisfactory. Matter of fact the anterior was really quite snug. There was some high vaginal cuff in this field and the center came down basically hooking on where the rectocele started. 1.5 inches up the posterior vaginal mucosa was scored giving pelvis access. Inside the pelvic fascia was inverted with seven sutures #2-0 PDS which were placed and inverted it back down towards the rectum. The vaginal skin was trimmed especially in the mid portion. It was trimmed evenly. It was secured in the midline without tension with 3-0 Vicryl. The patient tolerated the procedure satisfactorily. Cosmesis was satisfactory. Substantial improvement had been obtained.
== END 2022-12-13 14:57 | disposition home or self-care (01) ==
LOC: SDC 08:20
PROVIDERS: ATTEND Surgery
DX: N81.6 Rectocele (principal)
CPT/HCPCS: J0690; J1100; J1885; J2405; J2704; J3010; A9270-GY

== ENCOUNTER 2023-01-05 14:39 | Emergency (ER) | payer MEDICARE ==
--- NOTE | 2023-01-05 14:52 | ERPHSYRPT ---
- History of Present Illness Time Seen by Provider: 01/05/23 14:52 Source: patient Exam Limitations: no limitations Physician History: This is a morbidly obese 67-year-old white female patient of nurse practitioner Frank who presents with severe pain in the right scapular area that radiates into the right shoulder and right neck. She has never had this type of pain before. She denies chest pain. She denies shortness of breath. She denies having a traumatic injury or fall. Patient states that began this morning when she woke up. Throughout the day, her pain symptoms have worsened. Patient has a history of hypertension, hypothyroidism and a liver disease which she does not know the name of. She also has a history of irritable bowel syndrome and skin plaques on several areas of her body which have not been given a diagnosis per her report. Timing/Duration: today Quality: sharp, stabbing Back Pain Location: C-spine Severity of Pain-Max: moderate Severity of Pain-Current: moderate Modifying Factors: Improves With: movement (Right shoulder and right neck worsens pain) Associated Symptoms: denies symptoms Previous symptoms: no prior history Allergies/Adverse Reactions: No Known Drug Allergies Allergy (Verified 01/05/23 14:47) Home Medications: Potassium Chloride [Klor-Con M20] 20 meq PO BID 01/11/20 [History] Pramipexole Di-HCl [Mirapex] 0.5 mg PO DAILY 01/11/20 [History] Bisoprolol/Hydrochlorothiazide [Bisoprolol-Hctz 10-6.25 mg Tab] 1 mg PO DAILY 06/02/20 [History] Hydroxychloroquine Sulfate 200 mg PO DAILY 12/13/22 [History] lisinopriL [Zestril] 2.5 mg PO DAILY 12/13/22 [History] Hx Tetanus, Diphtheria Vaccination/Date Given: No Hx Influenza Vaccination/Date Given: No Hx Pneumococcal Vaccination/Date Given: No Travel Risk - International Travel Have you traveled outside of the country in past 3 weeks: No - Coronavirus Screening Are you exhibiting any of the following symptoms?: No Close contact with a COVID-19 positive Pt in past 14-21 Days: No - Vaccine Status Have you recieved a Covid-19 vaccination: No - Review of Systems Constitutional: No Symptoms Eyes: No Symptoms Ears, Nose, & Throat: No Symptoms Respiratory: No Symptoms Cardiac: No Symptoms Abdominal/Gastrointestinal: No Symptoms Genitourinary Symptoms: No Symptoms Musculoskeletal: Neck Pain, Joint Pain (Right shoulder, right scapula pain) Skin: Rash (Chronic plaque-like reddened rash multiple sites ) Neurological: No Symptoms Psychological: No Symptoms Endocrine: No Symptoms Hematologic/Lymphatic: No Symptoms Immunological/Allergic: No Symptoms All Other Systems: Reviewed and Negative - Past Medical History Pertinent Past Medical History: Yes Neurological History: No Pertinent History ENT History: No Pertinent History Cardiac History: Hypertension Respiratory History: No Pertinent History Endocrine Medical History: Hypothyroidism, Liver Disease Musculoskeletal History: Fractures, Other, Osteoarthritis, Degenerative Disk Disease GI Medical History: Colitis, Other History: No Pertinent History, Other Psycho-Social History: Depression Female Reproductive Disorders: No Pertinent History Other Medical History: PMHX - SPLENOMEGALY, FX RIGHT FOREARM (CASTED). IBS. PATIENT WITH MULTIPLE SKIN PLAQUES ESPECIALLY ELBOWS AND KNEES - STATES HAS HAD IT FOR YEARS. APPEARANCE IS SIMILAR TO PSORIASIS BUT STATES HASN'T BEEN DIAGNOSED. SX HX: CHOLECYSTECTOMY. P STATES SHE HAS "LIVER PROBLEMS" BUT UNSURE WHAT KIND - Past Surgical History Past Surgical History: Yes Neuro Surgical History: No Pertinent History Cardiac: No Pertinent History Respiratory: No Pertinent History Gastrointestinal: Cholecystectomy, Hernia Repair Genitourinary: Other Musculoskeletal: Other Female Surgical History: Lumpectomy, Tubal Ligation Other Surgical History: Kidney Stones. R knee scope - Social History Smoking Status: Never smoker Exposure to second hand smoke: Yes Drug Use: none Patient Lives Alone: Yes - Nursing Vital Signs Nursing Vital Signs: Initial Vital Signs Temperature 97.7 F 01/05/23 14:48 Pulse Rate 65 01/05/23 14:48 Respiratory Rate 20 01/05/23 14:48 Blood Pressure 122/58 01/05/23 14:48 O2 Sat by Pulse Oximetry 95 01/05/23 14:48 Pain Scale Pain Intensity [Right upper 10 back] Pain Intensity 10 - Physical Exam General Appearance: mild distress (To moderate), alert, anxiety, obese Eye Exam: PERRL/EOMI, eyes nml inspection Ears, Nose, Throat Exam: normal ENT inspection, moist mucous membranes Neck Exam: normal inspection, supple, full range of motion, other (Bilateral paraspinous muscle tenderness to palpation) Respiratory Exam: normal breath sounds, lungs clear, airway intact, No chest tenderness, No respiratory distress Cardiovascular Exam: regular rate/rhythm, normal heart sounds, normal peripheral pulses Gastrointestinal Exam: soft, normal bowel sounds, No tenderness Pelvic Exam: not done Rectal Exam: not done Back Exam: decreased range of motion (Right shoulder), muscle spasm (Right scapular region), point tenderness (Right scapular region and distribution of right trapezius muscle), No CVA tenderness Extremity Exam: normal inspection, pelvis stable, limited range of motion (Secondary to movement of her right shoulder) Skin Exam: rash (Reddened dry plaque-like rash multiple sites on the patientchronic) Lymphatic Exam: No adenopathy SpO2 Interpretation: normal - Course Nursing assessment & vital signs reviewed: Yes Ordered Tests: Active Orders 24 hr Category Date Time Status CERVICAL SPINE WO CONTRAST [CT] Stat Exams 01/05/23 15:18 Completed UPPER EXTREMITY W/O CONTRAST [CT] Stat Exams 01/05/23 15:18 Completed Medication Summary Discontinued Medications Generic Name Dose Route Start Last Admin Trade Name Freq PRN Reason Stop Dose Admin Hydrocodone Bitart/Acetaminophen 1 tab 01/05/23 15:16 01/05/23 15:25 Hydrocodone/Apap 5/325 1 Tab Tablet PO 01/05/23 15:17 1 tab STAT ONE Administration Hydrocodone Bitart/Acetaminophen Confirm 01/05/23 15:24 Hydrocodone/Apap 5/325 1 Tab Tablet Administered 01/05/23 15:25 Dose 1 tab .ROUTE .STK-MED ONE Methylprednisolone Sodium 0 mg 01/05/23 15:17 01/05/23 15:25 Succinate 125 mg/ Sterile IM 01/05/23 15:18 125 mg Water 2 ml STAT ONE Administration Methylprednisolone Sodium Succinate Confirm 01/05/23 15:24 Methylprednis Sod Succ 125 Mg/2 Ml Vial Administered 01/05/23 15:25 Dose 125 mg .ROUTE .STK-MED ONE Orphenadrine Citrate 100 mg 01/05/23 15:16 01/05/23 15:25 Orphenadrine Citrate 100 Mg Er Tab PO 01/05/23 15:17 100 mg STAT ONE Administration Orphenadrine Citrate Confirm 01/05/23 15:23 Orphenadrine Citrate 100 Mg Er Tab Administered 01/05/23 15:24 Dose 100 mg PO .STK-MED ONE Sterile Water Confirm 01/05/23 15:23 Water For Injection,Sterile 10 Ml Vial Administered 01/05/23 15:24 Dose 10 ml IJ .STK-MED ONE - Progress Progress: improved, pain not gone completely, re-examined Progress Note: 01/05/23 16:02 This patient's medical issue is 1 of low to moderate complexity. The level complexity and the work-up performed is based on review of the patient's past medical history, review of the patient medication list, review of the patient's drug allergy list, history of present illness and physical finds on examination. The work-up includes CT scan of the cervical spine without contrast as well as CT scan of the right upper extremity specifically the right shoulder and right scapula. Patient also has a chronic plaque-like rash which has not been diagnosed or treated per patient. We will provide the patient with a [place]'s 5/325 tablet orally as well as 100 mg orphenadrine orally and 125 mg intramuscular injection of Solu-Medrol. She will receive outpatient prednisone which will help with her muscle and joint pain as well as treat the rash that is present and we will also provide her with an outpatient prescription remotely for orphenadrine 100 mg. I am awaiting the results of the CT scan which will be interpreted by the radiologist and I will review the impression. 01/05/23 17:09 CT scan of the cervical spine without contrast shows evidence of muscle spasm with multilevel degenerative changes. No acute fractures or subluxations noted. CT scan of the right scapula and right shoulder without contrast shows no evidence of any acute fracture or dislocation. Counseled pt/family regarding: diagnosis, need for follow-up, rad results Medical Desision Making - Independent Historian Additional History obtained from: Child (Son) - Diagnostic Testing Diagnostic test were ordered, analyzed, and reviewed by me: Yes Radiological Interpretation: Reviewed by me, Teleradiologist Report - Risk of complications The pt has a mod risk of morbidity or mortality based on: Need for prescription drug management - Departure Departure Disposition: Home Clinical Impression: Cervical muscle strain, Right shoulder pain Condition: Stable Critical Care Time: No Referrals: APOLINAR PANTOJA NP [Primary Care Provider] - Follow up/PCP as directed Additional Instructions: Take your medication as prescribed. Follow-up with your primary care provider on 01/07/2023 for further evaluation management. Prescriptions: Prednisone 10 mg [Deltasone 10 mg] 10 mg PO TID #12 tablet Orphenadrine Citrate 100 mg [Norflex 100 MG Tablet] 100 mg PO BID #10 tab
[2023-01-05] MEDS ORDERED: NORCO 5/325 MG PO ONE (15:16)
[2023-01-05] MEDS ORDERED: Norflex 100 MG Tablet PO ONE ×2 (15:16→15:23)
[2023-01-05] MEDS ORDERED: solu-MEDROL 125 MG, Sterile H2O 10 ml 2 ML IM ONE ×2 (15:17)
[2023-01-05] MEDS ORDERED: Sterile H2O 10 ml IJ ONE (15:23)
[2023-01-05] MEDS ORDERED: solu-MEDROL ONE (15:24)
[2023-01-05] MEDS ORDERED: NORCO 5/325 MG ONE (15:24)
--- NOTE | 2023-01-05 16:57 | XRAY ---
CLINICAL HISTORY:Painful right scapula; C-spine COMPARISON:None. TECHNIQUE:Contiguous, multislice, non-enhanced CT scan of the cervical spine was performed in the axial plane with multiplanar reconstructions. FINDINGS: There is reduced cervical lordotic curve suggestive of muscle spasm. Normal CT appearance of the craniocervical junction. No vertebral wedging or collapse. Status post ACDF at C5-C6 without hardware complications. Preserved spinal canal with no retropulsed fragments. Degenerative osseous changes but no suspicious focal bony lesions. Marginal osteophytes with narrowed C2-C3, C3-C4, and C6-C7 cervical disks, most prominent at C6-C7 level. At C2-C3, there is mild disc bulge centrally compressing the thecal sac and indenting lateral recesses. At C3-C4, there is posterior disc bulge compressing the thecal sac and encroaching upon lateral recesses and neural foramina. At C4-C5, C6-C7, there is posterior osteophyte disc complex compressing the thecal sac and encroaching upon lateral recesses and neural foramina. Facet joint arthritic changes most prominent at C2-C3 level on right side. Normal appearance of the atlantoaxial joint. No paraspinal masses or collections. Osteopenic bones IMPRESSION: 1. Neck muscle spasm. 2. Cervical spondylo- degenerative changes with marginal osteophytes and multilevel degenerated disks, most prominent at C6-C7 disc as described. MRI is suggested for further evaluation if clinically needed. 3. Status post ACDF at C5-C6 without hardware complications. 4. Facet joint arthritic changes most prominent at C2-C3 level on right side. Electronically Signed by: Vonnie Whitten MD. (01/05/2023 15:55:06 ENROLLMENT MANAGEMENT MANAGER)
--- NOTE | 2023-01-05 17:07 | XRAY ---
CLINICAL HISTORY:Painful right scapula COMPARISON:None. TECHNIQUE:Contiguous, multislice, nonenhanced CT scan of the right shoulder was performed including the scapula in the axial plane with multiplanar reconstructions. FINDINGS: Good opposition of the articular surfaces with no evidence of shoulder dislocation. No definite fracture line could be individualized. No intra-articular loose bodies. Scapula appear unremarkable. No suspicious osteolytic or sclerotic focal bony lesions. Intact acromion and acromioclavicular joint. Unremarkable periarticular musculature and major vessels. No significant joint effusion. No periarticular masses or collection. Metallic densities in the right axillary region, probably related to prior intervention. IMPRESSION: Grossly unremarkable CT study. Electronically Signed by: Vonnie Whitten MD. (01/05/2023 16:05:26 OPTOMETRIC AIDE)
[2023-01-05 17:25] VITALS: BP 120/54; PULSE 68; O2SAT 99
== END 2023-01-05 17:25 | disposition home or self-care (01) ==
LOC: ED 14:39
DX: S16.1XXA Strain of muscle, fascia and tendon at neck level, initial encounter (principal); M25.511 Pain in right shoulder; I10 Essential (primary) hypertension; Z79.52 Long term (current) use of systemic steroids; Z79.899 Other long term (current) drug therapy; Z28.310 Unvaccinated for COVID-19
CPT/HCPCS: 72125; 73200; 96372; 99283; J2930; A9270-GY

== ENCOUNTER 2023-07-16 06:01 | Emergency (ER) | payer MEDICARE ==
--- NOTE | 2023-07-16 06:16 | ERPHSYRPT ---
- History of Present Illness Source: patient, EMS, old records Exam Limitations: no limitations Timing/Duration: today Severity: mild (Moderate) Associated Symptoms: shortness of breath, chest pain, headaches, malaise, weakness, No nausea, No vomiting Hx Tetanus, Diphtheria Vaccination/Date Given: No Hx Influenza Vaccination/Date Given: No Hx Pneumococcal Vaccination/Date Given: No <AR GONZALEZ - Last Filed: 07/16/23 06:51> <LILA CASTANEDA - Last Filed: 07/16/23 08:38> - History of Present Illness Time Seen by Provider: 07/16/23 06:15 Physician History: This is a 67-year-old white female patient of nurse practitioner Frank who was brought into the emergency department by the paramedics for complaints of significant pain of her neck, back, extremities, mouth, chest pain, abdominal pain without history of recent fall or trauma. Patient has a chronic, recurring history of painful joints. She does have chronic reddish skin plaques that, per her report, have not been diagnosed. She also states she has a "liver disease" but she does not know the name of this entity. Patient has a history of hypertension, hypothyroidism, irritable bowel syndrome, degenerative joint disease and "liver disease". Patient has mild shortness of breath. (AR GONZALEZ) Allergies/Adverse Reactions: No Known Drug Allergies Allergy (Verified 07/16/23 06:15) Home Medications: Potassium Chloride [Klor-Con M20] 20 meq PO BID 01/11/20 [History] Pramipexole Di-HCl [Mirapex] 0.5 mg PO DAILY 01/11/20 [History] Bisoprolol/Hydrochlorothiazide [Bisoprolol-Hctz 10-6.25 mg Tab] 1 mg PO DAILY 06/02/20 [History] Hydroxychloroquine Sulfate 200 mg PO DAILY 12/13/22 [History] lisinopriL [Zestril] 2.5 mg PO DAILY 12/13/22 [History] Travel Risk - International Travel Have you traveled outside of the country in past 3 weeks: No - Coronavirus Screening Are you exhibiting any of the following symptoms?: No Close contact with a COVID-19 positive Pt in past 14-21 Days: No - Vaccine Status Have you recieved a Covid-19 vaccination: No <JOSE FRANCISCO GONZALEZDO Jose AlfredoIvon - Last Filed: 07/16/23 06:51> - Review of Systems Constitutional: Malaise, Weakness Eyes: No Symptoms Ears, Nose, & Throat: Mouth Pain, Throat Pain Respiratory: Dyspnea Cardiac: Chest Pain Abdominal/Gastrointestinal: Abdominal Pain Genitourinary Symptoms: Flank Pain Musculoskeletal: Arthralgias, Myalgias Neurological: No Symptoms Psychological: No Symptoms Endocrine: No Symptoms Hematologic/Lymphatic: No Symptoms Immunological/Allergic: No Symptoms All Other Systems: Reviewed and Negative <JOSE FRANCISCO GONZALEZDO Jose AlfredoIvon - Last Filed: 07/16/23 06:51> - Past Medical History Pertinent Past Medical History: Yes Neurological History: Other ENT History: No Pertinent History Cardiac History: No Pertinent History Respiratory History: No Pertinent History Endocrine Medical History: Diabetes Type II Musculoskeletal History: No Pertinent History GI Medical History: Colitis, Other History: No Pertinent History, Other Psycho-Social History: Depression Female Reproductive Disorders: No Pertinent History Other Medical History: PMHX - SPLENOMEGALY, FX RIGHT FOREARM (CASTED). IBS. PATIENT WITH MULTIPLE SKIN PLAQUES ESPECIALLY ELBOWS AND KNEES - STATES HAS HAD IT FOR YEARS. APPEARANCE IS SIMILAR TO PSORIASIS BUT STATES HASN'T BEEN DIAGNOSED. SX HX: CHOLECYSTECTOMY. P STATES SHE HAS "LIVER PROBLEMS" BUT UNSURE WHAT KIND - Past Surgical History Past Surgical History: Yes Neuro Surgical History: No Pertinent History Cardiac: No Pertinent History Respiratory: No Pertinent History Gastrointestinal: Cholecystectomy, Hernia Repair Genitourinary: Other Musculoskeletal: Other Female Surgical History: Lumpectomy, Tubal Ligation Other Surgical History: Kidney Stones. R knee scope - Social History Smoking Status: Never smoker Exposure to second hand smoke: Yes Drug Use: none Patient Lives Alone: Yes <JOSE FRANCISCO GONZALEZDO Jose AlfredoIvon - Last Filed: 07/16/23 06:51> - Physical Exam General Appearance: no apparent distress, alert, anxiety, obese Eye Exam: PERRL/EOMI, eyes nml inspection Ears, Nose, Throat Exam: normal ENT inspection, moist mucous membranes Neck Exam: normal inspection, non-tender, supple, full range of motion Respiratory Exam: normal breath sounds, lungs clear, airway intact, No chest tenderness, No respiratory distress Cardiovascular Exam: regular rate/rhythm, normal heart sounds, normal peripheral pulses Gastrointestinal/Abdomen Exam: soft, normal bowel sounds, tenderness (Mild diff use), No rebound Pelvic Exam: not done Rectal Exam: not done Back Exam: normal inspection, normal range of motion, No CVA tenderness, No vertebral tenderness Extremity Exam: normal inspection, normal range of motion, pelvis stable Neurologic Exam: alert, oriented x 3, cooperative, diagnostic imaging manager II-XII nml as tested, normal mood/affect, nml cerebellar function, nml station & gait, sensation nml Skin Exam: normal color, warm, dry Lymphatic Exam: No adenopathy SpO2 Interpretation: normal O2 Delivery: Room Air <AR GONZALEZ - Last Filed: 07/16/23 06:51> - Nursing Vital Signs Nursing Vital Signs: Initial Vital Signs Temperature 98.3 F 07/16/23 06:20 Pulse Rate 63 07/16/23 06:20 Respiratory Rate 20 07/16/23 06:20 Blood Pressure 103/56 07/16/23 06:20 O2 Sat by Pulse Oximetry 95 07/16/23 06:20 Pain Scale Pain Intensity 10 - Course Nursing assessment & vital signs reviewed: Yes <AR GONZALEZ - Last Filed: 07/16/23 06:51> Ordered Tests: Active Orders 24 hr Category Date Time Status EKG-ER Only STAT Care 07/16/23 06:36 Active IV Insertion STAT Care 07/16/23 06:36 Active AMYLASE Stat Lab 07/16/23 07:00 Completed BLOOD CULTURE Stat Lab 07/16/23 06:37 Received CBC W DIFF Stat Lab 07/16/23 06:36 Completed CMP Stat Lab 07/16/23 07:00 Completed ESR [Erythrocyte Sedimentation Rate] Stat Lab 07/16/23 07:00 Completed LIPASE Stat Lab 07/16/23 07:00 Completed MONO SCREEN Stat Lab 07/16/23 07:00 Completed TROPONIN Q4H Lab 07/16/23 07:00 Completed TROPONIN Q4H Lab 07/16/23 10:45 Ordered TROPONIN Q4H Lab 07/16/23 14:45 Ordered UA W/RFX UR CULTURE Stat Lab 07/16/23 08:28 Ordered Medication Summary Generic Name Dose Route Start Last Admin Trade Name Freq PRN Reason Stop Dose Admin Sodium Chloride 1,000 mls @ 250 mls/hr 07/16/23 06:45 07/16/23 07:43 Sodium Chloride 0.9% 1000 Ml IV 08/15/23 06:44 250 mls/hr .Q4H TAMANNA Administration Discontinued Medications Generic Name Dose Route Start Last Admin Trade Name Brendan PRN Reason Stop Dose Admin Ketorolac Tromethamine 30 mg 07/16/23 08:28 Ketorolac Tromethamine 30 Mg/Ml Inj IM 07/16/23 08:29 STAT ONE Lab/Rad Data: Laboratory Result Diagrams 07/16/23 06:36 07/16/23 07:00 Laboratory Results 07/16/23 07/16/23 07/16/23 Range/Units 07:00 07:00 07:00 WBC (4.0-10.5) x10^3/uL RBC (4.1-5.4) x10^6/uL Hgb (12.0-16.0) g/dL Hct (35-47) % MCV (78-100) fL MCH (26-32) pg MCHC (32-36) g/dL RDW (11.5-14.0) % Plt Count (150-450) x10^3/uL MPV (7.5-11.0) fL Gran % (36.0-66.0) % Immature Gran % (Auto) (0.00-0.4) % Nucleat RBC Rel Count (0.00-0.1) % Eos # (Auto) (0-0.5) x10^3/uL Immature Gran # (Auto) (0.00-0.03) x10^3u/L Absolute Lymphs (auto) (1.0-4.6) x10^3/uL Absolute Monos (auto) (0.0-1.3) x10^3/uL Absolute Nucleated RBC (0.00-0.01) x10^3u/L Lymphocytes % (24.0-44.0) % Monocytes % (0.0-12.0) % Eosinophils % (0.00-5.0) % Basophils % (0.0-0.4) % Absolute Granulocytes (1.4-6.9) x10^3/uL Basophils # (0-0.4) x10^3/uL ESR (0-20) mm/hr Sodium (137-145) mmol/L Potassium (3.5-5.1) mmol/L Chloride (98-107) mmol/L Carbon Dioxide (22-30) mmol/L Anion Gap (5-15) MEQ/L BUN (7-17) mg/dL Creatinine (0.52-1.04) mg/dL Estimated GFR ML/MIN Glucose (74-106) mg/dL Calcium (8.4-10.2) mg/dL Total Bilirubin (0.2-1.3) mg/dL AST (14-36) U/L ALT (0-35) U/L Alkaline Phosphatase (38-126) U/L Troponin I (0.000-0.034) ng/mL Serum Total Protein (6.3-8.2) g/dL Albumin (3.5-5.0) g/dL Amylase (30-110) U/L Lipase (23-300) U/L Monoscreen NEGATIVE (NEGATIVE) Influenza Type A Ag NEGATIVE (NEGATIVE) Influenza Type B Ag NEGATIVE (NEGATIVE) RSV (PCR) NEGATIVE (NEGATIVE) SARS-CoV-2 (PCR) NEGATIVE (NEGATIVE) Group A Strep Antibody NOT DETECTED (NEGATIVE) Slides for Path Review 07/16/23 07/16/23 07/16/23 Range/Units 07:00 07:00 07:00 WBC (4.0-10.5) x10^3/uL RBC (4.1-5.4) x10^6/uL Hgb (12.0-16.0) g/dL Hct (35-47) % MCV (78-100) fL MCH (26-32) pg MCHC (32-36) g/dL RDW (11.5-14.0) % Plt Count (150-450) x10^3/uL MPV (7.5-11.0) fL Gran % (36.0-66.0) % Immature Gran % (Auto) (0.00-0.4) % Nucleat RBC Rel Count (0.00-0.1) % Eos # (Auto) (0-0.5) x10^3/uL Immature Gran # (Auto) (0.00-0.03) x10^3u/L Absolute Lymphs (auto) (1.0-4.6) x10^3/uL Absolute Monos (auto) (0.0-1.3) x10^3/uL Absolute Nucleated RBC (0.00-0.01) x10^3u/L Lymphocytes % (24.0-44.0) % Monocytes % (0.0-12.0) % Eosinophils % (0.00-5.0) % Basophils % (0.0-0.4) % Absolute Granulocytes (1.4-6.9) x10^3/uL Basophils # (0-0.4) x10^3/uL ESR 8 (0-20) mm/hr Sodium 134 L (137-145) mmol/L Potassium 3.7 (3.5-5.1) mmol/L Chloride 102 (98-107) mmol/L Carbon Dioxide 26 (22-30) mmol/L Anion Gap 9.6 (5-15) MEQ/L BUN 11 (7-17) mg/dL Creatinine 0.66 (0.52-1.04) mg/dL Estimated GFR 97.3 ML/MIN Glucose 100 (74-106) mg/dL Calcium 8.6 (8.4-10.2) mg/dL Total Bilirubin 1.00 (0.2-1.3) mg/dL AST 18 (14-36) U/L ALT 13 (0-35) U/L Alkaline Phosphatase 93 (38-126) U/L Troponin I < 0.012 (0.000-0.034) ng/mL Serum Total Protein 6.5 (6.3-8.2) g/dL Albumin 3.6 (3.5-5.0) g/dL Amylase 81 (30-110) U/L Lipase 72 (23-300) U/L Monoscreen (NEGATIVE) Influenza Type A Ag (NEGATIVE) Influenza Type B Ag (NEGATIVE) RSV (PCR) (NEGATIVE) SARS-CoV-2 (PCR) (NEGATIVE) Group A Strep Antibody (NEGATIVE) Slides for Path Review 07/16/23 Range/Units 06:36 WBC 7.1 (4.0-10.5) x10^3/uL RBC 4.24 (4.1-5.4) x10^6/uL Hgb 13.7 (12.0-16.0) g/dL Hct 41.5 (35-47) % MCV 97.9 (78-100) fL MCH 32.3 H (26-32) pg MCHC 33.0 (32-36) g/dL RDW 14.5 H (11.5-14.0) % Plt Count 106 L (150-450) x10^3/uL MPV 10.5 (7.5-11.0) fL Gran % 64.3 (36.0-66.0) % Immature Gran % (Auto) 1.1 H (0.00-0.4) % Nucleat RBC Rel Count 0.0 (0.00-0.1) % Eos # (Auto) 0.52 H (0-0.5) x10^3/uL Immature Gran # (Auto) 0.08 H (0.00-0.03) x10^3u/L Absolute Lymphs (auto) 1.41 (1.0-4.6) x10^3/uL Absolute Monos (auto) 0.51 (0.0-1.3) x10^3/uL Absolute Nucleated RBC 0.00 (0.00-0.01) x10^3u/L Lymphocytes % 19.8 L (24.0-44.0) % Monocytes % 7.2 (0.0-12.0) % Eosinophils % 7.3 H (0.00-5.0) % Basophils % 0.3 (0.0-0.4) % Absolute Granulocytes 4.58 (1.4-6.9) x10^3/uL Basophils # 0.02 (0-0.4) x10^3/uL ESR (0-20) mm/hr Sodium (137-145) mmol/L Potassium (3.5-5.1) mmol/L Chloride (98-107) mmol/L Carbon Dioxide (22-30) mmol/L Anion Gap (5-15) MEQ/L BUN (7-17) mg/dL Creatinine (0.52-1.04) mg/dL Estimated GFR ML/MIN Glucose (74-106) mg/dL Calcium (8.4-10.2) mg/dL Total Bilirubin (0.2-1.3) mg/dL AST (14-36) U/L ALT (0-35) U/L Alkaline Phosphatase (38-126) U/L Troponin I (0.000-0.034) ng/mL Serum Total Protein (6.3-8.2) g/dL Albumin (3.5-5.0) g/dL Amylase (30-110) U/L Lipase (23-300) U/L Monoscreen (NEGATIVE) Influenza Type A Ag (NEGATIVE) Influenza Type B Ag (NEGATIVE) RSV (PCR) (NEGATIVE) SARS-CoV-2 (PCR) (NEGATIVE) Group A Strep Antibody (NEGATIVE) Slides for Path Review YES <LISAAR Jose AlfredoIvon - Last Filed: 07/16/23 06:51> - Progress Progress: improved Counseled pt/family regarding: lab results, diagnosis, need for follow-up <LILA CASTANEDA - Last Filed: 07/16/23 08:38> - Progress Progress Note: 07/16/23 06:25 This patient's medical issue is 1 of moderate complexity. Level of complexity in the workup performed is based on review of the patient's past medical history, review of the patient's medication list, review patient drug allergy list, history present illness and physical findings on examination. The patient's complaints are multiple and nonspecific. We will place an intravenous line, provide her with intravenous normal saline infusion, perform CBC, CMP, troponin level, twelve-lead EKG, urinalysis, ESR viral swabs, monotest. Transfer of care of this patient to Dr. Castaneda at shift change. He will follow-up on study results and he will make final disposition of this patient (AR GONZALEZ) 67-year-old female presents to our ED for evaluation of bodyaches and sore throat. Patient evaluated by Dr. Gonzalez. Testing ordered per Dr. Gonzalez. Patient endorsed to Dr. Castaneda at the change of shift. Dr. Castaneda advised to follow-up on pending studies and to disposition the patient accordingly. CBC shows a mild thrombocytopenia 106. CMP essentially nonremarkable. COVID RSV influenza negative. ESR within normal limits. Group A strep negative. Lipase negative. Monospot negative. Initial troponin negative. Patient received IV fluids. She feels better. We administered Toradol prior to discharge. Patient states she is she is ready to go home. Patient voices no other complaints or concerns at this time. Patient afebrile vital stable. Patient agrees to follow-up with her primary care doctor within 48 hours for samuel smith. Complexity of problem addressed is moderate acute complicated No critical care time Complexity of data reviewed and analyzed is moderate. Test ordered test reviewed. Results analyzed and correlated clinically with history and physical exam. Risk complication and a risk morbidity/mortality of patient management is low Vital stable. Patient afebrile. Time spent to discharge patient is approximately 15 minutes. Plan of care established for shared decision making. No social determinants of health present impede follow-up. Patient agrees to follow-up with her primary care doctor within 48 hours for evaluation. Portions of this note were created with voice recognition technology. There may be grammatical, spelling, punctuation or sound alike errors 07/16/23 08:32 (LILA CASTANEDA) - Departure Departure Disposition: Home Critical Care Time: No <AR GONZALEZ - Last Filed: 07/16/23 06:51> - Departure Departure Disposition: Home <LILA CASTANEDA - Last Filed: 07/16/23 08:38> - Departure Clinical Impression: Generalized pain, Sore throat, Thrombocytopenia Condition: Stable Referrals: [facility] [Primary Care Provider] - Follow up/PCP as directed Additional Instructions: Discharge/Care Plan ALLEN PEGUERO was seen on 07/16/23 in the Emergency Room. The patient was counseled regarding Diagnosis,Lab results, Imaging studies, need for follow up and when to return to the Emergency Room. Prescriptions given: Discharge Note I have spoken with the patient and/or caregivers. I have explained the patient's condition, diagnosis and treatment plan based on the information available to me at this time. I have answered the patient's and/or caregiver's questions and addressed any concerns. The patient and/or caregivers have as good understanding of the patient's diagnosis, condition and treatment plan as can be expected at this point. The vital signs have been stable. The patient's condition is stable and appropriate for discharge from the emergency department. The patient will pursue further outpatient evaluation with the primary care physician or other designated or consulting physician as outlined in the discharge instructions. The patient and/or caregivers are agreeable to this plan of care and follow-up instructions have been explained in detail. The patient and/or caregivers have received these instruction. The patient/and or caregivers are aware that any significant change in condition or worsening of symptoms sh ould prompt an immediate return to this or the closest emergency department or call 911.
[2023-07-16] MEDS ORDERED: Sodium Chloride 0.9% 1000 ML 1,000 ML IV SCH (06:45)
[2023-07-16 06:47] VITALS: TEMP 98.3
[2023-07-16] MEDS ORDERED: Sodium Chloride 0.9% 1000 ML 1,000 ML ONE (07:27)
[2023-07-16 07:39] LABS: Absolute Neutrophil Ct (ANC) 4.58 x10^3/uL (1.4-6.9); BASOPHIL % 0.3 % (0.0-0.4); Basophil (Absolute #) 0.02 x10^3/uL (0-0.4); Eosinophil % 7.3 % (0.00-5.0); Eosinophil (Absolute #) 0.52 x10^3/uL (0-0.5); Hematocrit 41.5 % (35-47); Hemoglobin 13.7 g/dL (12.0-16.0); IMMATURE GRAN # 0.08 x10^3u/L (0.00-0.03); IMMATURE GRAN % 1.1 % (0.00-0.4); Lymphocyte (Absolute #) 1.41 x10^3/uL (1.0-4.6); Lymphocytes % 19.8 % (24.0-44.0); Mean Cell Volume 97.9 fL (78-100); Mean Corpuscular Hemoglobin 32.3 pg (26-32); Mean Platelet Volume 10.5 fL (7.5-11.0); Monocyte (Absolute #) 0.51 x10^3/uL (0.0-1.3); Monocytes % 7.2 % (0.0-12.0); Neutrophil % 64.3 % (36.0-66.0); Platelet Count 106 x10^3/uL (150-450); Red Blood Count 4.24 x10^6/uL (4.1-5.4); Red Cell Distribution Width 14.5 % (11.5-14.0); White Blood Count 7.1 x10^3/uL (4.0-10.5)
[2023-07-16 07:51] LABS: ALBUMIN 3.6 g/dL (3.5-5.0); ANION GAP 9.6 MEQ/L (5-15); Calcium 8.6 mg/dL (8.4-10.2); Creatinine 1 0.66 mg/dL (0.52-1.04); EST GLOMERULAR FILTRATION RATE 97.3 ML/MIN; Potassium 3.7 mmol/L (3.5-5.1); Total Protein 6.5 g/dL (6.3-8.2)
[2023-07-16 07:53] LABS: Slide Review 1 YES
[2023-07-16 08:14] LABS: INFLUENZA A NEGATIVE (NEGATIVE); INFLUENZA B NEGATIVE (NEGATIVE); RESPIRATORY SYNCTIAL VIRUS NEGATIVE (NEGATIVE); SARS-CoV-2 Xpert Express NEGATIVE (NEGATIVE)
[2023-07-16] MEDS ORDERED: TORAdol 30 mg Injection IM ONE (08:28)
[2023-07-16 08:46] VITALS: BP 122/79; PULSE 58; RESP 18; O2SAT 93
[2023-07-16] MEDS ORDERED: TORAdol 30 mg Injection ONE (08:49)
[2023-07-16 09:47] LABS: Appearance Clear (Clear); Bacteria None Seen /HPF (None Seen); Bilirubin Negative (Negative); Blood Negative (Negative); Epithelial Cells Few /HPF (None Seen); Glucose, Urine Negative (Negative); Hyaline Casts NONE SEEN /LPF (0-2); Ketones Negative (Negative); Leukocyte Esterase Negative (Negative); Nitrite Negative (Negative); Ph 7.5 (4.6-8.0); Protein,Urine Dip Negative (Negative); RBC 0-2 /HPF (0-5); Specific Gravity 1.015 (1.005-1.030); WBC 0-2 /HPF (0-5)
[2023-07-16 10:02] LABS: ADD URINE CULTURE? NO (NO)
== END 2023-07-16 09:15 | disposition home or self-care (01) ==
LOC: ED 06:01
DX: R52 Pain, unspecified (principal); J02.9 Acute pharyngitis, unspecified; D69.6 Thrombocytopenia, unspecified; I10 Essential (primary) hypertension; E11.9 Type 2 diabetes mellitus without complications; Z79.899 Other long term (current) drug therapy; Z28.310 Unvaccinated for COVID-19; Z20.828 Contact with and (suspected) exposure to other viral communicable diseases
CPT/HCPCS: 0241U; 36000; 36415; 80053; 81001; 82150; 83690; 84484; 85025; 85652; 86308; 87040; 87651; 93005; 96372; 99284; J1885

== ENCOUNTER 2023-08-29 09:45 | Day surgery (SDC) | payer MEDICARE ==
--- NOTE | 2023-08-28 11:08 | HP ---
DATE OF SURGERY: 08/29/2023 HISTORY OF PRESENT ILLNESS: The patient is a 67-year-old female presents with complaints of diffuse abdominal pain. She has a ventral incisional hernia from a low transverse incision that is tender. She is not up-to-date on current scope. She is complaining of upper and lower abdominal pain. PAST MEDICAL HISTORY: Anxiety, depression, hypertension. PAST SURGICAL HISTORY: EGD. Cholecystectomy. Colporrhaphy. ALLERGIES: NKDA. MEDICATIONS: Premarin, naproxen, Lisinopril, cyclobenzaprine, bisoprolol/hydrochlorothiazide, Plaquenil, potassium, folic acid, sertraline, pramipexole, orphenadrine. FAMILY HISTORY: None reported. SOCIAL HISTORY: None reported. REVIEW OF SYSTEMS: CONSTITUTIONAL: Denies fever or chills. CHEST: Denies shortness of breath. CVS: Denies chest pain. ABDOMEN: Reports abdominal pain. PHYSICAL EXAMINATION: GENERAL: No acute distress. CHEST: Nonlabored. No shortness of breath. CVS: Regular rate and rhythm. ABDOMEN: Soft. Low incision feels like [place] cheese. She is obese. She has a midline incision looks okay but is tender all over all over the abdomen. IMPRESSION: Diffuse abdominal pain, not up-to-date on colonoscopy with upper and lower abdominal pain. PLAN: EGD and colonoscopy with Dr. José Miguel King. CT scan of abdomen and pelvis was also ordered. As dictated by Viki Cunningham NP.
[2023-08-29] MEDS ORDERED: Lactated Ringers 1,000 ML IV ONE (10:04)
[2023-08-29] MEDS: Lactated Ringers 1,000 ML IV SCH (10:07)
[2023-08-29 10:22] VITALS: RESP 16
[2023-08-29] MEDS ORDERED: DIPRIVAN 200 MG/20 ML IV ONE (12:47)
[2023-08-29] MEDS ORDERED: Versed 2 MG/2 ML Injection ONE (12:47)
[2023-08-29] MEDS ORDERED: GlucaGen 1 MG ONE (13:00)
[2023-08-29 13:43] VITALS: TEMP 96.5
[2023-08-29 13:59] VITALS: PULSE 59; O2SAT 98
[2023-08-29 14:34] VITALS: BP 118/63
--- NOTE | 2023-08-29 14:40 | OP ---
SURGERY DATE/TIME: 08/29/2023 1250 PREOPERATIVE DIAGNOSIS: Abdominal pain. POSTOPERATIVE DIAGNOSIS: 1) Gastritis. 2) A 2 inch hiatal hernia. PROCEDURES: 1) EGD. 2) Colonoscopy complete to cecum. SURGEON: José Miguel King M.D. ANESTHESIA: MAC. COMPLICATIONS: None. CONDITION: Stable. DESCRIPTION OF PROCEDURE: Taken to endoscopy. Gastroscope was placed. Esophagus normal down to gastroesophageal junction. There was a Schatzki ring. There was a 2 inch hiatal hernia. There was gastritis. It was a hemorrhagic gastritis in the fundus, body antrum but no ulcers. Duodenal bulb normal. Second portion normal. Pyloric channel was normal. Scope withdrawn. Anal digital examination it was loose. It did not hold air and this contributed to our issues. The scope advanced to 25 cm and just would not go farther. It turned hard to the left. She was not holding air well despite doing maneuvers to help this. She was sent for a barium enema examination.
== END 2023-08-29 14:47 | disposition home or self-care (01) ==
LOC: SDC 09:45
PROVIDERS: ATTEND Surgery
DX: K29.70 Gastritis, unspecified, without bleeding (principal); K44.9 Diaphragmatic hernia without obstruction or gangrene; R10.9 Unspecified abdominal pain; K22.2 Esophageal obstruction; I10 Essential (primary) hypertension; Z79.899 Other long term (current) drug therapy
CPT/HCPCS: 82947; 93005; J1610; J2250; J2704

== ENCOUNTER 2023-09-10 12:17 | Emergency (ER) | payer MEDICARE ==
[2023-09-10 12:56] VITALS: TEMP 97.2
[2023-09-10 13:10] LABS: Absolute Neutrophil Ct (ANC) 2.17 x10^3/uL (1.4-6.9); Basophil (Absolute #) 0.05 x10^3/uL (0-0.4); Eosinophil % 21.1 % (0.00-5.0); Eosinophil (Absolute #) 1.11 x10^3/uL (0-0.5); Hematocrit 41.2 % (35-47); IMMATURE GRAN # 0.02 x10^3u/L (0.00-0.03); IMMATURE GRAN % 0.4 % (0.00-0.4); Lymphocyte (Absolute #) 1.55 x10^3/uL (1.0-4.6); Lymphocytes % 29.5 % (24.0-44.0); Mean Cell Volume 95.4 fL (78-100); Mean Corpuscular Hemoglobin 32.4 pg (26-32); Monocyte (Absolute #) 0.35 x10^3/uL (0.0-1.3); Monocytes % 6.7 % (0.0-12.0); Neutrophil % 41.3 % (36.0-66.0); Platelet Count 146 x10^3/uL (150-450); Red Blood Count 4.32 x10^6/uL (4.1-5.4); White Blood Count 5.3 x10^3/uL (4.0-10.5)
--- NOTE | 2023-09-10 13:10 | ERPHSYRPT ---
- History of Present Illness Time Seen by Provider: 09/10/23 13:00 Historian: patient Exam Limitations: no limitations Patient Subjective Stated Complaint: pt here for abd pain and pain all over "for a long time. SInce i had a scope" pt had egd and colonoscopy and states since then she has hurt, and is nauseated but able to eat, she is a poor historian Triage Nursing Assessment: pt alert, arrived to , alert, resp easy, skin w/d/p. abd soft, no vomiting at this time, moves all ext well Physician History: 68-year-old female presents to emergency department for evaluation of abdominal pain. Patient abdominal pain began yesterday. Patient reports she recently had a procedure EGD and a colonoscopy which she was diagnosed with gastritis. Procedure was performed on 08/29/2023. Patient feels her abdominal pain is p rogressing. Pain described as a generalized ache. Mild lower chest pain. Patient symptoms are progressive. Symptoms are moderate in intensity. Palpation reproduces pain. Pain improved with rest. Patient denies a history of the same. She voices no other complaints or concerns at this time. Portions of this note were created with voice recognition technology. There may be grammatical, spelling, punctuation or sound alike errors Timing/Duration: yesterday Activities at Onset: none Quality: aching Abdominal Pain Onset Location: generalized abdomen Pain Radiation: no radiation Severity of Pain-Max: moderate Severity of Pain-Current: moderate Modifying Factors: Improves With: palpation Associated Symptoms: chest pain Previous symptoms: no prior history Allergies/Adverse Reactions: No Known Drug Allergies Allergy (Verified 09/10/23 13:01) Home Medications: Bisoprolol/Hydrochlorothiazide [Bisoprolol-Hctz 10-6.25 mg Tab] 1 mg PO DAILY 06/02/20 [History] lisinopriL [Zestril] 2.5 mg PO DAILY 12/13/22 [History] Hydroxychloroquine Sulfate 200 mg PO DAILY 08/29/23 [History] Pramipexole Di-HCl [Pramipexole Dihydrochloride] 0.5 mg PO TID 08/29/23 [History] Hx Tetanus, Diphtheria Vaccination/Date Given: No Hx Influenza Vaccination/Date Given: No Hx Pneumococcal Vaccination/Date Given: No Immunizations Up to Date: Yes Travel Risk - International Travel Have you traveled outside of the country in past 3 weeks: No - Coronavirus Screening Are you exhibiting any of the following symptoms?: No Close contact with a COVID-19 positive Pt in past 14-21 Days: No - Vaccine Status Have you recieved a Covid-19 vaccination: No - Review of Systems Constitutional: No Symptoms, No Fever, No Chills Eyes: No Symptoms Ears, Nose, & Throat: No Symptoms Respiratory: No Symptoms, No Cough, No Dyspnea Cardiac: No Symptoms, No Chest Pain, No Edema, No Syncope Abdominal/Gastrointestinal: No Symptoms, No Abdominal Pain, No Nausea, No Vomiting, No Diarrhea Genitourinary Symptoms: No Symptoms, No Dysuria Musculoskeletal: No Symptoms, No Back Pain, No Neck Pain Skin: No Symptoms, No Rash Neurological: No Symptoms, No Dizziness, No Focal Weakness, No Sensory Changes Psychological: No Symptoms Endocrine: No Symptoms Hematologic/Lymphatic: No Symptoms Immunological/Allergic: No Symptoms All Other Systems: Reviewed and Negative - Past Medical History Pertinent Past Medical History: Yes Neurological History: Other ENT History: No Pertinent History Cardiac History: No Pertinent History Respiratory History: No Pertinent History Endocrine Medical History: Diabetes Type II Musculoskeletal History: No Pertinent History GI Medical History: Colitis, Other History: No Pertinent History, Other Psycho-Social History: Depression Female Reproductive Disorders: No Pertinent History Other Medical History: PMHX - SPLENOMEGALY, FX RIGHT FOREARM (CASTED). IBS. PATIENT WITH MULTIPLE SKIN PLAQUES ESPECIALLY ELBOWS AND KNEES - STATES HAS HAD IT FOR YEARS. APPEARANCE IS SIMILAR TO PSORIASIS BUT STATES HASN'T BEEN DIAGNO SED. SX HX: CHOLECYSTECTOMY, gastritis and hiatal hernia 2023. P STATES SHE HAS "LIVER PROBLEMS" BUT UNSURE WHAT KIND - Past Surgical History Past Surgical History: Yes Neuro Surgical History: No Pertinent History Cardiac: No Pertinent History Respiratory: No Pertinent History Gastrointestinal: Cholecystectomy, Hernia Repair Genitourinary: Other Musculoskeletal: Other Female Surgical History: Lumpectomy, Tubal Ligation Other Surgical History: Kidney Stones. R knee scope - Social History Smoking Status: Never smoker Exposure to second hand smoke: Yes Drug Use: none Patient Lives Alone: No - Nursing Vital Signs Nursing Vital Signs: Initial Vital Signs Blood Pressure 132/77 09/10/23 12:51 O2 Sat by Pulse Oximetry 97 09/10/23 12:51 Pain Scale Pain Intensity 10 - Physical Exam General Appearance: no apparent distress, alert Eye Exam: PERRL/EOMI, eyes nml inspection Ears, Nose, Throat Exam: normal ENT inspection, pharynx normal, moist mucous membranes Neck Exam: normal inspection, non-tender, supple, full range of motion Respiratory Exam: normal breath sounds, lungs clear, airway intact, No respiratory distress Cardiovascular Exam: regular rate/rhythm, normal heart sounds, normal peripheral pulses Gastrointestinal/Abdomen Exam: soft, No tenderness, No mass Back Exam: normal inspection, normal range of motion, No CVA tenderness, No vertebral tenderness Extremity Exam: normal inspection, normal range of motion, pelvis stable Neurologic Exam: alert, oriented x 3, cooperative, normal mood/affect, nml cerebellar function, sensation nml, No motor deficits Skin Exam: normal color, warm, dry SpO2 Interpretation: normal SpO2: 99 O2 Delivery: Room Air - Course Nursing assessment & vital signs reviewed: Yes - CT Exams Abdomen/Pelvis CT Interpretation: Tele-radiologist Report (No acute findings) Ordered Tests: Active Orders 24 hr Category Date Time Status IV Insertion STAT Care 09/10/23 13:05 Active ABDOMEN AND PELVIS W/0 CONTRAS [CT] Stat Exams 09/10/23 13:05 Completed CBC W DIFF Stat Lab 09/10/23 13:05 Completed CMP Stat Lab 09/10/23 13:10 Completed CULTURE,URINE Stat Lab 09/10/23 13:09 Received LIPASE Stat Lab 09/10/23 13:10 Completed TROPONIN Q4H Lab 09/10/23 13:10 Completed TROPONIN Q4H Lab 09/10/23 15:54 Completed TROPONIN Q4H Lab 09/10/23 21:15 Ordered UA W/RFX UR CULTURE Stat Lab 09/10/23 13:09 Completed Medication Summary Discontinued Medications Generic Name Dose Route Start Last Admin Trade Name Freq PRN Reason Stop Dose Admin Sodium Chloride 500 mls @ 500 mls/hr 09/10/23 15:47 09/10/23 16:57 Sodium Chloride 0.9% 500 Ml IV 09/10/23 16:46 Infused .Q1H ONE Infusion Sodium Chloride Confirm 09/10/23 15:48 Sodium Chloride 0.9% 500 Ml Administered 09/10/23 15:49 Dose 500 mls @ ud IV .STK-MED ONE Ketorolac Tromethamine 30 mg 09/10/23 13:05 09/10/23 13:18 Ketorolac Tromethamine 30 Mg/Ml Inj IV 09/10/23 13:06 30 mg STAT ONE Administration Ketorolac Tromethamine Confirm 09/10/23 13:16 Ketorolac Tromethamine 30 Mg/Ml Inj Administered 09/10/23 13:17 Dose 30 mg .ROUTE .[facility]-MED ONE Lab/Rad Data: Laboratory Result Diagrams 09/10/23 13:05 09/10/23 13:10 Laboratory Results 09/10/23 09/10/23 09/10/23 Range/Units 15:54 13:10 13:10 WBC (4.0-10.5) x10^3/uL RBC (4.1-5.4) x10^6/uL Hgb (12.0-16.0) g/dL Hct (35-47) % MCV (78-100) fL MCH (26-32) pg MCHC (32-36) g/dL RDW (11.5-14.0) % Plt Count (150-450) x10^3/uL MPV (7.5-11.0) fL Gran % (36.0-66.0) % Immature Gran % (Auto) (0.00-0.4) % Nucleat RBC Rel Count (0.00-0.1) % Eos # (Auto) (0-0.5) x10^3/uL Immature Gran # (Auto) (0.00-0.03) x10^3u/L Absolute Lymphs (auto) (1.0-4.6) x10^3/uL Absolute Monos (auto) (0.0-1.3) x10^3/uL Absolute Nucleated RBC (0.00-0.01) x10^3u/L Lymphocytes % (24.0-44.0) % Monocytes % (0.0-12.0) % Eosinophils % (0.00-5.0) % Basophils % (0.0-0.4) % Absolute Granulocytes (1.4-6.9) x10^3/uL Basophils # (0-0.4) x10^3/uL Sodium 139 (135-145) mmol/L Potassium 3.6 (3.5-5.1) mmol/L Chloride 102 (98-107) mmol/L Carbon Dioxide 28 (22-30) mmol/L Anion Gap 12.7 (5-15) MEQ/L BUN 14 (7-17) mg/dL Creatinine 0.83 (0.52-1.04) mg/dL Estimated GFR 77.7 ML/MIN Glucose 97 (74-106) mg/dL Calcium 9.3 (8.4-10.2) mg/dL Total Bilirubin 0.80 (0.2-1.3) mg/dL AST 31 (14-36) U/L ALT 20 (0-35) U/L Alkaline Phosphatase 100 (38-126) U/L Troponin I < 0.012 < 0.012 (0.000-0.034) ng/mL Serum Total Protein 7.8 (6.3-8.2) g/dL Albumin 4.1 (3.5-5.0) g/dL Lipase 70 (23-300) U/L Urine Color (Yellow) Urine Appearance (Clear) Urine pH (4.6-8.0) Ur Specific [place] (1.005-1.030) Urine Protein (Negative) Urine Glucose (UA) (Negative) mg/dL Urine Ketones (Negative) Urine Blood (Negative) Urine Nitrite (Negative) Urine Bilirubin (Negative) Urine Urobilinogen (0.2) mg/dL Ur Leukocyte Esterase (Negative) U Hyaline Cast (Auto) (0-2) /LPF Urine Microscopic RBC (0-5) /HPF Urine Microscopic WBC (0-5) /HPF Ur Epithelial Cells (None Seen) /HPF Urine Bacteria (None Seen) /HPF Urine Culture Reflexed (NO) 09/10/23 09/10/23 Range/Units 13:09 13:05 WBC 5.3 (4.0-10.5) x10^3/uL RBC 4.32 (4.1-5.4) x10^6/uL Hgb 14.0 (12.0-16.0) g/dL Hct 41.2 (35-47) % MCV 95.4 (78-100) fL MCH 32.4 H (26-32) pg MCHC 34.0 (32-36) g/dL RDW 12.0 (11.5-14.0) % Plt Count 146 L (150-450) x10^3/uL MPV 10.0 (7.5-11.0) fL Gran % 41.3 (36.0-66.0) % Immature Gran % (Auto) 0.4 (0.00-0.4) % Nucleat RBC Rel Count 0.0 (0.00-0.1) % Eos # (Auto) 1.11 H (0-0.5) x10^3/uL Immature Gran # (Auto) 0.02 (0.00-0.03) x10^3u/L Absolute Lymphs (auto) 1.55 (1.0-4.6) x10^3/uL Absolute Monos (auto) 0.35 (0.0-1.3) x10^3/uL Absolute Nucleated RBC 0.00 (0.00-0.01) x10^3u/L Lymphocytes % 29.5 (24.0-44.0) % Monocytes % 6.7 (0.0-12.0) % Eosinophils % 21.1 H (0.00-5.0) % Basophils % 1.0 (0.0-0.4) % Absolute Granulocytes 2.17 (1.4-6.9) x10^3/uL Basophils # 0.05 (0-0.4) x10^3/uL Sodium (135-145) mmol/L Potassium (3.5-5.1) mmol/L Chloride (98-107) mmol/L Carbon Dioxide (22-30) mmol/L Anion Gap (5-15) MEQ/L BUN (7-17) mg/dL Creatinine (0.52-1.04) mg/dL Estimated GFR ML/MIN Glucose (74-106) mg/dL Calcium (8.4-10.2) mg/dL Total Bilirubin (0.2-1.3) mg/dL AST (14-36) U/L ALT (0-35) U/L Alkaline Phosphatase (38-126) U/L Troponin I (0.000-0.034) ng/mL Serum Total Protein (6.3-8.2) g/dL Albumin (3.5-5.0) g/dL Lipase (23-300) U/L Urine Color Dark Yellow A (Yellow) Urine Appearance Cloudy A (Clear) Urine pH 5.5 (4.6-8.0) Ur Specific [place] 1.020 (1.005-1.030) Urine Protein Negative (Negative) Urine Glucose (UA) Negative (Negative) mg/dL Urine Ketones Negative (Negative) Urine Blood Negative (Negative) Urine Nitrite Negative (Negative) Urine Bilirubin Negative (Negative) Urine Urobilinogen 1.0 A (0.2) mg/dL Ur Leukocyte Esterase Small A (Negative) U Hyaline Cast (Auto) NONE SEEN (0-2) /LPF Urine Microscopic RBC NONE SEEN (0-5) /HPF Urine Microscopic WBC 3-5 (0-5) /HPF Ur Epithelial Cells Few (None Seen) /HPF Urine Bacteria Moderate A (None Seen) /HPF Urine Culture Reflexed YES (NO) - Progress Progress: improved Progress Note: 68-year-old female presents to our ED for evaluation of abdominal discomfort. Patient concerned as she recently had a and the scopic procedure. Physical exam reveals some abdominal tenderness. Otherwise unremarkable physical exam. Laboratory workup nonremarkable. CT abdomen pelvis initially negative for acute intra-abdominal pathology. Troponin negative x 2. Vital stable. No indication for further workup at this time. Will discharge home. Urinalysis shows dark cloudy urine however no other markers of infection. UA reflex in the culture. Results pending. No indication for antibiotics at this time. No pyuria no leuk esterase no nitrite. Patient is ready for discharge. No active abdominal pain. Patient agrees to follow-up with her primary care doctor within 48 hours for evaluation. Portions of this note were created with voice recognition technology. There may be grammatical, spelling, punctuation or sound alike errors Complexity problem addressed is moderate acute complicated No critical care time Complex of data reviewed and analyzed is moderate. Test ordered test reviewed. Results analyzed and correlated clinically with history and physical exam. Risk of complication and or risk of morbidity/mortality of patient management is low. Vital stable. Time spent to discharge patient is approximately 20 minutes. Plan of care established for shared decision making. No social determinants of health present impede follow-up. Portions of this note were created with voice recognition technology. There may be grammatical, spelling, punctuation or sound alike errors 09/10/23 17:13 Counseled pt/family regarding: lab results, diagnosis, need for follow-up, rad results - Departure Departure Disposition: Home Clinical Impression: Left lung granuloma, Diverticulosis, Splenomegaly, Intramuscular lipoma, Pelvic ventral hernia, Dehydration Condition: Stable Critical Care Time: No Referrals: APOLINAR PANTOJA NP [Primary Care Provider] - Follow up/PCP as directed Additional Instructions: Discharge/Care Plan ALLEN PEGUERO was seen on 09/10/23 in the Emergency Room. The patient was counseled regarding Diagnosis,Lab results, Imaging studies, need for follow up and when to return to the Emergency Room. Prescriptions given: Discharge Note I have spoken with the patient and/or caregivers. I have explained the patient's condition, diagnosis and treatment plan based on the information available to me at this time. I have answered the patient's and/or caregiver's questions and addressed any concerns. The patient and/or caregivers have as good understanding of the patient's diagnosis, condition and treatment plan as can be expected at this point. The vital signs have been stable. The patient's condition is stable and appropriate for discharge from the emergency department. The patient will pursue further outpatient evaluation with the primary care physician or other designated or consulting physician as outlined in the discharge instructions. The patient and/or caregivers are agreeable to this plan of care and follow-up instructions have been explained in detail. The patient and/or caregivers have received these instruction. The patient/and or caregivers are aware that any significant change in condition or worsening of symptoms should prompt an immediate return to this or the closest emergency department or call 911.
[2023-09-10] MEDS ORDERED: TORAdol 30 mg Injection ONE (13:16)
[2023-09-10] MEDS: TORAdol 30 mg Injection IV ONE (13:18)
[2023-09-10 13:22] LABS: ALBUMIN 4.1 g/dL (3.5-5.0); ANION GAP 12.7 MEQ/L (5-15); BILIRUBIN,TOTAL 0.8 mg/dL (0.2-1.3); Calcium 9.3 mg/dL (8.4-10.2); Creatinine 1 0.83 mg/dL (0.52-1.04); EST GLOMERULAR FILTRATION RATE 77.7 ML/MIN; Potassium 3.6 mmol/L (3.5-5.1); Total Protein 7.8 g/dL (6.3-8.2)
[2023-09-10 13:24] LABS: Appearance Cloudy (Clear); Bacteria Moderate /HPF (None Seen); Bilirubin Negative (Negative); Blood Negative (Negative); Glucose, Urine Negative (Negative); Hyaline Casts NONE SEEN /LPF (0-2); Ketones Negative (Negative); Leukocyte Esterase Small (Negative); Nitrite Negative (Negative); Ph 5.5 (4.6-8.0); Protein,Urine Dip Negative (Negative)
[2023-09-10 13:33] LABS: ADD URINE CULTURE? YES (NO); Epithelial Cells Few /HPF (None Seen); RBC NONE SEEN /HPF (0-5)
--- NOTE | 2023-09-10 13:48 | XRAY ---
Indication: Pain. Status post EGD August 29, 2023. Multiple contiguous axial images obtained through abdomen and pelvis without contrast. Comparison: August 06, 2023 Lung bases clear again with tiny left base cuspid granuloma. Heart not enlarged. Noncontrasted stomach and bowel loops nonobstructed with normal appendix. Again mild descending/sigmoid diverticulosis, 13.7 cm splenomegaly, small distal right iliopsoas intramuscular lipoma, cholecystectomy, and hysterectomy. No free fluid/air. Remaining liver, pancreas, spleen, adrenal glands, kidneys, ureters, and bladder are unremarkable for noncontrast exam. Stable minimal aortoiliac calcifications without AAA. Osseous structures intact again with mild degenerative changes throughout the spine. Stable pelvic abdominal wall small midline ventral hernia with herniated omental fat and loop of small bowel without complications. Impression: No change compared to exam one month ago. Again splenomegaly, colonic diverticulosis, right iliopsoas intramuscular lipoma, arteriosclerotic disease, degenerative spondylosis, pelvic ventral hernia, and old granulomatous disease. No new/acute findings on this noncontrast exam.
[2023-09-10] MEDS ORDERED: Sodium Chloride 0.9% 500 ML 500 ML IV ONE (15:48)
[2023-09-10] MEDS: Sodium Chloride 0.9% 500 ML 500 ML IV ONE (15:50)
[2023-09-10 16:57] VITALS: BP 130/70
[2023-09-10 17:16] VITALS: PULSE 64; RESP 16
[2023-09-10 17:18] VITALS: O2SAT 99
== END 2023-09-10 17:25 | disposition home or self-care (01) ==
LOC: ED 12:17
DX: J84.10 Pulmonary fibrosis, unspecified (principal); K57.90 Diverticulosis of intestine, part unspecified, without perforation or abscess without bleeding; R16.1 Splenomegaly, not elsewhere classified; D17.9 Benign lipomatous neoplasm, unspecified; K43.9 Ventral hernia without obstruction or gangrene; E86.0 Dehydration; R10.84 Generalized abdominal pain; E11.9 Type 2 diabetes mellitus without complications; Z79.899 Other long term (current) drug therapy; Z28.310 Unvaccinated for COVID-19
CPT/HCPCS: 36000; 36415; 74176; 80053; 81001; 83690; 84484; 85025; 87086; 96374; 99284; J1885

== ENCOUNTER 2023-12-12 06:37 | Day surgery (SDC) | payer MEDICARE ==
--- NOTE | 2023-12-10 18:40 | HP ---
HISTORY OF PRESENT ILLNESS: Patient is a 68-year-old female who is quite a poor historian about her health. She seems to be really nonparticipatory. She complains of pain in her low abdomen. She does have a low transverse incision with about a 5 cm ventral hernia that is soft and tender, but does reduce today. She also had a CAT scan demonstrating a hernia at the site. She desires surgical repair. PAST MEDICAL HISTORY: Hypertension, anxiety/depression. HOME MEDICATIONS: Premarin, naproxen, lisinopril, cyclobenzaprine, bisoprolol, hydrochloroquine, potassium, folic acid, olmesartan, sertraline, folic acid, pramipexole. ALLERGIES: Negative. PAST SURGICAL HISTORY: EGD, colporrhaphy. She has a low transverse incision. She really does not remember what all surgeries she had. SOCIAL HISTORY: Negative. FAMILY HISTORY: None reported. REVIEW OF SYSTEMS: CONSTITUTIONAL: Denies fever, chills. CHEST: Denies shortness of breath. Currently no chest pain. ABDOMEN: Reports low abdominal pain. PHYSICAL EXAMINATION: GENERAL: No acute distress. CVS: Regular rate and rhythm. RESPIRATORY: Nonlabored. No shortness of breath. ABDOMEN: Soft with a low transverse incision with a 5 cm ventral hernia, soft, and reduces. ASSESSMENT: Ventral incisional hernia, low transverse incision. PLAN: Ventral hernia repair with Dr. José Miguel King. This report was dictated for Dr. King by Viki Cunningham NP.
[2023-12-12 06:53] VITALS: RESP 18
[2023-12-12] MEDS: MEFOXIN 2 GM PREMIX** 2 GM/50 ML ML IV SCH (07:04)
[2023-12-12] MEDS: Lactated Ringers 1,000 ML IV SCH (07:05)
[2023-12-12] MEDS ORDERED: Sensorcaine 0.25% 10 ML ONE ×2 (07:18→08:11)
[2023-12-12] MEDS ORDERED: Lactated Ringers 1,000 ML IV ONE ×2 (08:11→11:48)
[2023-12-12] MEDS ORDERED: KEFZOL 1 GM ONE (08:11)
[2023-12-12] MEDS ORDERED: Zofran 4 MG/2 ML VIAL ONE (10:07)
[2023-12-12] MEDS ORDERED: ROCURONIUM BROMIDE IV ONE (10:07)
[2023-12-12] MEDS ORDERED: Decadron 4 MG INJ ONE (10:07)
[2023-12-12] MEDS ORDERED: Naropin 0.5% 30 ML VIAL ONE (10:07)
[2023-12-12] MEDS ORDERED: DIPRIVAN 200 MG/20 ML IV ONE (10:07)
[2023-12-12] MEDS ORDERED: SUBLIMAZE 100 MCG/2 ML ONE ×2 (10:53→12:28)
[2023-12-12] MEDS ORDERED: BRIDION 200MG/2ML IV ONE (11:19)
[2023-12-12 13:03] VITALS: TEMP 97.8; O2SAT 94
[2023-12-12 13:15] VITALS: BP 110/69; PULSE 50
--- NOTE | 2023-12-12 18:16 | OP ---
SURGERY DATE/TIME: 12/12/2023 PREOPERATIVE DIAGNOSIS: Symptomatic ventral abdominal hernia. POSTOPERATIVE DIAGNOSIS: Symptomatic ventral abdominal hernia. PROCEDURE: Primary open ventral herniorrhaphy with mesh. SURGEON: José Miguel King MD ANESTHESIA: General. COMPLICATIONS: None. CONDITION: Stable. INDICATIONS: The patient has a symptomatic ventral hernia. DESCRIPTION OF PROCEDURE AND FINDINGS: Patient taken to surgery. General anesthetic. Routine prep and drape. Transverse incision. Defect was 2-1/2 inches circular. There was a 10-inch sac coming through this and this was all taken. The hernia edge was defined. Starting with two sutures of 0 Prolene, a 1 x 4 mesh was cut. The hernia sac dissected out. Excess sac removed. Sent as specimen. The defect was about 2-1/2 inches. A 3-inch circular mesh was placed, pulled up. The ring was secured throughout with 0 Prolene. It lay very nicely. The abdominal wall and superficial fascia closed with 3-0 Vicryl, skin closed with 4-0 Vicryl. Steri-Strips applied. Sterile dressing applied. Patient tolerated procedure satisfactory.
== END 2023-12-12 13:22 | disposition home or self-care (01) ==
LOC: SDC 06:37 → EDSTATUS 11:41 → SDC 13:22
PROVIDERS: ATTEND Surgery
DX: K43.9 Ventral hernia without obstruction or gangrene (principal)
CPT/HCPCS: 49595; 64488; 76937; C1781; 36415; 80048; J0690; J0694; J1100; J2405; J2704; J2795; J3010; L0625

== ENCOUNTER 2024-01-23 15:47 | Observation (INO) | payer MEDICARE, OTHER ==
--- NOTE | 2024-01-23 15:58 | ERPHSYRPT ---
- History of Present Illness Time Seen by Provider: 01/23/24 15:57 Source: patient Exam Limitations: no limitations Physician History: This is an obese 68-year-old white female patient who was brought in by family members (brother and sister)" dropped off". Patient's primary care provider is nurse raisa Marie. Patient complains of abdominal pain in the bilateral upper quadrant bilateral lower quadrant that have been present for a long time. Patient is a poor historian. She cannot tell me specifically when the pain began or what makes it better or worse. Per the patient family members, the [facility]CO ([facility]) told them to bring the patient here to be admitted for 3-day stay in order to have her qualify for long-term mcc placement. Patient denies chest pain. Patient denies shortness of breath. Patient has history of hypertension, hypothyroidism, irritable bowel syndrome/colitis, degenerative disc disease, some type of "liver disease", depression and chronic patches of abnormal skin lesion/rash that has not been defined. Timing/Duration: other (Chronic) Severity: mild Modifying Factors: Improves With: nothing (To moderate) Associated Symptoms: abdominal pain, rash (Chronic), No nausea, No vomiting, No shortness of breath, No chest pain Allergies/Adverse Reactions: No Known Drug Allergies Allergy (Verified 01/23/24 16:01) Home Medications: Bisoprolol/Hydrochlorothiazide [Bisoprolol-Hctz 10-6.25 mg Tab] 1 tab PO DAILY 01/23/24 [History] Hydroxychloroquine Sulfate [Plaquenil] 200 mg PO BID 01/23/24 [History] Potassium Chloride [Klor-Con M20] 20 meq PO BID 01/23/24 [History] Pramipexole Di-HCl [Pramipexole Dihydrochloride] 0.5 mg PO TID 01/23/24 [History] Hx Tetanus, Diphtheria Vaccination/Date Given: No Hx Influenza Vaccination/Date Given: No Hx Pneumococcal Vaccination/Date Given: No Travel Risk - International Travel Have you traveled outside of the country in past 3 weeks: No - Emerging Infectious Disease Are you exhibiting symptoms associated with any current EIDs: No - Review of Systems Constitutional: No Symptoms Eyes: No Symptoms Ears, Nose, & Throat: No Symptoms Respiratory: No Symptoms Cardiac: No Symptoms Abdominal/Gastrointestinal: Abdominal Pain Genitourinary Symptoms: No Symptoms Musculoskeletal: No Symptoms Skin: Rash (Chronic patches of abnormal skin rash) Neurological: No Symptoms Psychological: No Symptoms Endocrine: No Symptoms Hematologic/Lymphatic: No Symptoms, Easy Bruising All Other Systems: Reviewed and Negative - Past Medical History Pertinent Past Medical History: Yes Neurological History: Other ENT History: No Pertinent History Cardiac History: No Pertinent History Respiratory History: No Pertinent History Endocrine Medical History: No Pertinent History Musculoskeletal History: No Pertinent History GI Medical History: Colitis, Other History: No Pertinent History, Other Psycho-Social History: Depression Female Reproductive Disorders: No Pertinent History Other Medical History: PMHX - SPLENOMEGALY, FX RIGHT FOREARM (CASTED). IBS. PATIENT WITH MULTIPLE SKIN PLAQUES ESPECIALLY ELBOWS AND KNEES - STATES HAS HAD IT FOR YEARS. APPEARANCE IS SIMILAR TO PSORIASIS BUT STATES HASN'T BEEN DIAGNOSED. SX HX: CHOLECYSTECTOMY, gastritis and hiatal hernia 2023. P STATES SHE HAS "LIVER PROBLEMS" BUT UNSURE WHAT KIND - Past Surgical History Past Surgical History: Yes Neuro Surgical History: No Pertinent History Cardiac: No Pertinent History Respiratory: No Pertinent History Gastrointestinal: Cholecystectomy, Hernia Repair Genitourinary: Other Musculoskeletal: Other Female Surgical History: Lumpectomy, Tubal Ligation Other Surgical History: Kidney Stones. R knee scope - Social History Smoking Status: Never smoker Exposure to second hand smoke: Yes Drug Use: none Patient Lives Alone: No - Nursing Vital Signs Nursing Vital Signs: Initial Vital Signs Blood Pressure 115/70 01/23/24 16:03 Pain Scale Pain Intensity 5 - Physical Exam General Appearance: no apparent distress, alert, anxiety, obese Eye Exam: PERRL/EOMI, eyes nml inspection Ears, Nose, Throat Exam: normal ENT inspection, moist mucous membranes Neck Exam: normal inspection, non-tender, supple, full range of motion Respiratory Exam: normal breath sounds, lungs clear, airway intact, No chest tenderness, No respiratory distress Cardiovascular Exam: regular rate/rhythm, normal heart sounds, normal peripheral pulses Gastrointestinal/Abdomen Exam: soft, normal bowel sounds, tenderness (Diffuse tenderness to palpation. Bilateral lower quadrants worse than bilateral upper quadrants), guarding (Diffuse tenderness but), No pulsatile mass ( bilateral lower quadrants appear to be worse), No rebound Pelvic Exam: not done Rectal Exam: not done Back Exam: normal inspection, normal range of motion, No CVA tenderness, No vertebral tenderness Extremity Exam: normal inspection, normal range of motion, pelvis stable Neurologic Exam: alert, oriented x 3, cooperative, template clerk II-XII nml as tested, nml cerebellar function, nml station & gait, sensation nml Skin Exam: rash (Patches of reddish plaque-like rash on multiple areas of her body. There is also similar type rashes in the folds of the patient's pannus and antecubital fossa bilaterally) Lymphatic Exam: No adenopathy SpO2 Interpretation: normal O2 Delivery: Room Air - Course Nursing assessment & vital signs reviewed: Yes Ordered Tests: Active Orders 24 hr Category Date Time Status IV Insertion STAT Care 01/23/24 16:17 Active cath [Cath for Specimen-Straight] STAT Care 01/23/24 16:47 Active ABDOMEN AND PELVIS W/0 CONTRAS [CT] Stat Exams 01/23/24 16:18 Taken AMYLASE Stat Lab 01/23/24 16:40 Completed CBC W DIFF Stat Lab 01/23/24 16:40 Completed CMP Stat Lab 01/23/24 16:40 Completed CULTURE,URINE Stat Lab 01/23/24 16:48 Received LIPASE Stat Lab 01/23/24 16:40 Completed UA W/RFX UR CULTURE Stat Lab 01/23/24 16:46 Completed Lab/Rad Data: Laboratory Result Diagrams 01/23/24 16:40 01/23/24 16:40 Laboratory Results 01/23/24 01/23/24 01/23/24 Range/Units 16:46 16:40 16:40 WBC 5.7 (3.98-10.04) x10^3/uL RBC 4.13 (3.93-5.22) x10^6/uL Hgb 13.2 (11.2-15.7) g/dL Hct 38.8 (34.1-44.9) % MCV 93.9 (79.4-94.8) fL MCH 32.0 (25.6-32.2) pg MCHC 34.0 (32.2-35.5) g/dL RDW 13.4 (11.7-14.4) % Plt Count 158 L (182-369) x10^3/uL MPV 10.4 (9.4-12.3) fL Gran % 43.5 (34.0-71.1) % Immature Gran % (Auto) 0.4 (0.001-0.429) % Nucleat RBC Rel Count 0.0 (0.00-0.2) % Eos # (Auto) 0.77 H (0.04-0.36) x10^3/uL Immature Gran # (Auto) 0.02 (0.001-0.031) x10^3u/L Absolute Lymphs (auto) 1.98 (1.18-3.74) x10^3/uL Absolute Monos (auto) 0.39 (0.24-0.86) x10^3/uL Absolute Nucleated RBC 0.00 (0.00-0.012) x10^3u/L Lymphocytes % 34.8 (19.3-51.7) % Monocytes % 6.9 (4.7-12.5) % Eosinophils % 13.5 H (0.7-5.8) % Basophils % 0.9 (0.1-1.2) % Absolute Granulocytes 2.48 (1.56-6.13) x10^3/uL Basophils # 0.05 (0.01-0.08) x10^3/uL Sodium 138 (135-145) mmol/L Potassium 3.5 (3.5-5.1) mmol/L Chloride 102 (98-107) mmol/L Carbon Dioxide 29 (22-30) mmol/L Anion Gap 10.4 (5-15) MEQ/L BUN 13 (7-17) mg/dL Creatinine 0.85 (0.52-1.04) mg/dL Estimated GFR 75.5 ML/MIN Glucose 113 H (74-106) mg/dL Calcium 9.2 (8.4-10.2) mg/dL Total Bilirubin 0.80 (0.2-1.3) mg/dL AST 28 (14-36) U/L ALT 19 (0-35) U/L Alkaline Phosphatase 90 (38-126) U/L Serum Total Protein 6.9 (6.3-8.2) g/dL Albumin 3.8 (3.5-5.0) g/dL Amylase 57 (30-110) U/L Lipase 82 (23-300) U/L Urine Color Yellow (Yellow) Urine Appearance Clear (Clear) Urine pH 5.5 (4.6-8.0) Ur Specific [place] 1.020 (1.005-1.030) Urine Protein Negative (Negative) Urine Glucose (UA) Negative (Negative) mg/dL Urine Ketones Negative (Negative) Urine Blood Negative (Negative) Urine Nitrite Negative (Negative) Urine Bilirubin Negative (Negative) Urine Urobilinogen 1.0 A (0.2) mg/dL Ur Leukocyte Esterase Negative (Negative) U Hyaline Cast (Auto) NONE SEEN (0-2) /LPF Urine Microscopic RBC 3-5 (0-5) /HPF Urine Microscopic WBC 0-2 (0-5) /HPF Ur Epithelial Cells None Seen (None Seen) /HPF Urine Bacteria None Seen (None Seen) /HPF Urine Culture Reflexed ORDERED SEPARATELY (NO) Slides for Path Review YES - Progress Progress: unchanged, pain not gone completely Progress Note: 01/23/24 16:27 My medical decision making and the assignment of moderate complexity to this patient's medical issue today is based on review of the patient's past medical history, review of the patient's medication list, review the patient drug allergy list, history present illness and physical findings on examination. The workup in this patient includes placement of intravenous line, CBC, CMP, urinalysis, CT scan of the abdomen pelvis, amylase and lipase level 01/23/24 16:29 Differential diagnosis includes but is not limited to acute intra-abdominal or intrapelvic abnormality, electrolyte abnormalities, dehydration, pancreatitis, dehydration, urinary tract infection 01/23/24 17:58 I interpreted the patient's laboratory data results. Based on the laboratory data results, patient has no emergent, acute or admissible diagnosis. 01/23/24 18:[address] scan of the abdomen pelvis was interpreted by the radiologist and I reviewed the impression. The impression states minimal colitis/diverticulitis of the descending and sigmoid colon. 01/23/24 18:[address] Aviles, the telehospitalist on at this time. I reviewed the patient history, I reviewed the presenting complaint and the results of our workup. We also spoke with the patient's significant social and home issues. We will admit this patient for IV fluids, IV antibiotics and consult ACO for mcc placement. Counseled pt/family regarding: lab results, diagnosis, rad results Medical Desision Making - Independent Historian Additional History obtained from: Family - Discussion of managment Care discussed with:: hospitalist Reviewed:: Test results, Need for additional workup Agreed on:: decision to admit - Social Determinants of Health Pt's dx & treatment plan are significantly limited by SDOH: Unemployed, housing insecurity Limited access to: transportation - Diagnostic Testing Diagnostic test were ordered, analyzed, and reviewed by me: Yes Radiological Interpretation: Reviewed by me, Teleradiologist Report - Risk of complications The pt has a high risk of morbidity or mortality based on: Decision regarding hospitilization or escalation of hosp level of care - Departure Departure Disposition: In-patient Admission Clinical Impression: Diverticulitis Condition: Stable Critical Care Time: No Referrals: APOLINAR MARIE NP [Primary Care Provider] - Follow up/PCP as directed
[2024-01-23 16:52] LABS: Absolute Neutrophil Ct (ANC) 2.48 x10^3/uL (1.56-6.13); BASOPHIL % 0.9 % (0.1-1.2); Basophil (Absolute #) 0.05 x10^3/uL (0.01-0.08); Eosinophil % 13.5 % (0.7-5.8); Eosinophil (Absolute #) 0.77 x10^3/uL (0.04-0.36); Hematocrit 38.8 % (34.1-44.9); Hemoglobin 13.2 g/dL (11.2-15.7); IMMATURE GRAN # 0.02 x10^3u/L (0.001-0.031); IMMATURE GRAN % 0.4 % (0.001-0.429); Lymphocyte (Absolute #) 1.98 x10^3/uL (1.18-3.74); Lymphocytes % 34.8 % (19.3-51.7); Mean Cell Volume 93.9 fL (79.4-94.8); Mean Platelet Volume 10.4 fL (9.4-12.3); Monocyte (Absolute #) 0.39 x10^3/uL (0.24-0.86); Monocytes % 6.9 % (4.7-12.5); Neutrophil % 43.5 % (34.0-71.1); Platelet Count 158 x10^3/uL (182-369); Red Blood Count 4.13 x10^6/uL (3.93-5.22); Red Cell Distribution Width 13.4 % (11.7-14.4); White Blood Count 5.7 x10^3/uL (3.98-10.04)
[2024-01-23 16:59] LABS: Appearance Clear (Clear); Bacteria None Seen /HPF (None Seen); Bilirubin Negative (Negative); Blood Negative (Negative); Epithelial Cells None Seen /HPF (None Seen); Glucose, Urine Negative (Negative); Hyaline Casts NONE SEEN /LPF (0-2); Ketones Negative (Negative); Leukocyte Esterase Negative (Negative); Nitrite Negative (Negative); Ph 5.5 (4.6-8.0); Protein,Urine Dip Negative (Negative); WBC 0-2 /HPF (0-5)
[2024-01-23 17:00] LABS: ADD URINE CULTURE? ORDERED SEPARATELY (NO)
[2024-01-23 17:25] LABS: ALBUMIN 3.8 g/dL (3.5-5.0); ANION GAP 10.4 MEQ/L (5-15); BILIRUBIN,TOTAL 0.8 mg/dL (0.2-1.3); Calcium 9.2 mg/dL (8.4-10.2); Creatinine 1 0.85 mg/dL (0.52-1.04); EST GLOMERULAR FILTRATION RATE 75.5 ML/MIN; Potassium 3.5 mmol/L (3.5-5.1); Total Protein 6.9 g/dL (6.3-8.2)
[2024-01-23 17:41] LABS: Slide Review 1 YES
[2024-01-23] MEDS ORDERED: MORPHINE SULFATE 2 MG INJ IV PRN (21:11)
[2024-01-23] MEDS: Sodium Chloride 0.9% 1000 ML 1,000 ML IV SCH (22:12)
[2024-01-23] MEDS: TYLENOL 325 MG PO PRN (22:18)
--- NOTE | 2024-01-23 22:19 | XRAY ---
Indication: Abdominal pain. Multiple contiguous axial images obtained through the abdomen and pelvis without contrast. Comparison: September 10, 2023 Lung bases again demonstrates minimal subsegmental atelectasis/scarring. No infiltrate or effusion. Heart not enlarged. Stomach distended with food. Noncontrast is stomach and bowel loops appear nonobstructed. Normal appendix. Again scattered descending and sigmoid diverticulosis. Sigmoid colon and lesser degree distal descending now demonstrates mild circumferential wall thickening with minimal pericolonic stranding favoring colitis/diverticulitis. No free fluid/air. Again 13 cm splenomegaly, splenic calcified granulomas, nonobstructing left renal punctate calculus, small distal right iliopsoas intramuscular lipoma, cholecystectomy, hysterectomy. Remaining liver, pancreas, spleen, adrenal glands, kidneys, ureters, and bladder are unremarkable for noncontrast exam. Again minimal aortoiliac calcifications without AAA. Osseous structures intact again with osteopenia and mild degenerative changes throughout spine. Pelvic abdominal wall again demonstrates 3.5 cm wide ventral hernia with protruding omental fat. Impression: 1. No distal descending and sigmoid bowel wall thickening with minimal pericolic stranding favoring colitis/diverticulitis. No free fluid/air. 2. Again chronic findings including colonic diverticulosis, splenomegaly, nonobstructing left renal punctate calculus, right iliopsoas intramuscular lipoma, pelvic ventral hernia, arteriosclerotic disease, and old granulomatous disease.
--- NOTE | 2024-01-23 22:31 | PCM.HP ---
History of Present Illness - Chief Complaint Chief Complaint: abodminal pain Date: 01/23/24 History of Present Illness: 68 y/o F with h/o HTN, IBS, psoriatic plaques, and depression, who presents from home with abdominal pain. Per ED report, patient was brought in by family because they were no longer able to care for patient, and wanted to admit to [facility]. However, per patient, she was brought in for abdominal pain. She describes many months of constant, chronic, lower abdominal soreness, now very severe, worsened with immobility, unchanged by bowel movement or urination. No associated nausea, fevers, or diarrhea, but she has chronic constipation, requiring digital disimpaction to remove feces. She states that at baseline, she is independent with ADLs, ambulates independently in the house, makes her own meals. - Review of Systems Constitutional: No Fever, No Chills, No Fatigue, No Lethargy Eyes: No Vision Changes Ears, Nose, & Throat: No Nose Congestion, No Throat Pain Respiratory: No Orthopnea, No Short Of Breath Cardiac: Chest Pain, Edema Abdominal/Gastrointestinal: Abdominal Pain, Constipation, No Nausea, No Vomiting, No Diarrhea, No Hematochezia, No Melena Genitourinary Symptoms: No Dysuria, No Frequency Skin: Skin Lesions (multiple, said have been evaluated by never diagnosed) Medications & Allergies Home Medications: Home Medication List Bisoprolol/Hydrochlorothiazide [Bisoprolol-Hctz 10-6.25 mg Tab] 1 tab PO DAILY 01/23/24 [History Confirmed 01/23/24] Hydroxychloroquine Sulfate [Plaquenil] 200 mg PO BID 01/23/24 [History Confirmed 01/23/24] Potassium Chloride [Klor-Con M20] 20 meq PO BID 01/23/24 [History Confirmed 01/23/24] Pramipexole Di-HCl [Pramipexole Dihydrochloride] 0.5 mg PO TID 01/23/24 [History Confirmed 01/23/24] Allergies/Adverse Reactions: Allergies Allergy/AdvReac Type Severity Reaction Status Date / Time No Known Drug Allergies Allergy Verified 01/23/24 21:52 - Past Medical History Past Medical History: Yes Neurological History: Other ENT History: No Pertinent History Cardiac History: No Pertinent History Respiratory History: No Pertinent History Endocrine Medical History: No Pertinent History Musculoskelatal History: No Pertinent History GI Medical History: Colitis, Other History: No Pertinent History, Other Pyscho-Social History: Depression Reproductive Disorders: No Pertinent History Comment: PMHX - SPLENOMEGALY, FX RIGHT FOREARM (CASTED). IBS. PATIENT WITH MULTIPLE SKIN PLAQUES ESPECIALLY ELBOWS AND KNEES - STATES HAS HAD IT FOR YEARS. APPEARANCE IS SIMILAR TO PSORIASIS BUT STATES HASN'T BEEN DIAGNOSED. SX HX: CHOLECYSTECTOMY, gastritis and hiatal hernia 2023. P STATES SHE HAS "LIVER PROBLEMS" BUT UNSURE WHAT KIND - Past Surgical History Past Surgical History: Yes Neuro Surgical History: No Pertinent History Cardiac History: No Pertinent History Respiratory Surgery: No Pertinent History GI Surgical History: Cholecystectomy, Hernia Repair Genitourinary Surgical Hx: Other Musculskeletal Surgical Hx: Other Female Surgical History: Lumpectomy, Tubal Ligation Other Surgical History: Kidney Stones. R knee scope Significant Family History: no pertinent family hx - Social History Smoking Status: Never smoker Exposure to second hand smoke: Yes Alcohol: None Drug Use: none - Social Determinants of Health Will the patient participate in the screening: Yes Do you worry about a steady place to live?: No Do you have any problems with any of the following?: No known problems In the past 12 months,have you had to go without utilities?: No Have you or anyone in your house had to go without enough: No Transportation Issues: Yes Has anyone in your support network made you feel unsafe?: No Does the patient want assistance with any of the above?: No - Physical Exam Vital Signs: Vital Signs - 24 hr Temp Pulse Resp BP BP Pulse Ox 01/23/24 21:12 97.7 F 58 L 16 138/65 97 01/23/24 20:30 57 L 14 143/73 96 01/23/24 20:00 49 L 14 138/91 98 01/23/24 19:30 53 L 13 140/80 97 01/23/24 19:00 50 L 19 136/72 96 01/23/24 18:30 55 L 20 130/82 97 01/23/24 18:00 52 L 16 131/77 97 01/23/24 17:30 53 L 16 120/69 96 01/23/24 17:00 53 L 16 116/70 98 01/23/24 16:34 72 20 121/87 93 L 01/23/24 16:33 60 15 96 01/23/24 16:05 97.7 F 65 13 115/70 94 L 01/23/24 16:03 115/70 General Appearance: no apparent distress, alert Neurologic Exam: oriented x 3, cooperative, No motor deficits, No facial droop, No slurred speech Respiratory Exam: normal breath sounds, lungs clear Cardiovascular Exam: regular rate/rhythm, normal heart sounds, No murmur Gastrointestinal/Abdomen Exam: tenderness (mild), No distention, No guarding, No rebound Skin Exam: other (multiple scattered lesions in various stages of healing, over limbs, inner thighs. Erythematous, raised, patchy, but no clear scaling. Some central pallor, but irregular.) Results - Labs Lab/Micro Results: Lab Results-Last 24 Hours 01/23/24 01/23/24 01/23/24 Range/Units 16:40 16:40 16:46 WBC 5.7 (3.98-10.04) x10^3/uL RBC 4.13 (3.93-5.22) x10^6/uL Hgb 13.2 (11.2-15.7) g/dL Hct 38.8 (34.1-44.9) % MCV 93.9 (79.4-94.8) fL MCH 32.0 (25.6-32.2) pg MCHC 34.0 (32.2-35.5) g/dL RDW 13.4 (11.7-14.4) % Plt Count 158 L (182-369) x10^3/uL MPV 10.4 (9.4-12.3) fL Gran % 43.5 (34.0-71.1) % Immature Gran % (Auto) 0.4 (0.001-0.429) % Nucleat RBC Rel Count 0.0 (0.00-0.2) % Eos # (Auto) 0.77 H (0.04-0.36) x10^3/uL Immature Gran # (Auto) 0.02 (0.001-0.031) x10^3u/L Absolute Lymphs (auto) 1.98 (1.18-3.74) x10^3/uL Absolute Monos (auto) 0.39 (0.24-0.86) x10^3/uL Absolute Nucleated RBC 0.00 (0.00-0.012) x10^3u/L Lymphocytes % 34.8 (19.3-51.7) % Monocytes % 6.9 (4.7-12.5) % Eosinophils % 13.5 H (0.7-5.8) % Basophils % 0.9 (0.1-1.2) % Absolute Granulocytes 2.48 (1.56-6.13) x10^3/uL Basophils # 0.05 (0.01-0.08) x10^3/uL Sodium 138 (135-145) mmol/L Potassium 3.5 (3.5-5.1) mmol/L Chloride 102 (98-107) mmol/L Carbon Dioxide 29 (22-30) mmol/L Anion Gap 10.4 (5-15) MEQ/L BUN 13 (7-17) mg/dL Creatinine 0.85 (0.52-1.04) mg/dL Estimated GFR 75.5 ML/MIN Glucose 113 H (74-106) mg/dL Calcium 9.2 (8.4-10.2) mg/dL Total Bilirubin 0.80 (0.2-1.3) mg/dL AST 28 (14-36) U/L ALT 19 (0-35) U/L Alkaline Phosphatase 90 (38-126) U/L Serum Total Protein 6.9 (6.3-8.2) g/dL Albumin 3.8 (3.5-5.0) g/dL Amylase 57 (30-110) U/L Lipase 82 (23-300) U/L Urine Color Yellow (Yellow) Urine Appearance Clear (Clear) Urine pH 5.5 (4.6-8.0) Ur Specific [place] 1.020 (1.005-1.030) Urine Protein Negative (Negative) Urine Glucose (UA) Negative (Negative) mg/dL Urine Ketones Negative (Negative) Urine Blood Negative (Negative) Urine Nitrite Negative (Negative) Urine Bilirubin Negative (Negative) Urine Urobilinogen 1.0 A (0.2) mg/dL Ur Leukocyte Esterase Negative (Negative) U Hyaline Cast (Auto) NONE SEEN (0-2) /LPF Urine Microscopic RBC 3-5 (0-5) /HPF Urine Microscopic WBC 0-2 (0-5) /HPF Ur Epithelial Cells None Seen (None Seen) /HPF Urine Bacteria None Seen (None Seen) /HPF Urine Culture Reflexed ORDERED SEPARATELY (NO) Slides for Path Review YES - Radiology Impressions Radiology Exams & Impressions: Radiology Procedures Category Date Time Status ABDOMEN AND PELVIS W/0 CONTRAS [CT] Stat Exams 01/23/24 16:[address] Abd/pelvis - inflammation in sigmoid and distal descending colon, c/w diverticulitis Assessment/Plan (1) Diverticulitis Current Visit: Yes Status: Acute Assessment & Plan: 68 y/o F with h/o IBS-C, HTN, possibly hypothyroidism, here with acute diverticulitis. ## Acute colonic diverticulitis - presentation is unusual with this time frame, but compared to her CT scans earlier this spring when she was initially evaluated for abdominal pain, she now has inflammation around the distal colon. No signs of abscess or perforation, and VS are stable suggesting stable disease. - leave NPO - NS at 75 ml/hr - Zosyn q6h - PRN acetaminophen - if pain controlled tomorrow, can try advancing diet as tolerated ## IBS-C - no documented history, but presumed constipation type based on her symptoms. - add PRN Miralax; do not want to give right now to allow for bowel rest for diverticulitis above, but is she begins to have urge to defecate, can use ## Care needs - per report, patient unable to be cared for at home. Patient self-describes independence at home, but currently lacking secondary information from family/caregivers - reach out to family in the morning for collateral information - consult SW ## Hypertension - BP controlled currently - resume home bisoprolol/HCT ## Skin lesions - possibly psoriasis? Current lesions are variable, but could be consistent with a healing psoriatic plaque. - resume home Plaquenil Code status: Full code Prophylaxis: Lovenox Diet: NPO Code(s): K57.92 - DVTRCLI OF INTEST, PART UNSP, W/O PERF OR ABSCESS W/O BLEED Telemedicine Encounter - Telemedicine Encounter Telemedicine Encounter: "The entirety of this encounter was performed via Telemedicine" This visit was performed using real-time audio and video connection between my location and thepatients locationwith the assistance of a surrogateat the patients location. Written or verbal consent was obtained from the patient/guardian to perform this visit usingsynchronoustelemedicine technology. Any patient questions regarding the telemedicine interaction were answered.
[2024-01-23] MEDS ORDERED: Miralax Powder 17GM PACKET PO PRN (22:32)
[2024-01-23] MEDS ORDERED: PIPERACILLIN/TAZOBACTAM IV ONE (23:53)
[2024-01-23] MEDS ORDERED: Sodium Chloride 100ML MINI-BAG PLUS 100 ML IV ONE (23:54)
[2024-01-23] MEDS: PIPERACILLIN/TAZOBACTAM 3.375 GM in Sodium Chloride 100ML MINI-BAG PLUS 100 ML IV SCH (23:58)
[2024-01-24 04:41] LABS: Hemoglobin 12.8 g/dL (11.2-15.7); Mean Cell Volume 93.6 fL (79.4-94.8); Mean Corpuscular Hemoglobin 31.5 pg (25.6-32.2); Mean Corpuscular Hgb Concent. 33.7 g/dL (32.2-35.5); Mean Platelet Volume 10.1 fL (9.4-12.3); Platelet Count 108 x10^3/uL (182-369); Red Blood Count 4.06 x10^6/uL (3.93-5.22); Red Cell Distribution Width 13.2 % (11.7-14.4); White Blood Count 3.9 x10^3/uL (3.98-10.04)
[2024-01-24 05:32] LABS: ANION GAP 11.8 MEQ/L (5-15); Calcium 8.7 mg/dL (8.4-10.2); Creatinine 1 0.79 mg/dL (0.52-1.04); EST GLOMERULAR FILTRATION RATE 82.5 ML/MIN; Potassium 3.6 mmol/L (3.5-5.1); TSH, 3RD Generation 4.585 mIU/L (0.470-4.680)
[2024-01-24] MEDS ORDERED: Sodium Chloride 100ML MINI-BAG PLUS 100 ML IV ONE (05:51)
[2024-01-24] MEDS ORDERED: PIPERACILLIN/TAZOBACTAM IV ONE (05:51)
[2024-01-24] MEDS ORDERED: MEDICATION INTERVENTION MC SCH ×2 (08:00)
[2024-01-24] MEDS ORDERED: NON-FORMULARY ITEM (Potassium Chloride [Klor-Con M20] 20 MEQ Tab.Er.Prt) PO SCH (10:00)
[2024-01-24] MEDS ORDERED: NON-FORMULARY ITEM (Bisoprolol/Hydrochlorothiazide [Bisoprolol-Hctz 10-6.25 Mg Tab] 1 EACH PO SCH (10:00)
[2024-01-24] MEDS ORDERED: NON-FORMULARY ITEM (Hydroxychloroquine Sulfate [Plaquenil] 200 MG Tablet) PO SCH (10:00)
[2024-01-24] MEDS: Klor Con PO SCH (10:17)
[2024-01-24] MEDS: ULTRAM 50 MG PO PRN (10:17)
[2024-01-24] MEDS: Mirapex 0.5 MG Tablet PO SCH (10:17)
[2024-01-24] MEDS: ENOXAPARIN SODIUM SQ SCH (10:18)
--- NOTE | 2024-01-24 11:06 | PCM.NOTE ---
Date and Time: 01/24/24 1054 Subjective Assessment: 01/24/24 68 y/o F with h/o HTN, IBS, psoriatic plaques, and depression. She presents from home with abdominal pain. Per ED report, patient was brought in by family because they were no longer able to care for patient, and wanted to admit to NH. However, per patient, she was brought in for abdominal pain. She describes many months of constant, chronic, lower abdominal soreness, now very severe, worsened with immobility, unchanged by bowel movement or urination. No associated nausea, fevers, or diarrhea, but she has chronic constipation, requiring digital disimpaction to remove feces. She states that at baseline, she is independent with ADLs, ambulates independently in the house, makes her own meals. She is alert to day, year but not month. She knows she is at the hospital and knows her name. She has intermittent confusion and is a poor historian. She reports she helps her sister with everything and her sister lives a few doors down from her. Her sister and brother do not live with her, she lives alone. However they both feel she needs NH placement. She reports she has 2 children but does not talk to them. Case management to investigate the situation further. CT Abd. did show: No distal descending and sigmoid bowel wall thickening with minimal pericolic stranding favoring colitis/diverticulitis. No free fluid/air. Again chronic findings including colonic diverticulosis, splenomegaly, nonobstructing left renal punctate calculus, right iliopsoas intramuscular lipoma, pelvic rebekah tral hernia, arteriosclerotic disease, and old granulomatous disease. Labs overall non-concerning. Will continue Zosyn and IVF. Keep npo until abd pain improved then will start clear liquid diet. She does appear to have ringworm of her inner thighs and will start Lotrimin for this. Pt reports increased abd pain this AM, pain 8/10 and Tylenol not helping, Ultram added. She denies CP, SOB, N/V/D. <SHASTA ARCE - Last Filed: 01/24/24 10:54> Date and Time: 01/24/242100 <LYNDA FLORES - Last Filed: 01/24/24 21:03> - Review of Systems Constitutional: No Fever, No Chills Eyes: No Symptoms Ears, Nose, & Throat: No Symptoms Respiratory: No Cough, No Short Of Breath Cardiac: No Chest Pain, No Edema, No Syncope Abdominal/Gastrointestinal: Abdominal Pain, No Nausea, No Vomiting, No Diarrhea Genitourinary Symptoms: No Dysuria Musculoskeletal: Back Pain, No Neck Pain Skin: Rash (BL inner thighs by knees) Neurological: Other (intermittent confusion), No Dizziness, No Focal Weakness, No Sensory Changes Psychological: No Symptoms Endocrine: No Symptoms Hematologic/Lymphatic: No Symptoms Immunological/Allergic: No Symptoms <SHASTA ARCE Last Filed: 01/24/24 10:54> Objective Exam General Appearance: no apparent distress, alert, obese Neurologic Exam: alert, oriented x 3, cooperative, normal mood/affect, nml cerebellar function, sensation nml, confusion (intermittent), No motor deficits Skin Exam: normal color, warm, dry, rash (BL inner thighs by knees, round circular red raised rash in varying sizes.) Wound Assessment: Skin/Wound Assessment Wound/Incision Assessment Start: 01/23/24 21:33 Text: Status: Active Freq: Q6H Protocol: Document 01/24/24 03:27 AR (Rec: 01/24/24 03:29 AR [id number]) Wound/Incision Assessment Lower Abdomen Wound Assessment Shift Assessment Wound Type Excoriation Wound Stage Non Pressure Wound Dressing Status Dry & Intact Drainage Amount None General Appearance Open to air,Clean/Dry,Reddened Surrounding Tissue Reese Topical Solution/Irrigant Saline Irrigant Wound Photo Photo Taken No Eye Exam: PERRL, EOMI, eyes nml inspection Ears, Nose, Throat Exam: normal ENT inspection, pharynx normal, moist mucous membranes Neck Exam: normal inspection, non-tender, supple, full range of motion Respiratory Exam: normal breath sounds, lungs clear, No respiratory distress Cardiovascular Exam: regular rate/rhythm, normal heart sounds, bradycardia Gastrointestinal/Abdomen Exam: soft, tenderness (generalized), No mass Extremity Exam: normal inspection, normal range of motion Back Exam: normal inspection, normal range of motion, No CVA tenderness, No vertebral tenderness Pelvic Exam: deferred Rectal Exam: deferred <SHASTA ARCE Last Filed: 01/24/24 10:54> Wound Assessment: Skin/Wound Assessment Wound/Incision Assessment Start: 01/23/24 21:33 Text: Status: Active Freq: Q6H Protocol: Document 01/24/24 16:00 RF (Rec: 01/24/24 16:18 RF [id number]) Wound/Incision Assessment Lower Abdomen Wound Assessment Shift Assessment Wound Type Excoriation Wound Stage Non Pressure Wound Dressing Status Dry & Intact Drainage Amount None General Appearance Open to air,Clean/Dry,Reddened Surrounding Tissue Reese Topical Solution/Irrigant Saline Irrigant Wound Photo Photo Taken No <LYNDA FLORES - Last Filed: 01/24/24 21:03> Objective Data Vital Signs: Vital Signs - 24 hr Temp Pulse Resp BP BP Pulse Ox 01/24/24 07:40 97.5 F 52 L 18 130/67 94 L 01/24/24 03:27 97.9 F 50 L 14 116/55 96 01/23/24 21:12 97.7 F 58 L 16 138/65 97 01/23/24 20:30 57 L 14 143/73 96 01/23/24 20:00 49 L 14 138/91 98 01/23/24 19:30 53 L 13 140/80 97 01/23/24 19:00 50 L 19 136/72 96 01/23/24 18:30 55 L 20 130/82 97 01/23/24 18:00 52 L 16 131/77 97 01/23/24 17:30 53 L 16 120/69 96 01/23/24 17:00 53 L 16 116/70 98 01/23/24 16:34 72 20 121/87 93 L 01/23/24 16:33 60 15 96 01/23/24 16:05 97.7 F 65 13 115/70 94 L 01/23/24 16:03 115/70 Pain Assessment - Last Documented Pain Intensity 6 Pain Scale Used 0-10 Pain Scale Intake and Output: Intake & Output 01/21/24 01/22/24 01/23/24 01/24/24 11:59 11:59 11:59 11:59 Intake Total 40 Balance 40 Weight 82 kg Lab Results: Lab Results-Last 24 Hours 01/23/24 01/23/24 01/23/24 Range/Units 16:40 16:40 16:46 WBC 5.7 (3.98-10.04) x10^3/uL RBC 4.13 (3.93-5.22) x10^6/uL Hgb 13.2 (11.2-15.7) g/dL Hct 38.8 (34.1-44.9) % MCV 93.9 (79.4-94.8) fL MCH 32.0 (25.6-32.2) pg MCHC 34.0 (32.2-35.5) g/dL RDW 13.4 (11.7-14.4) % Plt Count 158 L (182-369) x10^3/uL MPV 10.4 (9.4-12.3) fL Gran % 43.5 (34.0-71.1) % Immature Gran % (Auto) 0.4 (0.001-0.429) % Nucleat RBC Rel Count 0.0 (0.00-0.2) % Eos # (Auto) 0.77 H (0.04-0.36) x10^3/uL Immature Gran # (Auto) 0.02 (0.001-0.031) x10^3u/L Absolute Lymphs (auto) 1.98 (1.18-3.74) x10^3/uL Absolute Monos (auto) 0.39 (0.24-0.86) x10^3/uL Absolute Nucleated RBC 0.00 (0.00-0.012) x10^3u/L Lymphocytes % 34.8 (19.3-51.7) % Monocytes % 6.9 (4.7-12.5) % Eosinophils % 13.5 H (0.7-5.8) % Basophils % 0.9 (0.1-1.2) % Absolute Granulocytes 2.48 (1.56-6.13) x10^3/uL Basophils # 0.05 (0.01-0.08) x10^3/uL Sodium 138 (135-145) mmol/L Potassium 3.5 (3.5-5.1) mmol/L Chloride 102 (98-107) mmol/L Carbon Dioxide 29 (22-30) mmol/L Anion Gap 10.4 (5-15) MEQ/L BUN 13 (7-17) mg/dL Creatinine 0.85 (0.52-1.04) mg/dL Estimated GFR 75.5 ML/MIN Glucose 113 H (74-106) mg/dL Calcium 9.2 (8.4-10.2) mg/dL Total Bilirubin 0.80 (0.2-1.3) mg/dL AST 28 (14-36) U/L ALT 19 (0-35) U/L Alkaline Phosphatase 90 (38-126) U/L Serum Total Protein 6.9 (6.3-8.2) g/dL Albumin 3.8 (3.5-5.0) g/dL Amylase 57 (30-110) U/L Lipase 82 (23-300) U/L Free T4 (0.78-2.19) ng/dL TSH 3rd Generation (0.470-4.680) mIU/L Urine Color Yellow (Yellow) Urine Appearance Clear (Clear) Urine pH 5.5 (4.6-8.0) Ur Specific Crooks 1.020 (1.005-1.030) Urine Protein Negative (Negative) Urine Glucose (UA) Negative (Negative) mg/dL Urine Ketones Negative (Negative) Urine Blood Negative (Negative) Urine Nitrite Negative (Negative) Urine Bilirubin Negative (Negative) Urine Urobilinogen 1.0 A (0.2) mg/dL Ur Leukocyte Esterase Negative (Negative) U Hyaline Cast (Auto) NONE SEEN (0-2) /LPF Urine Microscopic RBC 3-5 (0-5) /HPF Urine Microscopic WBC 0-2 (0-5) /HPF Ur Epithelial Cells None Seen (None Seen) /HPF Urine Bacteria None Seen (None Seen) /HPF Urine Culture Reflexed ORDERED SEPARATELY (NO) Slides for Path Review YES 01/24/24 01/24/24 01/24/24 Range/Units 04:37 04:37 04:37 WBC 3.9 L (3.98-10.04) x10^3/uL RBC 4.06 (3.93-5.22) x10^6/uL Hgb 12.8 (11.2-15.7) g/dL Hct 38.0 (34.1-44.9) % MCV 93.6 (79.4-94.8) fL MCH 31.5 (25.6-32.2) pg MCHC 33.7 (32.2-35.5) g/dL RDW 13.2 (11.7-14.4) % Plt Count 108 L (182-369) x10^3/uL MPV 10.1 (9.4-12.3) fL Gran % (34.0-71.1) % Immature Gran % (Auto) (0.001-0.429) % Nucleat RBC Rel Count (0.00-0.2) % Eos # (Auto) (0.04-0.36) x10^3/uL Immature Gran # (Auto) (0.001-0.031) x10^3u/L Absolute Lymphs (auto) (1.18-3.74) x10^3/uL Absolute Monos (auto) (0.24-0.86) x10^3/uL Absolute Nucleated RBC (0.00-0.012) x10^3u/L Lymphocytes % (19.3-51.7) % Monocytes % (4.7-12.5) % Eosinophils % (0.7-5.8) % Basophils % (0.1-1.2) % Absolute Granulocytes (1.56-6.13) x10^3/uL Basophils # (0.01-0.08) x10^3/uL Sodium 137 (135-145) mmol/L Potassium 3.6 (3.5-5.1) mmol/L Chloride 104 (98-107) mmol/L Carbon Dioxide 25 (22-30) mmol/L Anion Gap 11.8 (5-15) MEQ/L BUN 12 (7-17) mg/dL Creatinine 0.79 (0.52-1.04) mg/dL Estimated GFR 82.5 ML/MIN Glucose 92 (74-106) mg/dL Calcium 8.7 (8.4-10.2) mg/dL Total Bilirubin (0.2-1.3) mg/dL AST (14-36) U/L ALT (0-35) U/L Alkaline Phosphatase (38-126) U/L Serum Total Protein (6.3-8.2) g/dL Albumin (3.5-5.0) g/dL Amylase (30-110) U/L Lipase (23-300) U/L Free T4 1.01 (0.78-2.19) ng/dL TSH 3rd Generation 4.585 (0.470-4.680) mIU/L Urine Color (Yellow) Urine Appearance (Clear) Urine pH (4.6-8.0) Ur Specific Crooks (1.005-1.030) Urine Protein (Negative) Urine Glucose (UA) (Negative) mg/dL Urine Ketones (Negative) Urine Blood (Negative) Urine Nitrite (Negative) Urine Bilirubin (Negative) Urine Urobilinogen (0.2) mg/dL Ur Leukocyte Esterase (Negative) U Hyaline Cast (Auto) (0-2) /LPF Urine Microscopic RBC (0-5) /HPF Urine Microscopic WBC (0-5) /HPF Ur Epithelial Cells (None Seen) /HPF Urine Bacteria (None Seen) /HPF Urine Culture Reflexed (NO) Slides for Path Review Radiology Exams: Radiology Procedures Category Date Time Status ABDOMEN AND PELVIS W/0 CONTRAS [CT] Stat Exams 01/23/24 16:18 Completed <SHASTA ARCE - Last Filed: 01/24/24 10:54> Vital Signs: Vital Signs - 24 hr Temp Pulse Resp BP Pulse Ox 01/24/24 19:46 98.2 F 67 18 140/78 94 L 01/24/24 16:00 97.8 F 48 L 18 118/56 96 01/24/24 12:00 97.5 F 51 L 18 128/57 94 L 01/24/24 07:40 97.5 F 52 L 18 130/67 94 L 01/24/24 03:27 97.9 F 50 L 14 116/55 96 01/23/24 21:12 97.7 F 58 L 16 138/65 97 Pain Assessment - Last Documented Pain Intensity 10 Pain Scale Used 0-10 Pain Scale Intake and Output: Intake & Output 01/22/24 01/23/24 01/24/24 01/25/24 11:59 11:59 11:59 11:59 Intake Total 40 1750 Output Total 100 Balance 40 1650 Weight 82 kg Lab Results: Lab Results-Last 24 Hours 01/24/24 01/24/24 01/24/24 Range/Units 04:37 04:37 04:37 WBC 3.9 L (3.98-10.04) x10^3/uL RBC 4.06 (3.93-5.22) x10^6/uL Hgb 12.8 (11.2-15.7) g/dL Hct 38.0 (34.1-44.9) % MCV 93.6 (79.4-94.8) fL MCH 31.5 (25.6-32.2) pg MCHC 33.7 (32.2-35.5) g/dL RDW 13.2 (11.7-14.4) % Plt Count 108 L (182-369) x10^3/uL MPV 10.1 (9.4-12.3) fL Sodium 137 (135-145) mmol/L Potassium 3.6 (3.5-5.1) mmol/L Chloride 104 (98-107) mmol/L Carbon Dioxide 25 (22-30) mmol/L Anion Gap 11.8 (5-15) MEQ/L BUN 12 (7-17) mg/dL Creatinine 0.79 (0.52-1.04) mg/dL Estimated GFR 82.5 ML/MIN Glucose 92 (74-106) mg/dL Calcium 8.7 (8.4-10.2) mg/dL Free T4 1.01 (0.78-2.19) ng/dL TSH 3rd Generation 4.585 (0.470-4.680) mIU/L C. difficile Screen (NEGATIVE) C.difficile 027-NAP1-B1 (NEGATIVE) Monoscreen (NEGATIVE) 01/24/24 01/24/24 Range/Units 04:37 15:15 WBC (3.98-10.04) x10^3/uL RBC (3.93-5.22) x10^6/uL Hgb (11.2-15.7) g/dL Hct (34.1-44.9) % MCV (79.4-94.8) fL MCH (25.6-32.2) pg MCHC (32.2-35.5) g/dL RDW (11.7-14.4) % Plt Count (182-369) x10^3/uL MPV (9.4-12.3) fL Sodium (135-145) mmol/L Potassium (3.5-5.1) mmol/L Chloride (98-107) mmol/L Carbon Dioxide (22-30) mmol/L Anion Gap (5-15) MEQ/L BUN (7-17) mg/dL Creatinine (0.52-1.04) mg/dL Estimated GFR ML/MIN Glucose (74-106) mg/dL Calcium (8.4-10.2) mg/dL Free T4 (0.78-2.19) ng/dL TSH 3rd Generation (0.470-4.680) mIU/L C. difficile Screen NEGATIVE (NEGATIVE) C.difficile 027-NAP1-B1 PRESUMPTIVE NEGATIVE (NEGATIVE) Monoscreen NEGATIVE (NEGATIVE) Radiology Exams: Radiology Procedures Category Date Time Status ABDOMEN AND PELVIS W/0 CONTRAS [CT] Stat Exams 01/23/24 16:18 Completed Multi-Disciplinary Progress Notes: Multi-Disciplinary Progress Notes 01/24/24 12:22 Case Management Note by Jen Salvador S/August PATIENT AND SISTER GLADIS. PATIENT LIVES ALONE IN AN APARTMENT AND HER SISTER LIVES A FEW APARTMENTS OVER. PATIENT HAS BEEN INDEPENDENT AT HOME WITH ADLS. SHE COOKS AND BATHES HERSELF. GLADIS STATES SHE DOES HER OWN MEDS BUT IS NOT SURE HOW WELL SHE IS DOING THEM. SISTER GLADIS CONCERNED WITH PATIENT'S COGNITION AND ABILITY TO CARE FOR HERSELF. PATIENT IS FREQUENTLY WITH GLADIS BUT GLADIS IS GE TTING READY TO HAVE SURGERY AND WILL NOT BE ABLE TO ASSIST PATIENT AT HOME IF ANYTHING IS NEEDED. THERE ARE VOICED CONCERNS TOO OF PATIENT "WANDERING" AROUND THE APARTMENT PARKING LOT. SISTER REPORTS A NEIGHBOR TOLD HER THAT THEY CALLED APS ON THE PATIENT ON 01/22 BUT SHE HAS NOT HEARD FROM ANYONE YET. WHEN TALKING WITH PATIENT- PATIENT HAS VERY FLAT AFFECT AND DID NOT EXPAND UPON ANY ANSWERS OR START CONVERSATIONS. SHE COULD NOT TELL THIS NURSE WHERE SHE WAS AT. WHEN ASKED THE YEAR SHE LOOKED TO THE [employer] AND STATED 2023. SHE COULD NOT ANSWER WHO THE PRESENT WAS. SHE DID NOT KNOW HER FULL ADDRESS, ONLY THE [address] SHE ALSO HAD A HARD TIME COMING UP WITH "APARTMENT" WHEN I ASKED WHAT TYPE OF HOME DOES SHE LIVE IN. WHEN ASKING PATIENT WHAT SEASON IS IT SHE STATED "WHAT DO YOU MEAN?" I NAMED OFF ALL THE SEASONS FOR HER AND ASKED HER WHICH ONE ARE WE IN. SHE RESPONDED "ALL OF THEM". PATIENT OFTEN LOOKED TO SISTER AND ASKED HER TO HELP HER WITH ANSWERS- WHICH HER SISTER POLITELY TOLD HER THAT SHE NEEDED TO ANSWER F OR HERSELF. I ALSO TALKED WITH PATIENT ALONE. ANSWERS WERE VERY MUCH THE SAME BUT AT THAT TIME SHE COULD TELL ME THE MONTH WAS "2" WHICH IS ACTUALLY THE DATE AND SHE COULD TELL ME IT WAS SUMMER OUTSIDE. SHE TOLD ME THAT SHE TAKES 4 MEDICATIONS AND ONLY TAKES THEM ONCE AT NIGHT. PER MED LIST THIS IS NOT APPROPRIATE. PATIENT DOES KNOW HOW MUCH HER RENT IS AND WHEN IT IS DUES BUT DOES NOT KNOW WHO SHE PAYS THAT TO SHE JUST GIVES IT TO HER SISTER AND SHE PAYS IT FOR HER. DISCUSSED NH PLACEMENT WITH PATIENT D/T HER SISTERS CONCERNS. SHE IS AGREEABLE TO GO TRY A FACILITY. HER SISTER WOULD LIKE [facility]. [facility] WAS ALSO DISCUSSED BUT ULTIMATELY REFERRAL SENT TO [facility] Initialized on 01/24/24 12:22 - END OF NOTE 01/24/24 12:21 Case Management Note by Jen SalvadorWLUANNE STARTED- NO LEVEL II REQUIRED, LEVEL OF CARE PENDING REFERRAL FAXED TO [facility]- THEY WILL NEED FAXED THE PAS[facility]/LOC AND PT EVAL WHEN AVAILABLE Initialized on 01/24/24 12:21 - END OF NOTE <LYNDA FLORES - Last Filed: 01/24/24 21:03> Assessment/Plan (1) Diverticulitis Current Visit: Yes Status: Acute Assessment & Plan: - leave NPO - NS at 75 ml/hr - Zosyn q6h - PRN acetaminophen - Ultram added for pain - When pain controlled, can try advancing diet as tolerated - WBC normal - labs non- concerning - CT abd. Impression: 1. No distal descending and sigmoid bowel wall thickening with minimal pericolic stranding favoring colitis/diverticulitis. No free fluid/air. 2. Again chronic findings including colonic diverticulosis, splenomegaly, nonobstructing left renal punctate calculus, right iliopsoas intramuscular lipoma, pelvic ventral hernia, arteriosclerotic disease, and old granulomatous disease. Code(s): K57.92 - DVTRCLI OF INTEST, PART UNSP, W/O PERF OR ABSCESS W/O BLEED (2) Ringworm of body Current Visit: Yes Status: Acute Assessment & Plan: - Start Lotrimin BID Code(s): B35.4 - TINEA CORPORIS (3) Irritable bowel syndrome (IBS) Current Visit: Yes Status: Acute Qualifiers: Irritable bowel syndrome type: with constipation Qualified Code(s): K58.1 - Irritable bowel syndrome with constipation Assessment & Plan: - no documented history, but presumed constipation type based on her symptoms. - add PRN Miralax; do not want to give right now to allow for bowel rest for diverticulitis above, but is she begins to have urge to defecate, can use (4) Intermittent confusion Current Visit: Yes Status: Acute Assessment & Plan: - case management to discuss with family - pt ok with NH placement - Consider further evaluation by neurology OP for evaluation of dementia Code(s): R41.0 - DISORIENTATION, UNSPECIFIED (5) Splenomegaly Current Visit: Yes Status: Acute Assessment & Plan: - mono screen - Pt unaware of this, may be contributing to abd. pain - Will need OP f/u. Code(s): R16.1 - SPLENOMEGALY, NOT ELSEWHERE CLASSIFIED (6) Hypertension Current Visit: No Status: Chronic Qualifiers: Hypertension type: essential hypertension Qualified Code(s): I10 - Essential (primary) hypertension Assessment & Plan: - resume home bisoprolol/HCT Code(s): I10 - ESSENTIAL (PRIMARY) HYPERTENSION (7) Obesity (BMI 30.0-34.9) Current Visit: Yes Status: Chronic Assessment & Plan: - advised diet and exercise control VTE: Lovenox Next of KIN: SisterGladis [phone] D/C plan: 1-2 days Code status: Full Code(s): E66.9 - OBESITY, UNSPECIFIED <SHASTA ARCE - Last Filed: 01/24/24 10:54> DAJUAN Encounter - DAJUAN Encounter Attestation DAJUAN Encounter Attestation: "IhavepersonallyseenandexaminedPATTEN,ALLEN CORTES andhavediscussed pertinent aspects of their care with Shasta Patterson and agree with the history, physical exam (any modifications based on my personal exam will be noted below), assessment, and plan as outlined in original note. Please see immediately below for my summary of findings and additional assessment and plan along with any meaningful corrections/explanations to the Subjective/Objective portions of the DAJUAN note will be noted." My portion of the encounter took place via telemedicine. -Patient does seem to have some short term memory problems, vague answers to some questions. She says she is independent with mobility amd ADLs however will have certified social workers in health care evaluate her home situation as brother and sister have concerns. On antibiotics for acute diverticulitis with improvement in symptoms. <LYNDA FLORES - Last Filed: 01/24/24 21:03>
[2024-01-24 16:53] LABS: 027 TOX PROD PRESUMPTIVE NEGATIVE (NEGATIVE); TOXIGENIC C. DIFF ORG NEGATIVE (NEGATIVE)
[2024-01-24] MEDS: Zofran 4 MG/2 ML VIAL IV PRN (18:29)
[2024-01-24] MEDS: Acidophilus TABLET PO SCH (18:29)
[2024-01-24] MEDS: LOTRIMIN CREAM 30 GM TP SCH (21:08)
[2024-01-25 06:05] LABS: Hematocrit 38.3 % (34.1-44.9); Mean Cell Volume 94.1 fL (79.4-94.8); Mean Corpuscular Hemoglobin 31.9 pg (25.6-32.2); Mean Corpuscular Hgb Concent. 33.9 g/dL (32.2-35.5); Mean Platelet Volume 11.1 fL (9.4-12.3); Platelet Count 107 x10^3/uL (182-369); Red Blood Count 4.07 x10^6/uL (3.93-5.22); Red Cell Distribution Width 13.4 % (11.7-14.4); White Blood Count 4.6 x10^3/uL (3.98-10.04)
[2024-01-25 06:27] LABS: ALBUMIN 3.6 g/dL (3.5-5.0); ANION GAP 13.5 MEQ/L (5-15); BILIRUBIN,TOTAL 1.4 mg/dL (0.2-1.3); Calcium 8.5 mg/dL (8.4-10.2); Creatinine 1 0.79 mg/dL (0.52-1.04); EST GLOMERULAR FILTRATION RATE 82.5 ML/MIN; Potassium 3.9 mmol/L (3.5-5.1); Total Protein 6.8 g/dL (6.3-8.2)
[2024-01-25] MEDS ORDERED: CHLORASEPTIC SPRAY 180 ML PO PRN (11:21)
--- NOTE | 2024-01-25 11:24 | PCM.NOTE ---
Date and Time: 01/25/24 1118 Subjective Assessment: 01/24/24 68 y/o F with h/o HTN, IBS, psoriatic plaques, and depression. She presents from home with abdominal pain. Per ED report, patient was brought in by family because they were no longer able to care for patient, and wanted to admit to NH. However, per patient, she was brought in for abdominal pain. She describes many months of constant, chronic, lower abdominal soreness, now very severe, worsened with immobility, unchanged by bowel movement or urination. No associated nausea, fevers, or diarrhea, but she has chronic constipation, requiring digital disimpaction to remove feces. She states that at baseline, she is independent with ADLs, ambulates independently in the house, makes her own meals. She is alert to day, year but not month. She knows she is at the hospital and knows her name. She has intermittent confusion and is a poor historian. She reports she helps her sister with everything and her sister lives a few doors down from her. Her sister and brother do not live with her, she lives alone. However they both feel she needs NH placement. She reports she has 2 children but does not talk to them. Case management to investigate the situation further. CT Abd. did show: No distal descending and sigmoid bowel wall thickening with minimal pericolic stranding favoring colitis/diverticulitis. No free fluid/air. Again chronic findings including colonic diverticulosis, splenomegaly, nonobstructing left renal punctate calculus, right iliopsoas intramuscular lipoma, pelvic ventral hernia, arteriosclerotic disease, and old granulomatous disease. Labs overall non-concerning. Will continue Zosyn and IVF. Keep npo until abd pain improved then will start clear liquid diet. She does appear to have ringworm of her inner thighs and will start Lotrimin for this. Pt reports increased abd pain this AM, pain 01/31 and Tylenol not helping, Ultram added. She denies CP, SOB, N/V/D. 01/25/24 Pt resting in bed. She continues to have abd pain and diarrhea. She had several loose stools last night and today per nursing staff. C-Diff testing negative. Pro-biotocs started yesterday. Carbon dioxide 19 and likely 2:2 diarrhea. Will Add Questran light, and increase probiotoc to BID dosing. She is c/o sore throat, she has no redness, will start cough drops and chloraseptic spray. LFT's elevated- continue to monitor. Continue IV antibiotics for Diverticulitis. Continue Lotrimine for ring worm. Continue IV Fluids. Clear liquid diet started this morning, will transition as tolerated. She denies CP, SOB, N/V. She has been accepted to halfway but she is not quite ready yet d/t her labs and sxs. - Review of Systems Constitutional: No Fever, No Chills Eyes: No Symptoms Ears, Nose, & Throat: No Symptoms Respiratory: No Cough, No Short Of Breath Cardiac: No Chest Pain, No Edema, No Syncope Abdominal/Gastrointestinal: Abdominal Pain, Diarrhea, No Nausea, No Vomiting Genitourinary Symptoms: No Dysuria Musculoskeletal: No Back Pain, No Neck Pain Skin: No Rash Neurological: No Dizziness, No Focal Weakness, No Sensory Changes Psychological: No Symptoms Endocrine: No Symptoms Hematologic/Lymphatic: No Symptoms Immunological/Allergic: No Symptoms Objective Exam General Appearance: no apparent distress, alert Neurologic Exam: alert, oriented x 3, cooperative, normal mood/affect, nml cerebellar function, sensation nml, No motor deficits Skin Exam: normal color, warm, dry Eye Exam: PERRL, EOMI, eyes nml inspection Ears, Nose, Throat Exam: normal ENT inspection, pharynx normal, moist mucous membranes Neck Exam: normal inspection, non-tender, supple, full range of motion Respiratory Exam: normal breath sounds, lungs clear, No respiratory distress Cardiovascular Exam: regular rate/rhythm, normal heart sounds Gastrointestinal/Abdomen Exam: soft, tenderness (generalized), No mass Extremity Exam: normal inspection, normal range of motion Back Exam: normal inspection, normal range of motion, No CVA tenderness, No vertebral tenderness Pelvic Exam: deferred Rectal Exam: deferred Objective Data Vital Signs: Vital Signs - 24 hr Temp Pulse Resp BP Pulse Ox 01/25/24 07:40 97.5 F 56 L 16 131/60 90 L 01/25/24 04:00 98.6 F 66 19 151/72 94 L 01/25/24 00:00 98.2 F 62 18 143/75 94 L 01/24/24 19:46 98.2 F 67 18 140/78 94 L 01/24/24 16:00 97.8 F 48 L 18 118/56 96 01/24/24 12:00 97.5 F 51 L 18 128/57 94 L Pain Assessment - Last Documented Pain Intensity 2 Pain Scale Used 0-10 Pain Scale Intake and Output: Intake & Output 01/22/24 01/23/24 01/24/24 01/25/24 11:59 11:59 11:59 11:59 Intake Total 40 2696 Output Total 100 Balance 40 2596 Weight 82 kg 82.4 kg Lab Results: Lab Results-Last 24 Hours 01/24/24 01/24/24 01/25/24 Range/Units 04:37 15:15 05:32 WBC 4.6 (3.98-10.04) x10^3/uL RBC 4.07 (3.93-5.22) x10^6/uL Hgb 13.0 (11.2-15.7) g/dL Hct 38.3 (34.1-44.9) % MCV 94.1 (79.4-94.8) fL MCH 31.9 (25.6-32.2) pg MCHC 33.9 (32.2-35.5) g/dL RDW 13.4 (11.7-14.4) % Plt Count 107 L (182-369) x10^3/uL MPV 11.1 (9.4-12.3) fL Sodium (135-145) mmol/L Potassium (3.5-5.1) mmol/L Chloride (98-107) mmol/L Carbon Dioxide (22-30) mmol/L Anion Gap (5-15) MEQ/L BUN (7-17) mg/dL Creatinine (0.52-1.04) mg/dL Estimated GFR ML/MIN Glucose (74-106) mg/dL Calcium (8.4-10.2) mg/dL Total Bilirubin (0.2-1.3) mg/dL AST (14-36) U/L ALT (0-35) U/L Alkaline Phosphatase (38-126) U/L Serum Total Protein (6.3-8.2) g/dL Albumin (3.5-5.0) g/dL C. difficile Screen NEGATIVE (NEGATIVE) C.difficile [id number]-[id number] PRESUMPTIVE NEGATIVE (NEGATIVE) Monoscreen NEGATIVE (NEGATIVE) 01/25/24 Range/Units 05:32 WBC (3.98-10.04) x10^3/uL RBC (3.93-5.22) x10^6/uL Hgb (11.2-15.7) g/dL Hct (34.1-44.9) % MCV (79.4-94.8) fL MCH (25.6-32.2) pg MCHC (32.2-35.5) g/dL RDW (11.7-14.4) % Plt Count (182-369) x10^3/uL MPV (9.4-12.3) fL Sodium 136 (135-145) mmol/L Potassium 3.9 (3.5-5.1) mmol/L Chloride 108 H (98-107) mmol/L Carbon Dioxide 19 L (22-30) mmol/L Anion Gap 13.5 (5-15) MEQ/L BUN 9 (7-17) mg/dL Creatinine 0.79 (0.52-1.04) mg/dL Estimated GFR 82.5 ML/MIN Glucose 87 (74-106) mg/dL Calcium 8.5 (8.4-10.2) mg/dL Total Bilirubin 1.40 H (0.2-1.3) mg/dL AST 49 H (14-36) U/L ALT 20 (0-35) U/L Alkaline Phosphatase 87 (38-126) U/L Serum Total Protein 6.8 (6.3-8.2) g/dL Albumin 3.6 (3.5-5.0) g/dL C. difficile Screen (NEGATIVE) C.difficile [id number]-NAP1-B1 (NEGATIVE) Monoscreen (NEGATIVE) Radiology Exams: Radiology Procedures Category Date Time Status ABDOMEN AND PELVIS W/0 CONTRAS [CT] Stat Exams 01/23/24 16:18 Completed Multi-Disciplinary Progress Notes: Multi-Disciplinary Progress Notes 01/24/24 12:22 Case Management Note by Jen Salvador S/W PATIENT AND SISTER GLADIS. PATIENT LIVES ALONE IN AN APARTMENT AND HER SISTER LIVES A FEW APARTMENTS OVER. PATIENT HAS BEEN INDEPENDENT AT HOME WITH ADLS. SHE COOKS AND BATHES HERSELF. GLADIS STATES SHE DOES HER OWN MEDS BUT IS NOT SURE HOW WELL SHE IS DOING THEM. SISTER GLADIS CONCERNED WITH PATIENT'S COGNITION AND ABILITY TO CARE FOR HERSELF. PATIENT IS FREQUENTLY WITH GLADIS BUT GLADIS IS GETTING READY TO HAVE SURGERY AND WILL NOT BE ABLE TO ASSIST PATIENT AT HOME IF ANYTHING IS NEEDED. THERE ARE VOICED CONCERNS TOO OF PATIENT "WANDERING" AROUND THE APARTMENT PARKING LOT. SISTER REPORTS A NEIGHBOR TOLD HER THAT THEY CALLED APS ON THE PATIENT ON 01/22 BUT SHE HAS NOT HEARD FROM ANYONE YET. WHEN TALKING WITH PATIENT- PATIENT HAS VERY FLAT AFFECT AND DID NOT EXPAND UPON ANY ANSWERS OR START CONVERSATIONS. SHE COULD NOT TELL THIS NURSE WHERE SHE WAS AT. WHEN ASKED THE YEAR SHE LOOKED TO THE [employer] AND STATED 2023. SHE COULD NOT ANSWER WHO THE PRESENT WAS. SHE DID NOT KNOW HER FULL ADDRESS, ONLY THE [address] SHE ALSO HAD A HARD TIME COMING UP WITH "APARTMENT" WHEN I ASKED WHAT TYPE OF HOME DOES SHE LIVE IN. WHEN ASKING PATIENT WHAT SEASON IS IT SHE STATED "WHAT DO YOU MEAN?" I NAMED OFF ALL THE SEASONS FOR HER AND ASKED HER WHICH ONE ARE WE IN. SHE RESPONDED "ALL OF THEM". PATIENT OFTEN LOOKED TO SISTER AND ASKED HER TO HELP HER WITH ANSWERS- WHICH HER SISTER POLITELY TOLD HER THAT SHE NEEDED TO ANSWER F OR HERSELF. I ALSO TALKED WITH PATIENT ALONE. ANSWERS WERE VERY MUCH THE SAME BUT AT THAT TIME SHE COULD TELL ME THE MONTH WAS "2" WHICH IS ACTUALLY THE DATE AND SHE COULD TELL ME IT WAS SUMMER OUTSIDE. SHE TOLD ME THAT SHE TAKES 4 MEDICATIONS AND ONLY TAKES THEM ONCE AT NIGHT. PER MED LIST THIS IS NOT APPROPRIATE. PATIENT DOES KNOW HOW MUCH HER RENT IS AND WHEN IT IS DUES BUT DOES NOT KNOW WHO SHE PAYS THAT TO SHE JUST GIVES IT TO HER SISTER AND SHE PAYS IT FOR HER. DISCUSSED NH PLACEMENT WITH PATIENT D/T HER SISTERS CONCERNS. SHE IS AGREEABLE TO GO TRY A FACILITY. HER SISTER WOULD LIKE [facility]. [facility] WAS ALSO DISCUSSED BUT ULTIMATELY REFERRAL SENT TO [facility] Initialized on 01/24/24 12:22 - END OF NOTE 01/24/24 12:21 Case Management Note by Jen Salvador STARTED- NO LEVEL II REQUIRED, LEVEL OF CARE PENDING REFERRAL FAXED TO [facility]- THEY WILL NEED FAXED THE PAS[facility]/LOC AND PT EVAL WHEN AVAILABLE Initialized on 01/24/24 12:21 - END OF NOTE Assessment/Plan (1) Diverticulitis Current Visit: Yes Status: Acute Code(s): K57.92 - DVTRCLI OF INTEST, PART UNSP, W/O PERF OR ABSCESS W/O BLEED (2) Ringworm of body Current Visit: Yes Status: Acute Code(s): B35.4 - TINEA CORPORIS (3) Irritable bowel syndrome (IBS) Current Visit: Yes Status: Acute Qualifiers: Irritable bowel syndrome type: with constipation Qualified Code(s): K58.1 - Irritable bowel syndrome with constipation (4) Intermittent confusion Current Visit: Yes Status: Acute Code(s): R41.0 - DISORIENTATION, UNSPECIFIED (5) Splenomegaly Current Visit: Yes Status: Acute Code(s): R16.1 - SPLENOMEGALY, NOT ELSEWHERE CLASSIFIED (6) Hypertension Current Visit: No Status: Chronic Qualifiers: Hypertension type: essential hypertension Qualified Code(s): I10 - Essential (primary) hypertension Code(s): I10 - ESSENTIAL (PRIMARY) HYPERTENSION (7) Carbon dioxide, decreased level Current Visit: Yes Status: Acute Assessment & Plan: - Carbon dioxide 19- likely 2:2 diarrhea - see above plan Code(s): R79.81 - ABNORMAL BLOOD-GAS LEVEL (8) Obesity (BMI 30.0-34.9) Current Visit: Yes Status: Chronic Assessment & Plan: (1) Diverticulitis Current Visit: Yes Status: Acute Assessment & Plan: - leave NPO - NS at 75 ml/hr - Zosyn q6h - PRN acetaminophen - Ultram added for pain - When pain controlled, can try advancing diet as tolerated - WBC normal - labs non- concerning - CT abd. Impression: 1. No distal descending and sigmoid bowel wall thickening with minimal pericolic stranding favoring colitis/diverticulitis. No free fluid/air. 2. Again chronic findings including colonic diverticulosis, splenomegaly, nonobstructing left renal punctate calculus, right iliopsoas intramuscular lipoma, pelvic ventral hernia, arteriosclerotic disease, and old granulomatous disease. 01/24 - transition to clear liquid diet this am- advance as tolerated. - probiotic BID - Questran light daily - vomiting yesterday- none today with PRN Zofran Code(s): K57.92 - DVTRCLI OF INTEST, PART UNSP, W/O PERF OR ABSCESS W/O BLEED (2) Ringworm of body Current Visit: Yes Status: Acute Assessment & Plan: - Start Lotrimin BID Code(s): B35.4 - TINEA CORPORIS (3) Irritable bowel syndrome (IBS) Current Visit: Yes Status: Acute Qualifiers: Irritable bowel syndrome type: with constipation Qualified Code(s): K58.1 - Irritable bowel syndrome with constipation Assessment & Plan: - no documented history, but presumed constipation type based on her symptoms. - add PRN Miralax; do not want to give right now to allow for bowel rest for diverticulitis above, but is she begins to have urge to defecate, can use (4) Intermittent confusion Current Visit: Yes Status: Acute Assessment & Plan: - case management to discuss with family - pt ok with NH placement - Consider further evaluation by neurology OP for evaluation of dementia 01/24 - approved to go to [facility] Code(s): R41.0 - DISORIENTATION, UNSPECIFIED (5) Splenomegaly Current Visit: Yes Status: Acute Assessment & Plan: - mono screen - Pt unaware of this, may be contributing to abd. pain - Will need OP f/u. Code(s): R16.1 - SPLENOMEGALY, NOT ELSEWHERE CLASSIFIED (6) Hypertension Current Visit: No Status: Chronic Qualifiers: Hypertension type: essential hypertension Qualified Code(s): I10 - Essential (primary) hypertension Assessment & Plan: - resume home bisoprolol/HCT Code(s): I10 - ESSENTIAL (PRIMARY) HYPERTENSION (7) Obesity (BMI 30.0-34.9) Current Visit: Yes Status: Chronic Assessment & Plan: - advised diet and exercise control VTE: Lovenox Next of KIN: SisterGladis [phone] D/C plan: Tomorrow> Code status: Full Code(s): E66.9 - OBESITY, UNSPECIFIED Code(s): E66.9 - OBESITY, UNSPECIFIED
[2024-01-25] MEDS: PHARMACY DOSING REQUEST MC ONE (12:23)
[2024-01-25] MEDS: QUESTRAN Light 4 GM Packet PO SCH (14:58)
[2024-01-25] MEDS: CEPACOL SORE THROAT LOZENGE PO PRN (14:58)
[2024-01-25] MEDS: Acidophilus TABLET PO SCH (23:15)
[2024-01-26 06:21] LABS: Hematocrit 34.7 % (34.1-44.9); Hemoglobin 11.7 g/dL (11.2-15.7); Mean Corpuscular Hemoglobin 31.4 pg (25.6-32.2); Mean Corpuscular Hgb Concent. 33.7 g/dL (32.2-35.5); Mean Platelet Volume 10.7 fL (9.4-12.3); Platelet Count 83 x10^3/uL (182-369); Red Blood Count 3.73 x10^6/uL (3.93-5.22); Red Cell Distribution Width 13.2 % (11.7-14.4)
[2024-01-26 06:32] LABS: ALBUMIN 3.2 g/dL (3.5-5.0); ANION GAP 11.7 MEQ/L (5-15); BILIRUBIN,TOTAL 0.9 mg/dL (0.2-1.3); Calcium 8.4 mg/dL (8.4-10.2); Creatinine 1 0.76 mg/dL (0.52-1.04); EST GLOMERULAR FILTRATION RATE 86.4 ML/MIN; Potassium 3.8 mmol/L (3.5-5.1); Total Protein 6.2 g/dL (6.3-8.2)
[2024-01-26 07:16] VITALS: RESP 16
[2024-01-26] MEDS ORDERED: QUESTRAN Light 4 GM Packet PO SCH (10:00)
--- NOTE | 2024-01-26 11:28 | PCM.DS ---
Discharge Summary Date of Admission: 01/23/24 21:02 Date of Discharge: 01/26/24 Admitting Physician: IFEOMA VALLADARES MD Primary Care Provider: APOLINAR PANTOJA Allergies Allergies No Known Drug Allergies Allergy (Verified 01/23/24 21:52) Hospital Summary - Hospital Course Hospital Course: 01/24/24 68 y/o F with h/o HTN, IBS, psoriatic plaques, and depression. She presents from home with abdominal pain. Per ED report, patient was brought in by family because they were no longer able to care for patient, and wanted to admit to NH. However, per patient, she was brought in for abdominal pain. She describes many months of constant, chronic, lower abdominal soreness, now very severe, worsened with immobility, unchanged by bowel movement or urination. No associated nausea, fevers, or diarrhea, but she has chronic constipation, requiring digital disimpaction to remove feces. She states that at baseline, she is independent with ADLs, ambulates independently in the house, makes her own meals. She is alert to day, year but not month. She knows she is at the hospital and knows her name. She has intermittent confusion and is a poor historian. She reports she helps her sister with everything and her sister lives a few doors down from her. Her sister and brother do not live with her, she lives alone. However they both feel she needs NH placement. She reports she has 2 children but does not talk to them. Case management to investigate the situation further. CT Abd. did show: No distal descending and sigmoid bowel wall thickening with minimal pericolic stranding favoring colitis/diverticulitis. No free fluid/air. Again chronic findings including colonic diverticulosis, splenomegaly, nonobstructing left renal punctate calculus, right iliopsoas intramuscular lipoma, pelvic ventral hernia, arteriosclerotic disease, and old granulomatous disease. Labs overall non-concerning. Will continue Zosyn and IVF. Keep npo until abd pain improved then will start clear liquid diet. She does appear to have ringworm of her inner thighs and will start Lotrimin for this. Pt reports increased abd pain this AM, pain 8/10 and Tylenol not helping, Ultram added. She denies CP, SOB, N/V/D. 01/25/24 Pt resting in bed. She continues to have abd pain and diarrhea. She had several loose stools last night and today per nursing staff. C-Diff testing negative. Pro-biotocs started yesterday. Carbon dioxide 19 and likely 2:2 diarrhea. Will Add Questran light, and increase probiotoc to BID dosing. She is c/o sore throat, she has no redness, will start cough drops and chloraseptic spray. LFT's elevated- continue to monitor. Continue IV antibiotics for Diverticulitis. Continue Lotrimine for ring worm. Continue IV Fluids. Clear liquid diet started this morning, will transition as tolerated. She denies CP, SOB, N/V. She has been accepted to half-way but she is not quite ready yet d/t her labs and sxs. 01/26/24 Pt resting in bed. She is feeling much better and no longer has abd. pain or diarrhea. Will advance diet to regular today. She has been accepted to the half-way today and her sister is coming to pick her up. She continues to c/o sore throat today, but it has improved. She will need to f/u op for low platelets. She denies CP, SOB, abd pain, N/V/D. - Vitals & Intake/Output Vital Signs: Vital Signs Temperature 97.8 F 01/26/24 07:15 Pulse Rate 66 01/26/24 07:15 Respiratory Rate 16 01/26/24 07:15 Blood Pressure 132/63 01/26/24 07:15 O2 Sat by Pulse Oximetry 94 L 01/26/24 07:15 Intake & Output: Intake & Output 01/23/24 01/24/24 01/25/24 01/26/24 11:59 11:59 11:59 11:59 Intake Total 40 2696 3916 Output Total 100 Balance 40 1346 3916 Weight 82 kg 82.4 kg 81.9 kg - Lab Result Diagrams: 01/26/24 05:32 01/26/24 05:32 Lab Results-Last 24 Hrs: Lab Results-Last 24 Hours 01/26/24 01/26/24 Range/Units 05:32 05:32 WBC 4.0 (3.98-10.04) x10^3/uL RBC 3.73 L (3.93-5.22) x10^6/uL Hgb 11.7 (11.2-15.7) g/dL Hct 34.7 (34.1-44.9) % MCV 93.0 (79.4-94.8) fL MCH 31.4 (25.6-32.2) pg MCHC 33.7 (32.2-35.5) g/dL RDW 13.2 (11.7-14.4) % Plt Count 83 L (182-369) x10^3/uL MPV 10.7 (9.4-12.3) fL Sodium 137 (135-145) mmol/L Potassium 3.8 (3.5-5.1) mmol/L Chloride 108 H (98-107) mmol/L Carbon Dioxide 21 L (22-30) mmol/L Anion Gap 11.7 (5-15) MEQ/L BUN 6 L (7-17) mg/dL Creatinine 0.76 (0.52-1.04) mg/dL Estimated GFR 86.4 ML/MIN Glucose 81 (74-106) mg/dL Calcium 8.4 (8.4-10.2) mg/dL Total Bilirubin 0.90 (0.2-1.3) mg/dL AST 31 (14-36) U/L ALT 17 (0-35) U/L Alkaline Phosphatase 75 (38-126) U/L Serum Total Protein 6.2 L (6.3-8.2) g/dL Albumin 3.2 L (3.5-5.0) g/dL Micro Results-Entire Visit: Microbiology 01/23/24 16:48 Urine Culture - Final Catherized NO GROWTH - Procedures and Test Procedures and Tests throughout Hospitalization: Therapy Orders & Screens 01/24/24 10:31 PT Eval & Treat ( Order) ONCE Reason for Eval:: NH PLACEMENT Diagnosis: abodminal pain Discharge Exam General Appearance: no apparent distress, alert Neurologic Exam: alert, oriented x 3, cooperative, normal mood/affect, nml cerebellar function, sensation nml, No motor deficits Eye Exam: PERRL, EOMI, eyes nml inspection Ears, Nose, Throat Exam: normal ENT inspection, pharynx normal, moist mucous membranes Neck Exam: normal inspection, non-tender, supple, full range of motion Respiratory Exam: normal breath sounds, lungs clear, No respiratory distress Cardiovascular Exam: regular rate/rhythm, normal heart sounds Gastrointestinal/Abdomen Exam: soft, No tenderness, No mass Pelvic Exam: deferred Rectal Exam: deferred Back Exam: normal inspection, normal range of motion, No CVA tenderness, No vertebral tenderness Extremity Exam: normal inspection, normal range of motion Skin Exam: normal color, warm, dry Final Diagnosis/Problem List - Final Discharge Diagnosis/Problem (1) Diverticulitis Current Visit: Yes Status: Acute Code(s): K57.92 - DVTRCLI OF INTEST, PART UNSP, W/O PERF OR ABSCESS W/O BLEED (2) Ringworm of body Current Visit: Yes Status: Acute Code(s): B35.4 - TINEA CORPORIS (3) Irritable bowel syndrome (IBS) Current Visit: Yes Status: Acute (4) Intermittent confusion Current Visit: Yes Status: Acute Code(s): R41.0 - DISORIENTATION, UNSPECIFIED (5) Splenomegaly Current Visit: Yes Status: Acute Code(s): R16.1 - SPLENOMEGALY, NOT ELSEWHERE CLASSIFIED (6) Hypertension Current Visit: No Status: Chronic Code(s): I10 - ESSENTIAL (PRIMARY) HYPERTENSION (7) Carbon dioxide, decreased level Current Visit: Yes Status: Acute Code(s): R79.81 - ABNORMAL BLOOD-GAS LEVEL (8) Obesity (BMI 30.0-34.9) Current Visit: Yes Status: Chronic Assessment & Plan: 1) Diverticulitis Current Visit: Yes Status: Acute Assessment & Plan: - leave NPO - NS at 75 ml/hr - Zosyn q6h - PRN acetaminophen - Ultram added for pain - When pain controlled, can try advancing diet as tolerated - WBC normal - labs non- concerning - CT abd. Impression: 1. No distal descending and sigmoid bowel wall thickening with minimal pericolic stranding favoring colitis/diverticulitis. No free fluid/air. 2. Again chronic findings including colonic diverticulosis, splenomegaly, nonobstructing left renal punctate calculus, right iliopsoas intramuscular lipoma, pelvic ventral hernia, arteriosclerotic disease, and old granulomatous disease. 01/24 - transition to clear liquid diet this am- advance as tolerated. - probiotic BID - Questran light daily - vomiting yesterday- none today with PRN Zofran 01/25 - transition to regular diet today - Continue probioioc daily - stop Questran - diarrhea resolved - N/V resolved Code(s): K57.92 - DVTRCLI OF INTEST, PART UNSP, W/O PERF OR ABSCESS W/O BLEED (2) Ringworm of body Current Visit: Yes Status: Acute Assessment & Plan: - Start Lotrimin BID Code(s): B35.4 - TINEA CORPORIS (3) Irritable bowel syndrome (IBS) Current Visit: Yes Status: Acute Qualifiers: Irritable bowel syndrome type: with constipation Qualified Code(s): K58.1 - Irritable bowel syndrome with constipation Assessment & Plan: - no documented history, but presumed constipation type based on her symptoms. - add PRN Miralax; do not want to give right now to allow for bowel rest for diverticulitis above, but is she begins to have urge to defecate, can use 01/25 - diarrhea resolved (4) Intermittent confusion Current Visit: Yes Status: Acute Assessment & Plan: - case management to discuss with family - pt ok with NH placement - Consider further evaluation by neurology OP for evaluation of dementia 01/24 - approved to go to [facility] Code(s): R41.0 - DISORIENTATION, UNSPECIFIED (5) Splenomegaly Current Visit: Yes Status: Acute Assessment & Plan: - mono screen - Pt unaware of this, may be contributing to abd. pain - Will need OP f/u. Code(s): R16.1 - SPLENOMEGALY, NOT ELSEWHERE CLASSIFIED (6) Hypertension Current Visit: No Status: Chronic Qualifiers: Hypertension type: essential hypertension Qualified Code(s): I10 - Essential (primary) hypertension Assessment & Plan: - resume home bisoprolol/HCT Code(s): I10 - ESSENTIAL (PRIMARY) HYPERTENSION (7) Obesity (BMI 30.0-34.9) Current Visit: Yes Status: Chronic Assessment & Plan: - advised diet and exercise control Code(s): E66.9 - OBESITY, UNSPECIFIED (9) Thrombocytopenia Current Visit: Yes Status: Acute Assessment & Plan: - F/U OP with PCP for further work-up - likely will need oncology f/u OP. - Discharge Discharge Date: 01/26/24 ([facility]) Disposition: DC TO OTHER HOSP Condition: Stable Prescriptions: New Benzocaine/Menthol [Cepacol Sore Throat Lozenge] 15 mg PO Q2HPRN PRN lozenge Phenol/Sodium Phenolate [Chloraseptic [place] 180 ml] 0 ml PO QIDPRN PRN PRN Reason: Mild To Moderate Pain Clotrimazole Cream 30 gm [Lotrimin Cream 30 gm] 0 gm TP BID Polyethylene Glycol 3350 17 gm [Miralax Powder 17GM PACKET] 17 gm PO QDP PRN #0 pkt PRN Reason: Constipation Lactobacillus Acidophilus [Acidophilus TABLET] 1 tab PO DAILY 30 Days #30 tablet levoFLOXacin [Levofloxacin] 750 mg PO DAILY 10 Days #10 tablet Metronidazole 500 mg [Flagyl 500 MG] 500 mg PO TID 10 Days #30 tablet Ondansetron ODT 4 MG [Zofran Odt 4 mg] 4 mg PO Q6HPRN PRN #30 tab PRN Reason: Nausea Continue Potassium Chloride [Klor-Con M20] 20 meq PO BID Hydroxychloroquine Sulfate [Plaquenil] 200 mg PO BID Bisoprolol/Hydrochlorothiazide [Bisoprolol-Hctz 10-6.25 mg Tab] 1 tab PO DAILY Pramipexole Di-HCl [Pramipexole Dihydrochloride] 0.5 mg PO TID Instructions: Ringworm, athlete's foot, and jock itch, Irritable bowel syndrome, Diverticulosis (DC), Diet for inflammatory bowel disease in adults Additional Instructions: Pt will need appointment with oncology- Dr. Chan for low platelets.- half-way to call and make appointment. Forms: Discharge Instructions, Transfer Record Skilled Nursing
[2024-01-26 12:01] VITALS: BP 131/77; PULSE 58; TEMP 98; O2SAT 93
== END 2024-01-26 11:50 ==
LOC: ED 15:47 → MED SURG 21:02
PROVIDERS: ADMIT Internal Medicine; ATTEND Internal Medicine
DX: K57.92 Diverticulitis of intestine, part unspecified, without perforation or abscess without bleeding (principal); B35.4 Tinea corporis; R41.0 Disorientation, unspecified; R16.1 Splenomegaly, not elsewhere classified; I10 Essential (primary) hypertension; R79.81 Abnormal blood-gas level; E66.9 Obesity, unspecified; D69.6 Thrombocytopenia, unspecified; F32.A Depression, unspecified; K59.00 Constipation, unspecified; Z79.899 Other long term (current) drug therapy
CPT/HCPCS: 36000; 36415; 74176; 80048; 80053; 81001; 82150; 83690; 84439; 84443; 85025; 85027; 86308; 87045; 87046; 87086; 87427; 87493; 97162; 99284; G0378; P9612; Q3014; J1650; J2405; A9270-GY

== ENCOUNTER 2024-08-23 20:36 | Emergency (ER) | payer MEDICARE, OTHER ==
[2024-08-23] MEDS ORDERED: Zofran 4 MG/2 ML VIAL ONE (21:04)
[2024-08-23 21:05] VITALS: TEMP 97.8
--- NOTE | 2024-08-23 21:21 | ERPHSYRPT ---
- History of Present Illness Historian: patient Exam Limitations: no limitations Patient Subjective Stated Complaint: pt c/o vomiting that has been going on all day. pt states that her chest has been hurting for 3 hours, and the pain is in her abdomen, right arm and it is starting to radiate down legs. Triage Nursing Assessment: pt continually crying and verbalizing about how bad all her pain is. pt is crying and unable to stop. 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 pt has a anti-wander bracelet on rt ankle. pt cannot answer questions due to verbalizing about pain. Physician History: Patient has been vomiting. She now has some chest pain I believe is coming from around her esophagus area. She also has some epigastric pain. Nothing really makes his symptoms better or worse. She is thrown up a few times today.Patient is not in any distress but she is complaining of pain. She cannot really describe it. It has been going on for about 4 5 hours now. Nothing really seems to make the symptoms better or worse. She has not had any diarrhea but has had nausea and vomiting. Allergies/Adverse Reactions: No Known Drug Allergies Allergy (Verified 01/23/24 21:52) Home Medications: Bisoprolol/Hydrochlorothiazide [Bisoprolol-Hctz 10-6.25 mg Tab] 1 tab PO DAILY 01/23/24 [History] Hydroxychloroquine Sulfate [Plaquenil] 200 mg PO BID 01/23/24 [History] Potassium Chloride [Klor-Con M20] 20 meq PO BID 01/23/24 [History] Pramipexole Di-HCl [Pramipexole Dihydrochloride] 0.5 mg PO TID 01/23/24 [History] Hx Tetanus, Diphtheria Vaccination/Date Given: No Hx Influenza Vaccination/Date Given: Yes Hx Pneumococcal Vaccination/Date Given: Yes Immunizations Up to Date: Yes Travel Risk - International Travel Have you traveled outside of the country in past 3 weeks: No - Emerging Infectious Disease Are you exhibiting symptoms associated with any current EIDs: No - Review of Systems Constitutional: No Symptoms Eyes: No Symptoms Abdominal/Gastrointestinal: No Symptoms, Abdominal Pain Skin: No Symptoms All Other Systems: Reviewed and Negative - Past Medical History Pertinent Past Medical History: Yes Neurological History: Other ENT History: No Pertinent History Cardiac History: No Pertinent History Respiratory History: No Pertinent History Endocrine Medical History: No Pertinent History Musculoskeletal History: No Pertinent History GI Medical History: Colitis, Other History: No Pertinent History, Other Psycho-Social History: Depression Female Reproductive Disorders: No Pertinent History Other Medical History: PMHX - SPLENOMEGALY, FX RIGHT FOREARM (CASTED). IBS. PATIENT WITH MULTIPLE SKIN PLAQUES ESPECIALLY ELBOWS AND KNEES - STATES HAS HAD IT FOR YEARS. APPEARANCE IS SIMILAR TO PSORIASIS BUT STATES HASN'T BEEN D IAGNOSED. SX HX: CHOLECYSTECTOMY, gastritis and hiatal hernia 2023. P STATES SHE HAS "LIVER PROBLEMS" BUT UNSURE WHAT KIND - Past Surgical History Past Surgical History: Yes Neuro Surgical History: No Pertinent History Cardiac: No Pertinent History Respiratory: No Pertinent History Gastrointestinal: Cholecystectomy, Hernia Repair Genitourinary: Other Musculoskeletal: Other Female Surgical History: Lumpectomy, Tubal Ligation Other Surgical History: Kidney Stones. R knee scope Significant Family History: no pertinent family hx - Social History Smoking Status: Never smoker Exposure to second hand smoke: No Drug Use: none - Social Determinants of Health Will the patient participate in the screening: Declined to provide Comment: pt lives at the [facility] Signs Nursing Vital Signs: Initial Vital Signs Temperature 97.8 F 08/23/24 20:45 Pulse Rate 58 L 08/23/24 20:45 Respiratory Rate 22 08/23/24 20:45 Blood Pressure 117/67 08/23/24 20:45 O2 Sat by Pulse Oximetry 99 08/23/24 20:45 Pain Scale Pain Intensity 6 - Physical Exam General Appearance: no apparent distress Eye Exam: PERRL/EOMI Respiratory Exam: normal breath sounds, lungs clear, No chest tenderness Cardiovascular Exam: regular rate/rhythm Gastrointestinal/Abdomen Exam: soft, normal bowel sounds, tenderness, other (Patient has tenderness in her upper abdomen area. Her belly is nice and soft though it does not appear to be any kind of surgical or acute abdomen.) SpO2: 99 - Course EKG Interpreted by Me: RATE, NORMAL AXIS, NORMAL INTERVALS, NORMAL QRS Ordered Tests: Active Orders 24 hr Category Date Time Status EKG-ER Only STAT Care 08/23/24 21:19 Active ABDOMEN AND PELVIS W CONTRAST [CT] Stat Exams 08/24/24 00:20 Taken CHEST 1 VIEW (PORTABLE) Stat Exams 08/23/24 21:19 Taken CBC Q48H Lab 08/24/24 06:00 Ordered CBC Q48H Lab 08/26/24 06:00 Ordered CBC Q48H Lab 08/28/24 06:00 Ordered CBC Q48H Lab 08/30/24 07:00 Ordered CBC Q48H Lab 09/01/24 07:00 Ordered CBC Q48H Lab 09/03/24 07:00 Ordered CBC Q48H Lab 09/05/24 07:00 Ordered CBC W DIFF Stat Lab 08/23/24 21:25 Completed CMP Stat Lab 08/23/24 21:25 Completed LIPASE Stat Lab 08/23/24 21:25 Completed PROTIME WITH INR Stat Lab 08/23/24 21:25 Completed PTT Q4H Lab 08/24/24 01:27 Completed PTT Q4H Lab 08/24/24 06:45 Ordered PTT Q4H Lab 08/24/24 10:45 Ordered PTT Q4H Lab 08/24/24 14:45 Ordered PTT Q4H Lab 08/24/24 18:45 Ordered PTT Q4H Lab 08/24/24 22:45 Ordered PTT Q4H Lab 08/25/24 02:45 Ordered PTT Q4H Lab 08/25/24 06:45 Ordered PTT Q4H Lab 08/25/24 10:45 Ordered PTT Q4H Lab 08/25/24 14:45 Ordered PTT Q4H Lab 08/25/24 18:45 Ordered PTT Stat Lab 08/23/24 21:25 Completed TROPONIN Q4H Lab 08/23/24 21:25 Completed TROPONIN Q4H Lab 08/24/24 01:27 Received TROPONIN Q4H Lab 08/24/24 05:30 Ordered Medication Summary Generic Name Dose Route Start Last Admin Trade Name Addiq PRN Reason Stop Dose Admin Heparin Sodium/Dextrose 25,000 units in 250 mls @ 9.48 mls/hr 08/23/24 23:00 08/23/24 23:27 Heparin 25,000 Units/D5w: Use Order Set Yane IV 09/22/24 22:59 12 units/kg/hr .Q24H TAMANNA 9.48 mls/hr Administration Protocol 12 UNITS/KG/HR Nitroglycerin/Dextrose 250 mls @ 1.5 mls/hr 08/23/24 23:07 08/23/24 23:48 Ntg 0.2mg/Ml In D5w Glass IV 04/01/25 23:06 10 mcg/min .Q24H PRN 3 mls/hr CHEST PAIN Titration Protocol 5 MCG/MIN Discontinued Medications Generic Name Dose Route Start Last Admin Trade Name Addiq PRN Reason Stop Dose Admin Aspirin 324 mg 08/23/24 23:07 08/23/24 23:26 Aspirin 81 Mg Tab.Chew PO 08/23/24 23:08 324 mg STAT ONE Administration Aspirin Confirm 08/23/24 23:17 Aspirin 81 Mg Tab.Chew Administered 08/23/24 23:18 Dose 324 mg .ROUTE .STK-MED ONE Heparin Sodium (Beef Lung) 4,700 unit 08/23/24 22:36 08/23/24 23:26 Heparin 5000 Units/0.5 Ml 5,000 Unit/0.5 Ml Syr 60 unit/kg (4700 unit) 08/23/24 22:37 4,700 unit IV Administration STAT STA Heparin Sodium (Beef Lung) Confirm 08/23/24 23:17 Heparin 5000 Units/0.5 Ml 5,000 Unit/0.5 Ml Syr Administered 08/23/24 23:18 Dose 5,000 unit .ROUTE .STK-MED ONE Morphine Sulfate 4 mg 08/23/24 21:17 08/23/24 21:35 Morphine Sulfate 10 Mg/Ml Injection IV 08/23/24 21:18 4 mg STAT ONE Administration Morphine Sulfate Confirm 08/23/24 21:30 Morphine Sulfate 4 Mg/Ml Injection Administered 08/23/24 21:31 Dose 4 mg .ROUTE .STK-MED ONE Morphine Sulfate Confirm 08/23/24 21:32 Morphine Sulfate 10 Mg/Ml Injection Administered 08/23/24 21:33 Dose 10 mg .ROUTE .STK-MED ONE Ondansetron HCl Confirm 08/23/24 21:04 Ondansetron Hcl 4 Mg/2 Ml Vial Administered 08/23/24 21:05 Dose 4 mg .ROUTE .STK-MED ONE Ondansetron HCl 4 mg 08/23/24 21:16 08/23/24 21:35 Ondansetron Hcl 4 Mg/2 Ml Vial IV 08/23/24 21:17 4 mg STAT ONE Administration Lab/Rad Data: Laboratory Result Diagrams 08/23/24 21:25 08/23/24 21:25 Laboratory Results 08/24/24 08/23/24 08/23/24 Range/Units 01:27 21:25 21:25 WBC (3.98-10.04) x10^3/uL RBC (3.93-5.22) x10^6/uL Hgb (11.2-15.7) g/dL Hct (34.1-44.9) % MCV (79.4-94.8) fL MCH (25.6-32.2) pg MCHC (32.2-35.5) g/dL RDW (11.7-14.4) % Plt Count (182-369) x10^3/uL MPV (9.4-12.3) fL Gran % (34.0-71.1) % Immature Gran % (Auto) (0.001-0.429) % Nucleat RBC Rel Count (0.00-0.2) % Eos # (Auto) (0.04-0.36) x10^3/uL Immature Gran # (Auto) (0.001-0.031) x10^3u/L Absolute Lymphs (auto) (1.18-3.74) x10^3/uL Absolute Monos (auto) (0.24-0.86) x10^3/uL Absolute Nucleated RBC (0.00-0.012) x10^3u/L Lymphocytes % (19.3-51.7) % Monocytes % (4.7-12.5) % Eosinophils % (0.7-5.8) % Basophils % (0.1-1.2) % Absolute Granulocytes (1.56-6.13) x10^3/uL Basophils # (0.01-0.08) x10^3/uL PT 10.7 (9.4-12.5) SECONDS INR 0.98 (0.8-3.0) APTT > 139.0 H* 24.2 L (25.1-36.5) SECONDS Sodium (135-145) mmol/L Potassium (3.5-5.1) mmol/L Chloride (98-107) mmol/L Carbon Dioxide (22-30) mmol/L Anion Gap (5-15) MEQ/L BUN (7-17) mg/dL Creatinine (0.52-1.04) mg/dL Estimated GFR ML/MIN Glucose (74-106) mg/dL Calcium (8.4-10.2) mg/dL Total Bilirubin (0.2-1.3) mg/dL AST (14-36) U/L ALT (0-35) U/L Alkaline Phosphatase (38-126) U/L Troponin I 0.445 H* (0.000-0.033) ng/mL Serum Total Protein (6.3-8.2) g/dL Albumin (3.5-5.0) g/dL Lipase (23-300) U/L 08/23/24 08/23/24 Range/Units 21:25 21:25 WBC 7.9 (3.98-10.04) x10^3/uL RBC 4.10 (3.93-5.22) x10^6/uL Hgb 12.6 (11.2-15.7) g/dL Hct 37.8 (34.1-44.9) % MCV 92.2 (79.4-94.8) fL MCH 30.7 (25.6-32.2) pg MCHC 33.3 (32.2-35.5) g/dL RDW 14.3 (11.7-14.4) % Plt Count 198 (182-369) x10^3/uL MPV 10.2 (9.4-12.3) fL Gran % 63.4 (34.0-71.1) % Immature Gran % (Auto) 0.3 (0.001-0.429) % Nucleat RBC Rel Count 0.0 (0.00-0.2) % Eos # (Auto) 0.47 H (0.04-0.36) x10^3/uL Immature Gran # (Auto) 0.02 (0.001-0.031) x10^3u/L Absolute Lymphs (auto) 1.68 (1.18-3.74) x10^3/uL Absolute Monos (auto) 0.65 (0.24-0.86) x10^3/uL Absolute Nucleated RBC 0.00 (0.00-0.012) x10^3u/L Lymphocytes % 21.4 (19.3-51.7) % Monocytes % 8.3 (4.7-12.5) % Eosinophils % 6.0 H (0.7-5.8) % Basophils % 0.6 (0.1-1.2) % Absolute Granulocytes 4.98 (1.56-6.13) x10^3/uL Basophils # 0.05 (0.01-0.08) x10^3/uL PT (9.4-12.5) SECONDS INR (0.8-3.0) APTT (25.1-36.5) SECONDS Sodium 137 (135-145) mmol/L Potassium 3.8 (3.5-5.1) mmol/L Chloride 102 (98-107) mmol/L Carbon Dioxide 23 (22-30) mmol/L Anion Gap 16.2 H (5-15) MEQ/L BUN 14 (7-17) mg/dL Creatinine 0.73 (0.52-1.04) mg/dL Estimated GFR 90.6 ML/MIN Glucose 105 (74-106) mg/dL Calcium 9.3 (8.4-10.2) mg/dL Total Bilirubin 0.60 (0.2-1.3) mg/dL AST 35 (14-36) U/L ALT 20 (0-35) U/L Alkaline Phosphatase 94 (38-126) U/L Troponin I (0.000-0.033) ng/mL Serum Total Protein 6.9 (6.3-8.2) g/dL Albumin 3.9 (3.5-5.0) g/dL Lipase 120 (23-300) U/L - Progress Progress Note: 08/23/24 23:00 On the differential diagnosis was cholecystitis, GERD, gastroenteritis, Also could be a atypical presentation for ACS.The patient did not have any abnormalities on her EKG. As interpreted by me independently. Is normal sinus rhythm no acute ST or T changes and no axis deviation. Her troponin did come back elevated. I am going to go ahead and start her on heparin drip. She may have an NSTEMI.The patient's pain returns ongoing to start her on a nitro drip.A repeat EKG was done which showed no acute changes. There is normal sinus rhythm no axis deviation and no ST or T changes. I spoke with the letter carrier at [facility]. She agreed to accept the patient in transfer. We ordered a abdominal CT.Those results are pending right now.A second troponin came back significantlyElevated. It was 26. 08/23/24 23:06 08/23/24 23:40 08/24/24 02:16 08/24/24 02:18 Medical Desision Making - Discussion of managment Care discussed with:: specialist ([employer] at [facility]) Reviewed:: Test results Agreed on:: Treatment plan Will see patient: in hospital - Diagnostic Testing Diagnostic test were ordered, analyzed, and reviewed by me: Yes Radiological Interpretation: Interpreted by me - Risk of complications Minimal Risk: Minimal risk of morbidity - Departure Departure Disposition: Transfer Clinical Impression: NSTEMI (non-ST elevated myocardial infarction) Condition: Good Critical Care Time: No Referrals: MARK HALL MD [Primary Care Provider] - Follow up/PCP as directed
[2024-08-23 21:28] LABS: Absolute Neutrophil Ct (ANC) 4.98 x10^3/uL (1.56-6.13); BASOPHIL % 0.6 % (0.1-1.2); Basophil (Absolute #) 0.05 x10^3/uL (0.01-0.08); Eosinophil (Absolute #) 0.47 x10^3/uL (0.04-0.36); Hematocrit 37.8 % (34.1-44.9); Hemoglobin 12.6 g/dL (11.2-15.7); IMMATURE GRAN # 0.02 x10^3u/L (0.001-0.031); IMMATURE GRAN % 0.3 % (0.001-0.429); Lymphocyte (Absolute #) 1.68 x10^3/uL (1.18-3.74); Lymphocytes % 21.4 % (19.3-51.7); Mean Cell Volume 92.2 fL (79.4-94.8); Mean Corpuscular Hemoglobin 30.7 pg (25.6-32.2); Mean Corpuscular Hgb Concent. 33.3 g/dL (32.2-35.5); Mean Platelet Volume 10.2 fL (9.4-12.3); Monocyte (Absolute #) 0.65 x10^3/uL (0.24-0.86); Monocytes % 8.3 % (4.7-12.5); Neutrophil % 63.4 % (34.0-71.1); Platelet Count 198 x10^3/uL (182-369); Red Cell Distribution Width 14.3 % (11.7-14.4); White Blood Count 7.9 x10^3/uL (3.98-10.04)
[2024-08-23] MEDS ORDERED: MORPHINE SULFATE 4 MG INJ ONE (21:30)
[2024-08-23] MEDS ORDERED: MORPHINE SULFATE 10 MG/ML ONE (21:32)
[2024-08-23] MEDS: MORPHINE SULFATE 10 MG/ML IV ONE (21:35)
[2024-08-23] MEDS: Zofran 4 MG/2 ML VIAL IV ONE (21:35)
[2024-08-23 21:47] LABS: ALBUMIN 3.9 g/dL (3.5-5.0); ANION GAP 16.2 MEQ/L (5-15); BILIRUBIN,TOTAL 0.6 mg/dL (0.2-1.3); Calcium 9.3 mg/dL (8.4-10.2); Creatinine 1 0.73 mg/dL (0.52-1.04); EST GLOMERULAR FILTRATION RATE 90.6 ML/MIN; Potassium 3.8 mmol/L (3.5-5.1); Total Protein 6.9 g/dL (6.3-8.2)
[2024-08-23 22:55] LABS: INR 0.98 (0.8-3.0); PROTIME 10.7 SECONDS (9.4-12.5); PTT 24.2 SECONDS (25.1-36.5)
[2024-08-23] MEDS ORDERED: HEPARIN 5000 UNITS/0.5 ML (HIGH RISK MED) ONE (23:17)
[2024-08-23] MEDS ORDERED: BABY ASPIRIN 81 MG CHEW ONE (23:17)
[2024-08-23] MEDS ORDERED: Heparin 25,000 units/D5W: USE ORDER SET PROTO 25,000 UNITS/250 ML BAG IV ONE (23:17)
[2024-08-23] MEDS ORDERED: Ntg 0.2MG/Ml in D5W GLASS*** 250 ML IV ONE (23:18)
[2024-08-23] MEDS: HEPARIN 5000 UNITS/0.5 ML (HIGH RISK MED) IV STA (23:26)
[2024-08-23] MEDS: BABY ASPIRIN 81 MG CHEW PO ONE (23:26)
[2024-08-23] MEDS: Heparin 25,000 units/D5W: USE ORDER SET PROTO 25,000 UNITS/250 ML BAG IV SCH (23:27)
[2024-08-23] MEDS: Ntg 0.2MG/Ml in D5W GLASS*** 250 ML IV PRN (23:28)
--- NOTE | 2024-08-24 02:41 | XRAY ---
CLINICAL HISTORY: abd pain COMPARISON: 19 JUN 2024 TECHNIQUE: Contiguous axial images were obtained from the level of the diaphragm to the pubic symphysis with intravenous contrast. Coronal and sagittal reconstructions were likewise performed and indicated to increase the sensitivity for detecting clinically relevant pathology. If IV contrast material had not been administered, the likelihood of detecting abnormalities relevant to the patient's condition would have been substantially decreased. CT scan was performed according to ALARA (as low as reasonable achievable). FINDINGS: The visualized lung bases are clear. The liver is normal in size and attenuation. No focal liver lesions are seen. There is no intra or extrahepatic biliary ductal dilatation. Hepatic vasculature is patent. The gallbladder is surgically removed. The spleen, pancreas, and adrenal glands are unremarkable. Few calcified granuloma is noted involving spleen The kidneys are normal in size and attenuation. There is no hydronephrosis or perinephric fat stranding. No renal calculi or renal masses are identified. The ureters are normal in caliber and no ureteral calculi are seen. The bladder is normal in contour. Pelvic viscera are unremarkable. No focal or diffuse bowel wall thickening or evidence of bowel obstruction is identified. The appendix is visualized in the right lower quadrant and appears within normal limits. Abdominal and pelvic vasculature is patent. No adenopathy or fluid collections are seen. No aggressive appearing osseous lesions are identified. Multiple small uncomplicated colonic diverticulosis with subtle fat stranding is noted adjacent to the sigmoid colon- possibility of mild diverticulitis. IMPRESSION: 1. Multiple small uncomplicated colonic diverticulosis with subtle fat stranding is noted adjacent to the sigmoid colon- possibility of mild diverticulitis.-stable. 2. Few calcified granuloma is noted involving spleen-stable. Electronically Signed by: Toni Lowry MD. (08/24/2024 02:37:12 EST)
[2024-08-24 04:03] VITALS: BP 99/54; PULSE 52; RESP 15; O2SAT 96
--- NOTE | 2024-08-24 08:53 | XRAY ---
Indication: Chest pain. Comparison: December 19, 2023 Portable chest again demonstrates minimal left mid lung and new right infrahilar subsegmental atelectasis/scarring. Remaining heart and lungs unremarkable. Bony thorax intact again with osteopenia, cervical fusion hardware, and right axilla nehemias dissection. No acute findings.
== END 2024-08-24 04:20 | disposition short-term general hospital (02) ==
LOC: ED 20:36
DX: I21.4 Non-ST elevation (NSTEMI) myocardial infarction (principal); R11.2 Nausea with vomiting, unspecified; R07.9 Chest pain, unspecified; Z79.899 Other long term (current) drug therapy
CPT/HCPCS: 36415; 71045; 74177; 80053; 83690; 84484; 85025; 85610; 85730; 93005; 96365; 96366; 96368; 96374; 96375; 99285; J1644; J2270; J2405; A9270-GY